=== PATIENT | male | born 1930 | race Caucasian/White ===

== ENCOUNTER → 2017-10-09 | Outpatient (CLI) | payer OTHER, MEDICARE | LOC: BHLMT 09:00 | PROVIDERS: ATTEND Internal Medicine Cardiovascular Disease | DX: I48.91 Unspecified atrial fibrillation (principal); I48.92 Unspecified atrial flutter; I25.10 Atherosclerotic heart disease of native coronary artery without angina pectoris; Z95.5 Presence of coronary angioplasty implant and graft | CPT/HCPCS: 78452; 93017; A9500; J2785 ==

== ENCOUNTER → 2017-11-22 | Outpatient (CLI) | payer OTHER, MEDICARE | LOC: BHLMT 10:00 | PROVIDERS: ATTEND Internal Medicine Cardiovascular Disease | DX: I48.91 Unspecified atrial fibrillation (principal); I48.92 Unspecified atrial flutter; E78.5 Hyperlipidemia, unspecified; I25.10 Atherosclerotic heart disease of native coronary artery without angina pectoris; Z95.5 Presence of coronary angioplasty implant and graft; Z95.0 Presence of cardiac pacemaker | CPT/HCPCS: 93005-PO ==

== ENCOUNTER 2017-11-27 11:32 | Day surgery (SDC) | payer OTHER, MEDICARE ==
[2017-11-27] MEDS ORDERED: MIDAZOLAM 2 MG/2 ML VIAL IVP ONE (11:37)
[2017-11-27] MEDS ORDERED: fentaNYL 100 MCG/2 ML INJ IVP ONE (11:37)
[2017-11-27] MEDS ORDERED: NS 500 ML IV ONE (11:37)
[2017-11-27] MEDS ORDERED: ATROPINE SULFATE 1 MG/10 ML SYR IVP ONE (11:37)
--- NOTE | 2017-11-27 11:56 | CPEKG ---
Heart Rate: 78 RR Interval: 769 QRSD Interval: 88 QT Interval: 404 QTC Interval: 461 QRS [place]: 56 T Wave [place]: 196 EKG Severity - ABNORMAL ECG - EKG Impression: ATRIAL FIBRILLATION EKG Impression: NONSPECIFIC T ABNORMALITIES, LATERAL LEADS Electronically Signed By: Riley Toro 27-Nov-2017 15:54:38
[2017-11-27 12:22] LABS: INR 2.86 (0.83-1.16); PROTIME(PATIENT) 29.9 SEC (12.0-15.0)
[2017-11-27] MEDS ORDERED: PROPOFOL 200 MG/20 ML VIAL ONE (13:27)
[2017-11-27] MEDS ORDERED: PROMETHAZINE HCL 25 MG/ML INJ IVP PRN (13:31)
[2017-11-27] MEDS ORDERED: NALOXONE HCL 0.4 MG/ML INJ IVP PRN (13:31)
[2017-11-27] MEDS ORDERED: fentaNYL 100 MCG/2 ML INJ IVP PRN (13:31)
[2017-11-27] MEDS ORDERED: ONDANSETRON 4 MG/2 ML VIAL IVP PRN (13:31)
--- NOTE | 2017-11-27 13:31 | PDANEPAE ---
ANE Past Medical History - Cardiovascular History Hx Hypertension: Yes Hx Arrhythmias: Yes Hx Coronary Artery / Peripheral Vascular Disease: Yes Hx Palpitations: Yes - Pulmonary History Hx Oxygen in Use at Home: No Hx Sleep Apnea: No - Endocrine History Hx Diabetes: No - Chronic Pain History Chronic Pain: No ANE Review of Systems Review of Systems: - Exercise capacity METS (RN): 4 METS ANE Patient History - Allergies Allergies/Adverse Reactions: No Known Allergies Allergy (Unverified 03/20/14 12:59) - Home Medications Home Medications: Aspirin [Aspirin 81mg (*)] 81 mg PO DAILY 03/20/14 [Last Taken 05/17/16] Hydrochlorothiazide [HCTZ (*)] 25 mg PO DAILY 03/20/14 [Last Taken 05/16/16] Lisinopril [Zestril 20 mg (*)] 20 mg PO DAILY 03/20/14 [Last Taken 05/17/16] Cholecalciferol Vit D3 [Vitamin D3 (*)] 1,000 units PO DAILY 05/17/16 [Last Taken Unknown] Herbals/Supplements -Info Only 1 ea PO DAILY 05/17/16 [Last Taken Unknown] Nitroglycerin [Nitrostat 0.4 mg (*)] 0.4 mg SL Q5M PRN 05/17/16 [Last Taken Unknown] Rivaroxaban [Xarelto 15mg (*)] 15 mg PO DAILY 05/17/16 [Last Taken 05/14/16] Simvastatin [Zocor] 20 mg PO HS 05/17/16 [Last Taken 05/16/16] Vit A/Vit C/Vit E/Zinc/Copper [Preservision Areds Tablet] 1 each PO DAILY [Last Taken Unknown] - Anes Hx Anes Hx: no prior problems - Smoking Hx Smoking Status: Never smoked ANE Labs/Vital Signs - Labs Result Diagrams: 11/27/17 12:00 - Vital Signs Height: 170 cm Weight: 77.1 kg ANE Physical Exam - Airway Neck exam: FROM Mallampati Score: Class 2 Mouth exam: normal dental/mouth exam - Pulmonary Pulmonary: no respiratory distress, no rales or rhonchi, clear to auscultation - Cardiovascular Cardiovascular: irregularly irregular - ASA Status ASA Status: III ANE Anesthesia Plan Anesthesia Plan: GA with mask
--- NOTE | 2017-11-27 13:51 | PDHPUP ---
History & Physical Update H&P update statement: This history and physical update is based on an assessment of the patient which was completed after admission or registration (within 24 hours), but prior to the surgery/procedure. H&P update: H&P reviewed & patient examined, no change in patient's condition since H&P completed
--- NOTE | 2017-11-27 14:06 | CPEKG ---
Heart Rate: 55 RR Interval: 1091 P-R Interval: 304 QRSD Interval: 94 QT Interval: 468 QTC Interval: 448 P [place]: 17 QRS [place]: 38 T Wave [place]: 101 EKG Severity - ABNORMAL ECG - EKG Impression: SINUS RHYTHM EKG Impression: FIRST DEGREE AV BLOCK EKG Impression: NONSPECIFIC T ABNORMALITIES, LATERAL LEADS Electronically Signed By: Riley Toro 27-Nov-2017 15:54:32
--- NOTE | 2017-11-27 14:09 | POSTANESTH ---
Post Anesthetic Evaluation Cardiovascular Status: Normal, Stable Respiratory Status: Normal, Stable, Similar to Pre-op Cond. Level of Consciousness/Mental Status: Can Participate in Eval, Alert and Oriented Pain Control: Adequate, Prn Tx Ordered Nausea/Vomiting Control: Adequate, Prn Tx Ordered Complications Possibly Related to Anesthesia: None Noted
--- NOTE | 2017-11-27 14:14 | PDTEE1 ---
HAILEE Cardioversion Procedure Procedure: electrical cardioversion Indications: atrial fibrillation Consent: signed and in chart Anticoagulation: xarelto Procedural Details: Pads were placed in anterior-posterior position. HAILEE probe was advanced and standard images obtained. There is no evidence of left atrial or left atrial appendage thrombus. Synchronized cardioversion attempt #1: 200J Results: normal sinus rhythm Conclusions: successful cardioversion Conclusion Comment: HAILEE not performed.
[2017-11-27 15:42] VITALS: BP 115/81; RESP 17; O2SAT 96
== END 2017-11-27 15:00 | disposition home or self-care (01) ==
LOC: FCATH 11:32
PROVIDERS: ATTEND Internal Medicine Cardiovascular Disease
PROC: 5A2204Z Restoration of Cardiac Rhythm, Single (ICD-10-PCS; principal; 2017-11-27)
DX: I48.91 Unspecified atrial fibrillation (principal); I48.92 Unspecified atrial flutter; D50.9 Iron deficiency anemia, unspecified; I49.5 Sick sinus syndrome; I25.10 Atherosclerotic heart disease of native coronary artery without angina pectoris; I10 Essential (primary) hypertension; E78.5 Hyperlipidemia, unspecified; Z95.0 Presence of cardiac pacemaker; Z79.01 Long term (current) use of anticoagulants; Z86.010 Personal history of colon polyps; Z82.49 Family history of ischemic heart disease and other diseases of the circulatory system; Z95.5 Presence of coronary angioplasty implant and graft
CPT/HCPCS: J0461; J2704

== ENCOUNTER → 2017-12-04 | Outpatient (CLI) | payer OTHER, MEDICARE | LOC: BHFA 09:00 | PROVIDERS: ATTEND Internal Medicine Cardiovascular Disease | DX: I48.0 Paroxysmal atrial fibrillation (principal); I48.92 Unspecified atrial flutter; I10 Essential (primary) hypertension; I25.10 Atherosclerotic heart disease of native coronary artery without angina pectoris; E78.5 Hyperlipidemia, unspecified; Z95.5 Presence of coronary angioplasty implant and graft; N18.9 Chronic kidney disease, unspecified | CPT/HCPCS: 93005-PO ==

== ENCOUNTER → 2017-12-08 | Outpatient (CLI) | payer OTHER, MEDICARE | LOC: FIMAGING 08:46 | PROVIDERS: ATTEND Internal Medicine Cardiovascular Disease | DX: J84.10 Pulmonary fibrosis, unspecified (principal); Z79.899 Other long term (current) drug therapy ==

== ENCOUNTER → 2018-03-04 | Outpatient (CLI) | payer OTHER, MEDICARE | LOC: BHLMT 10:30 | PROVIDERS: ATTEND Internal Medicine Cardiovascular Disease | DX: I48.0 Paroxysmal atrial fibrillation (principal); E78.5 Hyperlipidemia, unspecified; I10 Essential (primary) hypertension; I25.10 Atherosclerotic heart disease of native coronary artery without angina pectoris; Z95.5 Presence of coronary angioplasty implant and graft; E87.1 Hypo-osmolality and hyponatremia; R42 Dizziness and giddiness | CPT/HCPCS: 93005-PO ==

== ENCOUNTER 2018-03-19 09:17 | Inpatient (IN) | payer OTHER, MEDICARE ==
--- NOTE | 2018-03-19 09:47 | CPEKG ---
Heart Rate: 64 RR Interval: 938 P-R Interval: 272 QRSD Interval: 88 QT Interval: 468 QTC Interval: 483 P [place]: 43 QRS [place]: 63 T Wave [place]: 264 EKG Severity - ABNORMAL ECG - EKG Impression: SINUS RHYTHM EKG Impression: FIRST DEGREE AV BLOCK EKG Impression: BORDERLINE PROLONGED QT INTERVAL Electronically Signed By: Estrella Nicholson 19-Mar-2018 15:19:38
[2018-03-19 09:58] LABS: PLATELET COUNT 217 10^3/uL (150-400)
--- NOTE | 2018-03-19 09:58 | EDPHY ---
H & P Smoking Status: Never smoked Time Seen by Provider: 03/19/18 09:38 HPI/ROS: CHIEF COMPLAINT: Syncope, hemoptysis HISTORY OF PRESENT ILLNESS: 87-year-old male presents to the emergency department with syncope. Patient states that"my legs just kind of gave out on me". Patient states that he has had weakness in his legs like he does not have the"stamina"for several weeks. He denies pain in his chest or difficulty breathing. Denies abdominal pain. Denies a headache. He does complain of some neck pain which she states is chronic. He denies paresthesias in his upper or lower extremities. The patient also reports episodes of hemoptysis over last several weeks and has become worse especially over last 2 weeks. He does not feel short of breath. He has no pain in his chest. He noted some swelling in his lower legs over the weekend. He denies any pain in his chest or difficulty breathing prior to his fall. Denies injury to the upper or lower extremities. REVIEW OF SYSTEMS: Constitutional: No fever, no chills. Eyes: No double or blurry vision. ENT: No sore throat. Respiratory: Hemoptysis as above. No shortness of breath. Cardiac: No chest pain. Gastrointestinal: No abdominal pain, vomiting or diarrhea. Genitourinary: No dysuria. Musculoskeletal: Neck pain. No back pain. Skin: No rashes. Neurological: No headache. (Megan Tracy) Past Medical/Surgical History: Pacemaker saw pawn broker 2 weeks ago and his pacemaker was interrogated and he was told that it was fine. (Megan Tracy) Social History: and lives independently with his in [place] (Megan Tracy) Physical Exam: General Appearance: Alert, no distress. Mentating normally and answering questions appropriately. His is at bedside. Patient was 76% on room air and was placed on nasal cannula oxygen. Eyes: Pupils equal and round. Extraocular motions are all intact. ENT: Mouth: Mucous membranes moist. Respiratory: No wheezing, rhonchi, or rales, lungs are clear to auscultation. Cardiovascular: Regular rate and rhythm. Gastrointestinal: Abdomen is soft and nontender, no masses, no rebound or guarding, bowel sounds normal. Neurological: Alert and oriented x 3, cranial nerves II through XII grossly intact Skin: Warm and dry, no rashes. Musculoskeletal: Nontender to palpate along the cervical, thoracic or lumbar spine. Neck is supple, however pain with range of motion of his neck. Extremities: 2+ pedal edema noted to the lower extremities bilaterally. Full range of motion of his upper and lower extremities. Psychiatric: Patient is oriented X 3, there is no agitation. (Megan Tracy) Constitutional: Initial Vital Signs Temperature (C) 36.5 C 03/19/18 09:21 Heart Rate 85 03/19/18 09:21 Respiratory Rate 20 03/19/18 09:21 Blood Pressure 135/70 H 03/19/18 09:21 O2 Sat (%) 76 L 03/19/18 09:21 O2 Delivery Mode Nasal Cannula O2 (L/minute) 6 Allergies/Adverse Reactions: No Known Allergies Allergy (Unverified 03/20/14 12:59) Home Medications: Medication Instructions Recorded Aspirin [Aspirin 81mg (*)] 81 mg PO DAILY 03/20/14 Cholecalciferol Vit D3 [Vitamin D3 1,000 units PO DAILY 05/17/16 (*)] Nitroglycerin [Nitrostat 0.4 mg 0.4 mg SL Q5M PRN 05/17/16 (*)] Rivaroxaban [Xarelto 15mg (*)] 15 mg PO DAILY 05/17/16 Simvastatin [Zocor] 20 mg PO DAILY18 05/17/16 Vit A/Vit C/Vit E/Zinc/Copper 1 each PO BID 05/17/16 [Preservision Areds Tablet] Amiodarone HCl [Pacerone (*)] 200 mg PO DAILY18 03/19/18 Ferrous Sulfate [Ferrous Sulf 325 325 mg PO HS 03/19/18 MG (*)] Lisinopril [Zestril 10 mg (*)] 10 mg PO DAILY 03/19/18 Multivitamins [Multivitamin (*)] 1 each PO BID@03/19/18 [place]-3 Fatty Acids [Fish Oil 1000 1,000 mg PO DAILY 03/19/18 mg (*)] Vitamin B Complex [Vitamin B 1 each PO DAILY 03/19/18 Complex (OTC)] Medical Decision Making ED Course/Re-evaluation: 87-year-old male presents to the emergency department after having syncopal episode at home. He reports several week history of hemoptysis that is acutely worse over last 2 weeks. Chest x-ray reveals evidence of pulmonary fibrosis which is chronic for the patient however he has new opacifications. Patient has no pain in his chest. He has no pleuritic chest pain in particular. He does not feel short of breath. Elevated troponin of 0.128. He also has elevated BNP of over 6500. EKG reveals normal sinus rhythm with evidence of first-degree AV block which is chronic compared to previous EKG November 2017. The case was discussed with Dr. Estrella Nicholson, secondary supervising physician, who did not directly evaluate the patient but agrees with treatment and plan. I did speak with Patrica, nurse practitioner with hospitalist and the patient will be admitted to Dr. Maldonado. I inquired about obtaining CT scan of his chest as well as starting aspirin and I will defer to hospitalist for this. The patient is chronically anemic. Hemoglobin is 10.8 and hematocrit is 34%. Creatinine is 1.5. CT imaging of the head and cervical spine was obtained given his history of fall and complaints of neck pain. He has degenerative changes noted in his cervical spine without evidence of acute fracture. He has no intracranial bleeding or skull fractures. Patient will be admitted to the hospitalist, Dr. Jacob Maldonado. (Megan Tracy) Differential Diagnosis: Syncope including but not limited to vasovagal syncope, arrhythmia, dehydration , and blood loss. Head injury including but not limited to concussion, skull fracture, intraparenchymal contusion, subarachnoid, subdural and epidural hematoma. Hemoptysis including but not limited to pulmonary fibrosis, tuberculosis, carcinoma, pneumonitis, pulmonary infection, pulmonary embolism (Megan Tracy ) Other Provider: The patient was evaluated and managed by the Physician Lifeguard. I discussed the patient's presentation and course with the physician early childhood assistant and agree with the evaluation. My co-signature indicates that I have reviewed this chart and I agree with the findings and plan of care as documented. I am the secondary supervising physician. (Estrella Nicholson) - Data Points Laboratory Results: Laboratory Results 03/19/18 09:40 03/19/18 09:40 Medications Given: Acetaminophen (Tylenol) 650 mg PO Q4HRS PRN PRN Reason: Pain, Mild/Fever, Can Take PO Stop: 09/15/18 13:54 Last Admin: 03/19/18 23:57 Dose: 650 mg Amiodarone HCl (Amiodarone Hcl) 200 mg PO DAILY18 CHRISTINA Stop: 09/15/18 17:59 Last Admin: 03/20/18 17:48 Dose: 200 mg Aspirin (Aspirin) 81 mg PO DAILY CHRISTINA Stop: 09/16/18 08:59 Last Admin: 03/22/18 08:52 Dose: 81 mg Atorvastatin Calcium (Lipitor) 10 mg PO DAILY18 CHRISTINA Stop: 09/15/18 17:59 Last Admin: 03/22/18 18:42 Dose: 10 mg Cholecalciferol (Vitamin D) 1,000 units PO DAILY CHRISTINA Stop: 09/16/18 08:59 Last Admin: 03/23/18 07:53 Dose: Not Given Ferrous Sulfate (Ferrous Sulfate) 325 mg PO HS CHRISTINA Stop: 09/15/18 20:59 Last Admin: 03/22/18 20:39 Dose: 325 mg Sodium Chloride (Ns) 500 mls @ 25 mls/hr IV ONCALL ONE Stop: 03/24/18 06:52 Last Admin: 03/23/18 13:17 Dose: Not Given Lisinopril (Zestril) 10 mg PO DAILY CHRISTINA Stop: 09/16/18 08:59 Last Admin: 03/23/18 08:19 Dose: 10 mg Multivitamins (Tab-A-Maddie) 1 each PO BID@09,12 CHRISTINA Stop: 09/16/18 08:59 Last Admin: 03/23/18 12:03 Dose: Not Given Multivitamins/Minerals (Preservision Areds2 Formula) 1 each PO BID CHRISTINA Stop: 09/16/18 08:59 Last Admin: 03/23/18 07:54 Dose: Not Given [id number]-3-Gzdr Ethyl Esters (Fish Oil) 1,000 mg PO DAILY CHRISTINA Stop: 09/16/18 08:59 Last Admin: 03/22/18 19:29 Dose: Not Given Rivaroxaban (Xarelto) 15 mg PO DAILY CHRISTINA Stop: 09/16/18 08:59 Last Admin: 03/21/18 08:38 Dose: 15 mg Vitamin B Complex (Vitamin B Complex) 1 ea PO DAILY CHRISTINA Stop: 09/16/18 08:59 Last Admin: 03/23/18 07:54 Dose: Not Given Discontinued Medications Furosemide (Lasix Injection) 40 mg IVP ONCE ONE Stop: 03/19/18 17:46 Last Admin: 03/19/18 17:45 Dose: 40 mg Furosemide (Lasix) 20 mg PO ONCE ONE Stop: 03/20/18 11:36 Last Admin: 03/20/18 12:11 Dose: 20 mg Furosemide (Lasix) 20 mg PO ONCE ONE Stop: 03/21/18 10:34 Last Admin: 03/21/18 11:48 Dose: 20 mg Multivitamins/Minerals (Preservision Areds2 Formula) 1 each PO BID@0900,1200 [facility] Stop: 09/16/18 08:59 Last Admin: 03/20/18 13:27 Dose: Not Given Vitamin B Complex (Vitamin B Complex) 1 ea PO BID@09,12 [facility] Stop: 09/16/18 08:59 Last Admin: 03/20/18 13:27 Dose: Not Given Departure - Departure Disposition: [facility] Inpatient Acute Clinical Impression: Hemoptysis, Elevated troponin Syncope Qualifiers: Syncope type: unspecified Qualified Code(s): R55 - Syncope and collapse Condition: Good
[2018-03-19 10:36] LABS: INR 3.94 (0.83-1.16); PROTIME(PATIENT) 38.2 SEC (12.0-15.0)
[2018-03-19] MEDS ORDERED: NITROGLYCERIN 0.4 MG BTL SL PRN (13:15)
[2018-03-19] MEDS ORDERED: FUROSEMIDE 40 MG/4 ML VIAL IVP ONE ×2 (13:49→17:45)
[2018-03-19] MEDS ORDERED: ONDANSETRON 4 MG/2 ML VIAL IVP PRN (13:55)
[2018-03-19] MEDS ORDERED: ONDANSETRON DISINTEGRATING 4 MG TAB PO PRN (13:55)
--- NOTE | 2018-03-19 14:10 | PDGENHP ---
History and Physical History and Physical: CC: Syncope HISTORY: This patient went to bed feeling reasonably well last night. He woke up this morning and did not notice any acute issues since yesterday, but after being up and about on his feet for 4 min his leg suddenly became very weak and buckled under him. He fell to the floor and had trouble for a few minutes getting back up due to perceived weakness in both legs. Eventually however he was able to get back up and has been able to walk around since. He does not have any pain to suggest injury including no headache, acute neurologic symptoms , spine related symptoms, peripheral nerve symptoms, or skeletal pain. At this point he feels back to his usual self however his usual symptoms have changed recently. He states that around 3 weeks ago he started having gradually worsening dyspnea which continues to slowly worsen. He also has had for a couple weeks some mild hemoptysis and also in the last 3 days has started to have some swelling in his legs. He denies any angina, pleuritic pain, or other chest pain syndrome. There is no pain in the legs. There is no fever and no upper respiratory type symptoms. Notably the patient had been taking hydrochlorothiazide for chronic heart disease and blood pressure, but this was discontinued around 3 weeks ago. Looking back in his chart it is possible that this was stopped because of kidney issues but he is unclear why it was stopped. There was Dr. Toro who had stopped the medicine. ROS: He has his usual symptoms of arthritis, back pain, and he is chronically dyspneic at home with known pulmonary fibrosis. 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 Retired No current tobacco use, no alcohol use Generally speaking does not have balance or fall issues MEDICATIONS: S mention above he was taken off hydrochlorothiazide around 3 weeks ago. He does take rivaroxaban, amiodarone, lisinopril, Lipitor and aspirin among other medicines. I have reviewed the official reconciled list and ordered appropriate medicines at this time PHYSICAL EXAMINATION: Vital Signs: Some hypertension is present here today, otherwise he is in a stable sinus rhythm in the 70s range, respirations and temperature is are normal Finance Specialist: Sinus rhythm Examination: General: alert, oriented, good mentation, relaxed Skin: warm, dry, good color, no rash HEENT: normal Neck: Jugular venous distention is present, no bruits or goiter Resps: relaxed Lungs: Some diffuse rales worse at bases Heart: regular, no murmur Abdomen: soft, nondistended, nontender, +BS, no mass Upper Extremities: normal Lower Extremities: Pitting edema is present in both legs but it is not quite symmetric No Bleeding or bruising Neurologic: normal speech/language, normal digital sales planner, no focal weakness IV site: looks normal LABORATORY DATA: Troponin is elevated at 0.128 Creatinine is at 1.5 which is down from the most recent of 1.6 last week but was up at 3 at the end of January Electrolytes are in good range BNP 6500 White blood cell count elevated 13,000 with predominance in neutrophils, of he is at his baseline hemoglobin 10.8 normocytic good platelets RADIOLOGY STUDIES: Chest x-rays done in the ER and I reviewed the images from this x-ray as well as his last 2 x-rays here. He does have chronic interstitial fibrosis which appears unchanged, but there does appear to me to be some pulmonary edema in addition to this at present. 12 LEAD EKG: Done in the ER, I reviewed the tracing, there is sinus rhythm with some nonspecific ST and T changes, no overt ischemia, QRSs are narrow but he has a poor R-wave progression ASSESSMENT: # near syncope with collapse at home today # acute congestive heart failure # recently taken off of hydrochlorothiazide, possibly due to renal insufficiency he had been having # mild elevation of cardiac troponin at this time, question if due to skeletal injury, heart failure, or possibly coronary related ischemia # hemoptysis probably related to acute heart failure in the setting of chronic anticoagulation # chronic kidney disease, improved over the past month after discontinued hydrochlorothiazide # status post successful cardioversion from AFib to sinus rhythm in November this year, remains in sinus # chronic anticoagulation for his AFib disease # chronic hypoxemic respiratory failure with fibrosis, emphysema, and bronchiectasis # chronic stable anemia, currently normocytic, on chronic iron replacement for history of iron deficiency PLANS: * Inpatient admission to PCU * Continuous cardiac monitoring * Repeat troponin * Check CPK to look for any skeletal muscle injury as cause of high troponin * Begin diuresis at this time with Lasix * Follow renal function very closely with diuresis, follow electrolytes closely * Repeat chest x-ray after diuresis overnight * Will review with Dr. Toro or his cardiology partners for further plans * Will need to sort out when he last had echocardiogram and determine if that should be done again at this time * Continue his DVT prophylaxis and put stroke prophylaxis with his rivaroxaban * Fall risk precautions * PT and OT assessment I have reviewed the patient's case in detail with Dr. Brianna Boo I have reviewed the patient's past medical records as part of this assessment, including outpatient labs in clinic records, last hospitalization records from his cardioversion
--- NOTE | 2018-03-19 15:12 | ASMTCMCOM ---
CM Note CM Note Notes: 03/19/2018 Case Management Note Reviewed chart. Pt admitted for suncope, elevated troponin and hemoptysis. Pt is and has family support. Awaiting PT and OT evals and recommendations. Case Management d/c poc: to be determined. Case Management to follow. Date Signed: 03/19/2018 03:12 PM Electronically Signed By:Vira Miller RN
--- NOTE | 2018-03-19 16:22 | PDMN ---
Medical Necessity Medical necessity: Pt meets IP criteria per MD; est los >2 mn for eval/tx of near syncope with collapse at home, acute congestive heart failure, hemoptysis & elevated troponin r/t possible skeletal injury, heart failure or coronary related ischemia; admit for further workup/cardiac monitoring, Cardiology consult, med management & therapies; comorbid advanced age, AFIB on AC, CAD, chronic hypoxemic respiratory failure, pulmonary fibrosis, COPD, bronchiectasis & HTN; per H&P & order 03/19/18
[2018-03-19] MEDS: ATORVASTATIN CALCIUM 10 MG TAB PO SCH (17:45)
[2018-03-19] MEDS: AMIODARONE HCL 200 MG TAB PO SCH (17:46)
[2018-03-19] MEDS ORDERED: NON-FORMULARY NEW DRUG (Simvastatin [Zocor] 20 MG) PO SCH (18:00)
[2018-03-19] MEDS: FERROUS SULFATE 325 MG TAB PO SCH (20:27)
[2018-03-19] MEDS: ACETAMINOPHEN 325 MG TAB PO PRN (23:57)
[2018-03-20 05:02] LABS: PLATELET COUNT 161 10^3/uL (150-400)
[2018-03-20] MEDS ORDERED: NON-FORMULARY NEW DRUG (Vit A/Vit C/Vit E/Zinc/Copper [Preservision Areds Tablet] 1 EACH) PO SCH (09:00)
[2018-03-20] MEDS: OMEGA-3 FATTY ACIDS 1,000 MG CAP PO SCH (10:17)
[2018-03-20] MEDS: LISINOPRIL 10 MG TAB PO SCH (10:18)
[2018-03-20] MEDS: ASPIRIN 81 MG CHEWABLE TAB PO SCH (10:18)
[2018-03-20] MEDS: RIVAROXABAN 15 MG TAB PO SCH (10:18)
[2018-03-20] MEDS: VITAMIN B COMPLEX 1 EA CAP/TAB PO SCH ×2 (10:18→13:27)
[2018-03-20] MEDS: MULTIVITAMINS 1 EACH TAB PO SCH ×2 (10:18→12:13)
[2018-03-20] MEDS: CHOLECALCIFEROL VIT D3 1,000 UNITS TAB PO SCH (10:18)
[2018-03-20] MEDS: PRESERVISION AREDS2 FORMULA EYE VIT 1 EACH PO SCH ×3 (10:18→21:24)
[2018-03-20] MEDS ORDERED: FUROSEMIDE 20 MG TAB PO ONE (11:35)
--- NOTE | 2018-03-20 13:28 | HOSPPROG ---
Hospitalist Progress Note Assessment/Plan: DIAGNOSES: # near syncope with collapse at home # acute diastolic congestive heart failure * likely due to being taken off diuretic (HCTZ) several wks ago # mild elevation of cardiac troponin at this time, question if due to skeletal injury, heart failure, or possibly coronary related ischemia * felt most likely due to CHF and lungs issues # hemoptysis persists * on further review today he admits this has been going on for 6 weeks; I reviewed CXR w Dr Branham and looking back a bit further it appears his interstitial dz has progressed radiologically over past 3 months * Dr Branham will see to assess significance and cause of these issues # chronic kidney disease, improved over the past month after discontinued hydrochlorothiazide # status post successful cardioversion from AFib to sinus rhythm in November this year, remains in sinus # chronic anticoagulation for his AFib disease # chronic hypoxemic respiratory failure with fibrosis, emphysema, and bronchiectasis # chronic anemia, currently normocytic, on chronic iron replacement for history of iron deficiency * Hemoglobin is decreased today, will need to recheck make sure that is not continue to drop but is still very near his historic baseline * ? if hemoptysis could be contributing to this PLANS: -continue diuresis -I have reviewed w Dr Tran. The patient has CHF, and will need ongoing diuresis. He will need careful f/u of his renal fxn and BPs. At this time little to suggest an acute coronary syndrome, no plans to do any testing to assess coronaries unless more significant clinical indication -Due to progression of CXR findings of intestitial disease and 6 weeks of hemoptysis, I reviewed case w Dr Branham who will see from pulmonology -recheck hemoglobin to make sure that it does not continue to drop -continue his usual anticoagulation at this time -attempt increase in activity today to see if he is having any syncopal type symptoms or orthostasis SUBJECTIVE: Feel somewhat better but still more dyspneic than usual Noted good urine output after diuresis No chest pain OBJECTIVE Vitals reviewed: Very mild hypertension otherwise normal resting vitals; no finding orthostatic hypotension today, no fever Plating Technician, my review: Sinus Exam: alert oriented skin warm dry color ok resps not labored lungs clear BSs heart regular abd soft nondistended nontender, bowel sounds present limbs warm, no edema iv site ok Laboratory data: Hemoglobin decreased to 8.9 today which is still very near his baseline, normocytic Renal function stable today with creatinine 1.5 Troponins peaked overnight at 0.2 then decrease to 0.18 Objective: Vital Signs Temp Pulse Resp BP Pulse Ox 36.6 C 65 16 145/64 H 94 03/20/18 11:30 03/20/18 11:30 03/20/18 11:30 03/20/18 11:30 03/20/18 11:30 Laboratory Results 03/20/18 03:19 03/20/18 03:19 03/19/18 03/20/18 03/21/18 06:59 06:59 06:59 Intake Total 650 Output Total 1190 Balance -540 PT 38.2 SEC (12.0-15.0) H 03/19/18 09:40 INR 3.94 (0.83-1.16) H 03/19/18 09:40 - Time Spent With Patient Time Spent with Patient: greater than 35 minutes Time Spent with Patient: Greater than 35 minutes spent on this patients care, greater than 50% of time spent counseling, educating, and coordinating care regarding the above mentioned plan. ICD10 Worksheet Patient Problems: Problems Problem Status Onset Elevated troponin Acute Hemoptysis Acute Syncope Acute chronic disease white hospital/transitional care Acute
--- NOTE | 2018-03-20 16:22 | ASMTCMCOM ---
CM Note CM Note Notes: 03/20/2018 Case Management Note Discussed pt during rounds this morning. Met w/pt this afternoon. Pt lives with his Elva Tapia [phone] (h) [phone] (c). Pt has a inclusion specialist every 2 weeks and has been able to do his own lawn care in the past. However he feels he may need to hire someone to assist him this summer. Pt was living independently prior to admission and is still driving. Transitional Care is following pt at d/c. PT is recommending independent. Case Management d/c poc: anticipating independent with family support and follow up as directed. Case Management to follow. Date Signed: 03/20/2018 04:22 PM Electronically Signed By:Vira Miller RN
--- NOTE | 2018-03-20 16:47 | GCON ---
[f rep st] CONSULTATION CARDIOLOGY CONSULTATION DATE OF CONSULTATION: 03/20/2018 REFERRING PHYSICIAN: Negro Maldonado MD REASON FOR CONSULTATION: Acute on chronic diastolic CHF. HISTORY OF PRESENT ILLNESS: The patient is an 87-year-old male who is usually followed for his cardi ac issues by Dr. Denton Toro. He presented to the emergency room yesterday morning for an episode of w eakness that culminated in a collapse to the floor. He says that his legs buckled underneath him. Tre weir is not certain, but thinks he may have had a transient loss of consciousness. He did not injure hi mself. He has not had any recent issues with chest pain; however, he has had worsening shortness of breath and lower extremity edema since his hydrochlorothiazide was stopped at a visit with Dr. Toro on March 04. Issues at that time were borderline to low blood pressure and an increase in his creati nine to 3.1 (baseline creatinine 1.7-2.1). He also reports hemoptysis over the past 2 weeks. He has not had any fever or discolored sputum. PAST CARDIAC HISTORY/TESTING: He has a history of CAD with a PCI of the LAD performed over 15 years ago. He has paroxysmal atrial fibrillation. He has been maintaining sinus rhythm on amiodarone foll owing a cardioversion earlier this year. He has hypertension and hyperlipidemia. 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 His last echocardi ogram was in January of 2016. That study demonstrated normal left ventricular systolic function. Hicks tolic function could not be accurately assessed. He had mild biatrial enlargement. There was aortic valve sclerosis without stenosis. Moderate mitral regurgitation and mild tricuspid regurgitation we re noted with an estimated PA systolic pressure of 31 mmHg. His last ischemic assessment consists of a Lexiscan nuclear stress test performed in September of last year. There was no chest pain or ECG c hanges with pharmacologic stress. Nuclear perfusion images were normal without evidence of ischemia or infarction. PAST MEDICAL HISTORY: In addition to his cardiac issues, he has a history of COPD with pulmonary fib rosis and bronchiectasis. He has a chronic iron deficiency anemia. FAMILY HISTORY: Noncontributory. SOCIAL HISTORY: He is . He does not smoke or consume alcohol. REVIEW OF SYSTEMS: Positive for weakness, possible syncope, lower extremity edema, and hemoptysis. Otherwise, a 10-point review was negative. PHYSICAL EXAMINATION: VITAL SIGNS: Heart rate in the 60s with sinus rhythm on the monitor. Blood p ressure 145/64, O2 saturation 94% on 3.5 L/minute nasal cannula oxygen. GENERAL: This is a well-dev eloped, well-nourished male in no acute distress. He is alert and oriented x3. HEENT/NECK: No scle ral icterus. Mucous membranes moist. Carotid pulses 2+ without bruits. There is no JVD. CHEST: L alisa dixon clear to auscultation without wheezes or rales. CARDIAC: Regular rate and rhythm with a normal S1 and S2. No murmur or gallop. ABDOMEN: Soft, nontender, nondistended, with normal bowel s ounds. EXTREMITIES: 2+ pulses with 1+ lower extremity edema. LABORATORY/IMAGING: Sodium 140, potassium 3.7, BUN and creatinine 21 and 1.5. His troponin has come back at 0.128, 0.20, and 0.181. His BNP is significantly elevated at 6510. His CBC demonstrates a white blood cell count of 7.4 with hemoglobin and hematocrit of 8.7 and 27.6, platelet count is 161,0 00. ECG demonstrates normal sinus rhythm with a first-degree AV block. No Q-waves or conduction system d isturbances. Diffuse, nonspecific low voltage T-waves. IMPRESSION: This is an 87-year-old male who has a history of coronary artery disease with prior perc utaneous coronary intervention, paroxysmal atrial fibrillation, hypertension, and hyperlipidemia. Al though not specifically listed for him as a diagnosis, his clinical picture suggests chronic diastoli c congestive heart failure with an acute exacerbation following recent cessation of his diuretic ther apy, secondary to issues of low blood pressure and worsening renal function. He appears mildly fluid overloaded at this point. He received an intravenous dose of furosemide yesterday and then oral dos e today. He says that this has already produced a substantial improvement in his lower extremity roula ma. He is maintaining sinus rhythm. He continues on systemic anticoagulation. He also reports rece nt issues with hemoptysis. RECOMMENDATIONS: Would continue with daily low-dose oral furosemide. At the time of his discharge, we may consider continuing, but on a limited dosing schedule, such as Sunday/Sunday/Sunday. He wi ll need close outpatient monitoring of his renal function. He will be undergoing evaluation for his hemoptysis. For the short term, his Xarelto could be held. /[id number]/MODL
[2018-03-20] MEDS: ATORVASTATIN CALCIUM 10 MG TAB PO SCH (17:48)
[2018-03-20] MEDS: AMIODARONE HCL 200 MG TAB PO SCH (17:48)
[2018-03-20] MEDS: FERROUS SULFATE 325 MG TAB PO SCH (21:24)
--- NOTE | 2018-03-21 08:10 | HOSPPROG ---
Hospitalist Progress Note Assessment/Plan: DIAGNOSES: # near syncope with collapse at home * Suspect this was due to respiratory compromise # acute on chronic chronic hypoxemic respiratory failure with CHF, pulmonary fibrosis, emphysema, and bronchiectasis # acute diastolic congestive heart failure * likely due to being taken off diuretic (HCTZ) several wks ago * Seems to be responding well to Lasix here at this time with decreased leg edema (I&O as recorded by nurses did not account for a very large volume of urine that he had after IV Lasix in the ER appears to have been more than 1 L) # mild elevation of cardiac troponin at this time, question if due to skeletal injury, heart failure, or possibly coronary related ischemia * felt most likely due to CHF and lungs issues # concern for acute progression of known chronic fibrotic lung disease * Worsening dyspnea, 6 weeks of hemoptysis, and worsening of interstitial disease on chest x-ray * CT scan pending * Dr Branham will see to assess significance and cause of these issues # chronic kidney disease, improved over the past month after discontinued hydrochlorothiazide * Will need to be followed closely as we are now diuresing with Lasix # status post successful cardioversion from AFib to sinus rhythm in November this year, remains in sinus * chronic anticoagulation, rate well controlled # chronic anemia, currently normocytic, on chronic iron replacement for history of iron deficiency * Hemoglobin is * ? if hemoptysis could be contributing to this PLANS: * continue diuresis with Lasix at this time, likely 3 days per week upon discharge * I have reviewed w Dr Tran. The patient has CHF, and will need ongoing diuresis. He will need careful f/u of his renal fxn and BPs. At this time little to suggest an acute coronary syndrome, no plans to do any testing to assess coronaries unless more significant clinical indication * CT scan of chest is ordered and pending to assess his fibrotic disease * Pulmonary consultation Dr. 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, my review: Sinus Exam: alert oriented skin warm dry color ok resps not labored lungs still with some rales as expected heart regular abd soft nondistended nontender, bowel sounds present limbs warm, minimal edema at this point iv site ok Laboratory data: Lab data pending at this time Imaging studies: CT scan of chest noncontrast, my review of images and interpretation: Objective: Vital Signs Temp Pulse Resp BP Pulse Ox 37.2 C 58 L 18 142/58 H 90 L 03/21/18 07:27 03/21/18 07:27 03/21/18 07:27 03/21/18 07:27 03/21/18 07:27 Laboratory Results 03/20/18 03:19 03/20/18 03:19 03/20/18 03/21/18 06 06:59 06:59 06:59 Intake Total 650 350 Output Total 1190 750 Balance -540 -400 PT 38.2 SEC (12.0-15.0) H 03/19/18 09:40 INR 3.94 (0.83-1.16) H 03/19/18 09:40 - Time Spent With Patient Time Spent with Patient: greater than 35 minutes Time Spent with Patient: Greater than 35 minutes spent on this patients care, greater than 50% of time spent counseling, educating, and coordinating care regarding the above mentioned plan. ICD10 Worksheet Patient Problems: Problems Problem Status Onset Elevated troponin Acute Hemoptysis Acute Syncope Acute chronic disease mgmt/transitional care Acute
[2018-03-21] MEDS: ASPIRIN 81 MG CHEWABLE TAB PO SCH (08:38)
[2018-03-21] MEDS: RIVAROXABAN 15 MG TAB PO SCH (08:38)
[2018-03-21] MEDS: MULTIVITAMINS 1 EACH TAB PO SCH ×2 (08:38→11:48)
[2018-03-21] MEDS: OMEGA-3 FATTY ACIDS 1,000 MG CAP PO SCH (08:38)
[2018-03-21] MEDS: VITAMIN B COMPLEX 1 EA CAP/TAB PO SCH (08:38)
[2018-03-21] MEDS: LISINOPRIL 10 MG TAB PO SCH (08:38)
[2018-03-21] MEDS: CHOLECALCIFEROL VIT D3 1,000 UNITS TAB PO SCH (08:38)
[2018-03-21] MEDS: PRESERVISION AREDS2 FORMULA EYE VIT 1 EACH PO SCH ×2 (08:39→20:27)
[2018-03-21] MEDS ORDERED: FUROSEMIDE 20 MG TAB PO ONE (10:33)
--- NOTE | 2018-03-21 11:14 | PDCARPN ---
Cardiology Progress Note Assessment/Plan: Acute on Chornic Diastolic CHF: edema improved; some MOROCHO - Repeat PO furosemide 20 mg today. - Recheck BNP tomorrow. Paroxysmal Atrial Fibrillation: maintaining sinus rhythm on amiodarone. - Will hold Xarelto for now in light of hempoptysis and in case Pulmonary needs to do any procedure such as bronchoscopy. Coronary Artery Disease: stable without symptoms suggestive of angina. Negative nuclear stress test 6 months ago. - Continue secondary prevention. 03/21/18 11:11 Subjective: No significant complaints today; hemoptysis continues. Reviewed/Discussed With: family Objective: Vital Signs (8 Hrs) Temp Pulse Resp BP Pulse Ox 03/21/18 07:27 37.2 C 58 L 18 142/58 H 90 L 03/21/18 04:00 36.6 C 53 L 18 137/62 H 95 Intake/Output (24 Hrs) 03/20/18 03/21/18 03/22/18 05:59 05:59 05:59 Intake Total 650 350 Output Total 1190 700 50 Balance -540 -350 -50 Intake: Oral (ml) 650 350 Output: Urine (ml) 1190 700 50 Toilet 150 Urinal 1040 700 50 Other: Weight 81.012 kg 79 kg Intake Quantity Yes Sufficient Number of Voids Toilet 1 2 Urinal 3 Result Diagrams: 03/21/18 08:30 03/21/18 08:30 Cardiac Labs: Cardiac Lab Results (72 Hrs) 03/19/18 03/19/18 21:49 16:07 Troponin I 0.181 H 0.200 H - Physical Exam Constitutional: WDWN, no apparent distress Eyes: anicteric sclera Ears, Nose, Mouth, Throat: moist mucous membranes Cardiovascular: regular rate and rhythm, no murmurs, no gallops Respiratory: clear to auscultate bilat Gastrointestinal: normoactive bowel sounds, no tenderness, no masses Skin: other (trace edema) Neurologic: AAOx3 Psychiatric: not anxious ICD10 Worksheet Patient Problems: Problems Problem Status Onset chronic disease mgmt/transitional care Acute Hemoptysis Acute Syncope Acute Elevated troponin Acute
[2018-03-21] MEDS: ATORVASTATIN CALCIUM 10 MG TAB PO SCH (18:55)
--- NOTE | 2018-03-21 19:44 | GCON ---
[f rep st] CONSULTATION DATE OF CONSULTATION: 03/21/2018 REASON FOR CONSULTATION: Interstitial lung disease, increased pulmonary infiltrates, shortness of br eath and hypoxemia. HISTORY: The patient is a very pleasant 87-year-old gentleman who was admitted to the hospital 2 day s ago with increasing shortness of breath associated with leg weakness. He does have known interstit ial lung disease. He was seen by Dr. Calhoun in our office a number of years ago, possibly 5. He did not require followup apparently at that time. 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 He was seen for occupational lung disease at [facility] in the past, approximately 4 times. He does not rememb er the outcome of those evaluations. He has never been on disability related to his work at [employer]. A year ago he was doing well. He would go to the recreation center in [place] 3 days a week and wor k out for an hour and a half. He has generally been very active, independent, works around his home, digs in the yard, etc., all without any problems. Over the last 3 or 4 months he has noted increase d dyspnea on exertion and more difficulty with things that he used to be able to do without many prob lems. This was initially associated with anemia and heart problems. He was placed on amiodarone sev eral months ago for atrial fibrillation. He has been on diuretics as well. Four or five weeks ago, he began to notice a small amount of hemoptysis. This was generally increased. He has had no fevers , chills, or sweats. He denies any chest pain. The mucus that he coughs up has been clear when he c an separate this from the intermittent blood. Over the weekend, he could not do much. He was dyspneic with any exertional activities. Diuretic therapy was stopped about 3 weeks ago, and he has noted increasing lower extremity edema in the several days leading up to his admission. Diure tics were apparently stopped secondary to increasing BUN and creatinine. He is followed by Riley jackson MD for Cardiology. His primary care physician is Jesus Manuel Patterson D.O. PAST MEDICAL HISTORY: Coronary artery disease with previous stenting, atrial fibrillation, pacemaker , anticoagulation with Xarelto, history of pulmonary fibrotic disease as outlined above. No history of COPD or obstructive lung disease. He is a never smoker. History of systemic hypertension, anemia , hyperlipidemia, and vitamin B12 deficiency. HOME MEDICATIONS: Included various vitamins, ferrous sulfate, Xarelto, low-dose lisinopril, aspirin, amiodarone 200 mg daily, simvastatin and p.r.n. nitroglycerin which he has not recently needed. DRUG ALLERGIES: No known drug allergies. SOCIAL HISTORY: The patient is . He is a never smoker. Significant alcohol is negative. He has 1 daughter who lives out of state. As outlined above, he previously worked at [employer]. FAMILY HISTORY: Coronary artery disease, hypertension, diabetes. REVIEW OF SYSTEMS: A 10-point review of systems is negative, except as noted in the HPI. PHYSICAL EXAMINATION: GENERAL: Reveals a very pleasant gentleman who is sitting comfortably in bed. He is in no distress. VITAL SIGNS: Blood pressure is 102/60, heart rate 64 and regular. Oxygen i s in place at 6 liters with saturations of 94%. Respiratory rate is 16. He is afebrile. HEENT: Un remarkable for lymphadenopathy or thyromegaly. There is no obvious jugular venous distention. PULMO NARY: The chest reveals coarse rales at the bases. The upper lung zones are clear. There are no wh eezes, no rhonchi. HEART: Regular in rate and rhythm. There appears to be a soft systolic murmur. No gallops are appreciated. P2 is difficult to assess. ABDOMEN: Soft, nontender. Bowel sounds ar e present. EXTREMITIES: Remarkable for 1 to 2+ pitting edema. NEUROLOGIC: Examination is within n ormal limits. DATABASE: CT scan of the chest was just done. This compared to a previous CT scan done approximatel y 2 years ago. The most impressive changes are that of bilateral alveolar ground-glass opacities sandy t are present both in the lower and upper lobes. They somewhat spare the apices. These may be relat ed to cardiac edema, pneumonitis, or possibly an acute flare of his underlying interstitial lung dise ase. The latter seems somewhat less likely. There is some evidence of progression of the more fibro tic changes and honeycombing. There are some dense areas of fibrosis related to the fissure, primari ly on the right. There is a new left upper lobe subpleural nodule which is possibly concerning for m alignancy. LABORATORY: White blood cell count 11,400, hematocrit 34. Platelets are normal. PT and PTT were jeffrey th elevated on admission, presumably secondary to Xarelto. Basic metabolic panel is within normal li mits with the exception of a BUN of 21 and creatinine of 1.52, now 1.3. BNP has been nonspecifically elevated, as high as 0.2. Procalcitonin was mildly elevated at 0.15. BNP is elevated is 6510. ASSESSMENT: 1. Underlying pulmonary fibrotic disease. This does appear to have progressed at least somewhat com pared to his last CT scan in 2016. However, progression appears to be relatively minimal and symptom s over the last several years have not progressed until very recently. 2. Bilateral pulmonary infiltrates associated with ground-glass and alveolar opacities. This is [place] joseph new. Pneumonitis is certainly a possibility as is congestive heart failure. The latter seems s omewhat less likely, but cannot be excluded. He is being diuresed. I am concerned about the possibi lity of amiodarone pulmonary toxicity. Amiodarone was apparently started a couple of months ago. He is on a relatively low dose; however, and acute pneumonitis can be seen at this dose, and his x-ray and progression of symptoms would be concerning for this. Other causes of pneumonitis are certainly possible as is a flare of previous stable pulmonary fibrotic disease. Amiodarone should be stopped a t this point. Steroids will be considered; however, I would like to get biopsies on him first. Xare lto will need to be stopped for the biopsies. It appears that this can be held without significant r isk of stroke. 3. Hemoptysis. This would appear to be a separate issue. However, on full-dose anticoagulation, he moptysis is somewhat difficult to evaluate and the cause can be nonspecific secondary to rupture of a small endobronchial blood vessel with bleeding. However, his CT scan is concerning at least for a n ew nodule in the left upper lobe. Malignancy could certainly be present. Acute infectious etiologie s appear to be unlikely. Bronchoscopy would be indicated for this as well as his acute interstitial/ alveolar disease as outlined previously. 4. History of coronary artery disease with congestive heart failure. He has not had a recent cardia c echo. One may be indicated. I will discuss this with Cardiology. 5. History of atrial fibrillation. 6. History of other medical problems as outlined above. PLAN AND RECOMMENDATIONS: Diuretic therapy should be continued. Oxygen should be continued. Xarelt o will be held with possible bronchoscopy planned for Sunday or Sunday, or early next week. Amioda dennis will be stopped. Steroid therapy will be considered. However, I would like to get biopsy sampl es from his diffuse lung process first. We can look for foamy macrophages, etc. Bronchoscopy will a lso evaluate his hemoptysis. Washings, brushings, and biopsy of his nodular lesions can be considere d. All of the above was discussed with the patient and with Dr. Negro Maldonado. Further plans and recommendations will be made over the next 24-48 hours. I will follow the patient with you. /[id number]/MODL
[2018-03-21] MEDS: FERROUS SULFATE 325 MG TAB PO SCH (20:28)
[2018-03-22] MEDS: VITAMIN B COMPLEX 1 EA CAP/TAB PO SCH (08:52)
[2018-03-22] MEDS: OMEGA-3 FATTY ACIDS 1,000 MG CAP PO SCH ×2 (08:52→19:29)
[2018-03-22] MEDS: PRESERVISION AREDS2 FORMULA EYE VIT 1 EACH PO SCH ×2 (08:52→20:39)
[2018-03-22] MEDS: ASPIRIN 81 MG CHEWABLE TAB PO SCH (08:52)
[2018-03-22] MEDS: MULTIVITAMINS 1 EACH TAB PO SCH ×2 (08:53→12:42)
[2018-03-22] MEDS: LISINOPRIL 10 MG TAB PO SCH (08:53)
[2018-03-22] MEDS: CHOLECALCIFEROL VIT D3 1,000 UNITS TAB PO SCH (08:53)
--- NOTE | 2018-03-22 10:01 | HOSPPROG ---
Hospitalist Progress Note Assessment/Plan: # syncope - suspect d/t resp compromise # acute on chronic respiratory failure - underlying fibrosis with acute pneumonitis vs pulm edema; bronchiectasis, emphysema # pulmonary fibrosis - many occupational exposures ([place]); no clear dx via my chart review # acute ground glass opacities - pneumonitis (recent amiodarone, acute ILD) vs pulm edema - agree with bronch with biopsy (holding xarelto) # acute on chronic dCHF - last echo 2015 - BNP down; cont diuresis per cards - will discuss repeating echo with cards # CAD s/p PCI - cont asa, cont statin # a-fib/ppm - holding xarelto; recent cardioversion, currently sinus # CHRISTELLE - better after holding hctz; better today after lasix # indet trop - doubt ACS # anemia - stable Subjective: no acute events; no complaints; wants to ambulate today Objective: Vital Signs Temp Pulse Resp BP Pulse Ox 37.0 C 68 17 150/49 H 93 03/22/18 07:41 03/22/18 07:41 03/22/18 07:41 03/22/18 07:41 03/22/18 07:41 Laboratory Results 03/21/18 08:30 03/22/18 03:20 03/21/18 03/22/18 03/23/18 05:59 05:59 05:59 Intake Total 350 1770 340 Output Total 700 900 200 Balance -350 870 140 PT 38.2 SEC (12.0-15.0) H 03/19/18 09:40 INR 3.94 (0.83-1.16) H 03/19/18 09:[address] reviewed CXR personally reviewed - Physical Exam Constitutional: no apparent distress, appears nourished Cardiovascular: regular rate and rhythym, no murmur, rub, or gallop Respiratory: no respiratory distress, inspiratory crackles (bilat bases), No expiratory wheeze, No bronchial breath sounds Gastrointestinal: soft, non-tender abdomen, no palpable masses, No guarding, No rebound, No distension ICD10 Worksheet Patient Problems: Problems Problem Status Onset chronic disease mgmt/transitional care Acute Hemoptysis Acute Syncope Acute Elevated troponin Acute
--- NOTE | 2018-03-22 15:41 | PDCARPN ---
Cardiology Progress Note Assessment/Plan: Acute on Chronic Diastolic CHF: edema improved; some MOROCHO - Last PO furosemide was yesterday. - BNP down to 5050 from 6510. - Consider daily furosemide. Paroxysmal Atrial Fibrillation: maintaining sinus rhythm. - Pulmonary service has concerns that he may have amiodarone pulmonary toxicity ; amio DCed. - If he has return of A-fib I expect that he could be managed with a strategy of rate control and anticoagulation since it does not sound as if he was markedly symptomatic with his AF. - Xarelto on hold for now in light of hemoptysis and in case Pulmonary needs to do any procedure such as bronchoscopy. Mitral Regurgitation: moderate by echo in 2016. - Repeat echo pending. Coronary Artery Disease: stable without symptoms suggestive of angina. Negative nuclear stress test 6 months ago. - Continue secondary prevention. 03/22/18 16:15 Subjective: No complaints. Reviewed/Discussed With: family Objective: Vital Signs (8 Hrs) Temp Pulse Resp BP Pulse Ox 03/22/18 11:45 37.4 C 87 16 158/64 H 95 03/22/18 10:25 79 L 03/22/18 07:41 37.0 C 68 17 150/49 H 93 Intake/Output (24 Hrs) 03/21/18 03/22/18 03/23/18 05:59 05:59 05:59 Intake Total 350 1770 460 Output Total 700 900 300 Balance -350 870 160 Intake: Oral (ml) 350 1770 460 Output: Urine (ml) 700 900 300 Toilet 400 Urinal 700 500 300 Other: Weight 79 kg 80.1 kg Number of Voids Toilet 2 1 1 Urinal 1 Number of Stools Toilet 1 Result Diagrams: 03/21/18 08:30 03/22/18 03:20 Cardiac Labs: Cardiac Lab Results (72 Hrs) 03/19/18 03/19/18 21:49 16:07 Troponin I 0.181 H 0.200 H - Physical Exam Constitutional: no apparent distress Eyes: anicteric sclera Ears, Nose, Mouth, Throat: moist mucous membranes Cardiovascular: regular rate and rhythm, no murmurs, no gallops Respiratory: clear to auscultate bilat Gastrointestinal: normoactive bowel sounds, no tenderness, no masses Skin: no edema Neurologic: AAOx3 Psychiatric: cooperative, not anxious ICD10 Worksheet Patient Problems: Problems Problem Status Onset Elevated troponin Acute Hemoptysis Acute Syncope Acute chronic disease mgmt/transitional care Acute
--- NOTE | 2018-03-22 16:30 | ECHO ---
[email or web address] [address] Main: [phone] Fax: Transthoracic Echocardiogram Name: DIRK DENTON MR#: [id number] Study Date: 03/22/2018 Study Time: 03:10 PM Date of : 1930 Age: 87 year(s) Height: 167.6 cm (66 in.) Weight: 79.83 kg (176 lb.) BSA: 1.89 m2 Gender: Male Examination: Echo Indication: possible pulm edema Image Quality: Adequate Contrast: Requested by: Saqib Ch BP: 158 mmHg/54 mmHg Heart Rate: Rhythm: Indication: possible pulm edema Procedure Staff Net Developer: Megan Barragan [facility] Reading Physician: Brianna Boo MD Requesting Provider: Conclusions: Normal size left ventricle. Mild concentric LV hypertrophy. Normal global systolic LV function. EF is 68 %. Mildly to moderately dilated right ventricle. Normal RV function. There is a pacemaker lead noted in the right ventricle. Flattened interventricular septum consistent with right ventricular pressure and/or volume overload free wall. The left atrium is mildly dilated. Mild mitral valve regurgitation is present. Trivial to mild aortic valve regurgitation. Mild tricuspid regurgitation is present. Right ventricular systolic pressure measures 56mmHg. Mildly dilated aortic root measuring 3.9 cm. Compared with 01/27/2016 the RV is now dilated and moderate pulmonary hypertension is now present. Measurements: Chambers Valvular Assessment AV/MV Valvular Assessment TV/PV Normal Normal Normal Name Value Range Name Value Range Name Value Range Ao Ruma (MM): 3.9 cm (2.2 cm-3.7 AV Vmax: 1.53 m/s (1 m/s-1.7 TR Vmax: 3.40 mm/s ( - ) cm) m/s) TR PGmax: 46 mmHg ( - ) IVSd (2D): 1.0 cm (0.6 cm-1.1 AV maxP mmHg ( - ) syst. PAP: 56 mmHg ( - ) cm) LVOT Vmax: 1.29 m/s (0.7 m/s-1.1 PV Vmax: 0.94 m/s (0.6 m/s-0.9 LVDd (2D): 4.7 cm (4.2 cm-5.9 m/s) m/s) cm) MV E Vmax: 0.95 m/s ( - ) PV PGmax: 4 mmHg ( - ) LVDs (2D): 3.2 cm (2.1 cm-4 MV A Vmax: 0.89 m/s ( - ) cm) MV E/A: 1.07 ( - ) Patient: DIRK DENTON Study Date: 03/22/2018 Page 1 of 2 03:10 PM LVPWd (2D): 1.0 cm (0.6 cm-1 cm) LVEF (BP): 68 % (>=55 %) RVDd(2D): 4.2 cm (1.9 cm-3.8 cmmm) Continued Measurements: Chambers Valvular Assessment AV/MV Valvular Assessment TV/PV Name Value Name Value Name Value LADs: 3.8 cm MV DecTime: 222 m/s CVP (est.): 10 mmHg LADs Lon.4 cm MV E' Septal: 0.07 m/s LA Area: 19.5 cm2 MV E/E' Septal: 13.30 LA Volume: 71 ml MV E/E' Lateral: 5.90 LA Volume Index: 37.6 ml/m2 TAPSE: 2.2 cm RA Area: 15.7 cm2 Additional Vessels Name Value Ao Ascendin.4 cm Findings: Left Ventricle: Normal size left ventricle. Mild concentric LV hypertrophy. Normal global systolic LV function. EF is 68 %. Grade 1 diastolic dysfunction (abnormal relaxation). Right Ventricle: Mildly to moderately dilated right ventricle. Normal RV function. There is a pacemaker lead noted in the right ventricle. Flattened interventricular septum consistent with right ventricular pressure and/or volume overload free wall. Left Atrium: The left atrium is mildly dilated. Right Atrium: The right atrium is normal in size. There is a pacemaker lead noted in the right atrium. Mitral Valve: There is mild thickening of the mitral valve leaflets. Mild mitral annular calcification. Mild mitral valve regurgitation is present. No mitral stenosis is present. Aortic Valve: The aortic valve is tri-leaflet and functions normally. Mild aortic cusp calcification is noted. Trivial to mild aortic valve regurgitation. No aortic valve stenosis is present. Tricuspid Valve: The tricuspid valve is normal in appearance and function. Mild tricuspid regurgitation is present. The pulmonary artery pressure is moderately increased. Right ventricular systolic pressure measures 56mmHg. Pulmonic Valve: Pulmonary valve not well visualized. Aorta: Mildly dilated aortic root measuring 3.9 cm. Normal size ascending aorta measuring 3.4 cm. IVC: The IVC is mildly dilated. Pericardium: No pericardial effusion. (No Signature Object) Patient: DIRK DENTON Study Date: 03/22/2018 Page 2 of 2 03:10 PM [id number]
--- NOTE | 2018-03-22 16:35 | SOAPPROG ---
SOAP Progress Note Assessment/Plan: Assessment: Underlying pulmonary fibrotic disease. Probably related to previous occupational exposures. Some progression likely since 2016, but not marked. Pneumonitis. Probably related to amiodarone and new over the last couple of months. Doubt infectious etiologies, doubt aspiration. Doubt acute flare of his underlying pulmonary fibrosis. For bronchoscopy with washings, brushings and transbronchial biopsies tomorrow. Hemoptysis. Query etiology. This is been persistent over the last 4-6 weeks. This may be nonspecific and related to anticoagulation. Malignancy needs to be excluded. He does have a new nodular lesion in the left upper lobe peripherally. History of atrial fibrillation, anticoagulation. Xarelto currently being held. Off this now for over 24 hr. Congestive heart failure/fluid retention. Improving. Chronic renal failure. Creatinine stable at 1.3. Anemia. Hematocrit 34, stable. Plan: For bronchoscopy with biopsies if possible tomorrow to evaluate both his bilateral acute/subacute pneumonitis and his hemoptysis. Will obtain washings and brushings as well. NPO after midnight. Will hold aspirin. Discussed with the patient. Timing of the bronchoscopy is tentatively set for 09 20 tomorrow morning. Subjective: Doing well. No complaints. Objective: Vital Signs Temp Pulse Resp BP Pulse Ox 37.3 C 61 14 147/63 H 92 03/22/18 16:00 03/22/18 16:00 03/22/18 16:00 03/22/18 16:00 03/22/18 16:00 Laboratory Results 03/21/18 08:30 03/22/18 03:20 03/21/18 03/22/18 03/23/18 05:59 05:59 05:59 Intake Total 350 1770 460 Output Total 700 900 300 Balance -350 870 160 PT 38.2 SEC (12.0-15.0) H 03/19/18 09:40 INR 3.94 (0.83-1.16) H 03/19/18 09:40 Physical Exam - Physical Exam General Appearance: alert, no apparent distress EENT: other (Oxygen in place at 6 L) Neck: normal inspection (No obvious JVD) Respiratory: lungs clear (Anteriorly), decreased breath sounds (At bases with rales), rales (Rales present at both bases), No rhonchi, No wheezing Cardiac/Chest: regular rate, rhythm Abdomen: normal bowel sounds, non-tender, soft Skin: normal color, warm/dry Extremities: pedal edema (2+ pedal edema bilateral) Neuro/Psych: no motor/sensory deficits, No cognition abnormalities ICD10 Worksheet Patient Problems: Problems Problem Status Onset chronic disease mgmt/transitional care Acute Hemoptysis Acute Syncope Acute Elevated troponin Acute
[2018-03-22] MEDS: ATORVASTATIN CALCIUM 10 MG TAB PO SCH (18:42)
[2018-03-22] MEDS: FERROUS SULFATE 325 MG TAB PO SCH (20:39)
[2018-03-23 04:42] LABS: INR 1.6 (0.83-1.16); PROTIME(PATIENT) 19.2 SEC (12.0-15.0)
[2018-03-23] MEDS: CHOLECALCIFEROL VIT D3 1,000 UNITS TAB PO SCH (07:53)
[2018-03-23] MEDS: VITAMIN B COMPLEX 1 EA CAP/TAB PO SCH (07:54)
[2018-03-23] MEDS: MULTIVITAMINS 1 EACH TAB PO SCH ×2 (07:54→12:03)
[2018-03-23] MEDS: PRESERVISION AREDS2 FORMULA EYE VIT 1 EACH PO SCH ×2 (07:54→19:58)
[2018-03-23] MEDS: LISINOPRIL 10 MG TAB PO SCH (08:19)
--- NOTE | 2018-03-23 09:13 | PDCARPN ---
Cardiology Progress Note Assessment/Plan: Assessment: 1. Acute on Chronic diastolic CHF. -BNP improving, weight trending down, edema decreasing 2. PAF: hx of cardioversion earlier this year. Now off of amiodarone secondary to concern for pneumonitis. Xarelto on hold secondary to hemoptysis. 3. CAD: No complaints of chest pain. Normal nuclear stress test in the last 6 months 4. Mitral Regurgitation. Mild MR on echo yesterday. Normal LV size and function. 5. Moderate Pulmonary Hypertension. RVSP 56 mmHg with mild to mod RV dilitation. (secondary to underlying pulmonary fibrosis) Plan: -continue PO lasix daily. will assess need for out patient lasix at time of discharge -Xarelto on hold until post bronchoscopy -Will continue to follow 03/23/18 09:13 Subjective: Mr. Maldonado is feeling well this am. Continues to experience hemoptysis. He is scheduled for bronchoscopy with Dr. Branham today. He is off of Xarelto. Echo yesterday demonstrated Normal LVEF 68%, mild Mitral regurgitation. RV is mild to moderately dilated with RVSP of 56 mmHg. Telemetry demonstrates NSR with rare isolated ectopy. Pt notes gradual improvement in LE edema. No chest pain, palpitations, dizziness. Reviewed/Discussed With: hospitalist Time Spent with Patient: greater than 25 minutes Time Spent with Patient: Greater than 25 minutes spent on this patients care, greater than 50% of time spent counseling, educating, and coordinating care regarding the above mentioned plan. Objective: Vital Signs (8 Hrs) Temp Pulse Resp BP Pulse Ox 03/23/18 07:42 36.8 C 76 20 139/54 H 90 L 03/23/18 06:00 36.9 C 67 16 128/75 H 90 L Intake/Output (24 Hrs) 03/22/18 03/23/18 03/24/18 05:59 05:59 05:59 Intake Total 1770 760 300 Output Total 900 590 150 Balance 870 170 150 Intake: Oral (ml) 1770 760 300 Output: Urine (ml) 900 590 150 Toilet 400 290 150 Urinal 500 300 Other: Weight 80.1 kg 79.9 kg Number of Voids Toilet 1 1 1 Urinal 1 Number of Stools Toilet 1 Result Diagrams: 03/23/18 03:42 03/23/18 03:42 Echocardiogram: EF 68%. Mild MR. RVSP 56 mmHg - Physical Exam Constitutional: WDWN Eyes: PERRL Ears, Nose, Mouth, Throat: moist mucous membranes Cardiovascular: regular rate and rhythm, no murmurs, no rubs, no gallops Respiratory: other (course breath sounds at mid and basal lung dixon ) Gastrointestinal: normoactive bowel sounds ICD10 Worksheet Patient Problems: Problems Problem Status Onset Elevated troponin Acute Hemoptysis Acute Syncope Acute chronic disease mgmt/transitional care Acute
[2018-03-23] MEDS ORDERED: LIDOCAINE 2% JELLY 5 ML TUBE ONE (10:35)
[2018-03-23] MEDS ORDERED: EPINEPHrine 1 MG/ML INJ ONE (10:35)
[2018-03-23] MEDS ORDERED: LIDOCAINE 1% 300 MG/30 ML SDV ONE (10:35)
[2018-03-23] MEDS ORDERED: ALBUTEROL 3 ML DEYVIAL ONE (10:35)
[2018-03-23] MEDS ORDERED: NS 500 ML IV ONE (10:53)
--- NOTE | 2018-03-23 10:57 | HOSPPROG ---
Hospitalist Progress Note Assessment/Plan: # syncope - suspect d/t resp compromise # acute on chronic respiratory failure - underlying fibrosis with acute pneumonitis vs pulm edema; bronchiectasis, emphysema # pulmonary fibrosis - many occupational exposures ([place]); no clear dx per my chart review # acute ground glass opacities - pneumonitis (recent amiodarone, acute ILD) vs pulm edema - agree with bronch with biopsy (holding xarelto) # acute on chronic dCHF - last echo 2015 - BNP down; cont diuresis per cards # CAD s/p PCI - cont asa, cont statin # a-fib/ppm - holding xarelto; had a recent cardioversion, currently sinus # CHRISTELLE - better after holding hctz; better today after lasix # indet trop - doubt ACS, likely demand in setting of hypoxia # anemia - stable Subjective: feels SOB with exertion Objective: Vital Signs Temp Pulse Resp BP Pulse Ox 36.8 C 76 20 139/54 H 86 L 03/23/18 07:42 03/23/18 07:42 03/23/18 07:42 03/23/18 07:42 03/23/18 08:07 Laboratory Results 03/23/18 03:42 03/23/18 03:42 03/22/18 03/23/18 03/24/18 05:59 05:59 05:59 Intake Total 1770 760 300 Output Total 900 590 150 Balance 870 170 150 PT 19.2 SEC (12.0-15.0) H 03/23/18 03:42 INR 1.60 (0.83-1.16) H 03/23/18 03:42 high risk with high O2 requirements - Physical Exam Constitutional: no apparent distress, appears nourished Cardiovascular: regular rate and rhythym, systolic murmur, No irregularly irregular, No diastolic murmur Respiratory: no respiratory distress, inspiratory crackles (bilat bases), No clear to auscultation, No reduced air movement, No bronchial breath sounds Gastrointestinal: soft, non-tender abdomen, no palpable masses, No guarding, No rebound, No distension ICD10 Worksheet Patient Problems: Problems Problem Status Onset chronic disease mgmt/transitional care Acute Hemoptysis Acute Syncope Acute Elevated troponin Acute
[2018-03-23] MEDS ORDERED: fentaNYL 100 MCG/2 ML INJ ONE (11:06)
[2018-03-23] MEDS ORDERED: MIDAZOLAM 2 MG/2 ML VIAL ONE (11:06)
[2018-03-23] MEDS ORDERED: methylPREDNISolone SOD SUCC 125 MG/2 ML VIAL IVP ONE (14:49)
--- NOTE | 2018-03-23 15:16 | GPN ---
[f rep st] PROCEDURE NOTE DATE OF PROCEDURE: 03/23/2018 PROCEDURE: Bronchoscopy. REASON FOR PROCEDURE: Bilateral acute pulmonary infiltrates, possibly related to amiodarone. In add ition, the patient has a history of underlying chronic pulmonary fibrotic disease, likely secondary t o occupational exposures from [place]. Plus, he has had some hemoptysis and has a new pulmonary nodule on the left side and other areas less new of more dense fibrotic change. This procedure is be ing done to investigate the cause of his acute pneumonitis and to investigate the possibility of lorena gnancy in light of his hemoptysis and new pulmonary nodules. The patient was anticoagulated on admis munir. This has been held. INR, however, was persistently elevated today and 2 units of fresh frozen plasma were given prior to the procedure PROCEDURE NOTE: The procedure was done in the endoscopy unit. Informed consent was obtained from th e patient. Appropriate time-out was performed. N95 masks were worn. Topical anesthesia included 5 mL of 4% lidocaine and approximately 25 mL of 1% lidocaine to the oropharynx and vocal cords/tracheob ronchial tree, respectively. Conscious sedation included 100 mcg of fentanyl and 4 mg of Versed. The bronchoscope was passed via a bite block orally into the larynx. Laryngeal structures were taylor l. The vocal cords moved normally with cough and respiration. The bronchoscope was then advanced in to the trachea and in the lower tracheobronchial tree bilaterally. All areas were observed to at sherry st the first subsegmental level. Anatomy was normal bilaterally. There were no endobronchial lesion s. There was no extrinsic compression. There was a small amount of blood coating the airway on the left side. No active bleeding was noted. This blood did appear to be coming from the left side, pos sibly the left upper lobe ?. However, an exact segment could not be identified. Bronchoalveolar lavage samples were obtained bilaterally from the upper lobes and lower lobes. These were combined with bronchial washings. A brush biopsy sample was taken from the left upper lobe followed by biopsies from the left upper lob e taken under fluoroscopic guidance. With the last 2 biopsies, there was some bleeding, estimated to be less than 10 mL. 4-5 mL of 1:10,000 epinephrine was used to control the bleeding. There was no evidence of a pneumothorax by fluoroscopy at the end of the procedure. Bleeding had sub sided by the end of the procedure. Oxygen saturations on supplemental oxygen and vital signs remaine d within normal limits throughout the procedure. The lowest saturation seen was 87% and further oxyg en was added at that time. IMPRESSION: 1. Normal endobronchial anatomy. 2. A small amount of blood was seen on the left, but an exact location for this bleeding could not b e identified as no active bleeding was seen at the time of the procedure. 3. Bilateral acute pulmonary infiltrates/pneumonitis. Query amiodarone versus other etiologies. 4. Hemoptysis/left-sided new lung nodule: Query 1 cancer/scar carcinoma?.. 5. Appropriate samples were sent to the lab including cultures, cytologies, and pathology. /[id number]/MODL
--- NOTE | 2018-03-23 16:59 | ASMTCMCOM ---
CM Note CM Note Notes: Discussed patient in morning rounds. Discharge date not decided, likely around 03/25. Patient will likely need to have home O2, RT is not currently ordered at this time. OT recommending SNF. CM did not meet with patient today, was out for Bronchoscopy when CM presented. CM to follow. D/C Plan: TBD unknown SNF vs. Home. Date Signed: 03/23/2018 04:58 PM Electronically Signed By:Gini Zimmerman
[2018-03-23] MEDS: ATORVASTATIN CALCIUM 10 MG TAB PO SCH (17:29)
[2018-03-23] MEDS ORDERED: IPRATROPIUM/ALBUTEROL 3 ML DEYVIAL IH PRN (18:22)
--- NOTE | 2018-03-23 18:24 | SOAPPROG ---
SOAP Progress Note Assessment/Plan: Assessment: Underlying pulmonary fibrotic disease. Probably related to previous occupational exposures. Some progression likely since 2016, but not marked. Pneumonitis. Probably related to amiodarone and new over the last couple of months. Doubt infectious etiologies, doubt aspiration. Doubt acute flare of his underlying pulmonary fibrosis. Bronchoscopy with washings, brushings and transbronchial biopsies obtained today. Results not back until next week. Hemoptysis. Query etiology. Probably from the left side but beyond that no segmental bleeding could be identified. This is been persistent over the last 4 -6 weeks. This may be nonspecific and related to anticoagulation. Malignancy needs to be excluded. He does have a new nodular lesion in the left upper lobe peripherally. Endobronchial lesions were not present. Will await biopsies but even if malignancy is present somewhere on the left these biopsies likely will be negative for CA. A PET scan can be considered as an outpatient. Biopsies today did result in transient increased bleeding. He may cough up more blood after the procedure this evening as a result. History of atrial fibrillation, anticoagulation. Xarelto can be restarted tomorrow if hemoptysis and anemia not developing. Congestive heart failure/fluid retention. Improving. Per Cardiology. Chronic renal failure. Creatinine stable at 1.2. Anemia. Hematocrit 29 today, somewhat lower. Will follow. Plan: Await bronchoscopy results. Biopsies in cytologies probably not back until Sunday. Doubt cultures will be helpful. Can restart Xarelto tomorrow if hemoptysis and increasing anemia are not significant issues. Will add p.r.n. Bronchodilator therapies secondary to post bronchoscopy congestion. Empiric steroids to be initiated today intravenously initially for her possible amiodarone pulmonary toxicity. Will start oral prednisone tomorrow at 60. Follow laboratory, CBC. Subjective: Increased cough an oxygen requirements post bronchoscopy. Objective: Vital Signs Temp Pulse Resp BP Pulse Ox 36.8 C 84 16 132/65 H 91 L 03/23/18 15:22 03/23/18 15:22 03/23/18 15:22 03/23/18 15:22 03/23/18 17:31 Microbiology 03/23/18 14:20 Gram Stain - Final Lung - Bronchial Washings Laboratory Results 03/23/18 03:42 03/23/18 03:42 06/01/18 06/02/18 06/03/18 05:59 05:59 05:59 Intake Total 1770 760 800 Output Total 900 590 550 Balance 870 170 250 PT 19.2 SEC (12.0-15.0) H 03/23/18 03:42 INR 1.60 (0.83-1.16) H 03/23/18 03:42 CXR: Post bronchoscopy. No pneumothorax. No areas of obvious focal pulmonary hemorrhage. Physical Exam - Physical Exam General Appearance: alert, mild distress (Secondary to coughing) EENT: other (OxyMask in place) Neck: normal inspection Respiratory: decreased breath sounds (Bilaterally), rales (At bases), wheezing, No lungs clear, No rhonchi (No theo rhonchi but increased congestion present with some wheezes) Cardiac/Chest: regular rate, rhythm Abdomen: normal bowel sounds, non-tender, soft Skin: normal color, warm/dry Extremities: No pedal edema Neuro/Psych: no motor/sensory deficits, No cognition abnormalities ICD10 Worksheet Patient Problems: Problems Problem Status Onset Elevated troponin Acute Hemoptysis Acute Syncope Acute chronic disease mgmt/transitional care Acute
[2018-03-23] MEDS: FERROUS SULFATE 325 MG TAB PO SCH (19:58)
[2018-03-24] MEDS ORDERED: methylPREDNISolone SOD SUCC 125 MG/2 ML VIAL IVP ONE ×2 (02:00→06:00)
[2018-03-24 04:11] LABS: PLATELET COUNT 177 10^3/uL (150-400)
[2018-03-24] MEDS: PRESERVISION AREDS2 FORMULA EYE VIT 1 EACH PO SCH ×2 (08:56→20:40)
[2018-03-24] MEDS: VITAMIN B COMPLEX 1 EA CAP/TAB PO SCH (08:56)
[2018-03-24] MEDS: predniSONE 20 MG TAB PO SCH (08:56)
[2018-03-24] MEDS: CHOLECALCIFEROL VIT D3 1,000 UNITS TAB PO SCH (08:56)
[2018-03-24] MEDS: MULTIVITAMINS 1 EACH TAB PO SCH ×2 (08:57→14:35)
[2018-03-24] MEDS: LISINOPRIL 10 MG TAB PO SCH (08:57)
[2018-03-24] MEDS: ASPIRIN 81 MG CHEWABLE TAB PO SCH (08:57)
--- NOTE | 2018-03-24 11:17 | PDCARPN ---
Cardiology Progress Note Assessment/Plan: Assessment: 1. Acute on Chronic diastolic CHF. 2. PAF: hx of cardioversion earlier this year. Now off of amiodarone secondary to concern for pneumonitis. Xarelto on hold secondary to hemoptysis. 3. CAD: No complaints of chest pain. Normal nuclear stress test in the last 6 months 4. Mitral Regurgitation. Mild MR on echo yesterday. Normal LV size and function. 5. Moderate Pulmonary Hypertension. RVSP 56 mmHg with mild to mod RV dilitation. (secondary to underlying pulmonary fibrosis) Plan: -continue PO lasix daily. will assess need for out patient lasix at time of discharge -Xarelto on hold in setting of hemoptysis and decline in Hgb -Labs in AM: BMP, BNP, Mg -Will continue to follow 03/23/18 09:13 03/24/18 11:17 Subjective: Mr. Maldonado is feeling well. He underwent Bronchoscopy with Dr. Branham yesterday. Results pending. He continues to have some mild hemoptysis. He remains in NSR on telemetery. Note, Hgb is trending down over last few days from 10.9, to 9.3 and 8.4 today. Aspirin was restarted. Xarelto remains on hold. Cr stable at 1.2, K 4.0 and Mg of 2.2. Lower extremity edema improved. Reviewed/Discussed With: family Time Spent with Patient: greater than 25 minutes Time Spent with Patient: Greater than 25 minutes spent on this patients care, greater than 50% of time spent counseling, educating, and coordinating care regarding the above mentioned plan. Objective: Vital Signs (8 Hrs) Temp Pulse Resp BP Pulse Ox 03/24/18 10:33 100 03/24/18 09:30 84 L 03/24/18 07:36 36.7 C 55 L 20 130/54 H 96 03/24/18 05:34 36.4 C 78 20 146/64 H 91 L Intake/Output (24 Hrs) 03/23/18 03/24/18 03/25/18 05:59 05:59 05:59 Intake Total 760 900 Output Total 590 975 Balance 170 -75 Intake: Oral (ml) 760 400 IV Intake (ml) 500 Output: Urine (ml) 590 975 Toilet 290 550 Urinal 300 425 Other: Weight 80.331 kg Number of Voids Toilet 1 1 Urinal 1 1 Number of Stools Toilet 1 Result Diagrams: 03/24/18 03:22 03/24/18 03:22 - Physical Exam Constitutional: WDWN, no apparent distress Ears, Nose, Mouth, Throat: moist mucous membranes Cardiovascular: regular rate and rhythm, no murmurs, no rubs, no gallops, other (1+ pitting edema to mid calf, L>R ) Respiratory: expiratory wheeze Neurologic: AAOx3, CN II-XII grossly intact Psychiatric: cooperative, interactive ICD10 Worksheet Patient Problems: Problems Problem Status Onset Elevated troponin Acute Hemoptysis Acute Syncope Acute chronic disease mgmt/transitional care Acute
--- NOTE | 2018-03-24 12:09 | HOSPPROG ---
Hospitalist Progress Note Assessment/Plan: # syncope - suspect d/t resp compromise # acute on chronic respiratory failure - underlying fibrosis with acute pneumonitis vs pulm edema; bronchiectasis, emphysema - high O2 requirements today; follow closely # pulmonary fibrosis - many occupational exposures ([place]); no clear dx per my chart review # acute ground glass opacities - pneumonitis (recent amiodarone, acute ILD) vs pulm edema - agree with empiric steroids - f/u pathology from bronch # hemoptysis - need to follow closely; there is a pulm nodule # acute on chronic dCHF - last echo 2016 - BNP down; cont diuresis per cards # CAD s/p PCI - cont asa, cont statin # a-fib/ppm - holding xarelto until pulm comfortable restarting; had a recent cardioversion, currently sinus # CHRISTELLE - resolved # indet trop - doubt ACS, likely demand in setting of hypoxia # anemia - stable Subjective: s/p bronch; O2 requirements higher today Objective: Vital Signs Temp Pulse Resp BP Pulse Ox 36.7 C 55 L 20 130/54 H 100 03/24/18 07:36 03/24/18 07:36 03/24/18 07:36 03/24/18 07:36 03/24/18 10:33 Microbiology 03/23/18 14:20 Gram Stain - Final Lung - Bronchial Washings Laboratory Results 03/24/18 03:22 03/24/18 03:22 03/23/18 03/24/18 03/25/18 05:59 05:59 05:59 Intake Total 760 900 Output Total 590 975 Balance 170 -75 PT 19.2 SEC (12.0-15.0) H 03/23/18 03:42 INR 1.60 (0.83-1.16) H 03/23/18 03:42 high risk with high O2 requirement - Physical Exam Constitutional: not in pain Cardiovascular: regular rate and rhythym, no murmur, rub, or gallop Respiratory: no rales or rhonchi, inspiratory crackles (bilat bases), respiratory distress (mild/mod), No expiratory wheeze Gastrointestinal: soft, non-tender abdomen, no palpable masses, No guarding, No rebound, No distension ICD10 Worksheet Patient Problems: Problems Problem Status Onset chronic disease mgmt/transitional care Acute Hemoptysis Acute Syncope Acute Elevated troponin Acute
[2018-03-24] MEDS: FUROSEMIDE 20 MG TAB PO SCH (14:34)
--- NOTE | 2018-03-24 16:16 | SOAPPROG ---
SOAP Progress Note Assessment/Plan: Assessment: Underlying pulmonary fibrotic disease. Probably related to previous occupational exposures. Some progression likely since 2015, but not marked. Pneumonitis. Probably related to amiodarone and new over the last couple of months. Doubt infectious etiologies, doubt aspiration. Doubt acute flare of his underlying pulmonary fibrosis. Bronchoscopy with washings, brushings and transbronchial biopsies obtained 03/23. Results pending. Steroids started post bronchoscopy. On 60 mg per day for now. Hemoptysis. Query etiology. Probably from the left side but beyond that no segmental bleeding could be identified. This is been persistent over the last 4 -6 weeks. This may be nonspecific and related to anticoagulation. Malignancy needs to be excluded. He does have a new nodular lesion in the left upper lobe peripherally. Endobronchial lesions were not present. Will await biopsies but even if malignancy is present somewhere on the left these biopsies likely will be negative for CA. A PET scan can be considered as an outpatient. Biopsies today did result in transient increased bleeding, and he has coughed up a bit more blood today. History of atrial fibrillation, anticoagulation. Xarelto can be restarted tomorrow from my standpoint. Per Cardiology and hospitalist. Congestive heart failure/fluid retention. Edema seems worse today. Per Cardiology. Chronic renal failure. Creatinine stable at 1.2. Anemia. Hematocrit 29 today, somewhat lower. Will follow. Plan: Await further bronchoscopy results. Path and cytologies probably not back until Sunday. Doubt cultures will be helpful. Can restart Xarelto. 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 On discharge he can be lowered to 40 mg per day. Will need Pulmonary outpatient follow-up. Follow laboratory, CBC. Dr. Westfall to assume pulmonary care for me 03/25 Subjective: Doing okay. Up in chair. Still has occasional cough, some hemoptysis. Oxygen needs till increase compared to pre bronch level Objective: Vital Signs Temp Pulse Resp BP Pulse Ox 36.7 C 79 19 133/58 H 88 L 03/24/18 07:36 03/24/18 13:26 03/24/18 13:26 03/24/18 13:26 03/24/18 13:26 Microbiology 03/23/18 14:20 Mycobacterial Smear (SHAKIRA) - Final Lung - Bronchial Washings 03/23/18 14:20 Gram Stain - Final Lung - Bronchial Washings Laboratory Results 03/24/18 03:22 03/24/18 03:22 03/23/18 03/24/18 03/25/18 05:59 05:59 05:59 Intake Total 760 900 Output Total 590 975 Balance 170 -75 PT 19.2 SEC (12.0-15.0) H 03/23/18 03:42 INR 1.60 (0.83-1.16) H 03/23/18 03:42 Bronch wash/BAL: Mixed oral samantha, AFB smear negative. Pathology, cytologies, etc pending. Physical Exam - Physical Exam General Appearance: alert, no apparent distress EENT: PERRL/EOMI, other (Oxygen in place at 6 L comma mask off.) Neck: normal inspection Respiratory: decreased breath sounds, rales (Present at bases), No rhonchi ( Mild central congestion present with cough), No wheezing Cardiac/Chest: regular rate, rhythm Abdomen: normal bowel sounds, non-tender, soft Extremities: pedal edema (2 to 3+, increased and titer today.) Neuro/Psych: no motor/sensory deficits, No cognition abnormalities ICD10 Worksheet Patient Problems: Problems Problem Status Onset chronic disease [facility]/transitional care Acute Hemoptysis Acute Syncope Acute Elevated troponin Acute
[2018-03-24] MEDS: FERROUS SULFATE 325 MG TAB PO SCH (20:39)
[2018-03-24] MEDS: ATORVASTATIN CALCIUM 10 MG TAB PO SCH (20:39)
[2018-03-25] MEDS: predniSONE 20 MG TAB PO SCH (09:33)
[2018-03-25] MEDS: PRESERVISION AREDS2 FORMULA EYE VIT 1 EACH PO SCH ×2 (09:33→20:32)
[2018-03-25] MEDS: ASPIRIN 81 MG CHEWABLE TAB PO SCH (09:33)
[2018-03-25] MEDS: LISINOPRIL 10 MG TAB PO SCH (09:33)
[2018-03-25] MEDS: VITAMIN B COMPLEX 1 EA CAP/TAB PO SCH (09:34)
[2018-03-25] MEDS: CHOLECALCIFEROL VIT D3 1,000 UNITS TAB PO SCH (09:34)
[2018-03-25] MEDS: FUROSEMIDE 20 MG TAB PO SCH (09:34)
[2018-03-25] MEDS: MULTIVITAMINS 1 EACH TAB PO SCH ×2 (09:34→11:58)
--- NOTE | 2018-03-25 10:48 | HOSPPROG ---
Hospitalist Progress Note Assessment/Plan: # syncope - suspect d/t resp compromise; had a pre-syncopal event last night # acute on chronic respiratory failure - underlying fibrosis with acute pneumonitis vs pulm edema; bronchiectasis, emphysema - high O2 requirements today; follow closely # pulmonary fibrosis - many occupational exposures ([place]); no clear dx per my chart review # acute ground glass opacities - pneumonitis (recent amiodarone, acute ILD) vs pulm edema - agree with empiric steroids - f/u pathology from bronch # hemoptysis - need to follow closely; there is a pulm nodule # 2.9cm GLENYS nodule - concern for malignancy; will need further evaluation # acute on chronic dCHF - last echo 2015 # CAD s/p PCI - cont asa, cont statin # a-fib/ppm - holding xarelto until pulm comfortable restarting; had a recent cardioversion, currently sinus # CHRISTELLE - resolved # indet trop - doubt ACS, likely demand in setting of hypoxia # anemia - stable Subjective: had en event where he got confused last night after being in the shower; this resolved after he rested in bed; his initial sats were about 85% after getting to bed Objective: Vital Signs Temp Pulse Resp BP Pulse Ox 36.4 C 63 20 143/61 H 98 03/25/18 07:41 03/25/18 07:41 03/25/18 07:41 03/25/18 07:41 03/25/18 07:41 Microbiology 03/23/18 14:20 Mycobacterial Smear (SHAKIRA) - Final Lung - Bronchial Washings 03/23/18 14:20 Gram Stain - Final Lung - Bronchial Washings Laboratory Results 03/25/18 03:12 03/25/18 03:12 03/24/18 03/25/18 03/26/18 05:59 05:59 05:59 Intake Total 900 200 Output Total 1050 525 Balance -150 -325 PT 19.2 SEC (12.0-15.0) H 03/23/18 03:42 INR 1.60 (0.83-1.16) H 03/23/18 03:42 high risk on high O2 - Physical Exam Constitutional: appears nourished Cardiovascular: regular rate and rhythym, no murmur, rub, or gallop Respiratory: inspiratory crackles (bilat bases), respiratory distress (mild/mod) Gastrointestinal: soft, non-tender abdomen, no palpable masses, No guarding, No rebound, No distension ICD10 Worksheet Patient Problems: Problems Problem Status Onset chronic disease mgmt/transitional care Acute Hemoptysis Acute Syncope Acute Elevated troponin Acute
[2018-03-25] MEDS ORDERED: BISACODYL 10 MG SUPP PR PRN (11:41)
[2018-03-25] MEDS ORDERED: MAGNESIUM HYDROXIDE 30 ML UDCUP PO PRN (11:41)
[2018-03-25] MEDS ORDERED: LACTULOSE 20 GM/30 ML UDCUP PO PRN (11:41)
[2018-03-25] MEDS ORDERED: POLYETHYLENE GLYCOL 3350 17 GM PKT PO PRN (11:41)
--- NOTE | 2018-03-25 12:24 | SOAPPROG ---
SOAP Progress Note Assessment/Plan: Assessment/plan: * Underlying pulmonary fibrotic disease. Probably related to previous occupational exposures. Some progression likely since 2016, but not marked. * Pneumonitis. Probably related to amiodarone and new over the last couple of months. Doubt infectious etiologies, doubt aspiration. Doubt acute flare of his underlying pulmonary fibrosis. -await bronchoscopy biopsy results as well as cultures * Hemoptysis. Query etiology. Probably from the left side but beyond that no segmental bleeding could be identified. This is been persistent over the last 4 -6 weeks. This may be nonspecific and related to anticoagulation. Malignancy needs to be excluded. He does have a new nodular lesion in the left upper lobe peripherally. Endobronchial lesions were not present. Will await biopsies but even if malignancy is present somewhere on the left these biopsies likely will be negative for CA. A PET scan can be considered as an outpatient. Biopsies today did result in transient increased bleeding. He may cough up more blood after the procedure this evening as a result. * History of atrial fibrillation, anticoagulation. Xarelto can be restarted tomorrow if hemoptysis and anemia not developing. * Congestive heart failure/fluid retention. Improving. Per Cardiology. * Chronic renal failure. Creatinine stable at 1.2. * Anemia. Hematocrit 29 today, somewhat lower. Will follow. Subjective: Sitting up in chair. Resting comfortably. Breathing easily on high FiO2. Problems last night requiring increased FiO2 Objective: Vital Signs Temp Pulse Resp BP Pulse Ox 36.4 C 63 13 158/67 H 100 03/25/18 11:48 03/25/18 11:48 03/25/18 11:48 03/25/18 11:48 03/25/18 11:48 Microbiology 03/23/18 14:20 Mycobacterial Smear (SHAKIRA) - Final Lung - Bronchial Washings 03/23/18 14:20 Gram Stain - Final Lung - Bronchial Washings Laboratory Results 03/25/18 03:12 03/25/18 03:12 03/24/18 03/25/18 03/26/18 05:59 05:59 05:59 Intake Total 900 200 225 Output Total 1050 525 150 Balance -150 -325 75 PT 19.2 SEC (12.0-15.0) H 03/23/18 03:42 INR 1.60 (0.83-1.16) H 06/02/18 03:42 - Time Spent With Patient Time Spent With Patient: 25 min of time spent with patient, over 1/2 involved with coordination of care or counseling Physical Exam - Physical Exam General Appearance: alert, no apparent distress EENT: PERRL/EOMI Neck: non-tender, full range of motion, supple, normal inspection Respiratory: crackles (Bibasilar), No respiratory distress, No wheezing Cardiac/Chest: normal peripheral pulses, regular rate, rhythm, systolic murmur Peripheral Pulses: 2+: carotid (R), carotid (L), femoral (R), femoral (L), dorsalis-pedis (R), dorsalis-pedis (L) Abdomen: normal bowel sounds, non-tender, soft Male Genitalia: deferred Rectal: deferred Skin: normal color, warm/dry Extremities: normal range of motion, non-tender, normal inspection, normal capillary refill Neuro/Psych: no motor/sensory deficits, alert, normal mood/affect, oriented x 3 ICD10 Worksheet Patient Problems: Problems Problem Status Onset Elevated troponin Acute Hemoptysis Acute Syncope Acute chronic disease mgmt/transitional care Acute
--- NOTE | 2018-03-25 16:47 | PDCARPN ---
Cardiology Progress Note Chief Complaint: Reports lightheaded episode last evening during shower, was noted to be hypoxic with SpO2 84%. 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 Other significant past history of COPD with pulmonary fibrosis ([place]). Admitted 03/19/2018 for acute on chronic diastolic heart failure and hypoxia. Chest CT done on 03/21/2018 showed new multifocal bilateral air spaces and ground life opacities, new upper left lobe subpleural solid 2.9 cm nodule. Echocardiogram done on 03/22/2018 showing mild concentric LVH with normal LV systolic function, EF of 60% with mild-to- moderate dilated RV, flattened intraventricular septum consistent with RV pressure overload, LA was mildly dilated, mild MR, trivial to mild AI, mild TR, RVSP of 56 mm Hg, mildly dilated ascending aortic root at 3.9 cm. Bronchoscopy done on 03/23 showed hemoptysis left side with new lung nodules, bilateral acute pulmonary infiltrate/pneumonitis (? Amiodarone versus other etiologies). Currently off of amiodarone due new findings off of bronchoscopy. Currently off of Xarelto due to hemoptysis. Today: Patient with pre syncopal event last evening. Diuretic therapy has been held. WBC is elevated to 19.61 (possibly due to steroids) H&H remained stable at 8.5 in 25.8. BUN 33, creatinine 1.3, proBNP of 11,600. Currently pathology a bronchoscopy is still pending. Continuous cardiac monitoring showing patient maintaining sinus rhythm with no malignant arrhythmias or pauses. Plan: 1. Acute on chronic diastolic heart failure: Patient had been diuresed, and transition back to p.o. diuretics. Near syncopal event last evening. Diuretics are on hold temporarily. Patient continues to have +2 to 3 peripheral edema bilateral lower extremities, and JVD of 4-5 cm above sternal notch. Consideration restarting Lasix in a.m.. 2. Paroxysmal atrial fibrillation: Patient has maintained sinus rhythm, taken off of amiodarone. Pending on BP, consideration of starting him on beta- vanda. Anticoagulation is currently being held due to hemoptysis. Per pulmonology is note, potentially may be restarted in a.m. if no worsening anemia. Patient with noted history of recent cardioversion 3. CAD: Patient denies of any chest pain or pressure. Most recent nuclear stress test was done 6 months ago. Continue aspirin therapy and statin. 4. Valvular heart disease: Noted to have improved with MR off most recent echocardiogram. 5. Moderate pulmonary hypertension: Probably due to interstitial lung disease. 6. Leukocytosis: Likely due to steroids. Repeat CBC in a.m.. 7. Acute on chronic respiratory failure: History occupational exposure. 8. Acute ground-glass opacities noted on CT: Question possible amiodarone, discontinued. Patient has been started on steroids. Pathology from bronchoscopy pending. 9. Anemia: Stable, repeat CBC in a.m.. 10. Sick sinus syndrome: Remote ppm implantation. 03/25/18 16:47 Subjective: Denies of any chest pressure or pain. Reports no worsening in SOB except for last evening as mentioned above. Reports no palpitations, continues to have bloody sputum. Denies of near-syncope or syncopal events. Reviewed/Discussed With: hospitalist (Dr Ch), other (Dr Toro) Objective: Vital Signs (8 Hrs) Temp Pulse Resp BP Pulse Ox 03/25/18 16:00 36.6 C 67 20 130/59 H 94 03/25/18 11:48 36.4 C 63 13 158/67 H 100 Intake/Output (24 Hrs) 03/24/18 03/25/18 03/26/18 05:59 05:59 05:59 Intake Total 900 200 225 Output Total 1050 525 250 Balance -150 -325 -25 Intake: Oral (ml) 400 200 IV Intake (ml) 500 225 Output: Urine (ml) 1050 525 250 Toilet 625 350 250 Urinal 425 175 Other: Weight 80.331 kg 79.424 kg Number of Voids Toilet 1 1 Urinal 1 Bladder Scan Volume (ml) Toilet 75 Result Diagrams: 03/25/18 03:12 03/25/18 03:12 - Physical Exam Constitutional: other ( Elderly male. currently appears to be in no acute distress.) Ears, Nose, Mouth, Throat: moist mucous membranes Cardiovascular: regular rate and rhythm, no rubs, systolic murmur ( 1/6 along left sternal border.), jugular vein distention ( 5-6 cm above sternal notch), pulses symmetric bilat, No carotid bruit Peripheral Pulses: 1+: dorsalis-pedis (R), dorsalis-pedis (L), 2+: carotid (R), carotid (L) Respiratory: other ( Diminished in bases bilateral with no rales. No rhonchi or wheezing noted.) Gastrointestinal: normoactive bowel sounds Skin: warm, No no edema ( +2 peripheral edema bilateral lower extremities) Neurologic: AAOx3 Psychiatric: cooperative, interactive, following commands ICD10 Worksheet Patient Problems: Problems Problem Status Onset chronic disease [facility]/transitional care Acute Hemoptysis Acute Syncope Acute Elevated troponin Acute
[2018-03-25] MEDS: ATORVASTATIN CALCIUM 10 MG TAB PO SCH (17:55)
[2018-03-25] MEDS: FERROUS SULFATE 325 MG TAB PO SCH (20:32)
[2018-03-25] MEDS: SENNOSIDES/DOCUSATE SODIUM TAB PO SCH (20:33)
[2018-03-26 04:22] LABS: PLATELET COUNT 242 10^3/uL (150-400)
[2018-03-26] MEDS: predniSONE 20 MG TAB PO SCH (08:39)
[2018-03-26] MEDS: PRESERVISION AREDS2 FORMULA EYE VIT 1 EACH PO SCH ×2 (08:40→21:13)
[2018-03-26] MEDS: LISINOPRIL 10 MG TAB PO SCH (08:40)
[2018-03-26] MEDS: VITAMIN B COMPLEX 1 EA CAP/TAB PO SCH (08:40)
[2018-03-26] MEDS: ASPIRIN 81 MG CHEWABLE TAB PO SCH (08:40)
[2018-03-26] MEDS: SENNOSIDES/DOCUSATE SODIUM TAB PO SCH ×2 (08:40→21:11)
[2018-03-26] MEDS: MULTIVITAMINS 1 EACH TAB PO SCH ×2 (08:41→11:17)
[2018-03-26] MEDS: CHOLECALCIFEROL VIT D3 1,000 UNITS TAB PO SCH (08:41)
[2018-03-26] MEDS: BENZONATATE 100 MG CAP PO PRN ×3 (08:41→21:11)
[2018-03-26] MEDS: FUROSEMIDE 20 MG TAB PO SCH (11:17)
--- NOTE | 2018-03-26 12:18 | ASMTCMCOM ---
CM Note CM Note Notes: Patient would benefit from home care upon discharge. I spoke with he and his Regina, and they are amenable. Regina used [facility] in the past, so I have sent them a referral. Pulmonology to see patient, as well. Current CM Discharge plan: home with home PT/OT/RN Date Signed: 03/26/2018 12:17 PM Electronically Signed By:Marisela Menchaca RN
--- NOTE | 2018-03-26 13:18 | PDCARPN ---
Cardiology Progress Note Chief Complaint: reports continuation of cough. 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 Other significant past history of COPD with pulmonary fibrosis ([place]). Admitted 03/19/2018 for acute on chronic diastolic heart failure and hypoxia. Chest CT done on 03/21/2018 showed new multifocal bilateral air spaces and ground life opacities, new upper left lobe subpleural solid 2.9 cm nodule. Echocardiogram done on 03/22/2018 showing mild concentric LVH with normal LV systolic function, EF of 60% with mild-to- moderate dilated RV, flattened intraventricular septum consistent with RV pressure overload, LA was mildly dilated, mild MR, trivial to mild AI, mild TR, RVSP of 56 mm Hg, mildly dilated ascending aortic root at 3.9 cm. Bronchoscopy done on 03/23 showed hemoptysis left side with new lung nodules, bilateral acute pulmonary infiltrate/pneumonitis (? Amiodarone versus other etiologies). Currently off of amiodarone due new findings off of bronchoscopy. Currently off of Xarelto due to hemoptysis. Today: Patient reports shortness of breath has improved. Reports continued to cough up sputum, but now like color, no hemoptysis. Weight is unchanged today. Noted rales in bilateral lower lobes. +3 peripheral edema. Patient maintaining sinus rhythm with occasional PAC on continuous cardiac monitoring, no malignant arrhythmias or pauses noted. Laboratory studies showing WBC elevated at 21.18, hemoglobin and hematocrit improved to 9.2 in 29.1. Platelet can't stable at 242. BUN up mildly at 34, creatinine at 1.4. [place] 50655. Plan: 1. Acute on chronic diastolic heart failure: Patient continues to have +2 to 3 peripheral edema bilateral lower extremities, and JVD of 5 cm above sternal notch. Rales noted in bilateral lower lobes. will restart oral Lasix. 2. Paroxysmal atrial fibrillation: Patient has maintained sinus rhythm, taken off of amiodarone. Have spoken to his primary public relations manager, Dr. Toro, patient did not need AV treva agent before amiodarone For rate control of his atrial fibrillation. Amiodarone was started due to patient's chronic AFib and ongoing fatigue, in attempt to see if he felt more proved maintaining sinus rhythm. Anticoagulation is currently being held due to hemoptysis. Consideration of restarting anticoagulation when cleared by pulmonology. 3. CAD: Patient denies of any chest pain or pressure. Most recent nuclear stress test was done 6 months ago. Continue aspirin therapy and statin. 4. Valvular heart disease: Noted to have improved with MR off most recent echocardiogram. 5. Moderate pulmonary hypertension: Probably due to interstitial lung disease. 6. Leukocytosis: Likely due to steroids. 7. Acute on chronic respiratory failure: History occupational exposure. 8. Acute ground-glass opacities noted on CT: Question possible amiodarone, discontinued. Patient has been started on steroids. Pathology from bronchoscopy pending. 9. Anemia: Stable 10. Sick sinus syndrome: Remote ppm implantation. 03/26/18 13:18 Subjective: Reports improvement in shortness of breath. Denies of any palpitations. Reports no lightheadedness, near-syncope or syncopal events. Reviewed/Discussed With: hospitalist (Dr Ch), other (Dr Toro) Objective: Vital Signs (8 Hrs) Temp Pulse Resp BP Pulse Ox 03/26/18 11:45 80 L 03/26/18 11:34 36.5 C 65 135/64 H 88 L 03/26/18 07:49 36.1 C 69 24 H 145/71 H 90 L Intake/Output (24 Hrs) 03/25/18 03/26/18 03/27/18 05:59 05:59 05:59 Intake Total 200 1275 Output Total 525 850 100 Balance -325 425 -100 Intake: Oral (ml) 200 1050 IV Intake (ml) 225 Output: Urine (ml) 525 850 100 Toilet 350 350 100 Urinal 175 500 Other: Weight 79.424 kg 79.379 kg Number of Voids Toilet 1 Urinal 1 Number of Stools Toilet 1 Bladder Scan Volume (ml) Toilet 75 Result Diagrams: 03/26/18 03:38 03/26/18 03:38 - Physical Exam Constitutional: no apparent distress, other ( elderly male) Ears, Nose, Mouth, Throat: moist mucous membranes Cardiovascular: regular rate and rhythm, systolic murmur ( 1/6 left sternal border), jugular vein distention ( 5-6 cm above sternal), pulses symmetric bilat , No carotid bruit Peripheral Pulses: 1+: dorsalis-pedis (R), dorsalis-pedis (L), 2+: carotid (R), carotid (L) Respiratory: other ( rales noted in bases bilateral. Rhonchi that clears with cough) Gastrointestinal: normoactive bowel sounds Neurologic: AAOx3 Psychiatric: cooperative, following commands ICD10 Worksheet Patient Problems: Problems Problem Status Onset chronic disease mgmt/transitional care Acute Hemoptysis Acute Syncope Acute Elevated troponin Acute
--- NOTE | 2018-03-26 14:56 | HOSPPROG ---
Hospitalist Progress Note Assessment/Plan: # syncope - suspect d/t resp compromise; had a pre-syncopal event two nights ago # acute on chronic respiratory failure - chronic fibrosis, bronchiectasis, and emphysema with superimposed acute pneumonitis - high O2 requirements today; follow closely # pulmonary fibrosis - many occupational exposures ([place]) # acute ground glass opacities - pneumonitis (recent amiodarone, acute ILD) vs pulm edema -cont steroids - pathology shows foamy macrophages which is consistent with amiodarone toxicity # hemoptysis - need to follow closely; there is a pulm nodule which was not biopsied # 2.9cm GLENYS nodule - concern for malignancy; will need further evaluation # acute on chronic dCHF - last echo 2015 - lasix restarted by cards # CAD s/p PCI - cont asa, cont statin # a-fib/ppm - holding xarelto until pulm comfortable restarting; had a recent cardioversion, currently sinus # CHRISTELLE - resolved # indet trop - doubt ACS, likely demand in setting of hypoxia # anemia - stable Subjective: no complaints; still SOB Objective: Vital Signs Temp Pulse Resp BP Pulse Ox 36.5 C 65 24 H 135/64 H 80 L 03/26/18 11:34 03/26/18 11:34 03/26/18 07:49 03/26/18 11:34 03/26/18 11:45 Microbiology 03/23/18 14:20 Mycobacterial Smear (SHAKIRA) - Final Lung - Bronchial Washings 03/23/18 14:20 Gram Stain - Final Lung - Bronchial Washings Bronchial Washings Culture - Final Laboratory Results 03/26/18 03:38 03/26/18 03:38 03/25/18 03/26/18 03/27/18 05:59 05:59 05:59 Intake Total 200 1275 Output Total 525 850 100 Balance -325 425 -100 PT 19.2 SEC (12.0-15.0) H 03/23/18 03:42 INR 1.60 (0.83-1.16) H 03/23/18 03:42 high risk - Physical Exam Constitutional: no apparent distress, appears nourished Cardiovascular: regular rate and rhythym, no murmur, rub, or gallop Respiratory: inspiratory crackles (bilat), respiratory distress (mild), No clear to auscultation, No reduced air movement Gastrointestinal: normoactive bowel sounds, soft, non-tender abdomen, no palpable masses ICD10 Worksheet Patient Problems: Problems Problem Status Onset chronic disease mgmt/transitional care Acute Hemoptysis Acute Syncope Acute Elevated troponin Acute
--- NOTE | 2018-03-26 15:32 | SOAPPROG ---
SOAP Progress Note Assessment/Plan: Assessment/plan: * Underlying pulmonary fibrotic disease. Probably related to previous occupational exposures. Some progression likely since 2016, but not marked. * Pneumonitis. Feels is likely secondary to amiodarone has biopsies are consistent -continue steroids -wean FiO2 as tolerated -home soon. Follow up with Dr. Virgil Calhoun as an outpatient. * Hemoptysis. Query etiology. Probably from the left side but beyond that no segmental bleeding could be identified. This is been persistent over the last 4 -6 weeks. This may be nonspecific and related to anticoagulation. Malignancy needs to be excluded. He does have a new nodular lesion in the left upper lobe peripherally. Endobronchial lesions were not present. Will await biopsies but even if malignancy is present somewhere on the left these biopsies likely will be negative for CA. A PET scan can be considered as an outpatient. Biopsies today did result in transient increased bleeding. He may cough up more blood after the procedure this evening as a result. * History of atrial fibrillation, anticoagulation. Xarelto can be restarted tomorrow if hemoptysis and anemia not developing. * Congestive heart failure/fluid retention. Improving. Per Cardiology. * Chronic renal failure. Creatinine stable at 1.2. * Anemia. Hematocrit 29 today, somewhat lower. Will follow. Subjective: Sitting up in chair. Resting comfortably. Denies any dyspnea as long as he is on oxygen. Objective: Vital Signs Temp Pulse Resp BP Pulse Ox 36.5 C 65 24 H 135/64 H 80 L 03/26/18 11:34 03/26/18 11:34 03/26/18 07:49 03/26/18 11:34 03/26/18 11:45 Microbiology 03/23/18 14:20 Mycobacterial Smear (SHAKIRA) - Final Lung - Bronchial Washings 03/23/18 14:20 Gram Stain - Final Lung - Bronchial Washings Bronchial Washings Culture - Final Laboratory Results 03/26/18 03:38 03/26/18 03:38 03/25/18 03/26/18 03/27/18 05:59 05:59 05:59 Intake Total 200 1275 Output Total 525 850 100 Balance -325 425 -100 PT 19.2 SEC (12.0-15.0) H 03/23/18 03:42 INR 1.60 (0.83-1.16) H 03/23/18 03:42 - Time Spent With Patient Time Spent With Patient: 25 min of time spent with patient, over 1/2 involved with coordination of care or counseling Physical Exam - Physical Exam General Appearance: WD/WN, alert, no apparent distress EENT: PERRL/EOMI, normal ENT inspection, pharynx normal, TMs normal Neck: non-tender, full range of motion, supple, normal inspection Respiratory: crackles (Bibasilar Velcro like), No respiratory distress, No accessory muscle use, No wheezing Cardiac/Chest: systolic murmur, irregularly irregular Peripheral Pulses: 2+: carotid (R), carotid (L), femoral (R), femoral (L), dorsalis-pedis (R), dorsalis-pedis (L) Abdomen: normal bowel sounds, non-tender, soft Male Genitalia: deferred Rectal: deferred Skin: normal color, warm/dry Extremities: normal range of motion, non-tender, normal inspection, normal capillary refill Neuro/Psych: no motor/sensory deficits, alert, normal mood/affect, oriented x 3 ICD10 Worksheet Patient Problems: Problems Problem Status Onset Elevated troponin Acute Hemoptysis Acute Syncope Acute chronic disease mgmt/transitional care Acute
[2018-03-26] MEDS: ATORVASTATIN CALCIUM 10 MG TAB PO SCH (17:32)
[2018-03-26] MEDS: FERROUS SULFATE 325 MG TAB PO SCH (21:11)
[2018-03-27] MEDS: ACETAMINOPHEN 325 MG TAB PO PRN ×2 (00:59→22:15)
[2018-03-27 07:04] LABS: PLATELET COUNT 179 10^3/uL (150-400)
[2018-03-27] MEDS: predniSONE 20 MG TAB PO SCH (10:06)
[2018-03-27] MEDS: FUROSEMIDE 20 MG TAB PO SCH (10:07)
[2018-03-27] MEDS: CHOLECALCIFEROL VIT D3 1,000 UNITS TAB PO SCH (10:07)
[2018-03-27] MEDS: LISINOPRIL 10 MG TAB PO SCH (10:07)
[2018-03-27] MEDS: PRESERVISION AREDS2 FORMULA EYE VIT 1 EACH PO SCH ×2 (10:07→19:55)
[2018-03-27] MEDS: VITAMIN B COMPLEX 1 EA CAP/TAB PO SCH (10:07)
[2018-03-27] MEDS: SENNOSIDES/DOCUSATE SODIUM TAB PO SCH ×2 (10:08→19:56)
[2018-03-27] MEDS: ASPIRIN 81 MG CHEWABLE TAB PO SCH (10:08)
[2018-03-27] MEDS: MULTIVITAMINS 1 EACH TAB PO SCH ×2 (10:08→13:22)
--- NOTE | 2018-03-27 12:26 | ASMTCMCOM ---
CM Note CM Note Notes: 03/27/2018 Case Management Note Discussed pt during rounds this morning. Pt has been accepted by [facility]. Palliative follow up meeting today. Please see palliative note. Case Management d/c poc: [facility]. Case Management to follow. Date Signed: 03/27/2018 12:26 PM Electronically Signed By:Vira Miller RN
--- NOTE | 2018-03-27 14:56 | HOSPPROG ---
Hospitalist Progress Note Assessment/Plan: 87 yo M w amiodarone lung toxicity syncope - suspect d/t resp compromise; had a pre-syncopal event two nights ago acute on chronic respiratory failure - chronic fibrosis, bronchiectasis, and emphysema with superimposed acute pneumonitis - high O2 requirements today; follow closely repeat cxr now (03/27) pulmonary fibrosis - many occupational exposures ([place]) acute ground glass opacities - pneumonitis (recent amiodarone, acute ILD) vs pulm edema -cont steroids - pathology shows foamy macrophages which is consistent with amiodarone toxicity hemoptysis - need to follow closely; there is a pulm nodule which was not biopsied 2.9cm GLENYS nodule - concern for malignancy; will need further evaluation probably appropriate to optimize her respiratory status acute on chronic dCHF - last echo 2015 - lasix restarted by cards 03/27- dc lasix given rising bun/cr CAD s/p PCI - cont asa, cont statin a-fib/ppm - holding xarelto until pulm comfortable restarting; had a recent cardioversion, currently sinus CHRISTELLE - resolved indet trop - doubt ACS, likely demand in setting of hypoxia # anemia - stable Subjective: case d/w dr zamudio. inreaing 02 requirement Objective: Vital Signs Temp Pulse Resp BP Pulse Ox 36.4 C 65 20 147/75 H 88 L 03/27/18 11:57 03/27/18 11:57 03/27/18 11:57 03/27/18 11:57 03/27/18 11:57 Microbiology 03/23/18 14:20 Mycobacterial Smear (SHAKIRA) - Final Lung - Bronchial Washings Laboratory Results 03/27/18 03:42 03/27/18 03:42 03/26/18 03/27/18 03/28/18 05:59 05:59 05:59 Intake Total 1275 750 200 Output Total 850 280 475 Balance 425 470 -275 PT 19.2 SEC (12.0-15.0) H 03/23/18 03:42 INR 1.60 (0.83-1.16) H 03/23/18 03:42 - Physical Exam Constitutional: no apparent distress, appears nourished Eyes: PERRL, anicteric sclera Ears, Nose, Mouth, Throat: moist mucous membranes, hearing normal Cardiovascular: regular rate and rhythym, no murmur, rub, or gallop Respiratory: other (crackles throughout. good air movement, no wheeze) Gastrointestinal: normoactive bowel sounds, soft, non-tender abdomen Genitourinary: no bladder fullness, No pérez in urethra Skin: warm, normal color Musculoskeletal: full muscle strength Neurologic: AAOx3 ICD10 Worksheet Patient Problems: Problems Problem Status Onset Elevated troponin Acute Hemoptysis Acute Syncope Acute chronic disease mgmt/transitional care Acute
--- NOTE | 2018-03-27 16:36 | PDCARPN ---
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 Other significant past history of COPD with pulmonary fibrosis (madyson flat). Admitted 03/19/2018 for acute on chronic diastolic heart failure and hypoxia. Chest CT done on 03/21/2018 showed new multifocal bilateral air spaces and ground life opacities, new upper left lobe subpleural solid 2.9 cm nodule. Echocardiogram done on 03/22/2018 showing mild concentric LVH with normal LV systolic function, EF of 60% with mild-to- moderate dilated RV, flattened intraventricular septum consistent with RV pressure overload, LA was mildly dilated, mild MR, trivial to mild AI, mild TR, RVSP of 56 mm Hg, mildly dilated ascending aortic root at 3.9 cm. Bronchoscopy done on 03/23 showed hemoptysis left side with new lung nodules, bilateral acute pulmonary infiltrate/pneumonitis (? Amiodarone versus other etiologies). Currently off of amiodarone due new findings off of bronchoscopy. Currently off of Xarelto due to hemoptysis. Today: Patient is improvement in shortness of breath. Peripheral edema has improved so. BUN creatinine 36 and 1.5. Repeated chest x-ray today continue showing persistent of past ease bilateral, with slight improvement. H&H slightly down at 8.6 and 26.9. Bronchoscopy pathology resolved her back, showing negative for malignant cells. Foam macrophages, consistent with amiodarone toxicity. Continues clinical research monitor showing patient maintaining sinus rhythm. No malignant arrhythmias Or pauses. Plan: 1. Acute on chronic diastolic heart failure: Patient continues to have +2 to 3 peripheral edema bilateral lower extremities, and JVD of 5 cm above sternal notch. Rales noted in bilateral lower lobes. improvement on chest x-ray from admission. Peripheral edema improved on Lasix therapy, unfortunately BUN creatinine elevated. Lasix on hold again. 2. Paroxysmal atrial fibrillation: Patient has maintained sinus rhythm, taken off of amiodarone. Have spoken to his primary psychological operations officer, Dr. Toro, patient did not need AV treva agent before amiodarone For rate control of his atrial fibrillation. Amiodarone was started due to patient's chronic AFib and ongoing fatigue, in attempt to see if he felt more proved maintaining sinus rhythm. Anticoagulation is currently being held due to hemoptysis. Consideration of restarting anticoagulation when cleared by pulmonology. 3. CAD: Patient denies of any chest pain or pressure. Most recent nuclear stress test was done 6 months ago. Continue aspirin therapy and statin. 4. Valvular heart disease: Noted to have improved with MR off most recent echocardiogram. 5. Moderate pulmonary hypertension: Probably due to interstitial lung disease. 6. Leukocytosis: Likely due to steroids. 7. Acute on chronic respiratory failure: History occupational exposure. 8. Acute ground-glass opacities noted on CT: Bronchoscopy pathology turn , showing negative for malignant cells. Foam macrophages, consistent with amiodarone toxicity. Patient continue on steroids. 9. Anemia: Stable 10. Sick sinus syndrome: Remote ppm implantation. 03/27/18 16:31 Subjective: denies of any chest pressure or pain. Reports no palpitations. Denies of any lightheadedness, near-syncope or syncopal events. Reviewed/Discussed With: hospitalist (Dr Nunez), other (Dr Toro) Objective: Vital Signs (8 Hrs) Temp Pulse Resp BP Pulse Ox 03/27/18 15:27 36.6 C 76 22 H 112/59 L 92 03/27/18 11:57 36.4 C 65 20 147/75 H 88 L Intake/Output (24 Hrs) 03/26/18 03/27/18 03/28/18 05:59 05:59 05:59 Intake Total 1275 750 200 Output Total 850 280 475 Balance 425 470 -275 Intake: Oral (ml) 1050 750 200 IV Intake (ml) 225 Output: Urine (ml) 850 280 475 Toilet 350 100 Urinal 500 180 475 Other: Weight 78.7 kg Intake Quantity No Sufficient Number of Voids Urinal 1 1 Number of Stools Toilet 1 Bladder Scan Volume (ml) Toilet 75 Result Diagrams: 03/27/18 03:42 03/27/18 03:42 - Physical Exam Constitutional: no apparent distress, other ( Elderly male.) Ears, Nose, Mouth, Throat: moist mucous membranes Cardiovascular: regular rate and rhythm, jugular vein distention ( 4-5 cm above sternal notch at a 45 degree angle), pulses symmetric bilat Peripheral Pulses: 2+: carotid (R), carotid (L) Respiratory: other ( rales noted in bases bilateral, improvement yesterday. No rhonchi or wheezing.) Gastrointestinal: normoactive bowel sounds Skin: warm, No no edema ( +2 peripheral edema bilateral lower extremities) Neurologic: AAOx3 Psychiatric: cooperative, interactive, following commands ICD10 Worksheet Patient Problems: Problems Problem Status Onset chronic disease mgmt/transitional care Acute Hemoptysis Acute Syncope Acute Elevated troponin Acute
[2018-03-27] MEDS: ATORVASTATIN CALCIUM 10 MG TAB PO SCH (18:15)
[2018-03-27] MEDS: FERROUS SULFATE 325 MG TAB PO SCH (19:56)
[2018-03-27] MEDS: BENZONATATE 100 MG CAP PO PRN (22:15)
[2018-03-28] MEDS: ASPIRIN 81 MG CHEWABLE TAB PO SCH (09:28)
[2018-03-28] MEDS: PRESERVISION AREDS2 FORMULA EYE VIT 1 EACH PO SCH ×2 (09:28→21:02)
[2018-03-28] MEDS: MULTIVITAMINS 1 EACH TAB PO SCH ×2 (09:29→12:14)
[2018-03-28] MEDS: CHOLECALCIFEROL VIT D3 1,000 UNITS TAB PO SCH (09:29)
[2018-03-28] MEDS: VITAMIN B COMPLEX 1 EA CAP/TAB PO SCH (09:30)
[2018-03-28] MEDS: LISINOPRIL 10 MG TAB PO SCH (09:30)
[2018-03-28] MEDS: predniSONE 20 MG TAB PO SCH (09:32)
[2018-03-28] MEDS: BENZONATATE 100 MG CAP PO PRN (09:32)
[2018-03-28] MEDS: SENNOSIDES/DOCUSATE SODIUM TAB PO SCH ×2 (09:32→21:02)
--- NOTE | 2018-03-28 15:19 | ASMTCMCOM ---
CM Note CM Note Notes: Pts case discussed in morning rounds. CM spoke to Aga with transitional care regarding this pt. CM emailed Smita Gonzalez w/ financial counseling to see if pts Rule. insurance has added to his account. Pt will d/c with [facility] when medically stable. Aamir met w/ pt today. Pt may be interested in having palliative at time of d/c. Pt will choose an agency tomorrow. CM to follow. Plan: [facility]; PT, OT Date Signed: 03/28/2018 03:18 PM Electronically Signed By:HARESH Amezcua
--- NOTE | 2018-03-28 17:22 | HOSPPROG ---
Hospitalist Progress Note Assessment/Plan: 87 yo M w amiodarone lung toxicity syncope - suspect d/t resp compromise; had a pre-syncopal event two nights ago acute on chronic respiratory failure - chronic fibrosis, bronchiectasis, and emphysema with superimposed acute pneumonitis - high O2 requirements today; follow closely yesterday's cxr unchanged (interp by me) still w markedly high 02 requirements pulmonary fibrosis - many occupational exposures ([place]) acute ground glass opacities - pneumonitis (recent amiodarone, acute ILD) vs pulm edema -cont steroids - pathology shows foamy macrophages which is consistent with amiodarone toxicity hemoptysis - need to follow closely; there is a pulm nodule which was not biopsied 2.9cm GLENYS nodule - concern for malignancy; will need further evaluation probably appropriate to optimize her respiratory status acute on chronic dCHF - last echo 2015 - lasix restarted by cards 03/27- dc lasix given rising bun/cr CAD s/p PCI - cont asa, cont statin a-fib/ppm - holding xarelto until pulm comfortable restarting; had a recent cardioversion, currently sinus CHRISTELLE - resolved indet trop - doubt ACS, likely demand in setting of hypoxia # anemia - stable Subjective: d/w dr zamudio Objective: Vital Signs Temp Pulse Resp BP Pulse Ox 36.9 C 68 18 159/69 H 99 03/28/18 15:37 03/28/18 15:37 03/28/18 15:37 03/28/18 15:37 03/28/18 15:37 Laboratory Results 03/27/18 03:42 03/27/18 03:42 03/27/18 03/28/18 03/29/18 05:59 05:59 05:59 Intake Total 271 752 8920 Output Total 280 1225 Balance 470 -475 1040 PT 19.2 SEC (12.0-15.0) H 03/23/18 03:42 INR 1.60 (0.83-1.16) H 03/23/18 03:42 - Physical Exam Constitutional: no apparent distress, appears nourished Eyes: PERRL, anicteric sclera Ears, Nose, Mouth, Throat: moist mucous membranes, hearing normal Cardiovascular: regular rate and rhythym, no murmur, rub, or gallop Respiratory: no respiratory distress, No no rales or rhonchi, No inspiratory crackles Gastrointestinal: normoactive bowel sounds Genitourinary: No pérez in urethra Skin: warm, normal color Musculoskeletal: full muscle strength Neurologic: AAOx3 ICD10 Worksheet Patient Problems: Problems Problem Status Onset Elevated troponin Acute Hemoptysis Acute Syncope Acute chronic disease mgmt/transitional care Acute
--- NOTE | 2018-03-28 17:25 | PDCARPN ---
Cardiology Progress Note Chief Complaint: reports continuation of shortness of breath, but has improved. 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 Other significant past history of COPD with pulmonary fibrosis (madyson flat). Admitted 03/19/2018 for acute on chronic diastolic heart failure and hypoxia. Chest CT done on 03/21/2018 showed new multifocal bilateral air spaces and ground life opacities, new upper left lobe subpleural solid 2.9 cm nodule. Echocardiogram done on 03/22/2018 showing mild concentric LVH with normal LV systolic function, EF of 60% with mild-to- moderate dilated RV, flattened intraventricular septum consistent with RV pressure overload, LA was mildly dilated, mild MR, trivial to mild AI, mild TR, RVSP of 56 mm Hg, mildly dilated ascending aortic root at 3.9 cm. Bronchoscopy done on 03/23 showed hemoptysis left side with new lung nodules, bilateral acute pulmonary infiltrate/pneumonitis (? Amiodarone versus other etiologies). Currently off of amiodarone due new findings off of bronchoscopy. Currently off of Xarelto due to hemoptysis. Today: Patient reports improvement in shortness breath. Oxygen titrated to high flow nasal cannula. Patient noted to have elevated blood pressure, earlier today. Currently 159/69. He denies of any chest pressure or pain. He is maintaining sinus rhythm by continuous appeals writer with no malignant arrhythmias or pauses noted. Plan: 1. Acute on chronic diastolic heart failure: Patient continues to have +2 to 3 peripheral edema bilateral lower extremities, and JVD of 5 cm above sternal notch. Rales noted in bilateral lower lobes. improvement on chest x-ray yesterday. potentially peripheral edema is due to longstanding pulmonary hypertension from chronic respiratory failure. Diuretic on hold due to renal insufficiency. 2. Paroxysmal atrial fibrillation: maintained sinus rhythm, taken off of amiodarone. Have spoken to his primary commercial real estate associate, Dr. Toro, patient did not need AV treva agent before amiodarone For rate control of his atrial fibrillation. Amiodarone was started due to patient's chronic AFib and ongoing fatigue, in attempt to see if he felt more proved maintaining sinus rhythm. Anticoagulation is currently being held due to hemoptysis. Consideration of restarting anticoagulation when cleared by pulmonology. 3. HTN: Blood pressure up today , titrating back down to 150s. He is continued on lisinopril, hesitant to increase with past history of elevated BUN creatinine. Discussed with primary commercial real estate associate, Dr. Toro, Recommend no med changes at this time, continue to monitor 3. CAD: Patient denies of any chest pain or pressure. Most recent nuclear stress test was done 6 months ago. Continue aspirin therapy and statin. 4. Valvular heart disease: Noted to have improved with MR off most recent echocardiogram. 5. Moderate pulmonary hypertension: Probably due to interstitial lung disease. 6. Leukocytosis: Likely due to steroids. 7. Acute on chronic respiratory failure: History occupational exposure. cause of his pulmonary hypertension. Contributing to his lower extremity peripheral edema. Followed by pulmonology. Continues to steroid therapy. 8. Acute ground-glass opacities noted on CT: Bronchoscopy pathology turn , showing negative for malignant cells. Foam macrophages, consistent with amiodarone toxicity. Patient continue on steroids. 9. Anemia: yesterday laboratory studies showed showed stable 10. Sick sinus syndrome: Remote ppm implantation. 03/28/18 17:20 Subjective: Denies of any chest pressure or pain. Reports no palpitations. Denies of any lightheadedness, near-syncope or syncopal events. Reviewed/Discussed With: hospitalist (Dr Nuenz), other (Dr Toro) Objective: Vital Signs (8 Hrs) Temp Pulse Resp BP Pulse Ox 03/28/18 15:37 36.9 C 68 18 159/69 H 99 03/28/18 11:26 36.4 C 62 18 184/90 H 94 Intake/Output (24 Hrs) 03/27/18 03/28/18 03/29/18 05:59 05:59 05:59 Intake Total 691 797 2529 Output Total 280 1225 Balance 470 -475 1040 Intake: Oral (ml) 440 791 5977 Output: Urine (ml) 280 1225 Toilet 100 200 Urinal 180 1025 Other: Weight 78.7 kg 78.8 kg Intake Quantity No Sufficient Number of Voids Toilet 1 2 Urinal 1 Number of Stools Toilet 1 1 Result Diagrams: 03/27/18 03:42 03/27/18 03:42 - Physical Exam Constitutional: no apparent distress, other ( Elderly male.) Ears, Nose, Mouth, Throat: moist mucous membranes Cardiovascular: regular rate and rhythm, no gallops, jugular vein distention ( 5-6 cm above sternal notch.), pulses symmetric bilat Peripheral Pulses: 1+: dorsalis-pedis (R), dorsalis-pedis (L) Respiratory: other ( Diminished in bases, with rhonchi that clears with cough. No wheezing noted.) Gastrointestinal: normoactive bowel sounds Skin: warm, no edema ( +2 peripheral edema bilateral lower extremities to knees.) Neurologic: AAOx3 Psychiatric: cooperative, interactive, following commands ICD10 Worksheet Patient Problems: Problems Problem Status Onset chronic disease mgmt/transitional care Acute Hemoptysis Acute Syncope Acute Elevated troponin Acute
[2018-03-28] MEDS: ATORVASTATIN CALCIUM 10 MG TAB PO SCH (18:06)
[2018-03-28] MEDS: FERROUS SULFATE 325 MG TAB PO SCH (21:02)
[2018-03-29] MEDS: BENZONATATE 100 MG CAP PO PRN ×2 (07:23→21:57)
[2018-03-29] MEDS: ACETAMINOPHEN 325 MG TAB PO PRN ×2 (07:23→21:57)
[2018-03-29] MEDS: predniSONE 20 MG TAB PO SCH (07:23)
[2018-03-29] MEDS: LISINOPRIL 10 MG TAB PO SCH (07:24)
[2018-03-29] MEDS: ASPIRIN 81 MG CHEWABLE TAB PO SCH (07:25)
[2018-03-29] MEDS: VITAMIN B COMPLEX 1 EA CAP/TAB PO SCH (07:25)
[2018-03-29] MEDS: PRESERVISION AREDS2 FORMULA EYE VIT 1 EACH PO SCH ×2 (07:25→21:57)
[2018-03-29] MEDS: SENNOSIDES/DOCUSATE SODIUM TAB PO SCH ×2 (07:25→21:58)
[2018-03-29] MEDS: CHOLECALCIFEROL VIT D3 1,000 UNITS TAB PO SCH (07:25)
[2018-03-29] MEDS: MULTIVITAMINS 1 EACH TAB PO SCH ×2 (07:25→11:59)
[2018-03-29] MEDS ORDERED: oxyCODONE IR 5 MG TAB PO PRN (07:37)
[2018-03-29] MEDS: hydrALAZINE 10 MG TAB PO SCH ×3 (09:05→21:58)
--- NOTE | 2018-03-29 15:07 | HOSPPROG ---
Hospitalist Progress Note Assessment/Plan: 87 yo M w amiodarone lung toxicity syncope - suspect d/t resp compromise; had a pre-syncopal event two nights ago acute on chronic respiratory failure - chronic fibrosis, bronchiectasis, and emphysema with superimposed acute pneumonitis - high O2 requirements today; follow closely still w markedly high 02 requirements pulmonary fibrosis - many occupational exposures ([place]) acute ground glass opacities - pneumonitis (recent amiodarone, acute ILD) vs pulm edema -cont steroids - pathology shows foamy macrophages which is consistent with amiodarone toxicity hemoptysis - need to follow closely; there is a pulm nodule which was not biopsied 2.9cm GLENYS nodule - concern for malignancy; will need further evaluation probably appropriate to optimize his respiratory status not a candidate for lung resection at this point acute on chronic dCHF - last echo 2015 - lasix restarted by cards 03/27- dc lasix given rising bun/cr CAD s/p PCI - cont asa, cont statin a-fib/ppm - holding xarelto until pulm comfortable restarting; had a recent cardioversion, currently sinus CHRISTELLE - resolved indet trop - doubt ACS, likely demand in setting of hypoxia # anemia - stable Subjective: case d/w dr thomas. persistently high 02 requirements Objective: Vital Signs Temp Pulse Resp BP Pulse Ox 36.3 C 69 20 135/61 H 94 03/29/18 13:54 03/29/18 13:54 03/29/18 13:54 03/29/18 13:54 03/29/18 13:54 Laboratory Results 03/27/18 03:42 03/29/18 03:25 03/28/18 03/29/18 03/30/18 05:59 05:59 05:59 Intake Total 750 1340 Output Total 1225 650 1 Balance -475 690 -1 PT 19.2 SEC (12.0-15.0) H 03/23/18 03:42 INR 1.60 (0.83-1.16) H 03/23/18 03:42 - Physical Exam Constitutional: no apparent distress, appears nourished Eyes: PERRL, anicteric sclera Ears, Nose, Mouth, Throat: moist mucous membranes, hearing normal Cardiovascular: regular rate and rhythym, no murmur, rub, or gallop Respiratory: no respiratory distress, inspiratory crackles, No no rales or rhonchi, No clear to auscultation Gastrointestinal: normoactive bowel sounds, soft, non-tender abdomen Genitourinary: no bladder fullness, No pérez in urethra Skin: warm, normal color Musculoskeletal: full muscle strength Neurologic: AAOx3 ICD10 Worksheet Patient Problems: Problems Problem Status Onset Elevated troponin Acute Hemoptysis Acute Syncope Acute chronic disease mgmt/transitional care Acute
--- NOTE | 2018-03-29 15:12 | PDCARPN ---
Cardiology Progress Note Chief Complaint: Continues to feel fatigued. 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 Other significant past history of COPD with pulmonary fibrosis (madyson flat). Admitted 03/19/2018 for acute on chronic diastolic heart failure and hypoxia. Chest CT done on 03/21/2018 showed new multifocal bilateral air spaces and ground life opacities, new upper left lobe subpleural solid 2.9 cm nodule. Echocardiogram done on 03/22/2018 showing mild concentric LVH with normal LV systolic function, EF of 60% with mild-to- moderate dilated RV, flattened intraventricular septum consistent with RV pressure overload, LA was mildly dilated, mild MR, trivial to mild AI, mild TR, RVSP of 56 mm Hg, mildly dilated ascending aortic root at 3.9 cm. Bronchoscopy done on 03/23 showed hemoptysis left side with new lung nodules, bilateral acute pulmonary infiltrate/pneumonitis (? Amiodarone versus other etiologies). Currently off of amiodarone due new findings off of bronchoscopy. Currently off of Xarelto due to hemoptysis. Patient's weight up slightly. Creatinine improved to 1.3. Patient noted to be hypertensive last evening systolic blood pressure up to 173, diastolic in the 90s. He denies of any chest pressure pain. Reports improvement in shortness of breath. Continues have +3 peripheral edema bilateral extremities to knees. Plan: 1. Acute on chronic diastolic heart failure: JVD of 5 cm above sternal notch. + 3 peripheral edema bilateral lower extremities. Potentially peripheral edema also worsened due to significant pulmonary hypertension. Creatinine remains mildly elevated at 1.3. Currently off diuretic therapy. 2. Paroxysmal atrial fibrillation: maintained sinus rhythm, taken off of amiodarone. Have spoken to his primary tenter frame back tender, Dr. Toro, patient did not need AV treva agent before amiodarone For rate control of his atrial fibrillation. Amiodarone was started due to patient's chronic AFib and ongoing fatigue, in attempt to see if he felt more proved maintaining sinus rhythm. Anticoagulation is currently being held due to hemoptysis. Consideration of restarting anticoagulation when cleared by pulmonology. 3. HTN: blood pressure elevated last evening, with systolics up to 173, diastolic over 90. hold off on increasing Nikhil inhibitor due to renal insufficiency. Did on a started on calcium channel vanda due to potentially increasing peripheral edema, will start him on hydralazine 25 mg p.o. three times daily. 3. CAD: Patient denies of any chest pain or pressure. Most recent nuclear stress test was done 6 months ago. Continue aspirin therapy and statin. 4. Valvular heart disease: Noted to have improved with MR off most recent echocardiogram. 5. Moderate pulmonary hypertension: Probably due to interstitial lung disease. 6. Leukocytosis: Likely due to steroids. 7. Acute on chronic respiratory failure: History occupational exposure. cause of his pulmonary hypertension. Contributing to his lower extremity peripheral edema. Followed by pulmonology. Continues to steroid therapy. 8. Acute ground-glass opacities noted on CT: Bronchoscopy pathology turn , showing negative for malignant cells. Foam macrophages, consistent with amiodarone toxicity. Patient continue on steroids. 9. Anemia: yesterday laboratory studies showed showed stable 10. Sick sinus syndrome: Remote ppm implantation. 03/29/18 15:13 Subjective: Denies of any chest pressure or pain. Reports no palpitations. Denies of any lightheadedness. Reviewed/Discussed With: family (Patient ), hospitalist (Dr Nunez), other ( Dr Toro) Objective: Vital Signs (8 Hrs) Temp Pulse Resp BP Pulse Ox 03/29/18 13:54 36.3 C 69 20 135/61 H 94 03/29/18 11:06 36.4 C 59 L 20 147/64 H 94 03/29/18 07:29 37.2 C 70 18 173/90 H 90 L Intake/Output (24 Hrs) 03/28/18 03/29/18 03/30/18 05:59 05:59 05:59 Intake Total 750 1340 Output Total 1225 650 1 Balance -475 690 -1 Intake: Oral (ml) 750 1340 Output: Urine (ml) 1225 650 1 Toilet 200 650 1 Urinal 1025 Other: Weight 78.8 kg 79.107 kg Intake Quantity No Sufficient Number of Voids Toilet 1 1 Number of Stools Toilet 1 1 Result Diagrams: 03/27/18 03:42 03/29/18 03:25 - Physical Exam Constitutional: no apparent distress, other ( Elderly male.) Ears, Nose, Mouth, Throat: moist mucous membranes Cardiovascular: regular rate and rhythm, systolic murmur ( 1 to 2/6 left sternal border.), jugular vein distention ( 5 cm above sternal notch at 45 degree angle), pulses symmetric bilat, No carotid bruit Peripheral Pulses: 2+: carotid (R), carotid (L) Respiratory: other ( diminished in bases bilateral, rales rhonchi is a wheezing noted.) Gastrointestinal: normoactive bowel sounds Skin: warm, No no edema ( +3 peripheral edema bilateral lower extremities to use) Neurologic: AAOx3 Psychiatric: cooperative, interactive, following commands ICD10 Worksheet Patient Problems: Problems Problem Status Onset Elevated troponin Acute Hemoptysis Acute Syncope Acute chronic disease mgmt/transitional care Acute
--- NOTE | 2018-03-29 15:16 | ASMTCMCOM ---
CM Note CM Note Notes: Pts case discussed in morning rounds. CM met w/ pt and for dispo planning. Pt is agreeable to having outpatient palliative. Pt has chosen [facility]. Referral sent to [facility]. [facility] will call the family directly and schedule to follow up in the community. CM provided [facility] updates. CM to follow. Plan: [facility]; PT, OT, RN with outpatient pal w/ [facility] Date Signed: 03/29/2018 03:15 PM Electronically Signed By:HARESH Amezcua
--- NOTE | 2018-03-29 15:52 | PDINTPN ---
Claims Adjuster Progress Note Assessment/Plan: Assessment/plan: 87 M admitted with near syncope after his "legs gave out," found to have hypoxia and an abnormal CT. He had known pulmonary fibrosis of limited consequence, seen by Dr. Calhoun in the remote past as well as [facility] but did not require immunosuppression or oxygen. 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 He also had chronic afib and was started on amiodarone around 11/2017. Since then he noticed increasing fatigue and in the last few days prior to admission reported sats as low as 60% on RA. His CT showed acute on chronic changes, and he underwent TBBX with BAL on 03/23 showing foamy macrophages but was otherwise non-diagnostic. Amiodarone was dc'd and he started prednisone at 60 mg daily. His O2 requirement has been as high as 12 lpm , especially with activity. An incidental finding has been a pleural-based 2.9 cm consolidation that was new compared to 2016, though malignancy suspicion is low. 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 The primary treatment is only withdrawal of the drug and most give steroids though supporting data is lacking. Continue prednisone 60 mg for the next 4 weeks and encourage IS. He will continue to need more O2 with ambulation (classic diffusion impairment). A low procalcitonin makes bacterial infection unlikely. His BNP of >11,000 suggests at least an element of fluid overload, but diuresis has been challenging. Consider low TID or BID dosing and holding HE? * Lung nodule- probably related to amiodarone as well. He will need repeat CT in 4-8 weeks to evaluate. His hemoptysis is complicated by anticoagulation, which was cleared to resume by Dr. Westfall on 03/26/18. * Pulmonary hypertension- I agree with moderate disease by echo, likely multifactorial in origin. he should continue with O2, diuretics and rate control , but is not a candidate for PAH- specific therapy. * Bronchiectasis- this is common with fibrotic ILDs. Duoneb is adequate in this case, but I dont see benefit for flutter valves, vests, cycling antibiotics, or CPT. Perfinedone and nintedanib are indicate to prevent progression of disease in IPF, but not acutely * Chronic fibrosis- likely related to occupational exposures. Will need eventual PFTs to evaluate. * Dispo: his oxygen requirement may be a barrier to hame, but an LTACH might be appropriate. Once dc'd home, he should FU with Dr. Calhoun Subjective: less sob today but high o2 requirements remain Objective: Vital Signs Temp Pulse Resp BP Pulse Ox 36.3 C 69 20 135/61 H 94 03/29/18 13:54 03/29/18 13:54 03/29/18 13:54 03/29/18 13:54 03/29/18 13:54 Laboratory Results 03/27/18 03:42 03/29/18 03:25 03/28/18 03/29/18 03/30/18 05:59 05:59 05:59 Intake Total 750 1340 Output Total 1225 650 1 Balance -475 690 -1 PT 19.2 SEC (12.0-15.0) H 03/23/18 03:42 INR 1.60 (0.83-1.16) H 03/23/18 03:42 Physical Exam - Physical Exam General Appearance: alert, no apparent distress EENT: PERRL/EOMI Neck: supple Respiratory: decreased breath sounds, crackles (L>R base), rales, No respiratory distress, No accessory muscle use Cardiac/Chest: edema, irregularly irregular Abdomen: non-tender, soft, No distended Skin: normal color, warm/dry, No cyanosis Lymphatic: no adenopathy Extremities: pedal edema Neuro/Psych: alert, normal mood/affect, oriented x 3 ICD10 Worksheet Patient Problems: Problems Problem Status Onset Elevated troponin Acute Hemoptysis Acute Syncope Acute chronic disease mgmt/transitional care Acute
[2018-03-29] MEDS: ATORVASTATIN CALCIUM 10 MG TAB PO SCH (17:20)
[2018-03-29] MEDS: FERROUS SULFATE 325 MG TAB PO SCH (21:58)
[2018-03-30] MEDS: LISINOPRIL 10 MG TAB PO SCH (08:03)
[2018-03-30] MEDS: ASPIRIN 81 MG CHEWABLE TAB PO SCH (08:03)
[2018-03-30] MEDS: PRESERVISION AREDS2 FORMULA EYE VIT 1 EACH PO SCH (08:03)
[2018-03-30] MEDS: SENNOSIDES/DOCUSATE SODIUM TAB PO SCH (08:03)
[2018-03-30] MEDS: BENZONATATE 100 MG CAP PO PRN (08:03)
[2018-03-30] MEDS: hydrALAZINE 10 MG TAB PO SCH (08:04)
[2018-03-30] MEDS: VITAMIN B COMPLEX 1 EA CAP/TAB PO SCH (08:04)
[2018-03-30] MEDS: MULTIVITAMINS 1 EACH TAB PO SCH ×2 (08:04→12:13)
[2018-03-30] MEDS: CHOLECALCIFEROL VIT D3 1,000 UNITS TAB PO SCH (08:04)
[2018-03-30] MEDS: predniSONE 20 MG TAB PO SCH (08:04)
--- NOTE | 2018-03-30 09:45 | SOAPPROG ---
SOCOREY Progress Note Assessment/Plan: Assessment: 1. Coronary artery disease. Previous PCI of the proximal LAD in May of 2002. No history of prior myocardial infarction. Historically he has had normal stress myocardial perfusion imaging studies and a normal ejection fraction. This appears to be stable. He gives no history of angina. 2. Persistent atrial flutter/fibrillation. His CHADSVASc score is 4 corresponding to the 4% annual stroke risk. Anticoagulation has been held in light of his recent history of hemoptysis. 3. Hypertension. 4. Hyperlipidemia. 5. SSS s/p ppm. 6. Respiratory failure. Amiodarone pulmonary toxicity versus some other form of pneumonitis. Being followed by pulmonology. Amiodarone currently on hold. He continues to have elevated oxygen requirements. 7. Cor pulmonale. Echocardiography consistent with significant pulmonary hypertension. Likely result of his recent respiratory failure and progressive pulmonary disease. Attempts at diuresis have been successful however he has developed progressive contraction alkalosis. 8. Left upper extremity edema. Query DVT. Plan: 1. I have ordered a left upper extremity ultrasound. 2. I would like to go ahead and restart his systemic anticoagulation today. There is a note on the chart dated February 24 from pulmonology indicating that he is stable to restart anticoagulation. 3. I will hold diuretics today with plans for a chemistry panel tomorrow. We may consider reinstitution of his diuretic therapy tomorrow. 4 I do not think that he requires aggressive blood pressure control at this point. 5. I will defer to pulmonology regarding management of his pneumonitis. 6. We will follow along with you. 03/30/18 09:46 Subjective: Mr. Maldonado is well known to me from my outpatient clinic. His cardiovascular history is significant for: 1. Coronary artery disease. Previous PCI of the proximal LAD in May of 2002. No history of prior myocardial infarction. Historically he has had normal stress myocardial perfusion imaging studies and a normal ejection fraction. 2. Longstanding persistent atrial flutter/fibrillation. This has been asymptomatic. His CHADSVASc score is 4 corresponding to the 4% annual stroke risk. He is on Xarelto for systemic anticoagulation. 3. Hypertension. 4. Hyperlipidemia. 5. SSS s/p ppm. He has been in the hospital now for approximately 10 or 11 days with respiratory failure. His workup thus far indicates what is likely pneumonitis. This may represent progression of his underlying lung disease versus amiodarone pulmonary toxicity. He is off of his amiodarone. His anticoagulation has been held given his history of hemoptysis which has now resolved. He continues to have difficulties with significantly elevated oxygen requirements currently on 10 L nasal cannula. He does have modest lower extremity edema. He has been in sinus rhythm. He gives no history of chest discomfort or orthopnea. Diuretics are currently being held in light of his progressive development of contraction alkalosis. Objective: Vital Signs Temp Pulse Resp BP Pulse Ox 36.9 C 58 L 13 147/56 H 97 03/30/18 07:40 03/30/18 07:40 03/30/18 07:40 03/30/18 07:40 03/30/18 07:40 Laboratory Results 03/27/18 03:42 03/29/18 03:25 03/29/18 03/30/18 03/31/18 05:59 05:59 05:59 Intake Total 1340 800 Output Total 650 476 Balance 690 324 PT 19.2 SEC (12.0-15.0) H 03/23/18 03:42 INR 1.60 (0.83-1.16) H 03/23/18 03:42 Physical Exam - Physical Exam General Appearance: WD/WN, no apparent distress Neck: non-tender, full range of motion Respiratory: other (Diffuse bilateral tubular breath sounds with coarse rales in the right base) Cardiac/Chest: regular rate, rhythm, edema (1 in pitting edema bilaterally up to the mid rosales; 1 in pitting edema in the left upper extremity up to the elbow) Peripheral Pulses: 2+: carotid (R), carotid (L) Abdomen: non-tender, soft Male Genitalia: deferred Rectal: deferred Neuro/Psych: alert, oriented x 3 ICD10 Worksheet Patient Problems: Problems Problem Status Onset Elevated troponin Acute Hemoptysis Acute Syncope Acute chronic disease mgmt/transitional care Acute
--- NOTE | 2018-03-30 11:03 | PDINTPN ---
Tester Operator Progress Note Assessment/Plan: Assessment/plan: 87 M admitted with near syncope after his "legs gave out," found to have hypoxia and an abnormal CT. He had known pulmonary fibrosis of limited consequence, seen by Dr. Calhoun in the remote past as well as [facility] but did not require immunosuppression or oxygen. 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 He also had chronic afib and was started on amiodarone around 11/2017. Since then he noticed increasing fatigue and in the last few days prior to admission reported sats as low as 60% on RA. His CT showed acute on chronic changes, and he underwent TBBX with BAL on 03/23 showing foamy macrophages but was otherwise non-diagnostic. Amiodarone was dc'd and he started prednisone at 60 mg daily. His O2 requirement has been as high as 12 lpm , especially with activity. An incidental finding has been a pleural-based 2.9 cm consolidation that was new compared to 2016, though malignancy suspicion is low. 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 The primary treatment is only withdrawal of the drug and most give steroids if severe enough, though supporting data is lacking. Continue prednisone 60 mg for the next 4 weeks and encourage IS. He will continue to need more O2 with ambulation (classic diffusion impairment). A low procalcitonin makes bacterial infection unlikely. His BNP of >11,000 suggests at least an element of fluid overload, but diuresis has been challenging. Consider low TID or BID dosing and holding HE? Down to 8 lpm 03/30. * Lung nodule- probably related to amiodarone as well. He will need repeat CT in 4-8 weeks to evaluate. His hemoptysis is complicated by anticoagulation, which was cleared to resume by Dr. Westfall on 03/26/18. * Pulmonary hypertension- I agree with moderate disease by echo, likely multifactorial in origin. he should continue with O2, diuretics and rate control , but is not a candidate for PAH- specific therapy. * Bronchiectasis- this is common with fibrotic ILDs. Duoneb is adequate in this case, but I dont see benefit for flutter valves, vests, cycling antibiotics, or CPT. Perfinedone and nintedanib are indicate to prevent progression of disease in IPF, but not acutely * Chronic fibrosis- likely related to occupational exposures. Will need eventual PFTs to evaluate. * Dispo: his oxygen requirement may be a barrier to home, but an LTACH might be appropriate. Once dc'd home, he should FU with Dr. Calhoun 03/30/18 11:02 Subjective: c/o severe leg pain last pm, resolved with warm compress. No change in SOB/[place] Objective: Vital Signs Temp Pulse Resp BP Pulse Ox 36.9 C 58 L 13 147/56 H 97 03/30/18 07:40 03/30/18 07:40 03/30/18 07:40 03/30/18 07:40 03/30/18 07:40 Laboratory Results 03/27/18 03:42 03/29/18 03:25 03/29/18 03/30/18 03/31/18 05:59 05:59 05:59 Intake Total 1340 800 Output Total 650 476 Balance 690 324 PT 19.2 SEC (12.0-15.0) H 03/23/18 03:42 INR 1.60 (0.83-1.16) H 03/23/18 03:42 Physical Exam - Physical Exam General Appearance: alert, no apparent distress EENT: PERRL/EOMI Neck: supple Respiratory: decreased breath sounds, crackles, No respiratory distress, No accessory muscle use Cardiac/Chest: regular rate, rhythm, No edema Abdomen: non-tender, soft, No distended Skin: normal color, warm/dry, No cyanosis Lymphatic: no adenopathy Extremities: No pedal edema Neuro/Psych: alert, normal mood/affect, oriented x 3 ICD10 Worksheet Patient Problems: Problems Problem Status Onset Elevated troponin Acute Hemoptysis Acute Syncope Acute chronic disease mgmt/transitional care Acute
[2018-03-30 12:06] VITALS: BP 170/67
--- NOTE | 2018-03-30 13:28 | PDHOMEO2F ---
Home Oxygen Face to Face Home Orders: I certify that a physician or a nurse practitioner or physician's assistant press operator has had a [id number] encounter with this patient on the date of this order due to the diagnosis listed, which relates to the primary reason the patient requires home oxygen. Alternative treatments have been tried, or considered, and deemed ineffective. It is anticipated that supplemental oxygen will result in improvement with treatment. Home oxygen qualifying diagnosis: pulmonary fibrosis SpO2 on room air (%): 71 Frequency of home oxygen needed: continuous Home oxygen liters per minute: 8 Home oxygen delivery device: nasal cannula Concentrator: Yes E-tanks for mobility and back up: Yes If ordering portable O2, is the patient mobile in the home?: Yes I certify that, based on these findings, the home oxygen is medically necessary for this patient for the following length of time. Length of time home oxygen needed: 99 years
--- NOTE | 2018-03-30 13:57 | HOSPPROG ---
Hospitalist Progress Note Assessment/Plan: 87 yo M w amiodarone lung toxicity syncope - suspect d/t resp compromise; had a pre-syncopal event two nights ago acute on chronic respiratory failure - chronic fibrosis, bronchiectasis, and emphysema with superimposed acute pneumonitis - high O2 requirements today; follow closely still w markedly high 02 requirements pulmonary fibrosis - many occupational exposures ([place]) acute ground glass opacities - pneumonitis (recent amiodarone, acute ILD) vs pulm edema -cont steroids - pathology shows foamy macrophages which is consistent with amiodarone toxicity hemoptysis - need to follow closely; there is a pulm nodule which was not biopsied 2.9cm GLENYS nodule - concern for malignancy; will need further evaluation probably appropriate to optimize his respiratory status not a candidate for lung resection at this point acute on chronic dCHF - last echo 2015 - lasix restarted by cards 03/27- dc lasix given rising bun/cr CAD s/p PCI - cont asa, cont statin a-fib/ppm - holding xarelto until pulm comfortable restarting; had a recent cardioversion, currently sinus home today see dc summary > 30 minutes Subjective: case d/w tereso thomas and eric Objective: Vital Signs Temp Pulse Resp BP Pulse Ox 36.4 C 62 21 H 170/67 H 94 03/30/18 12:00 03/30/18 12:00 03/30/18 12:00 03/30/18 12:00 03/30/18 12:00 Laboratory Results 03/27/18 03:42 03/29/18 03:25 03/29/18 03/30/18 03/31/18 05:59 05:59 05:59 Intake Total 1340 800 Output Total 650 476 Balance 690 324 PT 19.2 SEC (12.0-15.0) H 03/23/18 03:42 INR 1.60 (0.83-1.16) H 03/23/18 03:42 - Physical Exam Constitutional: no apparent distress, appears nourished Eyes: PERRL, anicteric sclera Ears, Nose, Mouth, Throat: moist mucous membranes, hearing normal Cardiovascular: regular rate and rhythym, no murmur, rub, or gallop Respiratory: inspiratory crackles, No reduced air movement Gastrointestinal: normoactive bowel sounds, soft, non-tender abdomen Genitourinary: No pérez in urethra Skin: warm Musculoskeletal: full muscle strength, no muscle tenderness Neurologic: AAOx3 ICD10 Worksheet Patient Problems: Problems Problem Status Onset Elevated troponin Acute Hemoptysis Acute Syncope Acute chronic disease mgmt/transitional care Acute
--- NOTE | 2018-03-30 14:22 | PDIAF ---
- Diagnosis Diagnosis: pulmonary fibrosis Code Status: Full Code - Medication Management Discharge Medications: Medications to Continue on Transfer Aspirin [Aspirin 81mg (*)] 81 mg PO DAILY 03/20/14 [Last Taken 03/19/18] Cholecalciferol Vit D3 [Vitamin D3 (*)] 1,000 units PO DAILY 05/17/16 [Last Taken 03/19/18] Nitroglycerin [Nitrostat 0.4 mg (*)] 0.4 mg SL Q5M PRN 05/17/16 [Last Taken Unknown] Rivaroxaban [Xarelto 15mg (*)] 15 mg PO DAILY 05/17/16 [Last Taken 03/19/18] Simvastatin [Zocor] 20 mg PO DAILY18 05/17/16 [Last Taken 03/18/18] Vit A/Vit C/Vit E/Zinc/Copper [Preservision Areds Tablet] 1 each PO BID [Last Taken 03/19/18] Ferrous Sulfate [Ferrous Sulf 325 MG (*)] 325 mg PO HS 03/19/18 [Last Taken ] Lisinopril [Zestril 10 mg (*)] 10 mg PO DAILY 03/19/18 [Last Taken 03/19/18] Multivitamins [Multivitamin (*)] 1 each PO BID@,12 03/19/18 [Last Taken ] [place]-3 Fatty Acids [Fish Oil 1000 mg (*)] 1,000 mg PO DAILY 03/19/18 [Last Taken 03/19/18] Vitamin B Complex [Vitamin B Complex (OTC)] 1 each PO DAILY 03/19/18 [Last Taken 03/19/18] Benzonatate [Tessalon Pearles] 200 mg PO TID PRN #90 cap 03/30/18 [Last Taken Unknown] Ipratropium/Albuterol [Combivent Respimat Inhal [place](*)] 1 inh IH QID #1 mdi [Last Taken Unknown] predniSONE 60 mg PO DAILY #90 tablet 03/30/18 [Last Taken Unknown] Discharge Medications: Refer to the Discharge Home Medication list for PRN reason. - Orders Services needed: Home Care, Registered Nurse, Certified Heavy Duty Mechanic [employer], Physical Therapy, Occupational Therapy Home Care Face to Face: I certify that this patient was under my care and that I had the required [id number] encounter meeting the encounter requirements on the discharge day. My findings support the fact that the patient is homebound as defined in Home Care Face to Face Continued: CMS Chapter 7 Medicare Benefits Manual 30.1.1 , The condition of the patient is such that there exists a normal inability to leave home and consequently, leaving home would require a considerable and taxing effort. - Follow Up Care Current Providers and Referrals: Jesus Manuel Patterson MD [Primary Care Provider] - As per Instructions Virgil Calhoun MD [Medical Doctor] - Riley Toro MD [Medical Doctor] -
--- NOTE | 2018-03-30 14:41 | ASDISCHSUM ---
Discharge Information Plan Status:Home with Home Health Medically Cleared to Leave:03/30/2018 Discharge Date:03/30/2018 CM D/C Disposition:Home Health Service ADT D/C Disposition: Projected Discharge Date:03/29/2018 11:00 AM Transportation at D/C:Family Discharge Delay Reason: Follow-Up Date:03/29/2018 11:00 AM Discharge Slot: Final Diagnosis: Placement Information Referral Type:*Home Health Care Services Referral ID:[id number] Provider Name:[facility] Address 1:[address] [place] [address] Address 2: City:[place] Selection Factors: State:[place] Referral Type:Palliative Care Referral ID:[id number] Provider Name:[facility] ([facility] Address 1:[address] [place] Address 2: City:[place] Selection Factors: State:[place] Patient Contact Information Contact Name:JUAN Relationship: Address:[address] City:[place] Alternate Phone: State/Zip Code:[place] [phone] Email: Financial Information Financial Class:Medicare Primary Plan Desc:MEDICARE INPATIENT Primary Plan Number:[id number] Secondary Plan Desc:ARACELIS/MDR SUPPLEMENT Secondary Plan Number:[id number] Assessment Information LACE LACE Length of stay for Answers: 7-13 days current admission Acuity / Level of Answers: Yes Care: Did the patient have an inpatient admission? Comorbidities - select Answers: Chronic pulmonary disease all that apply Coronary Artery Disease Other Notes: afib, HTN, chronic iron deficiency, hyperlipide kvng , vitamin B12 deficienc y # of Emergency department Answers: 1-2 visits in the last 6 months Score: 14 Date Signed: 03/30/2018 02:40 PM Electronically Signed By:Vira Miller RN [facility] CM Progress Note CM Note CM Note Notes: 03/19/2018 Case Management Note Reviewed chart. Pt admitted for suncope, elevated troponin and hemoptysis. Pt is and has family support. Awaiting PT and OT evals and recommendations. Case Management d/c poc: to be determined. Case Management to follow. Date Signed: 03/19/2018 03:12 PM Electronically Signed By:Vira Miller RN [facility] CM Progress Note CM Note CM Note Notes: 03/20/2018 Case Management Note Discussed pt during rounds this morning. Met w/pt this afternoon. Pt lives with his Elva Tapia [phone] (h) [phone] (c). 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 However he feels he may need to hire someone to assist him this summer. Pt was living independently prior to admission and is still driving. Transitional Care is following pt at d/c. PT is recommending independent. Case Management d/c poc: anticipating independent with family support and follow up as directed. Case Management to follow. Date Signed: 03/20/2018 04:22 PM Electronically Signed By:Vira Miller RN [facility] CM Progress Note CM Note CM Note Notes: Discussed patient in morning rounds. Discharge date not decided, likely around 03/25. Patient will likely need to have home O2, RT is not currently ordered at this time. OT recommending SNF. CM did not meet with patient today, was out for Bronchoscopy when CM presented. CM to follow. D/C Plan: TBD unknown SNF vs. Home. Date Signed: 03/23/2018 04:58 PM Electronically Signed By:Gini Zimmerman [facility] CM Progress Note CM Note CM Note Notes: Patient would benefit from home care upon discharge. I spoke with he and his Regina, and they are amenable. Regina used [facility] in the past, so I have sent them a referral. Pulmonology to see patient, as well. Current CM Discharge plan: home with home PT/OT/RN Date Signed: 03/26/2018 12:17 PM Electronically Signed By:Marisela Menchaca RN [facility] CM Progress Note CM Note CM Note Notes: 03/27/2018 Case Management Note Discussed pt during rounds this morning. Pt has been accepted by [facility]. Palliative follow up meeting today. Please see palliative note. Case Management d/c poc: [facility]. Case Management to follow. Date Signed: 03/27/2018 12:26 PM Electronically Signed By:Vira Miller RN [facility] Progress Note CM Note CM Note Notes: Pts case discussed in morning rounds. CM spoke to Aga with transitional care regarding this pt. JENIFER emailed Smita Gonzalez w/ financial counseling to see if pts [employer] insurance has added to his account. Pt will d/c with [facility] when medically stable. Aamir met w/ pt today. Pt may be interested in having palliative at time of d/c. Pt will choose an agency tomorrow. CM to follow. Plan: [facility]; PT, OT Date Signed: 03/28/2018 03:18 PM Electronically Signed By:HARESH Amezcua [facility] JENIFER Progress Note JENIFER Note JENIFER Note Notes: Pts case discussed in morning rounds. JENIFER met w/ pt and for dispo planning. Pt is agreeable to having outpatient palliative. Pt has chosen [facility]. Referral sent to [facility]. [facility] will call the family directly and schedule to follow up in the community. JENIFER provided [facility] updates. CM to follow. Plan: [facility]; PT, OT, RN with outpatient pal w/ [facility] Date Signed: 03/29/2018 03:15 PM Electronically Signed By:HARESH Amezcua Case Management Discharge Plan Note Case Management Discharge Discharge Order Complete? Answers: Yes Patient to Obtain Answers: via Family Medications Transportation Arranged Answers: Family/Friends Faxed Final Orders Answers: Yes Agency/Facility Transfer Answers: Yes Report Printed & Faxed to Receiving Agency Family Notified Answers: Yes Notes: in room Discharge Comments Notes: 03/30/2018 Case Management Note Faxed final orders to [facility] and [facility]. Provided brochure for [facility] to connect pt with [facility] support. Respiratory Therapy arranging home O2. IM signed. in room and plans to transport pt home. Date Signed: 03/30/2018 02:40 PM Electronically Signed By:Vira Miller RN Intervention Information Intervention Type:*Incorrect Registration Date of Service:03/19/2018 04:07 PM Patient Type:Observation Staff Member:LEXI Nunez Courtney Hours: Discipline: Severity: Comment: Intervention Type:*IM-Signed Date of Service:03/30/2018 02:36 PM Patient Type:Inpatient Staff Member:LEXI Miller, Vira Hours:0.25 Discipline: Severity: Comment:
--- NOTE | 2018-03-30 19:33 | GDS ---
[f rep st] DISCHARGE SUMMARY DISCHARGE DIAGNOSES: 1. Syncope. 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 4. Left upper lobe 2.9 cm nodule with concern for malignancy. 5. Atrial fibrillation. 6. Right heart strain. 7. Acute on chronic hypoxemic respiratory failure. See admission History and Physical. Patient presented with syncope, was found to be hypoxic. Chest CT revealed interstitial lung disease. Bronchoscopy with biopsy showed foamy macrophages consistent with amiodarone-induced lung toxicity. Amiodarone was stopped. Patient was initiated on steroids. His oxygen requirement has gradually improved to about 6 L today, but he is mostly 8 L and desaturate s with oxygenation. He is on 60 mg of prednisone. He had a markedly elevated BNP, but no evidence o f volume overload and attempted diuresis resulted in mild kidney injury. The patient is discharged home today off diuretics with outpatient followup with his transportation associate, Dr Holly Toro. I did discuss the discharge plan with him. He has outpatient followup with Dr. Calhoun, his manufacturing engineer automotive, with 4 weeks of steroids with subsequent taper. I discussed the need to attend to this 2.9 cm pulmonary nodule. There is some suspicion this represe nts amiodarone toxicity as opposed to malignancy. At this point in time, the patient's oxygen requir ements make him ineligible for any meaningful lung resected surgery. /[id number]/MODL
[2018-03-30] MEDS ORDERED: APIXABAN 2.5 MG TAB PO SCH (21:00)
== END 2018-03-30 15:31 | disposition home health service (06) | DRG 987 ==
LOC: OBSVTOIN 12:00 → F2W 12:21
PROVIDERS: ADMIT Internal Medicine; ATTEND Internal Medicine
PROC: 30233L1 Transfusion of Nonautologous Fresh Plasma into Peripheral Vein, Percutaneous Approach (ICD-10-PCS; 2018-03-23)
PROC: 0B9J8ZX Drainage of Left Lower Lung Lobe, Via Natural or Artificial Opening Endoscopic, Diagnostic (ICD-10-PCS; principal; 2018-03-23 11:30)
PROC: 0BDG8ZX Extraction of Left Upper Lung Lobe, Via Natural or Artificial Opening Endoscopic, Diagnostic (ICD-10-PCS; principal; 2018-03-23 11:30)
PROC: 0B9G8ZX Drainage of Left Upper Lung Lobe, Via Natural or Artificial Opening Endoscopic, Diagnostic (ICD-10-PCS; principal; 2018-03-23 11:30)
PROC: 0B9C8ZX Drainage of Right Upper Lung Lobe, Via Natural or Artificial Opening Endoscopic, Diagnostic (ICD-10-PCS; principal; 2018-03-23 11:30)
PROC: 0B9F8ZX Drainage of Right Lower Lung Lobe, Via Natural or Artificial Opening Endoscopic, Diagnostic (ICD-10-PCS; principal; 2018-03-23 11:30)
DX: T46.2X1A Poisoning by other antidysrhythmic drugs, accidental (unintentional), initial encounter (principal); J96.21 Acute and chronic respiratory failure with hypoxia; I13.0 Hypertensive heart and chronic kidney disease with heart failure and stage 1 through stage 4 chronic kidney disease, or unspecified chronic kidney disease; I50.33 Acute on chronic diastolic (congestive) heart failure; N18.9 Chronic kidney disease, unspecified; J84.10 Pulmonary fibrosis, unspecified; R91.8 Other nonspecific abnormal finding of lung field; I48.0 Paroxysmal atrial fibrillation; I25.10 Atherosclerotic heart disease of native coronary artery without angina pectoris; D64.9 Anemia, unspecified; I34.0 Nonrheumatic mitral (valve) insufficiency; I27.20 Pulmonary hypertension, unspecified; Z79.01 Long term (current) use of anticoagulants; Z95.0 Presence of cardiac pacemaker
CPT/HCPCS: 97110-GP; 97116-GP; 97140-GP; 97161-GP; 97166-GO; 97530-GO; 97530-GP; 97535-GO; G8978-GP-CJ; G8979-GP-CI; G8987-GO-CJ; G8988-GO-CI; J0171; J1940; J2250; J2930; J3010; J7512; J7613; P9016; P9017

== ENCOUNTER → 2018-04-10 | Outpatient (CLI) | payer OTHER, MEDICARE | LOC: FIMAGING 14:36 → EDSTATUS 14:40 | PROVIDERS: ATTEND Internal Medicine Critical Care Medicine | DX: J84.9 Interstitial pulmonary disease, unspecified (principal) ==

== ENCOUNTER 2018-04-30 09:11 | Inpatient (IN) | payer OTHER, MEDICARE ==
--- NOTE | 2018-04-30 09:45 | CPEKG ---
Heart Rate: 71 RR Interval: 845 P-R Interval: 248 QRSD Interval: 92 QT Interval: 380 QTC Interval: 413 P [place]: 21 QRS [place]: 19 T Wave [place]: 57 EKG Severity - ABNORMAL ECG - EKG Impression: SINUS RHYTHM EKG Impression: VENTRICULAR PREMATURE COMPLEX EKG Impression: FIRST DEGREE AV BLOCK Electronically Signed By: Cecilio Wood 30-Apr-2018 09:57:47
[2018-04-30] MEDS ORDERED: NS 1,900 ML IV ONE (09:50)
--- NOTE | 2018-04-30 09:56 | EDPHY ---
H & P Stated Complaint: weakness /lightheaded did fall sunday r rib pain Time Seen by Provider: 04/30/18 09:36 HPI/ROS: CHIEF COMPLAINT: Wobbly HISTORY OF PRESENT ILLNESS: Patient is an 87-year-old man whose and daughter in law bring him to the emergency department complaining that he is generally weak and has fallen twice over the weekend. The patient states that he does not have strength in his legs. He has a history of atrial fibrillation and amiodarone induced lung toxicity with pulmonary fibrosis. He is on 4-6 L oxygen through facemask at baseline. Was admitted for syncope 1 month ago. He denies fevers. He denies cough or URI symptoms. He denies GI symptoms or urinary symptoms. He does complain of a mild chronic headache and mild chronic neck pain but he cannot specify long that been present. He also bruised his right arm when he fell on Sunday onto his walker. He denies chest pain or increased shortness of breath. REVIEW OF SYSTEMS: Constitutional: See HPI denies: chills, fever, recent illness, recent injury EENTM: denies: blurred vision, double vision, nose congestion Respiratory: See HPI Cardiac: denies: chest pain, irregular heart rate, lightheadedness, palpitations Gastrointestinal/Abdominal: denies: abdominal pain, diarrhea, nausea, vomiting, blood streaked stools Genitourinary: denies: dysuria, frequency, hematuria, pain Musculoskeletal: denies: joint pain, muscle pain Skin: denies: lesions, rash, jaundice, bruising Neurological: See HPI denies: numbness, paresthesia, tingling, dizziness, weakness Hematologic/Lymphatic: denies: blood clots, easy bleeding, easy bruising Immunologic/allergic: denies: HIV/AIDS, transplant EXAM: GENERAL: Frail appearing, thin but in no acute distress. HEAD: Atraumatic, normocephalic. EYES: Pupils equal round and reactive to light, extraocular movements intact, sclera anicteric, conjunctiva are normal. ENT: TMs normal, nares patent, oropharynx clear without exudates. Moist mucous membranes. NECK: Normal range of motion, supple without lymphadenopathy or JVD. LUNGS: Facemask in place, bilateral rhonchi no rib tenderness HEART: Regular rate and rhythm without murmurs, rubs or gallops. ABDOMEN: Soft, nontender, normoactive bowel sounds. No guarding, no rebound. No masses appreciated. BACK: No CVA tenderness, no spinal tenderness, step-offs or deformities EXTREMITIES: Significant bruising to left arm which patient states is from previous IV. Some bruising to her right biceps area. NEUROLOGICAL: Cranial nerves II through XII grossly intact. Normal speech, normal gait. 5/5 strength, normal movement in all extremities, normal sensation PSYCH: Normal mood, normal affect. SKIN: See above Source: Patient Exam Limitations: No limitations - Personal History Current Tetanus Diphtheria and Acellular Pertussis (TDAP): Unsure - Medical/Surgical History Hx Asthma: No Hx Chronic Respiratory Disease: Yes Hx Diabetes: No Hx Cardiac Disease: Yes Hx Renal Disease: No Hx Cirrhosis: No Hx Alcoholism: No Hx HIV/AIDS: No Hx Splenectomy or Spleen Trauma: No Other PMH: CAD, HTN, cardiac angio in 80's, afib, pacemaker 05/17/16, pulmonary fibrosis, amio pulmonary toxicity, syncopy, cardioversion, chf, pulmonary hypertension - Family History Significant Family History: No pertinent family hx - Social History Smoking Status: Never smoked Alcohol Use: None Constitutional: Initial Vital Signs Temperature (C) 36.3 C 04/30/18 09:19 Heart Rate 84 04/30/18 09:19 Respiratory Rate 22 H 04/30/18 09:19 Blood Pressure 87/40 L 04/30/18 09:19 O2 Sat (%) 93 04/30/18 09:19 O2 Delivery Mode Non-Rebreather Mask O2 (L/minute) 5 Allergies/Adverse Reactions: No Known Allergies Allergy (Verified 04/30/18 09:18) Home Medications: Medication Instructions Recorded Aspirin [Aspirin 81mg (*)] 81 mg PO DAILY 03/20/14 Cholecalciferol Vit D3 [Vitamin D3 1,000 units PO DAILY 05/17/16 (*)] Nitroglycerin [Nitrostat 0.4 mg 0.4 mg SL Q5M PRN 05/17/16 (*)] Rivaroxaban [Xarelto 15mg (*)] 15 mg PO DAILY 05/17/16 Simvastatin [Zocor] 20 mg PO DAILY18 05/17/16 Vit A/Vit C/Vit E/Zinc/Copper 1 each PO BID 05/17/16 [Preservision Areds Tablet] Lisinopril [Zestril 10 mg (*)] 10 mg PO DAILY 03/19/18 Multivitamins [Multivitamin (*)] 1 each PO DAILY18 03/19/18 [place]-3 Fatty Acids [Fish Oil 1000 1,000 mg PO DAILY 03/19/18 mg (*)] Vitamin B Complex [Vitamin B 1 each PO DAILY@12 03/19/18 Complex (OTC)] Ipratropium/Albuterol [Combivent 1 inh IH QID #1 mdi 03/30/18 Respimat Inhal [place](*)] Sulfamethox/Tmp 800/160 mg 1 tab PO TUTHSA 04/30/18 [Bactrim Ds] Torsemide 20 mg PO Q2D 04/30/18 predniSONE 40 mg PO DAILY 04/30/18 Medical Decision Making - Diagnostics EKG Interpretation: An EKG obtained and was read and documented in trace view. Please see trace view for full reading and report. Sinus rhythm, first-degree block, PVC Imaging: Discussed imaging studies w/ yardage caller Radiologist ED Course/Re-evaluation: The patient is significantly anemic. He has been anemic during his last several visits. I performed a rectal exam which was unremarkable for gross blood or dark stool boat will be sent to the lab. His BUN is also elevated. 12:30 p.m. I discussed the case with [facility] who will accept for Dr. Reeder. Differential Diagnosis: Partial list of the Differential diagnosis considered include but were not limited to; anemia, dehydration, infection and although unlikely based on the history and physical exam, I also considered head injury, neck injury, pneumonia , rib fracture, pneumothorax. - Data Points Laboratory Results: Laboratory Results 04/30/18 10:10 04/30/18 10:10 Microbiology Results: MICROBIOLOGY 04/30/18 11:15 Blood Blood Culture - Preliminary 04/30/18 10:10 Blood Blood Culture - Preliminary Medications Given: Albuterol/Ipratropium (Combivent Respimat Inhal [place]) 1 inh IH QID CHRISTINA Stop: 10/27/18 15:59 Last Admin: 05/02/18 10:49 Dose: 1 puffs Aspirin (Aspirin) 81 mg PO DAILY CHIRSTINA Stop: 10/28/18 08:59 Last Admin: 05/01/18 09:20 Dose: Not Given Cholecalciferol (Vitamin D) 1,000 units PO DAILY CHRISTINA Stop: 10/28/18 08:59 Last Admin: 05/02/18 09:05 Dose: 1,000 units Insulin Human Lispro (Humalog Lispro) 0 unit SC TIDMEAL [facility] PRN Reason: Protocol Stop: 10/27/18 17:59 Last Admin: 05/02/18 11:52 Dose: Not Given Multivitamins/Minerals (Preservision Areds2 Formula) 1 each PO BID CHRISTINA Stop: 10/27/18 20:59 Last Admin: 05/02/18 09:04 Dose: 1 each Pantoprazole Sodium (Protonix) 40 mg IVP BID CHRISTINA Stop: 10/28/18 20:59 Last Admin: 05/02/18 09:04 Dose: 40 mg Prednisone (Prednisone) 40 mg PO DAILY CHRISTINA Stop: 10/28/18 08:59 Last Admin: 05/02/18 09:04 Dose: 40 mg Trimethoprim/Sulfamethoxazole (Bactrim Ds) 1 ea PO TUTHSA [facility] PRN Reason: Protocol Stop: 06/01/18 07:59 Last Admin: 05/02/18 09:04 Dose: 1 ea Vitamin B Complex (Vitamin B Complex) 1 ea PO DAILY@12 CHRISTINA Stop: 10/28/18 11:59 Last Admin: 05/02/18 12:14 Dose: 1 ea Discontinued Medications Heparin Sodium (Porcine) (Heparin Sc Injection) 5,000 unit SC Q8HRS [facility] Stop: 10/27/18 21:59 Last Admin: 05/01/18 13:02 Dose: 5,000 unit Sodium Chloride (Ns) 1,900 mls @ 3,800 mls/hr 30 ml/kg infuse over 30 min ( 1900 ml) IV EDNOW ONE PRN Reason: Protocol Stop: 04/30/18 10:19 Last Admin: 04/30/18 10:26 Dose: 1,900 mls Sodium Chloride (Ns) 1,000 mls @ 75 mls/hr IV CONT [facility] Stop: 10/27/18 14:14 Last Admin: 05/01/18 05:44 Dose: 1,000 mls Pantoprazole Sodium (Protonix) 40 mg PO DAILY CHRISTINA Stop: 10/27/18 14:29 Last Admin: 05/01/18 09:20 Dose: 40 mg Point of Care Test Results: Chemistry 04/30/18 10:26 POC Troponin I 0.04 ng/mL ng/mL (0.00-0.08) Departure - Departure Disposition: [facility] In[facility] Acute Clinical Impression: Generalized weakness Anemia Qualifiers: Anemia type: unspecified type Qualified Code(s): D64.9 - Anemia, unspecified Condition: Fair
[2018-04-30 10:40] LABS: PLATELET COUNT 222 10^3/uL (150-400)
[2018-04-30 10:46] LABS: CREATINE KINASE 23 IU/L (0-224)
[2018-04-30 10:48] LABS: INR 2.81 (0.83-1.16); PROTIME(PATIENT) 29.5 SEC (12.0-15.0)
[2018-04-30] MEDS ORDERED: ACETAMINOPHEN 325 MG TAB PO PRN (14:09)
[2018-04-30] MEDS ORDERED: NITROGLYCERIN 0.4 MG BTL SL PRN (14:12)
[2018-04-30] MEDS ORDERED: D50W 25 GM/50 ML SYR IVP PRN (14:13)
[2018-04-30] MEDS: NS 1,000 ML IV SCH (14:21)
[2018-04-30] MEDS: PANTOPRAZOLE SODIUM 40 MG TAB PO SCH (14:39)
--- NOTE | 2018-04-30 15:16 | GHP ---
[f rep st] HISTORY AND PHYSICAL DATE OF ADMISSION: 04/30/2018 COMPLAINT: Failure to thrive, weakness. HISTORY OF PRESENT ILLNESS: Mr. Maldonado is an 87-year-old, recently hospitalized here for syncope. D uring that admission, he was found to have a development of interstitial lung disease, thought second ayla to amiodarone toxicity and hypoxic respiratory failure resulting in syncope. He was also noted t o have right-sided failure with normal left ventricular function. He was discharged on a high-dose s teroid taper as well as diuretics for his right-sided failure. He went home with home care and has b een having nursing visits as well as physical and occupational therapy since discharge a month ago. He said he has been gradually getting stronger throughout that time, to a point where he has felt muc h better. His OT was finished last week and was feeling normal Sunday night; however, Sunday woke up at 1 a.m., and when he went to use the bathroom, his legs felt weak. He got lightheaded and he fe ll. It took him awhile to get back up off the floor and eventually got into his recliner and went ba ck to bed. Since that time, he has been getting gradually weaker and weaker. Over Sunday, Sunday and Sunday, he could not do nearly as much as he had before. He denies a head injury or headache. N o vision, hearing, speech changes. No chest pain, palpitations. Breathing, he has had decreased oxy gen needs. No nausea, vomiting, diarrhea. His urination has been the same. He has had lower extrem ity edema that has gradually resolved over the course of the last month. Last night, he was working on his usual walk after dinner to the front of the house and back and when he got up to do it, he diane denly became lightheaded. His legs gave out and he fell again. This led his family to bring him int o the emergency room today for further evaluation. He has not been ill with cough. He did have mayb e a low-grade fever, but that has not recurred, and he has not had any chills or other illnesses. REVIEW OF SYSTEMS: A 10-point review of systems was done. PAST MEDICAL HISTORY: 1. 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 2. Atrial fibrillation, currently on anticoagulation with Xarelto and rate controlled. 3. Coronary artery disease. 4. Dyslipidemia. 5. Hypertension. 6. Anemia. 7. History of pulmonary nodule. 8. Status post pacemaker. FAMILY HISTORY: Parents are . SOCIAL HISTORY: He is and lives with his . He does not smoke and rarely drinks alcohol. ALLERGIES: No known drug allergies. CURRENT MEDICATIONS: Include Bactrim for PCP prophylaxis while on steroids, Combivent inhaler, lisin opril 10 daily, simvastatin 20 daily, torsemide 20 every other day or 3 days a week, Xarelto 15 mg da kait. He takes an aspirin daily and prednisone 40 mg daily. PHYSICAL EXAMINATION: VITAL SIGNS: He is afebrile. Heart rate 62, blood pressure 131/51, respirati ons 16, he is 100% on 5 L non-rebreather. GENERAL: He is a very pleasant 87-year-old, slightly pale , in no obvious distress except for some mild respiratory distress. HEENT: Pupils are equal. Extra ocular movements intact. Mucous membranes are dry. Oropharynx is clear. Face is symmetric with jus t a hint of a left facial droop, although this is minimal. HEART: Regular. Systolic murmur. LUNGS : Bibasilar rales. Fair air movement. ABDOMEN: Soft. No masses. No tenderness. EXTREMITIES: T race edema of bilateral lower extremities. LYMPH NODES: No adenopathy. SKIN: Pale with some bruis ing up and down his left arm as well as he has some bruising on his right posterior chest wall. MUSC ULOSKELETAL: No joint deformities or effusions. Strength is bilaterally equal 5/5. PSYCHIATRIC: H is mood is appropriate. NEUROLOGIC: He is moving all 4 extremities. Speech is fluent. He is alert and oriented. LABORATORY DATA: CBC shows white count of 19.36, hemoglobin 8.6 with a platelet count of 222. INR i s elevated at 2.81. Electrolytes are normal. BUN 72 with a creatinine of 2.6, glucose is 173. LFTs are normal. Troponin is negative. Urinalysis is unremarkable. Chest x-ray shows bilateral infiltrates, improved from previous interstitial lung disease. Blood cultures have been drawn and are pending. ASSESSMENT AND PLAN: An 87-year-old with increasing weakness, failure to thrive with a number of abn ormalities likely causing his current symptoms. I suspect his weakness is multifactorial. 1. Yeolo-es-zhkwlpo renal failure, most likely secondary to prerenal azotemia as well as due to diur etics and HE inhibitor as well as the use of Bactrim causing increased creatinine. The plan will be to check renal ultrasound with PVR to rule out obstruction. Hold his lisinopril as well as torsemid e and gently hydrate him overnight and follow up creatinine in the a.m. Urinalysis looks fairly andre gn. 2. Anemia. This is a chronic issue and it appears stable. However, he has been hydrated. He does have heme-positive blood, but that was on a manual rectal exam. His anemia is stable, I will likely not further pursue this at this time. He has been watched closely by Dr. Shiv Dhaliwal, had a colonosco py 5 years ago and was due for one earlier this year before he got sick and can certainly follow up w radha Dhaliwal once he is stabilized, if appropriate, given his chronic respiratory failure. 3. Hyperglycemia. Check hemoglobin A1c and put him on a sliding scale. 4. Leukocytosis, unclear etiology. He has been on high-dose prednisone and it may likely be due to that. There is no obvious infection with a normal, unremarkable urinalysis and chest x-ray. Blood c ultures are pending. Will follow up on those and monitor his white cells. 5. Interstitial lung disease with hypoxic respiratory failure. Continue high-dose steroids and oxyg en. 6. Atrial fibrillation, currently rate controlled and on anticoagulation with Xarelto. Given his re nal failure and anemia as well as possible bleeding, we will hold the Xarelto at this time. Can resu me that once he is stabilized as an outpatient and his renal function has improved. 7. Coronary artery disease, no current symptoms. 8. Status post pacemaker placement. 9. Dyslipidemia, on Zocor. We will hold Zocor for now and resume it once he is feeling improved. L FTs and CPK are all within normal limits. 10. Hypertension, on lisinopril. Blood pressure is well controlled. However, should he require inc reased blood pressure control while his kidneys are weak, would consider adding Norvasc as needed. 11. Deep venous thrombosis prophylaxis. Patient will be off the Xarelto. Start renal dosed Lovenox . /[id number]/MODL
[2018-04-30] MEDS: IPRATROPIUM/ALBUTEROL 4GM MDI IH SCH ×2 (16:31→20:25)
[2018-04-30] MEDS: INSULIN LISPRO 100 UNIT/ML SC SCH (17:03)
[2018-04-30] MEDS: HEPARIN 5,000 UNIT/0.5 ML INJ SC SCH (21:30)
[2018-04-30] MEDS: PRESERVISION AREDS2 FORMULA EYE VIT 1 EACH PO SCH (21:30)
[2018-05-01] MEDS: IPRATROPIUM/ALBUTEROL 4GM MDI IH SCH ×4 (05:05→21:57)
[2018-05-01] MEDS: HEPARIN 5,000 UNIT/0.5 ML INJ SC SCH ×2 (05:44→13:02)
[2018-05-01] MEDS: NS 1,000 ML IV SCH (05:44)
[2018-05-01 06:31] LABS: PLATELET COUNT 158 10^3/uL (150-400)
[2018-05-01] MEDS: INSULIN LISPRO 100 UNIT/ML SC SCH ×3 (08:06→17:37)
[2018-05-01] MEDS ORDERED: ENOXAPARIN 30 MG/0.3 ML SYR SC SCH (09:00)
[2018-05-01] MEDS: predniSONE 20 MG TAB PO SCH (09:19)
[2018-05-01] MEDS: PRESERVISION AREDS2 FORMULA EYE VIT 1 EACH PO SCH ×2 (09:20→20:38)
[2018-05-01] MEDS: PANTOPRAZOLE SODIUM 40 MG TAB PO SCH (09:20)
[2018-05-01] MEDS: ASPIRIN 81 MG CHEWABLE TAB PO SCH (09:20)
[2018-05-01] MEDS: CHOLECALCIFEROL VIT D3 1,000 UNITS TAB PO SCH (09:20)
--- NOTE | 2018-05-01 11:05 | PDMN ---
Medical Necessity Medical necessity: Pt meets inpt criteria per MD order, admitted w/failure to thrive w/increasing weakness, Renal failure, anemia, hypoxia w/hx of interstitial lung disease, currently requiring Sup O2 via Oxymizer. PT/OT evals pending. Pt requires ongoing eval and treatment.
[2018-05-01] MEDS: VITAMIN B COMPLEX 1 EA CAP/TAB PO SCH (13:01)
--- NOTE | 2018-05-01 13:42 | ASMTCMCOM ---
CM Note CM Note Notes: Patient admitted with failure to thrive. He has multiple medical problems, and a medication reconcilliation will be helpful in determining cause of his malaise. He lives at home with his and has services in place with [facility] and [facility]. I have sent updates to both agencies. Case Management will follow for discharge planning. Date Signed: 05/01/2018 01:42 PM Electronically Signed By:Marisela Menchaca RN
--- NOTE | 2018-05-01 17:37 | HOSPPROG ---
Hospitalist Progress Note Assessment/Plan: Assessment: 87-year-old male presents with acute fatigue and near syncope secondary to acute on chronic anemia and acute kidney injury on chronic kidney disease stage 3 Plan: 1. Anemia. Acute on chronic, most likely secondary to blood loss, with chronic melena, positive fecal occult blood test, hemoglobin level 6.9, most likely cause of patient's symptoms -status post 1 unit packed red blood cells today -discussed with Dr. Sukhdeep Ramos, we agreed that upper endoscopy and colonoscopy are indicated urgently, but the patient has been on anti-platelet medication as well as systemic anticoagulation, and the should be held prior to undergoing investigation so that if polypectomy is required, the patient's bleeding risk is manageable -will hold his aspirin and Xarelto today, planning on procedures on 05/03 and serial hemoglobin level monitoring in the interim 2. Acute kidney injury on chronic kidney disease stage 3. Most likely secondary to hypovolemia in the setting of acute blood loss, as well as concomitant HE- inhibitor and diuretic therapy -hold lisinopril and torsemide -status post IV fluids with improvement in serum creatinine level, giving blood and monitor output -reviewed outside records including most recent serum creatinine level, baseline 1.2-1.5 -urinalysis demonstrating hylan casts, consistent with above 3. Acute hyponatremia. Most likely secondary to renal hypoperfusion in the setting of above, continue monitor 4. Leukocytosis. Most likely secondary to steroids being utilized for interstitial lung disease 5. Interstitial lung disease. Chest x-ray demonstrating reduction in alveolar consolidation bilaterally, personally interpreted -continue steroids -reviewed outside records including most recent discharge summary, indicating that the etiology is secondary to amiodarone, currently held 6. Atrial fibrillation. Paroxysmal, currently off anti rhythmic therapy, currently holding anticoagulation secondary to above 7. Chronic hypoxic respiratory failure. Secondary to interstitial lung disease , continue supplemental oxygen, increases patient's risk of complication with colonoscopy, requiring anesthesia assistance on Sunday 8. Suspected upper gastrointestinal hemorrhage. Melanotic stool, positive fecal occult blood test, acute blood loss anemia, placed on IV PPI twice daily until upper endoscopy performed Diet. Regular Prophylaxis. High risk patient, holding pharmacologic secondary to suspected upper GI bleed, SCDs Code. Do not resuscitate Disposition. Anticipated discharge is 05/03, status post upper endoscopy and colonoscopy which are urgently indicated as outlined above. Subjective: Patient without melanotic stool today, has recently had, no abdominal pain Objective: Vital Signs Temp Pulse Resp BP Pulse Ox 36.5 C 80 21 H 132/66 H 94 05/01/18 15:22 05/01/18 16:35 05/01/18 16:35 05/01/18 15:22 05/01/18 16:35 Laboratory Results 05/01/18 05:17 05/01/18 05:17 04/30/18 05/01/18 05/02/18 05:59 05:59 05:59 Intake Total 3442 Output Total 450 370 Balance 2992 -370 PT 29.5 SEC (12.0-15.0) H 04/30/18 10:10 INR 2.81 (0.83-1.16) H 04/30/18 10:10 - Physical Exam Constitutional: no apparent distress, appears nourished, not in pain, No uncomfortable Cardiovascular: systolic murmur (3/6 systolic at the sternum), No irregularly irregular, No tachycardia, No edema Respiratory: inspiratory crackles (Bilateral), No reduced air movement, No expiratory wheeze, No bronchial breath sounds, No respiratory distress Gastrointestinal: normoactive bowel sounds, soft, non-tender abdomen, no palpable masses, No distension Neurologic: AAOx3, sensation intact bilaterally, No weakness Psychiatric: interacting appropriately, not anxious, not encephalopathic, thought process linear ICD10 Worksheet Patient Problems: Problems Problem Status Onset Generalized weakness Acute Anemia Acute chronic disease [facility] Acute Hemoptysis Acute Syncope Acute Elevated troponin Acute
[2018-05-01] MEDS: PANTOPRAZOLE SODIUM 40 MG VIAL IVP SCH (20:38)
[2018-05-02] MEDS: IPRATROPIUM/ALBUTEROL 4GM MDI IH SCH ×4 (05:19→21:01)
[2018-05-02] MEDS ORDERED: SULFAMETHOX/TMP 800/160 MG 1 TAB PO SCH (08:00)
[2018-05-02] MEDS: INSULIN LISPRO 100 UNIT/ML SC SCH ×3 (08:55→17:43)
[2018-05-02] MEDS: predniSONE 20 MG TAB PO SCH (09:04)
[2018-05-02] MEDS: PRESERVISION AREDS2 FORMULA EYE VIT 1 EACH PO SCH ×2 (09:04→22:23)
[2018-05-02] MEDS: PANTOPRAZOLE SODIUM 40 MG VIAL IVP SCH ×2 (09:04→22:22)
[2018-05-02] MEDS: CHOLECALCIFEROL VIT D3 1,000 UNITS TAB PO SCH (09:05)
[2018-05-02] MEDS: VITAMIN B COMPLEX 1 EA CAP/TAB PO SCH (12:14)
--- NOTE | 2018-05-02 16:44 | HOSPPROG ---
Hospitalist Progress Note Assessment/Plan: Assessment: 87-year-old male presents with acute fatigue and near syncope secondary to acute on chronic anemia and acute kidney injury on chronic kidney disease stage 3 Plan: 1. Anemia. Acute on chronic, most likely secondary to blood loss 2/2 UGIB -Hgb stable, no indication for additional transfusion today, cont to monitor 2. Acute kidney injury on chronic kidney disease stage 3. Most likely secondary to hypovolemia in the setting of acute blood loss, as well as concomitant HE- inhibitor and diuretic therapy -holding lisinopril and torsemide, will restart s/p colonoscopy 3. Acute hyponatremia. Most likely secondary to renal hypoperfusion in the setting of above, continue monitor 4. Leukocytosis. Most likely secondary to steroids being utilized for interstitial lung disease 5. Interstitial lung disease. Chest x-ray demonstrating reduction in alveolar consolidation bilaterally -continue steroids 6. Atrial fibrillation. Paroxysmal, currently off anti rhythmic therapy, currently holding anticoagulation secondary to above 7. Chronic hypoxic respiratory failure. Secondary to interstitial lung disease , continue supplemental oxygen, increases patient's risk of complication with colonoscopy, requiring anesthesia assistance on Sunday 8. Suspected upper gastrointestinal hemorrhage. Melanotic stool, positive fecal occult blood test, acute blood loss anemia, placed on IV PPI twice daily until upper endoscopy performed -upper endoscopy and colonoscopy are indicated urgently, but the patient has been on anti-platelet medication as well as systemic anticoagulation, and the should be held prior to undergoing investigation so that if polypectomy is required, the patient's bleeding risk is manageable -will cont to hold his aspirin and Xarelto today, planning on procedures on and serial hemoglobin level monitoring in the interim Diet. Regular Prophylaxis. High risk patient, holding pharmacologic secondary to suspected upper GI bleed, SCDs Code. Do not resuscitate Disposition. Anticipated discharge is 05/03, status post upper endoscopy and colonoscopy which are urgently indicated as outlined above. Counseled patient extensively regarding the plan above, encouraging him to maintain strength by working w/ PT/RN and ambulating Subjective: patient reports no stool today Objective: Vital Signs Temp Pulse Resp BP Pulse Ox 36.6 C 74 16 134/56 H 100 05/02/18 15:55 05/02/18 15:55 05/02/18 15:55 05/02/18 15:55 05/02/18 15:55 Laboratory Results 05/02/18 05:19 05/02/18 05:19 05/01/18 05/02/18 05/03/18 05:59 05:59 05:59 Intake Total 3442 500 Output Total 450 520 250 Balance 2992 -20 -250 PT 29.5 SEC (12.0-15.0) H 04/30/18 10:10 INR 2.81 (0.83-1.16) H 04/30/18 10:10 - Time Spent With Patient Time Spent with Patient: greater than 35 minutes Time Spent with Patient: Greater than 35 minutes spent on this patients care, greater than 50% of time spent counseling, educating, and coordinating care regarding the above mentioned plan. - Pending Discharge Pending Discharge Within 24 Hours: Yes Pending Discharge Date: 05/03/18 Pending Discharge Time: 11:00 - Physical Exam Constitutional: no apparent distress, not in pain, No uncomfortable Cardiovascular: systolic murmur (II/ at apex), No irregularly irregular, No tachycardia, No edema Respiratory: inspiratory crackles, No reduced air movement, No expiratory wheeze , No bronchial breath sounds, No respiratory distress Gastrointestinal: normoactive bowel sounds, soft, non-tender abdomen, no palpable masses Neurologic: AAOx3 Psychiatric: interacting appropriately, not anxious, not encephalopathic, thought process linear ICD10 Worksheet Patient Problems: Problems Problem Status Onset Generalized weakness Acute Anemia Acute chronic disease mgmt/transitional care Acute Hemoptysis Acute Syncope Acute Elevated troponin Acute
[2018-05-02] MEDS ORDERED: PEG 3350/NA SULF,BICARB,CL/KCL (GAVILYTE-G) 4000 ML BTL PO ONE (16:47)
[2018-05-03] MEDS: IPRATROPIUM/ALBUTEROL 4GM MDI IH SCH ×3 (04:56→17:10)
[2018-05-03] MEDS: INSULIN LISPRO 100 UNIT/ML SC SCH ×2 (08:29→11:25)
[2018-05-03] MEDS: PRESERVISION AREDS2 FORMULA EYE VIT 1 EACH PO SCH (08:59)
[2018-05-03] MEDS: PANTOPRAZOLE SODIUM 40 MG VIAL IVP SCH (08:59)
[2018-05-03] MEDS: CHOLECALCIFEROL VIT D3 1,000 UNITS TAB PO SCH (08:59)
[2018-05-03] MEDS: predniSONE 20 MG TAB PO SCH (08:59)
[2018-05-03] MEDS: ASPIRIN 81 MG CHEWABLE TAB PO SCH (10:25)
[2018-05-03] MEDS: VITAMIN B COMPLEX 1 EA CAP/TAB PO SCH (12:55)
[2018-05-03] MEDS ORDERED: NS 1,000 ML IV ONE (13:48)
--- NOTE | 2018-05-03 14:46 | POSTANESTH ---
Post Anesthetic Evaluation Cardiovascular Status: Normal, Stable Respiratory Status: Normal, Stable Level of Consciousness/Mental Status: Moderately Sleepy Pain Control: Adequate, Prn Tx Ordered Nausea/Vomiting Control: Adequate, Prn Tx Ordered Complications Possibly Related to Anesthesia: None Noted
--- NOTE | 2018-05-03 14:49 | PDANEPAE ---
ANE History of Present Illness 87 yo male with anemia/black tarry stools for EGD and colonoscopy. 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 colon polyps - Chronic Pain History Chronic Pain: No ANE Review of Systems Review of Systems: - Systems Constitutional: Reports: malaise, weakness Respiratory: Reports: shortness of breath Gastrointestinal: Reports: black stools - Pacemaker Date Pacemaker Last Checked: 03/08 ANE Patient History - Allergies Allergies/Adverse Reactions: No Known Allergies Allergy (Verified 04/30/18 09:18) - Home Medications Home Medications: Aspirin [Aspirin 81mg (*)] 81 mg PO DAILY 03/20/14 [Last Taken 04/30/18] Cholecalciferol Vit D3 [Vitamin D3 (*)] 1,000 units PO DAILY 05/17/16 [Last Taken 04/30/18] Nitroglycerin [Nitrostat 0.4 mg (*)] 0.4 mg SL Q5M PRN 05/17/16 [Last Taken Unknown] Rivaroxaban [Xarelto 15mg (*)] 15 mg PO DAILY 05/17/16 [Last Taken 04/30/18] Simvastatin [Zocor] 20 mg PO DAILY18 05/17/16 [Last Taken 04/29/18] Vit A/Vit C/Vit E/Zinc/Copper [Preservision Areds Tablet] 1 each PO BID [Last Taken 04/30/18] Lisinopril [Zestril 10 mg (*)] 10 mg PO DAILY 03/19/18 [Last Taken 04/30/18] Multivitamins [Multivitamin (*)] 1 each PO DAILY18 03/19/18 [Last Taken 04/29/18 ] [place]-3 Fatty Acids [Fish Oil 1000 mg (*)] 1,000 mg PO DAILY 03/19/18 [Last Taken 04/30/18] Vitamin B Complex [Vitamin B Complex (OTC)] 1 each PO DAILY@12 03/19/18 [Last Taken 04/29/18] Sulfamethox/Tmp 800/160 mg [Bactrim Ds] 1 tab PO TUTHSA 04/30/18 [Last Taken 08/08] Torsemide 20 mg PO Q2D 04/30/18 [Last Taken 04/28/18] predniSONE 40 mg PO DAILY 04/30/18 [Last Taken 04/30/18] - NPO status NPO Since - Liquids (Date): 05/03/18 NPO Since - Liquids (Time): 00:00 NPO Since - Solids (Date): 05/03/18 NPO Since - Solids (Time): 00:00 - Anes Hx Anes Hx: no prior problems - Smoking Hx Smoking Status: Never smoked - Alcohol Use Alcohol Use: None - Family Anes Hx Family Anes Hx: neg - N/A ANE Labs/Vital Signs - Labs Result Diagrams: 05/03/18 04:53 05/03/18 04:53 - Vital Signs Blood Pressure: 168/77 Heart Rate: 77 Respiratory Rate: 18 O2 Sat (%): 98 Height: 170.18 cm Weight: 63.503 kg ANE Physical Exam - Airway Neck exam: FROM Mallampati Score: Class 2 - Pulmonary Pulmonary: aegophony, rhonchi - Cardiovascular Cardiovascular: regular rate and rhythym - ASA Status ASA Status: IV ANE Anesthesia Plan Anesthesia Plan: GA with mask Total IV Anesthesia: Yes
[2018-05-03] MEDS ORDERED: PROPOFOL 200 MG/20 ML VIAL ONE ×2 (14:56)
[2018-05-03] MEDS ORDERED: LIDOCAINE 2% 5 ML SDV ONE (14:56)
[2018-05-03] MEDS ORDERED: DEXAMETHASONE 4 MG/ML VIAL ONE (14:56)
[2018-05-03] MEDS ORDERED: ONDANSETRON 4 MG/2 ML VIAL IVP PRN (15:12)
[2018-05-03] MEDS ORDERED: NALOXONE HCL 0.4 MG/ML INJ IVP PRN (15:12)
[2018-05-03] MEDS ORDERED: ACETAMINOPHEN 500 MG TAB PO PRN (15:12)
--- NOTE | 2018-05-03 15:15 | GCON ---
[f rep st] CONSULTATION REFERRING PHYSICIAN: Sukhdeep Ramos MD REASON FOR CONSULTATION: Anemia. CHIEF COMPLAINT: Feeling weak. HISTORY: Briefly, the patient is a pleasant 87-year-old male who was admitted on the May 10 for evaluation of failure to thrive and weakness. He reports he has recently been hospitalized fo r syncope. He was found to have some interstitial lung disease secondary to amiodarone. He was also noted to have some right-sided heart failure and left ventricular dysfunction. He has been being ma naged for those issues and was sent home. He has had multiple nursing visits as well as physical and occupational therapy visits since that discharge 1 month ago. He has been gradually getting stronge r until recently. Recently began to notice that his legs felt weak. He was having increasing lighth eadedness. It took him a while to get back up after a recent fall. Over the ensuing several days, brad weir reports he has been gradually unable to do as much as he had done before; so presented to the emerg ency room for evaluation. His family brought him in to be evaluated after he had another episode of falling in the absence of syncope. REVIEW OF SYSTEMS: A complete 14-point review was undertaken with the patient. The pertinent positi ves and negatives are in the history of present illness. PAST MEDICAL HISTORY: Includes pulmonary fibrosis, atrial fibrillation on Xarelto, coronary artery d isease, dyslipidemia, hypertension, anemia, pulmonary nodule, and history of pacemaker. FAMILY HISTORY: The patient is uncertain of his family history as his parents are both so krunal weir could not elicit this carefully. SOCIAL HISTORY: He is , lives with his . He does not drink. He rarely drinks alcohol. ALLERGIES: None. OUTPATIENT MEDICINES: Bactrim, Combivent, lisinopril, simvastatin, torsemide, Xarelto, aspirin and p rednisone. PHYSICAL EXAM: GENERAL: This is a pleasant male in no apparent distress. HEENT: His pupils are eq ual, round, reactive to light and accommodation. His sclerae are nonicteric. His oropharynx is pipo r. NECK: Supple without lymphadenopathy. HEART: Irregularly irregular without murmur. ABDOMEN: Soft, nontender, with normoactive bowel sounds. EXTREMITIES: Free of cyanosis, clubbing, edema. MU SCULOSKELETAL: No joint deformities or effusions. NEUROLOGIC: Grossly nonfocal. PSYCH: Stable mo od and affect. LABORATORY TESTING: Shows hemoglobin of 6.9, hematocrit of 21.4, platelet count of 158, white count of 10.11, sodium of 132, potassium of 4.4, chloride of 102, bicarb of 26, BUN of 31, creatinine of 1. 3. Stool occult was positive. IMAGING: Ultrasound of the abdomen and pelvis on 04/30/2018, was normal with a small postvoid residu al. IMPRESSION/RECOMMENDATIONS: The patient has been admitted to the hospital with gradual failure to th rive and weakness. This has been associated with a fall in hematocrit. He does have an anemia, norm ocytic. Per his recollection, he has been diagnosed with anemia in the past. Recently, has been on steroids and nonsteroidal inflammatory therapies as well as anticoagulants. He reports occasional da rk stool, without any bloody stool. Given his gradual decline and anemia, I recommend additional workup. His workup should start with up per and lower endoscopy. The differential diagnosis might include peptic disease, colon polyps, AVMs, etc. Pending the results of his upper and lower endoscopy, we could consider additional workup of the smal l bowel with capsule endoscopy. For now, we should hold his anticoagulant therapies in order to allo w endoscopic interventions if they were necessary. He will need to be off his Xarelto for 72 hours. /[id number]/MODL
--- NOTE | 2018-05-03 15:27 | GIREPORT ---
[facility] Surgical Services - Endoscopy Department Patient Name: Aubrey Maldonado Procedure Date: 05/03/2018 2:36 PM Patient Type: Inpatient Attending MD/ ER Physician: Sukhdeep Ramos MD Procedure: Upper GI endoscopy Indications: Iron deficiency anemia secondary to chronic blood loss, Unexplained iro n deficiency anemia, Melena Providers: Sukhdeep Ramos MD Medicines: Sedation Administered by an Anesthesia Professional Complications: No immediate complications. Description of Procedure: After obtaining informed consent, the endoscope was passed under direct vision. Throughout the procedure, the patient's blood pressure, pulse, and oxygen saturations were monitored continuously. The Endoscope was intro duced through the mouth, and advanced to the third part of duodenum. The uppe r GI endoscopy was accomplished without difficulty. The patient tolerated th e procedure well. Findings: The examined esophagus was normal. Diffuse mild inflammation characterized by congestion (edema) was found in the entire examined stomach. The examined duodenum was normal. Biopsies for histology were taken wit h a cold forceps for evaluation of celiac disease. Estimated Blood Loss: Estimated blood loss: none. Post Op Diagnosis: - Normal esophagus. - Gastritis. - Normal examined duodenum. Biopsied. Recommendation: - Perform a colonoscopy. Attending Participation: I personally performed the entire procedure. Sukhdeep Ramos MD Sukhdeep Ramos MD 05/03/2018 3:27:05 PM This report has been signed electronicallyDaus MD Rachel Number of Addenda: 0 Note Initiated On: 05/03/2018 2:36 PM [email or web address]
--- NOTE | 2018-05-03 15:28 | GIREPORT ---
[facility] Surgical Services - Endoscopy Department Patient Name: Aubrey Maldonado Procedure Date: 05/03/2018 3:06 PM Patient Type: Inpatient Attending MD/ ER Physician: Sukhdeep Ramos MD Procedure: Colonoscopy Indications: Melena, Unexplained iron deficiency anemia Providers: Sukhdeep Ramos MD Medicines: Sedation Administered by an Anesthesia Professional Complications: No immediate complications. Description of Procedure: After obtaining informed consent, the scope was passed under direct vis ion. Throughout the procedure, the patient's blood pressure, pulse, and oxyg en saturations were monitored continuously. The Colonoscope with irrigatio n channel was introduced through the and advanced to the cecum, identifie d by appendiceal orifice and ileocecal valve. The colonoscopy was performed without difficulty. The patient tolerated the procedure well. The quali ty of the bowel preparation was good. The ileocecal valve, appendiceal orific e, and rectum were photographed. Findings: Multiple small-mouthed diverticula were found in the sigmoid colon. The exam was otherwise without abnormality. Estimated Blood Loss: Estimated blood loss: none. Post Op Diagnosis: - Diverticulosis in the sigmoid colon. - The examination was otherwise normal. - No specimens collected. Recommendation: - [facility]. - To visualize the small bowel, perform video capsule endoscopy. Attending Participation: I personally performed the entire procedure. Sukhdeep Ramos MD Sukhdeep Ramos MD 05/03/2018 3:28:22 PM This report has been signed electronicallyDaus MD Rachel Number of Addenda: 0 Note Initiated On: 05/03/2018 3:06 PM Total Procedure Duration Time 0 hours 13 minutes 11 seconds [email or web address]
--- NOTE | 2018-05-03 15:31 | SUROPNOTE ---
[facility] Operative Report - Surgery BRIEF EGD/COLON NOTE Indication: melena, anemia Complications: none acutely Medications: per anesthesia Quality of prep: good, adequate Findings: EGD 1. normal esophagus 2. minimal gastritis 3. normal duodenum - bx to r/o celiac 4. no source of blood loss noted COLON 1. scattered diverticula 2. otherwise normal 3. no source of blood loss IMPRESSION/RECS: 1. Anemia - likely multifactorial - did report melena - no obvious source of bleeding with EGD/Colon - ok to resume Xarelto tomorrow (bx today) - ok to advance diet - i will arrange outpt capsule endoscopy to evaluate further - will sign off, call with any questions.
[2018-05-03 16:21] VITALS: BP 162/74
--- NOTE | 2018-05-03 16:43 | PDIAF ---
- Diagnosis Diagnosis: Upper GI bleed, Anemia, CHRISTELLE on CKD stage III Code Status: Do Not Resuscitate - Medication Management Discharge Medications: Medications to Continue on Transfer Aspirin [Aspirin 81mg (*)] 81 mg PO DAILY 03/20/14 [Last Taken 04/30/18] Cholecalciferol Vit D3 [Vitamin D3 (*)] 1,000 units PO DAILY 05/17/16 [Last Taken 04/30/18] Nitroglycerin [Nitrostat 0.4 mg (*)] 0.4 mg SL Q5M PRN 05/17/16 [Last Taken Unknown] Rivaroxaban [Xarelto 15mg (*)] 15 mg PO DAILY 05/17/16 [Last Taken 04/30/18] Simvastatin [Zocor] 20 mg PO DAILY18 05/17/16 [Last Taken 04/29/18] Vit A/Vit C/Vit E/Zinc/Copper [Preservision Areds Tablet] 1 each PO BID [Last Taken 04/30/18] Lisinopril [Zestril 10 mg (*)] 10 mg PO DAILY 03/19/18 [Last Taken 04/30/18] Multivitamins [Multivitamin (*)] 1 each PO DAILY18 03/19/18 [Last Taken 04/29/18 ] [place]-3 Fatty Acids [Fish Oil 1000 mg (*)] 1,000 mg PO DAILY 03/19/18 [Last Taken 04/30/18] Vitamin B Complex [Vitamin B Complex (OTC)] 1 each PO DAILY@12 03/19/18 [Last Taken 04/29/18] Ipratropium/Albuterol [Combivent Respimat Inhal [place](*)] 1 inh IH QID #1 mdi [Last Taken 04/30/18] Sulfamethox/Tmp 800/160 mg [Bactrim DS] 1 tab PO TUTHSA 04/30/18 [Last Taken 08/08] Torsemide 20 mg PO Q2D 04/30/18 [Last Taken 04/28/18] predniSONE 40 mg PO DAILY 04/30/18 [Last Taken 04/30/18] Pantoprazole Sodium [Protonix 40mg (*)] 40 mg PO BID #60 tab 05/03/18 [Last Taken Unknown] Grouter Helper Antibiotics: NA Additional Medication Instructions: NA Discharge Medications: Refer to the Discharge Home Medication list for PRN reason. PICC Care - Routine: N/A - Orders Services needed: Home Care, Registered Nurse, Physical Therapy, Occupational Therapy Home Care Face to Face: I certify that this patient was under my care and that I had the required [id number] encounter meeting the encounter requirements on the discharge day. My findings support the fact that the patient is homebound as defined in Home Care Face to Face Continued: CMS Chapter 7 Medicare Benefits Manual 30.1.1 , The condition of the patient is such that there exists a normal inability to leave home and consequently, leaving home would require a considerable and taxing effort. Isolation Type: None Oxygen: 4LPM Diet Recommendation: no restrictions on diet Weigh Patient: weekly [place]: Not applicable - Labs/Radiology BMP Date: 05/07/18 HCT/HGB Date: 05/07/18 Call or Fax Lab and Imaging Results to: Dr. Bishop and Leonardo - Follow Up Care Current Providers and Referrals: Jesus Manuel Patterson MD [Primary Care Provider] - As per Instructions Parag Bishop MD [Medical Doctor] - 3-5 days
--- NOTE | 2018-05-03 16:48 | ASMTLACE ---
LACE Length of stay for Answers: 3 days current admission Acuity / Level of Answers: Yes Care: Did the patient have an inpatient admission? Comorbidities - select Answers: Chronic pulmonary disease all that apply Coronary Artery Disease # of Emergency department Answers: 1-2 visits in the last 6 months Score: 11 Date Signed: 05/03/2018 04:48 PM Electronically Signed By:Rin Delgado RN
--- NOTE | 2018-05-03 17:02 | ASMTDCNOTE ---
Case Management Discharge Discharge Order Complete? Answers: Yes Patient to Obtain Answers: via Family Medications Transportation Arranged Answers: Family/Friends Faxed Final Orders Answers: Yes Agency/Facility Transfer Answers: Yes Report Printed & Faxed to Receiving Agency Family Notified Answers: Yes Discharge Comments Notes: D/w , final orders faxed. Adriane rain [facility] notified and [facility] will f/u with pt and at home. Date Signed: 05/03/2018 04:56 PM Electronically Signed By:Rin Delgado RN
--- NOTE | 2018-05-03 17:28 | PDDCSUM ---
Discharge Summary Discharge Summary: DISCHARGE SUMMARY FOLLOW-UP ITEMS: Follow-up creatinine BUN and lytes hemoglobin and hematocrit next Sunday with results to Dr. Bishop DATE OF ADMISSION: 04/30/2018 DATE OF DISCHARGE: 05/03/2018 DISCHARGE DIAGNOSES: 1. Acute blood-loss anemia 2. Acute upper gastrointestinal hemorrhage 3. Acute kidney injury on chronic kidney disease stage 3 4. Acute hyponatremia 5. Chronic interstitial lung disease 6. Paroxysmal atrial fibrillation 7. Chronic hypoxic respiratory failure CONSULTATIONS: Gastroenterology PROCEDURES / IMAGING: Upper endoscopy and colonoscopy demonstrating no evidence of bleed, biopsy taken , results to be followed up by Dr. Ramos Upper extremity ultrasound demonstrating no DVT in the right arm CHIEF COMPLAINT: Acute melena and lethargy SUBJECTIVE: Patient feeling well at time discharge, he is tolerating oral diet, is ambulating safely PHYSICAL EXAM ON DISCHARGE: Systolic blood pressure is 150, heart 60-70, afebrile overnight, satting well on 4 L nasal cannula, abdomen is soft nontender nondistended no masses are palpated, lungs have inspiratory crackles bilaterally, no expiratory wheezes, heart rhythm is regular and distant LABS ON DISCHARGE: Hemoglobin 8.9, potassium 4.4, creatinine 1.3, serum sodium 130 to HOSPITAL COURSE BY PROBLEM: The patient presented with melena secondary to acute upper gastrointestinal hemorrhage resulting in acute blood loss anemia. The patient required 1 unit packed red blood cell transfusion, his hemoglobin stable in the 8-9 range thereafter. His systemic anticoagulation that he utilizes for atrial fibrillation CVA prevention was held, his aspirin was held, and after holding the Xarelto appropriately for 3 doses, he underwent upper endoscopy and lower colonoscopy. These studies did not demonstrate evidence of bleeding, it is suspected that the area of bleed is in the small-bowel. Dr. Ramos recommended capsule endoscopy in this will be pursued in the outpatient setting. Patient also have repeat hemoglobin next Sunday. Of note, the patient did experience acute kidney injury secondary to hypovolemia secondary to blood loss, and his HE-inhibitor and diuretic were held. He received fluids and blood, and is creatinine level returned to baseline. Given that the patient is hypertensive, is advisable to resume his home antihypertensive medications and follow up his creatinine BUN and lytes next week. I suspect they will be stable, as the patient's acute kidney injury was clearly related to his hypovolemia. Of note, the patient's aspirin and Xarelto are both to be restarted on the day after discharge. I have recommended a proton pump inhibitor twice daily for 1 month given the likelihood of small bowel intestinal bleed, and the increased risk of recurrent bleed in the setting of his systemic anticoagulation. DISCHARGE MEDICATIONS: Please see official discharge medication reconciliation sheet in chart , pantoprazole 40 mg twice daily, continue other home medications. DISCHARGE INSTRUCTIONS: Please follow up with his GI of the [facility] next week, have labs performed prior to your appointment. TIME SPENT: Greater than 30 minutes were spent on direct patient care, as well as discharge planning and preparation.
--- NOTE | 2018-05-04 16:45 | ASDISCHSUM ---
Discharge Information Plan Status:Home with Home Health Medically Cleared to Leave: Discharge Date:05/03/2018 05:59 PM CM D/C Disposition:Home Health Service ADT D/C Disposition:Home Health Service Projected Discharge Date:05/02/2018 11:00 AM Transportation at D/C:Family Discharge Delay Reason: Follow-Up Date:05/02/2018 11:00 AM Discharge Slot: Final Diagnosis: Placement Information Referral Type:*Home Health Care Services Referral ID:[id number] Provider Name:[facility] [place] Address 1:[address] [place] [address] Address 2: City:[place] Selection Factors: State:[place] Referral Type:Palliative Care Referral ID:[id number] Provider Name:[facility] ([facility]) Address 1:[address] [place] Address 2: City:[place] Selection Factors: State:[place] Patient Contact Information Contact Name:JUAN Relationship: Address:[address] City:[place] Alternate Phone: [facility]/Zip Code:[place] [phone] Email: Financial Information Financial Class:Medicare Primary Plan Desc:MEDICARE INPATIENT Primary Plan Number:[id number] Secondary Plan Desc:ARACELIS/MANUEL SUPPLEMENT Secondary Plan Number:[id number] Assessment Information LACE LACE Length of stay for Answers: 3 days current admission Acuity / Level of Answers: Yes Care: Did the patient have an inpatient admission? Comorbidities - select Answers: Chronic pulmonary disease all that apply Coronary Artery Disease # of Emergency department Answers: 1-2 visits in the last 6 months Score: 11 Date Signed: 05/03/2018 04:48 PM Electronically Signed By:Rin Delgado RN [facility] CM Progress Note CM Note CM Note Notes: Patient admitted with failure to thrive. He has multiple medical problems, and a medication reconcilliation will be helpful in determining cause of his malaise. He lives at home with his and has services in place with [facility] and [facility]. I have sent updates to both agencies. Case Management will follow for discharge planning. Date Signed: 05/01/2018 01:42 PM Electronically Signed By:Marisela Menchaca RN Case Management Discharge Plan Note Case Management Discharge Discharge Order Complete? Answers: Yes Patient to Obtain Answers: via Family Medications Transportation Arranged Answers: Family/Friends Faxed Final Orders Answers: Yes Agency/Facility Transfer Answers: Yes Report Printed & Faxed to Receiving Agency Family Notified Answers: Yes Discharge Comments Notes: D/krunal VIRGEN, final orders faxed. Adriane at [facility] notified and [facility] will f/u with pt and at home. Date Signed: 05/03/2018 04:56 PM Electronically Signed By:Rin Delgado RN Intervention Information Intervention Type:*Incorrect Registration Date of Service:04/30/2018 04:55 PM Patient Type:Observation Staff Member:LEXI Nunez Courtney Hours: Discipline: Severity: Comment:
== END 2018-05-03 17:59 | disposition home health service (06) | DRG 378 ==
LOC: OBSVTOIN 13:09 → F3E 13:48
PROVIDERS: ADMIT Internal Medicine; ATTEND Internal Medicine
PROC: 30233N1 Transfusion of Nonautologous Red Blood Cells into Peripheral Vein, Percutaneous Approach (ICD-10-PCS; 2018-05-01)
PROC: 0DB98ZX Excision of Duodenum, Via Natural or Artificial Opening Endoscopic, Diagnostic (ICD-10-PCS; principal; 2018-05-03 13:45)
PROC: 0DJD8ZZ Inspection of Lower Intestinal Tract, Via Natural or Artificial Opening Endoscopic (ICD-10-PCS; principal; 2018-05-03 13:45)
DX: K92.2 Gastrointestinal hemorrhage, unspecified (principal); D62 Acute posthemorrhagic anemia; N17.9 Acute kidney failure, unspecified; E87.1 Hypo-osmolality and hyponatremia; J96.11 Chronic respiratory failure with hypoxia; I12.9 Hypertensive chronic kidney disease with stage 1 through stage 4 chronic kidney disease, or unspecified chronic kidney disease; N18.3 Chronic kidney disease, stage 3 (moderate); E78.5 Hyperlipidemia, unspecified; I48.0 Paroxysmal atrial fibrillation; J84.89 Other specified interstitial pulmonary diseases; I25.10 Atherosclerotic heart disease of native coronary artery without angina pectoris; Z66 Do not resuscitate; Z79.01 Long term (current) use of anticoagulants; Z79.82 Long term (current) use of aspirin; Z95.0 Presence of cardiac pacemaker
CPT/HCPCS: 84484-PO; 97116-GP; 97162-GP; 97166-GO; 97535-GO; G8978-GP-CK; G8979-GP-CJ; G8987-GO-CJ; G8988-GO-CI; J1100; J1644; J1815; J2704; J7512; P9016

== ENCOUNTER → 2018-05-07 | Outpatient (CLI) | payer OTHER, MEDICARE | LOC: BHLMT 14:00 | PROVIDERS: ATTEND Internal Medicine Cardiovascular Disease | DX: I48.91 Unspecified atrial fibrillation (principal); I48.92 Unspecified atrial flutter; R09.02 Hypoxemia; I25.10 Atherosclerotic heart disease of native coronary artery without angina pectoris; J84.10 Pulmonary fibrosis, unspecified; J98.4 Other disorders of lung; T46.2X5A Adverse effect of other antidysrhythmic drugs, initial encounter; Z95.5 Presence of coronary angioplasty implant and graft; Z95.0 Presence of cardiac pacemaker; Z99.81 Dependence on supplemental oxygen | CPT/HCPCS: 93005-PO ==

== ENCOUNTER → 2018-05-20 | Outpatient (CLI) | payer OTHER, MEDICARE | LOC: FIMAGING 13:35 | PROVIDERS: ATTEND Internal Medicine Critical Care Medicine | DX: R04.2 Hemoptysis (principal); Z79.899 Other long term (current) drug therapy; Z95.0 Presence of cardiac pacemaker ==

== ENCOUNTER → 2018-06-04 | Outpatient (CLI) | payer OTHER, MEDICARE | DX: Z09 Encounter for follow-up examination after completed treatment for conditions other than malignant neoplasm (principal); D50.9 Iron deficiency anemia, unspecified ==

== ENCOUNTER → 2018-07-18 | Outpatient (CLI) | payer OTHER, MEDICARE | LOC: FIMAGING 10:30 | PROVIDERS: ATTEND Internal Medicine Critical Care Medicine | DX: J98.4 Other disorders of lung (principal); T46.2X5A Adverse effect of other antidysrhythmic drugs, initial encounter ==

== ENCOUNTER → 2018-08-05 | Outpatient (CLI) | payer OTHER, MEDICARE | LOC: GIMAGING 13:02 | PROVIDERS: ATTEND Nurse Practitioner Acute Care | DX: R91.1 Solitary pulmonary nodule (principal); J98.4 Other disorders of lung | CPT/HCPCS: 71046-PO ==

== ENCOUNTER → 2018-09-24 | Outpatient (CLI) | payer OTHER, MEDICARE | LOC: FIMAGING 11:59 | PROVIDERS: ATTEND Internal Medicine Critical Care Medicine | DX: R91.8 Other nonspecific abnormal finding of lung field (principal); J84.9 Interstitial pulmonary disease, unspecified; M24.412 Recurrent dislocation, left shoulder; Z95.0 Presence of cardiac pacemaker ==

== ENCOUNTER → 2018-11-19 | Outpatient (CLI) | payer OTHER, MEDICARE | LOC: BHLMT 14:30 | PROVIDERS: ATTEND Internal Medicine Cardiovascular Disease | DX: I48.0 Paroxysmal atrial fibrillation (principal); I48.92 Unspecified atrial flutter; I10 Essential (primary) hypertension; I25.10 Atherosclerotic heart disease of native coronary artery without angina pectoris; T46.2X5A Adverse effect of other antidysrhythmic drugs, initial encounter; J84.10 Pulmonary fibrosis, unspecified; Z95.5 Presence of coronary angioplasty implant and graft; J98.4 Other disorders of lung | CPT/HCPCS: 93005-PO ==

== ENCOUNTER 2018-12-23 12:39 | Inpatient (IN) | payer OTHER, MEDICARE ==
[2018-12-23] MEDS ORDERED: DILTIAZEM 25 MG/5 ML VIAL IVP ONE (13:36)
[2018-12-23] MEDS ORDERED: DILTIAZEM HCL/D5W 125 ML IV ONE (13:36)
--- NOTE | 2018-12-23 13:36 | EDPHY ---
H & P Stated Complaint: syncope Time Seen by Provider: 12/23/18 13:03 HPI/ROS: CHIEF COMPLAINT: Shortness of breath, syncope HISTORY OF PRESENT ILLNESS: 88-year-old male with atrial fibrillation and pulmonary fibrosis presents with shortness of breath and syncope. Onset of a productive cough 1 week ago. Associated with gradually increasing shortness of breath. Rapid heart rate started yesterday and is associated with dizziness. Today he was in the bedroom, starting to get dressed when he began to feel dizzy and then had a witnessed syncopal episode. His helped him to the floor and he did not hit his head. He is on Pradaxa. No chest pain, sore throat, runny nose or fever. REVIEW OF SYSTEMS: complete 10 point ROS reviewed and is negative except for the noted elements in the HPI Source: Patient - Personal History Current Tetanus/Diphtheria Vaccine: Yes Current Tetanus Diphtheria and Acellular Pertussis (TDAP): Yes - Medical/Surgical History Hx Asthma: No Hx Chronic Respiratory Disease: Yes Hx Diabetes: No Hx Cardiac Disease: Yes Hx Renal Disease: No Hx Cirrhosis: No Hx Alcoholism: No Hx HIV/AIDS: No Hx Splenectomy or Spleen Trauma: No Other PMH: CAD, HTN, cardiac angio in 80's, afib, pacemaker 05/17/16, pulmonary fibrosis, amio pulmonary toxicity, syncopy, cardioversion, chf, pulmonary hypertension - Social History Smoking Status: Never smoked Alcohol Use: Sober Drug Use: None Additional Social History: - Physical Exam Exam: General Appearance: Alert, pleasant and talkative Eyes: Pupils equal and round, no conjunctival pallor or injection ENT, Mouth: Mucous membranes moist Neck: Normal inspection Respiratory: Rales at the bases, scattered wheezing throughout Cardiovascular: Irregularly irregular tachycardia Gastrointestinal: Abdomen is soft and nontender Neurological: A&O, nonfocal exam Skin: Warm and dry Extremities: Nontender, no pedal edema Psychiatric: Mood and affect normal Constitutional: Initial Vital Signs Temperature (C) 37.1 C 12/23/18 12:50 Heart Rate 123 H 12/23/18 12:50 Respiratory Rate 16 12/23/18 12:50 Blood Pressure 113/79 12/23/18 12:50 O2 Sat (%) 81 L 12/23/18 12:50 O2 Delivery Mode Room Air Allergies/Adverse Reactions: amiodarone Allergy (Verified 05/11/18 11:45) Home Medications: Medication Instructions Recorded Cholecalciferol Vit D3 [Vitamin D3 1,000 units PO DAILY 05/17/16 (*)] Nitroglycerin [Nitrostat 0.4 mg 0.4 mg SL Q5M PRN 05/17/16 (*)] Simvastatin [Zocor] 20 mg PO DAILY18 05/17/16 Vit A/Vit C/Vit E/Zinc/Copper 1 each PO BID 05/17/16 [Preservision Areds Tablet] Lisinopril [Zestril 10 mg (*)] 10 mg PO DAILY 03/19/18 Multivitamins [Multivitamin (*)] 1 each PO DAILY18 03/19/18 [place]-3 Fatty Acids [Fish Oil 1000 1,000 mg PO DAILY 03/19/18 mg (*)] Vitamin B Complex [Vitamin B 1 each PO DAILY@12 03/19/18 Complex (OTC)] Ipratropium/Albuterol [Combivent 1 inh IH QID #1 mdi 03/30/18 Respimat Inhal [place](*)] Pantoprazole Sodium [Protonix 40mg 40 mg PO BID #60 tab 05/03/18 (*)] Metoprolol Tartrate [Lopressor 25 12.5 mg PO BID #60 tab 05/13/18 mg (*)] Carvedilol 12/23/18 Medical Decision Making - Diagnostics EKG Interpretation: EKG interpreted by me reveals atrial fibrillation, ventricular rate 118, diffuse T-wave inversions, concerning for ischemia. Imaging Results: Imaging Impressions Chest X-Ray 12/23/18 13:25 Impression: Chronic features, with no interval change from 09/24/2018 or 2017. ED Course/Re-evaluation: This patient presents with shortness of breath and a syncopal episode. Physical exam reveals oxygen saturation 81% on room air, bilateral rales and atrial fibrillation with RVR. Most likely pulmonary edema and rapid atrial fibrillation, considering pneumonia as well. Stat EKG reveals atrial fibrillation, ventricular rate 118. Initial troponin is normal. Chest x-ray reveals pulmonary fibrosis with likely overlying pulmonary edema. Diltiazem 10 mg IV given, followed by a diltiazem drip. Will wait to see how the patient tolerates diltiazem prior to initiation of diuretics , given advanced age, syncopal episode and initial systolic blood pressure 115. The patient feels much better on oxygen, with an oxygen saturation of 96% on 2 L. the hospitalist service was consulted for admission. I spent a total of 35 minutes of critical care time in obtaining history, performing a physical exam, bedside monitoring of interventions, collecting and interpreting tests and discussion with consultants but not including time spent performing procedures. Differential Diagnosis: Differential diagnosis includes though it is not limited to pneumonia, pneumothorax, pulmonary embolism, aortic dissection, pericarditis, acute coronary syndrome. - Data Points Laboratory Results: Laboratory Results 12/23/18 13:35 12/23/18 13:35 12/23/18 12/23/18 12/23/18 13:48 13:35 13:35 WBC RBC Hgb Hct MCV MCH MCHC RDW Plt Count MPV Neut % (Auto) Lymph % (Auto) [place] % (Auto) Eos % (Auto) Baso % (Auto) Nucleat RBC Rel Count Absolute Neuts (auto) Absolute Lymphs (auto) Absolute Monos (auto) Absolute Eos (auto) Absolute Basos (auto) Absolute Nucleated RBC Immature Gran % Immature Gran # Platelet Estimate D-Dimer Pending VBG Lactic Acid Sodium Potassium Chloride Carbon Dioxide Anion Gap BUN Creatinine Estimated GFR Glucose Calcium POC Troponin I 0.03 ng/mL ng/mL (0.00-0.08) NT-Pro-B Natriuret Pep Pending 12/23/18 12/23/18 12/23/18 13:35 13:35 13:35 WBC 9.17 10^3/uL 10^3/uL (3.80-9.50) RBC 4.01 10^6/uL L 10^6/uL (4.40-6.38) Hgb 11.1 g/dL L g/dL (13.7-17.5) Hct 35.2 % L % (40.0-51.0) MCV 87.8 fL fL (81.5-99.8) MCH 27.7 pg L pg (27.9-34.1) MCHC 31.5 g/dL L g/dL (32.4-36.7) RDW 15.9 % H % (11.5-15.2) Plt Count 142 10^3/uL L 10^3/uL (150-400) MPV 10.8 fL fL (8.7-11.7) Neut % (Auto) Pending Lymph % (Auto) Pending [place] % (Auto) Pending Eos % (Auto) Pending Baso % (Auto) Pending Nucleat RBC Rel Count Pending Absolute Neuts (auto) Pending Absolute Lymphs (auto) Pending Absolute Monos (auto) Pending Absolute Eos (auto) Pending Absolute Basos (auto) Pending Absolute Nucleated RBC Pending Immature Gran % Pending Immature Gran # Pending Platelet Estimate Pending D-Dimer VBG Lactic Acid 1.8 mmol/L mmol/L (0.7-2.1) Sodium 137 mEq/L mEq/L (135-145) Potassium 4.4 mEq/L mEq/L (3.5-5.2) Chloride 104 mEq/L mEq/L (97-110) Carbon Dioxide 23 mEq/l mEq/l (22-31) Anion Gap 10 mEq/L mEq/L (6-14) BUN 20 mg/dL mg/dL (7-23) Creatinine 1.5 mg/dL H mg/dL (0.7-1.3) Estimated GFR 44 Glucose 139 mg/dL H mg/dL (70-100) Calcium 9.1 mg/dL mg/dL (8.5-10.4) POC Troponin I NT-Pro-B Natriuret Pep Medications Given: Discontinued Medications Diltiazem HCl (Cardizem 25 Mg/5 Ml Vial) 10 mg IVP EDNOW ONE Stop: 12/23/18 13:37 Last Admin: 12/23/18 13:52 Dose: 10 mg Point of Care Test Results: Chemistry 12/23/18 13:48 POC Troponin I 0.03 ng/mL ng/mL (0.00-0.08) Departure - Departure Disposition: [facility] Acute Clinical Impression: Atrial fibrillation with RVR Pulmonary edema Qualifiers: Chronicity: acute Qualified Code(s): J81.0 - Acute pulmonary edema Condition: Fair Referrals: Jesus Manuel Patterson MD [Primary Care Provider] - As per Instructions
[2018-12-23 13:56] LABS: PLATELET COUNT 142 10^3/uL (150-400)
--- NOTE | 2018-12-23 14:42 | CPEKG ---
Test Reason : OPEN Blood Pressure : / mmHG Vent. Rate : 118 BPM Atrial Rate : 250 BPM P-R Int : 121 ms QRS Dur : 087 ms QT Int : 364 ms P-R-T Axes : 061 021 259 degrees QTc Int : 511 ms Atrial flutter/fibrillation Repol abnrm suggests ischemia, anterolateral Prolonged QT interval Confirmed by Hien Carrasquillo ([id number]) on 12/23/2018 2:42:10 PM Referred By: HIEN CARRASQUILLO Confirmed By:Hien Carrasquillo
[2018-12-23] MEDS ORDERED: HYDROmorphONE/DILAUDID 1 MG/ML INJ IVP PRN (15:04)
[2018-12-23] MEDS ORDERED: PROMETHAZINE HCL 25 MG/ML INJ IVP PRN (15:04)
[2018-12-23] MEDS ORDERED: FUROSEMIDE 20 MG/2 ML VIAL IVP ONE ×2 (15:04→18:15)
[2018-12-23] MEDS ORDERED: ALBUTEROL 60 PUFFS/8 GM MDI IH PRN (15:04)
[2018-12-23] MEDS ORDERED: oxyCODONE IR 5 MG TAB PO PRN (15:04)
[2018-12-23] MEDS ORDERED: ACETAMINOPHEN 325 MG TAB PO PRN (15:04)
[2018-12-23] MEDS ORDERED: HYDROCODONE/APAP 5/325 TAB PO PRN (15:04)
[2018-12-23] MEDS ORDERED: ONDANSETRON DISINTEGRATING 4 MG TAB PO PRN (15:04)
[2018-12-23] MEDS ORDERED: ONDANSETRON 4 MG/2 ML VIAL IVP PRN (15:04)
--- NOTE | 2018-12-23 15:26 | PDGENHP ---
History and Physical - Chief Complaint syncope, sob - History of Present Illness Patient is an 88 yo M with PMH that includes a fib/flutter, SSS s/p PPM, CAD, pulmonary fibrosis who presents following a syncopal episode at home. Patient notes that he was bending over to get something when the next thing he knows he woke up on the floor. He states once he woke up he felt relatively well, but has not felt great for the last month or more. He notes he has been having issues with his blood pressure running too high and has had a couple of changes in his medications (lisinopril increased and metoprolol exchanged for carvedilol ) and he feels that along with those medication changes he has felt more short of breath with exertion, and getting short of breath with activities that do not normally cause him to be short of breath, like making his bed. He has noticed some swelling in his ankles, and notes that his weight fluctuates a fair bit but that he does not think it is dramatically different than normal. He tracks his BP and HR a few times every day, and does note that the last couple of days his heart rate has been elevated which is not normal for him, his BP has been high for the most part for the last month. He has had some intermittent chest discomfort, but no pain. He has also developed over the last couple of days a wet and productive cough that is worse at night and contributing to difficulty sleeping. He has not had fever or chills, he has not had any sick contacts that he is aware of. In the ER he was noted to be in rapid a fib and was started on a dilt gtt. History Information - Allergies/Home Medication List Allergies/Adverse Reactions: amiodarone Allergy (Verified 05/11/18 11:45) Home Medications: Cholecalciferol Vit D3 [Vitamin D3 (*)] 1,000 units PO DAILY 05/17/16 [Last Taken 12/23/18] Nitroglycerin [Nitrostat 0.4 mg (*)] 0.4 mg SL Q5M PRN 05/17/16 [Last Taken Unknown] Simvastatin [Zocor] 20 mg PO DAILY18 05/17/16 [Last Taken 12/22/18] Vit A/Vit C/Vit E/Zinc/Copper [Preservision Areds Tablet] 1 each PO BID [Last Taken 12/23/18 AM dose only] Multivitamins [Multivitamin (*)] 1 each PO DAILY18 03/19/18 [Last Taken 12/22/18 ] [place]-3 Fatty Acids [Fish Oil 1000 mg (*)] 1,000 mg PO DAILY 03/19/18 [Last Taken 12/23/18] Vitamin B Complex [Vitamin B Complex (OTC)] 1 each PO DAILY@12 03/19/18 [Last Taken 12/23/18] Carvedilol [Coreg (*)] 6.25 mg PO BIDMEAL 12/23/18 [Last Taken 12/23/18 AM dose only] Dabigatran Etexilate Mesylate [Pradaxa] 75 mg PO BID 12/23/18 [Last Taken AM dose only] Guar Gum [Benefiber/Nutrisource Fiber (*)] 1 each PO BID 12/23/18 [Last Taken ] Lisinopril [Zestril 20 mg (*)] 20 mg PO DAILY18 12/23/18 [Last Taken 12/22/18] Pantoprazole Sodium [Protonix 40mg (*)] 40 mg PO DAILY18 12/23/18 [Last Taken ] I have personally reviewed and updated: family history, medical history, social history, surgical history - Past Medical History atrial fibrillation, coronary artery disease, hypertension, hyperlipidemia Additional medical history: SSS s/p PPM. moderate pulmonary htn. 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 asbestos and other chemical exposure. GI bleed. chronic hypoxia in the past, has been off of o2 for several months. CKD baseline creatinine of 1.3 - Surgical History Reports: angioplasty, hernia repair, pacemaker/AICD Additional surgical history: lung bx - Family History Positive for: non-pertinent - Social History Smoking Status: Never smoked Alcohol Use: Sober Drug Use: None Additional social history: , accompanied by his and daughter, lives independently Review of Systems Review of Systems: ROS: 10pt was reviewed & negative except for what was stated in HPI & below Physical Exam Physical Exam: Temp Pulse Resp BP Pulse Ox 36.8 C 108 H 18 136/73 H 97 12/23/18 14:00 12/23/18 14:00 12/23/18 14:00 12/23/18 14:00 12/23/18 14:00 Constitutional: no apparent distress, appears nourished Eyes: PERRL, anicteric sclera Ears, Nose, Mouth, Throat: moist mucous membranes, hearing normal Cardiovascular: irregularly irregular, tachycardia, edema (2+ ble edema) Respiratory: expiratory wheeze, inspiratory crackles, bronchial breath sounds Gastrointestinal: normoactive bowel sounds, soft, non-tender abdomen Genitourinary: no bladder tenderness Skin: warm, normal color Musculoskeletal: full muscle strength Neurologic: AAOx3 Psychiatric: interacting appropriately, not anxious, not encephalopathic Lab Data & Imaging Review 12/23/18 13:35 12/23/18 13:35 WBC 9.17 10^3/uL (3.80-9.50) 12/23/18 13:35 RBC 4.01 10^6/uL (4.40-6.38) L 12/23/18 13:35 Hgb 11.1 g/dL (13.7-17.5) L 12/23/18 13:35 Hct 35.2 % (40.0-51.0) L 12/23/18 13:35 MCV 87.8 fL (81.5-99.8) 12/23/18 13:35 MCH 27.7 pg (27.9-34.1) L 12/23/18 13:35 MCHC 31.5 g/dL (32.4-36.7) L 12/23/18 13:35 RDW 15.9 % (11.5-15.2) H 12/23/18 13:35 Plt Count 142 10^3/uL (150-400) L 12/23/18 13:35 MPV 10.8 fL (8.7-11.7) 12/23/18 13:35 Neut % (Auto) 86.4 % (39.3-74.2) H 12/23/18 13:35 Lymph % (Auto) 4.3 % (15.0-45.0) L 12/23/18 13:35 [place] % (Auto) 8.5 % (4.5-13.0) 12/23/18 13:35 Eos % (Auto) 0.1 % (0.6-7.6) L 12/23/18 13:35 Baso % (Auto) 0.4 % (0.3-1.7) 12/23/18 13:35 Nucleat RBC Rel Count 0.0 % (0.0-0.2) 12/23/18 13:35 Absolute Neuts (auto) 7.92 10^3/uL (1.70-6.50) H 12/23/18 13:35 Absolute Lymphs (auto) 0.39 10^3/uL (1.00-3.00) L 12/23/18 13:35 Absolute Monos (auto) 0.78 10^3/uL (0.30-0.80) 12/23/18 13:35 Absolute Eos (auto) 0.01 10^3/uL (0.03-0.40) L 12/23/18 13:35 Absolute Basos (auto) 0.04 10^3/uL (0.02-0.10) 12/23/18 13:35 Absolute Nucleated RBC 0.00 10^3/uL (0-0.01) 12/23/18 13:35 Immature Gran % 0.3 % (0.0-1.1) 12/23/18 13:35 Immature Gran # 0.03 10^3/uL (0.00-0.10) 12/23/18 13:35 RBC/WBC/PLT Morphology TNP 12/23/18 13:35 Platelet Estimate TNP 12/23/18 13:35 D-Dimer 0.46 ug/mLFEU (0.00-0.50) 12/23/18 13:35 VBG Lactic Acid 1.8 mmol/L (0.7-2.1) 12/23/18 13:35 Sodium 137 mEq/L (135-145) 12/23/18 13:35 Potassium 4.4 mEq/L (3.5-5.2) 12/23/18 13:35 Chloride 104 mEq/L (97-110) 12/23/18 13:35 Carbon Dioxide 23 mEq/l (22-31) 12/23/18 13:35 Anion Gap 10 mEq/L (6-14) 12/23/18 13:35 BUN 20 mg/dL (7-23) 12/23/18 13:35 Creatinine 1.5 mg/dL (0.7-1.3) H 12/23/18 13:35 Estimated GFR 44 12/23/18 13:35 Glucose 139 mg/dL (70-100) H 12/23/18 13:35 Calcium 9.1 mg/dL (8.5-10.4) 12/23/18 13:35 POC Troponin I 0.03 ng/mL (0.00-0.08) 12/23/18 13:48 NT-Pro-B Natriuret Pep 91095 pg/mL (0-450) H 12/23/18 13:35 Visualized and Interpreted Chest x-ray results: Yes Chest X-Ray results: other (chronic changes c/w ILD without clear new abnormality including stable nodular density) Visualized and Interpreted EKG results: Yes EKG additional interpertation: a fib/flutter with rate of 118 Assessment & Plan Assessment: Atrial fibrillation with RVR (Acute) Pulmonary edema (Acute) 88 yo M with hx of CAD, a fib/flutter with prior HAILEE/CV and SSS s/p PPM, pulmonary fibrosis admitted s/p syncopal event and found to be in a fib w/rvr as well as acute chf and acute hypoxic respiratory failure # syncope: patient reports no preceding warning and found to be in a fib on arrival to the ER, will monitor on tele, interrogate pacer, trend troponin, has been > 6 months since last echo and will get one in am. Cardiology consulted, patient is followed by Dr. Toro. # a fib w/rvr: started on dilt gtt with improved rates, will continue for now, bp tolerating, as above, last required HAILEE/CV in April, CHADS vasc of 4, continue dabigatran renally dosed # acute hypoxic respiratory failure: has been off of oxygen for a couple of months per patient, reviewed clinic notes and was maintaining sats in 90s on RA recently in clinic, presents at 81% and appears to be volume overloaded on exam but cxr appears relatively stable from prior. Resp PCR pending. Starting duonebs /albuterol nebs, giving lasix x 1 20mg IVP, echo in am # acute CHF: presumed based on bilateral lower extremity edema and hypoxia though CXR without clear pulm edema, does have hx of pulm htn, given lasix 20IVP x 1 as above, cards consulted # odilia on ckd: with baseline creatinine a bit labile but generally around 1.3 and currently at 1.5, will hold lisinopril for now, will only give lasix x 1 and repeat creatinine in am # pulmonary fibrosis: with prior asbestos exposure as well as hx of amiodarone toxicity, followed by [facility], was previously on prednisone and supplemental o2 but off for several months # HTN: patient with pages of BP monitoring he has done at home and notes largely elevated BP's at home, since arrival BP has been well controlled, holding lisinopril for now as above, he is not chronically on diuretics likely due to CKD # CAD: trending trops, patient has reported some intermittent chest discomfort, as above # hx of GI bleed # DNR # IP status, will likely require > 48 hours stay for eval/mgmt of above Care plan reviewed with ER doctor, further hx obtained from patients present at bedside, old records reviewed.
[2018-12-23] MEDS ORDERED: DILTIAZEM HCL/D5W 125 ML IV SCH (15:30)
--- NOTE | 2018-12-23 17:31 | PDMN ---
Medical Necessity Medical necessity: MCG M340 Syncope, A-1 day: 88 yo presents w/ syncope. Eval reveals pt in acute afib w/ RVR and acute pulm edema. Monitor on tele, interroagate pacer, trend troponin, start dilt gtt, start O2 for acute hypoxic resp fx - 81% on RA. IV Lasix and duonebs started. Acute CHF - cardio consult. CHRISTELLE on CKD - creat 1.5. IP status for multi medical issues requiring >48rs for monitoring and tx. Hx afib/futter, SSS s/p PPM, CAD, pulm fibrosis, HTN, HLD, asbestos and other chemical exposure, GI bleed, CKD baseline create 1.3, chronic hypoxia in past - no need for O2 last few months.
[2018-12-23] MEDS: PANTOPRAZOLE SODIUM 40 MG TAB PO SCH (18:10)
[2018-12-23] MEDS: CARVEDILOL 6.25 MG TAB PO SCH (18:10)
[2018-12-23] MEDS: ATORVASTATIN CALCIUM 10 MG TAB PO SCH (18:10)
[2018-12-23] MEDS: IPRATROPIUM/ALBUTEROL 3 ML DEYVIAL IH SCH ×2 (18:38→20:06)
[2018-12-23] MEDS: DABIGATRAN ETEXILATE MESYL 75 MG CAP PO SCH (21:51)
[2018-12-23] MEDS: BENEFIBER/NUTRISOURCE FIBER PKT 1 EACH PO SCH (21:52)
[2018-12-24 04:46] LABS: PLATELET COUNT 115 10^3/uL (150-400)
[2018-12-24] MEDS: IPRATROPIUM/ALBUTEROL 3 ML DEYVIAL IH SCH ×4 (05:43→21:36)
[2018-12-24] MEDS: BENEFIBER/NUTRISOURCE FIBER PKT 1 EACH PO SCH ×2 (09:43→22:56)
[2018-12-24] MEDS: CARVEDILOL 6.25 MG TAB PO SCH ×2 (09:43→15:00)
[2018-12-24] MEDS: CHOLECALCIFEROL VIT D3 1,000 UNITS TAB PO SCH (09:43)
[2018-12-24] MEDS: DABIGATRAN ETEXILATE MESYL 75 MG CAP PO SCH ×2 (09:43→20:47)
[2018-12-24] MEDS ORDERED: FUROSEMIDE 20 MG/2 ML VIAL IVP ONE (09:58)
[2018-12-24] MEDS ORDERED: METOPROLOL TARTRATE 25 MG TAB PO SCH (10:00)
[2018-12-24 11:42] LABS: PLATELET COUNT 131 10^3/uL (150-400)
--- NOTE | 2018-12-24 12:34 | ASMTCMCOM ---
CM Note CM Note Notes: Pt admitted with afib with RVR, pulmonary edema after a syncopal episode and fall at home. He has a hx of pacemaker, CAD, afib, pulmonary fibrosis. He has had [facility] in the past. Cardiology is following. CM will follow for any d/c needs. He lives with his Elva in [place]. D/C plan: TBD Date Signed: 12/24/2018 12:33 PM Electronically Signed By:YADIEL Whitaker
--- NOTE | 2018-12-24 13:03 | PDCARCONS ---
Cardiology Consult Reason for Consult: Syncope. Chief Complaint: Syncope. Requesting Physician: Dr. Wendy Hopper MD. History of Present Illness: Mr. Maldonado is a very pleasant 88-year-old male well known to me from my outpatient clinic. His cardiovascular history is significant for: 1. Coronary artery disease. He has had previous PCI and stenting of the proximal LAD in May of 2002. This was done in the setting of stable symptoms. Historically, he has had a normal ejection fraction. His most recent noninvasive assessment was in September of 2017 at which point he had a normal stress myocardial perfusion imaging study. 2. Paroxysmal atrial fibrillation and flutter. This dates back a number of years. His chads Vasc score is 4 and as such she is on systemic anticoagulation in the form of Xarelto. At 1 point, he had been on amiodarone for rhythm control. 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 Only recently has he recovered from this complication. 3. Sick sinus syndrome. He is status post single-chamber [employer] pacemaker implantation. 4. Hypertension 5. Hyperlipidemia 6. History of gastrointestinal bleeding while on systemic anticoagulation. This occurred in April of 2018. He was treated and his anticoagulation was restarted in May of 2018. He was admitted to the hospital after having been transported by personal vehicle by his stepson after he experienced an episode of syncope. Apparently, he awoke feeling well. He had a unremarkable morning which consisted of light exercise, reading the newspaper and having breakfast. At about 10:00 a.m. In the morning was standing by his dresser getting dressed for the day. He felt lightheaded and subsequently lost consciousness. He fell to the ground and was unconscious only for a matter of seconds. He awake and oriented. There was no loss of bowel or bladder control. There was no injury. He denied antecedent symptoms of chest pressure or heaviness. Additionally, he states that he has been a little more breathless recently. 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 These symptoms have been present for several weeks. He also has noted that his home blood pressure monitor has indicated that his heart rates have been in the 120s. He notes no problems with the change in his bowel movements. He has not had melena or hematochezia. He denies fever, chills and sweats. There is no history of cough, sputum production, or hemoptysis. He gives no history of orthopnea or PND. Apparently he did have very slight edema at the time of admission however Lasix was administered and he notes that he has no edema any longer. He has been taking his medications regularly. In the outpatient setting his blood pressures have been a little more difficult to control recently. As such his metoprolol was discontinued and he was started on Coreg several weeks ago. He checks his blood pressures at home and typically has systolics in the 160s to 180s. History Information - Allergies/Home Medication List Allergies/Adverse Reactions: amiodarone Allergy (Verified 05/11/18 11:45) Home Medications: Cholecalciferol Vit D3 [Vitamin D3 (*)] 1,000 units PO DAILY 05/17/16 [Last Taken 12/23/18] Nitroglycerin [Nitrostat 0.4 mg (*)] 0.4 mg SL Q5M PRN 05/17/16 [Last Taken Unknown] Simvastatin [Zocor] 20 mg PO DAILY18 05/17/16 [Last Taken 12/22/18] Vit A/Vit C/Vit E/Zinc/Copper [Preservision Areds Tablet] 1 each PO BID [Last Taken 12/23/18 AM dose only] Multivitamins [Multivitamin (*)] 1 each PO DAILY18 03/19/18 [Last Taken 12/22/18 ] [place]-3 Fatty Acids [Fish Oil 1000 mg (*)] 1,000 mg PO DAILY 03/19/18 [Last Taken 12/23/18] Vitamin B Complex [Vitamin B Complex (OTC)] 1 each PO DAILY@12 03/19/18 [Last Taken 12/23/18] Carvedilol [Coreg (*)] 6.25 mg PO BIDMEAL 12/23/18 [Last Taken 12/23/18 AM dose only] Dabigatran Etexilate Mesylate [Pradaxa] 75 mg PO BID 12/23/18 [Last Taken AM dose only] Guar Gum [Benefiber/Nutrisource Fiber (*)] 1 each PO BID 12/23/18 [Last Taken ] Lisinopril [Zestril 20 mg (*)] 20 mg PO DAILY18 12/23/18 [Last Taken 12/22/18] Pantoprazole Sodium [Protonix 40mg (*)] 40 mg PO DAILY18 12/23/18 [Last Taken ] I have personally reviewed and updated: family history, medical history, social history, surgical history Past Medical History: Paroxysmal atrial fibrillation and flutter, history of amiodarone pulmonary toxicity, coronary artery disease, interstitial pulmonary fibrosis, bronchiectasis, hearing loss, hyperlipidemia, hypertension, sick sinus syndrome with prior pacemaker, vitamin B12 deficiency. - Surgical History Additional surgical history: Lung biopsy, pacemaker implantation, hernia surgery. - Social History Smoking Status: Never smoked Alcohol Use: Sober Drug Use: None Physical Exam Physical Exam: Temp Pulse Resp BP Pulse Ox 37.2 C 93 12 131/84 H 99 12/24/18 11:04 12/24/18 11:20 12/24/18 11:20 12/24/18 11:04 12/24/18 11:20 O2 (L/minute) 3 Lab and Imaging 12/24/18 11:32 12/24/18 03:15 WBC 9.79 10^3/uL (3.80-9.50) H 12/24/18 11:32 RBC 3.83 10^6/uL (4.40-6.38) L 12/24/18 11:32 Hgb 10.5 g/dL (13.7-17.5) L 12/24/18 11:32 Hct 33.4 % (40.0-51.0) L 12/24/18 11:32 MCV 87.2 fL (81.5-99.8) 12/24/18 11:32 MCH 27.4 pg (27.9-34.1) L 12/24/18 11:32 MCHC 31.4 g/dL (32.4-36.7) L 12/24/18 11:32 RDW 15.9 % (11.5-15.2) H 12/24/18 11:32 Plt Count 131 10^3/uL (150-400) L 12/24/18 11:32 MPV 10.9 fL (8.7-11.7) 12/24/18 11:32 Neut % (Auto) 81.2 % (39.3-74.2) H 12/24/18 11:32 Lymph % (Auto) 5.1 % (15.0-45.0) L 12/24/18 11:32 [place] % (Auto) 12.3 % (4.5-13.0) 12/24/18 11:32 Eos % (Auto) 0.7 % (0.6-7.6) 12/24/18 11:32 Baso % (Auto) 0.4 % (0.3-1.7) 12/24/18 11:32 Nucleat RBC Rel Count 0.0 % (0.0-0.2) 12/24/18 11:32 Absolute Neuts (auto) 7.95 10^3/uL (1.70-6.50) H 12/24/18 11:32 Absolute Lymphs (auto) 0.50 10^3/uL (1.00-3.00) L 12/24/18 11:32 Absolute Monos (auto) 1.20 10^3/uL (0.30-0.80) H 12/24/18 11:32 Absolute Eos (auto) 0.07 10^3/uL (0.03-0.40) 12/24/18 11:32 Absolute Basos (auto) 0.04 10^3/uL (0.02-0.10) 12/24/18 11:32 Absolute Nucleated RBC 0.00 10^3/uL (0-0.01) 12/24/18 11:32 Immature Gran % 0.3 % (0.0-1.1) 12/24/18 11:32 Immature Gran # 0.03 10^3/uL (0.00-0.10) 12/24/18 11:32 RBC/WBC/PLT Morphology TNP 12/24/18 11:32 Platelet Estimate TNP 12/24/18 11:32 D-Dimer 0.46 ug/mLFEU (0.00-0.50) 12/23/18 13:35 VBG Lactic Acid 1.8 mmol/L (0.7-2.1) 12/23/18 13:35 Sodium 137 mEq/L (135-145) 12/24/18 03:15 Potassium 3.8 mEq/L (3.5-5.2) 12/24/18 03:15 Chloride 103 mEq/L (97-110) 12/24/18 03:15 Carbon Dioxide 25 mEq/l (22-31) 12/24/18 03:15 Anion Gap 9 mEq/L (6-14) 12/24/18 03:15 BUN 21 mg/dL (7-23) 12/24/18 03:15 Creatinine 1.4 mg/dL (0.7-1.3) H 12/24/18 03:15 Estimated GFR 48 12/24/18 03:15 Glucose 103 mg/dL (70-100) H 12/24/18 03:15 Calcium 8.6 mg/dL (8.5-10.4) 12/24/18 03:15 POC Troponin I 0.03 ng/mL (0.00-0.08) 12/23/18 13:48 Troponin I 0.034 ng/mL (0.000-0.034) 12/24/18 03:15 NT-Pro-B Natriuret Pep 27661 pg/mL (0-450) H 12/23/18 13:35 Visualized and Interpreted Chest x-ray results: Yes Interpretation: Chronic interstitial changes. EKG additional interpertation: Atrial flutter with variable block. Nonspecific ST and T changes. Telemetry: Atrial flutter with variable block. Echocardiogram: Currently pending. A/P Assessment: 1. Syncope. His pacemaker was interrogated earlier today. This demonstrated atrial fibrillation and flutter with occasions where he experienced rapid ventricular response. He did not have any identified severe abnormalities that correlate with the time of his episode of syncope. The device is otherwise functioning normally. As result, I do not think that this episode of syncope represents a malignant arrhythmia. This is most likely hemodynamically mediated and very well been precipitated by the recent adjustments to his antihypertensive medications. As noted in the HPI, his metoprolol was changed over to Coreg. Additionally, he may have had a vasovagal event. It does not appear that he is dehydrated. While he is anemic there is no indication of an active and acute gastrointestinal bleed. 2. Paroxysmal atrial fibrillation and flutter. He presented with a rapid ventricular response. Even so, his heart rates were not extreme. He has minimal symptoms related to his atrial arrhythmias in general when they are well rate controlled. He has had pulmonary toxicity related to amiodarone in the past. He is on systemic anticoagulation currently given his elevated chads Vasc score of 4. 3. Acute on chronic hypoxic respiratory failure. This is likely related to a component of congestive heart failure superimposed on his history of interstitial lung disease and resolving amiodarone pulmonary toxicity. 4. Coronary artery disease. This appears to be stable. He is not complaining of angina and cardiac enzymes were negative. Certainly his symptoms of dyspnea and recent mild heart failure may be related to his underlying CAD. 5. Hypertension. Hypertensive at home. Here in the hospital well controlled. It looks as if his HE-inhibitor was discontinued at the time of admission and institution of IV diltiazem. 6. History of sick sinus syndrome with previous pacemaker implantation. 7. History of gastrointestinal bleeding. 8. Hyperlipidemia. Managed with simvastatin Plan: 1. His diltiazem drip has been discontinued. 2. I will also discontinue his Coreg and switch him back to metoprolol 25 mg twice daily. 3. We will follow his blood pressures. If need be, we can restart his HE- inhibitor, increase his metoprolol dose and potentially use a dihydropyridine calcium channel vanda. Obviously, in light of his syncope, I would favor maintaining his blood pressure is a little on the higher side. 4. I have written for an additional dose of Lasix today. 5. I have ordered an echocardiogram. 6. We will follow his CBCs during this hospitalization. 7. We will follow along with you. Review of Systems Review of Systems: - Review of Systems Constitutional: no symptoms reported EENTM: no symptoms reported Respiratory: see HPI Cardiac: see HPI Gastrointestinal/Abdominal: see HPI Genitourinary: no symptoms Musculoskelatal: no symptoms Skin: no symptoms Neurological: see HPI Hematologic/Lymphatic: no symptoms reported Immunologic/allergic: no symptoms reported All Other Systems: Reviewed and Negative
--- NOTE | 2018-12-24 15:38 | HOSPPROG ---
Hospitalist Progress Note Assessment/Plan: * Syncope -PCM interrogation without correlating event -suspect vasovagal or hemodynamic due to BP -ECHO pending -? due to pulmonary dx/new hypoxia -? 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 * CAD/stent * SSS s/p PCM * Prolonged QT -watch on monitor Subjective: no more syncope, + SOB with exertional dyspnea Objective: Vital Signs Temp Pulse Resp BP Pulse Ox 37.2 C 122 H 22 H 131/84 H 99 12/24/18 11:04 12/24/18 15:20 12/24/18 15:20 12/24/18 11:04 12/24/18 15:20 Microbiology 12/23/18 17:50 Respiratory Panel (PCR) - Final Nasal, Sinus - Swab Human Metapneumovirus Detected Laboratory Results 12/24/18 11:32 12/24/18 03:15 12/23/18 12/24/18 12/25/18 05:59 05:59 05:59 Intake Total 270 240 Output Total 1050 400 Balance -780 -160 CXR - negative - Physical Exam Constitutional: no apparent distress, appears nourished, not in pain Cardiovascular: regular rate and rhythym, no murmur, rub, or gallop Respiratory: inspiratory crackles, No expiratory wheeze, No rhonchi Gastrointestinal: normoactive bowel sounds, soft, non-tender abdomen, no palpable masses Skin: no rashes or abrasions, no fluctuance, no induration Neurologic: AAOx3, sensation intact bilaterally Psychiatric: interacting appropriately, not anxious, not encephalopathic, thought process linear ICD10 Worksheet Patient Problems: Problems Problem Status Onset Atrial fibrillation with RVR Acute Pulmonary edema Acute Anemia Acute Elevated troponin Acute Generalized weakness Acute Hemoptysis Acute Syncope Acute chronic disease mgmt/transitional care Acute
[2018-12-24] MEDS: PANTOPRAZOLE SODIUM 40 MG TAB PO SCH (18:18)
[2018-12-24] MEDS: ATORVASTATIN CALCIUM 10 MG TAB PO SCH (18:18)
[2018-12-24] MEDS: CANN-EASE 2 GM TUBE TP PRN (18:43)
[2018-12-24] MEDS: METOPROLOL TARTRATE 25 MG TAB PO SCH (20:48)
[2018-12-25] MEDS: IPRATROPIUM/ALBUTEROL 3 ML DEYVIAL IH SCH ×4 (05:16→21:51)
[2018-12-25] MEDS: DABIGATRAN ETEXILATE MESYL 75 MG CAP PO SCH ×2 (08:14→20:43)
[2018-12-25] MEDS: CANN-EASE 2 GM TUBE TP PRN ×2 (08:14→17:47)
[2018-12-25] MEDS: METOPROLOL TARTRATE 25 MG TAB PO SCH ×2 (08:14→20:43)
[2018-12-25] MEDS: CHOLECALCIFEROL VIT D3 1,000 UNITS TAB PO SCH (08:15)
[2018-12-25] MEDS: BENEFIBER/NUTRISOURCE FIBER PKT 1 EACH PO SCH ×2 (08:15→20:43)
[2018-12-25] MEDS ORDERED: METOPROLOL TARTRATE 5 MG/5 ML INJ IVP ONE ×2 (09:18→16:45)
[2018-12-25] MEDS ORDERED: METOPROLOL TARTRATE 25 MG TAB PO ONE (09:30)
--- NOTE | 2018-12-25 09:35 | SOAPPROG ---
SOAP Progress Note Assessment/Plan: Assessment: 1. Syncope. Likely hemodynamically mediated versus a vasovagal event. Interrogation of his pacemaker did not demonstrate any arrhythmias likely to precipitate this event. This is noted in the setting of newly diagnosed viral bronchitis with human metapneumovirus. Off of his HE-inhibitor here in the hospital his blood pressures have been reasonably well controlled. I think that he may have been overly medicated in the outpatient setting. 2. Atrial fibrillation/atrial flutter. This is paroxysmal in nature. Previously he had been treated with amiodarone however developed significant pulmonary toxicity related to this medication. In talking to him about his arrhythmia he does not experience palpitations or really any chest symptoms whatsoever. Certainly, this arrhythmia may be contributing to his current presentation with hypoxia and possibly mild overlying CHF. We have been up titrating metoprolol trying to get control of his heart rate. He is currently on systemic anticoagulation with Pradaxa. 3. Sick sinus syndrome. He has had a previous pacemaker implantation. He has a single lead device. This device was interrogated and did not demonstrate any malignant arrhythmias. 4. Coronary artery disease. Back in 2001 he had PCI of the LAD. Stress testing as recently as late 2017 was noted to be normal. He did have an episode of chest pressure a week ago. His electrocardiogram from late yesterday indicates anterior T-wave inversions. Troponins have been negative. 5. Acute on chronic diastolic congestive heart failure. Today appears to be well compensated. Oxygen needs have declined substantially. Earlier this morning I put him down to 1 liter/minute with sats above 90%. 6. Chronic renal insufficiency. This appears to be stable. 7. Pulmonary fibrosis, asbestosis, history of pulmonary toxicity. This appears to be stable. Plan: 1. I have upped his metoprolol to 50 mg twice daily. I have also written for an IV dose of metoprolol. Hopefully will get better control of his heart rates. I do not think it is necessary to try to restore and maintain sinus rhythm. 2. I do not think he requires any more diuretic therapy. 3. He will have an EKG today. 4. Depending on his clinical course, we may consider a repeat coronary angiogram. 5. We will continue to try to wean down his oxygen to maintain sats above 90%. 12/25/18 09:30 Subjective: He states that he is feeling much better today. He feels that he is 75-80% back to his baseline. He was able to shower this morning without limiting symptoms of dyspnea. He has not had any anginal quality chest discomfort. He does note, a week ago, he experienced some mild upper chest pressure. This resolved after short period of time and has not recurred since. He has no cough. He has not had any fevers or chills. He remains in atrial fibrillation and flutter with poorly controlled heart rates. His ECG from yesterday afternoon demonstrated evolving anterior T-wave inversions. Objective: Vital Signs Temp Pulse Resp BP Pulse Ox 36.7 C 125 H 18 127/88 H 94 12/25/18 07:28 12/25/18 07:28 12/25/18 07:28 12/25/18 07:28 12/25/18 07:28 Laboratory Results 12/24/18 11:32 12/25/18 03:18 12/24/18 12/25/18 12/26/18 05:59 05:59 05:59 Intake Total 270 1040 Output Total 1050 975 300 Balance -780 65 -300 Physical Exam - Physical Exam General Appearance: WD/WN, alert, no apparent distress EENT: PERRL/EOMI, normal ENT inspection, pharynx normal, TMs normal Neck: non-tender, full range of motion, supple, normal inspection Respiratory: chest non-tender, other (Coarse rales appreciated in the right base ) Cardiac/Chest: normal peripheral pulses, tachycardia, irregularly irregular Peripheral Pulses: 2+: carotid (R), carotid (L), femoral (R), femoral (L), dorsalis-pedis (R), dorsalis-pedis (L) Abdomen: normal bowel sounds, non-tender, soft Male Genitalia: deferred Rectal: deferred Back: Normal inspection Skin: normal color, warm/dry Lymphatic: no adenopathy Extremities: normal range of motion, non-tender, normal inspection, normal capillary refill Neuro/Psych: no motor/sensory deficits, alert, normal mood/affect, oriented x 3 ICD10 Worksheet Patient Problems: Problems Problem Status Onset Atrial fibrillation with RVR Acute Pulmonary edema Acute Anemia Acute Elevated troponin Acute Generalized weakness Acute Hemoptysis Acute Syncope Acute chronic disease mgmt/transitional care Acute
--- NOTE | 2018-12-25 12:18 | CPEKG ---
Test Reason : OPEN Blood Pressure : / mmHG Vent. Rate : 124 BPM Atrial Rate : 125 BPM P-R Int : 229 ms QRS Dur : 094 ms QT Int : 314 ms P-R-T Axes : 195 016 -30 degrees QTc Int : 451 ms Atrial fibrillation Borderline Low voltage, extremity leads NSST Confirmed by Riley Toro ([id number] on 12/25/2018 12:18:29 PM Referred By: Wendy Hopper Confirmed By:Riley Toro
--- NOTE | 2018-12-25 13:32 | CPEKG ---
Test Reason : OPEN Blood Pressure : / mmHG Vent. Rate : 062 BPM Atrial Rate : 250 BPM P-R Int : 232 ms QRS Dur : 097 ms QT Int : 519 ms P-R-T Axes : 233 050 222 degrees QTc Int : 528 ms Atrial flutter with predominant 4:1 AV block Repol abnrm, prob ischemia, anterolateral lds Prolonged QT interval Confirmed by Von Márquez ([id number]) on 12/25/2018 1:32:19 PM Referred By: Wendy Hopper Confirmed By:Von Márquez
--- NOTE | 2018-12-25 14:02 | ASMTCMCOM ---
CM Note CM Note Notes: 12/25/2018 Case Management Note Met w/pt to discuss discharge recommendation from PT for home care. Pt agreeable to referral sent to [facility]. Pt has used [facility] in the past. Faxed referral via [facility]. PCP is Dr. Jesus Manuel Patterson Case Management d/c poc: [facility] RN PT Case Management to follow. Date Signed: 12/25/2018 02:01 PM Electronically Signed By:Vira Miller RN
[2018-12-25] MEDS ORDERED: POTASSIUM CL 20 MEQ/15 ML UDCUP PO ONE (14:44)
--- NOTE | 2018-12-25 14:48 | HOSPPROG ---
Hospitalist Progress Note Assessment/Plan: * Syncope -PCM interrogation without correlating event -suspect vasovagal or hemodynamic due to BP -ECHO pending -? due to pulmonary dx/new hypoxia -? cardiac ischemic with evolving large anterior TWI on EKG today -trops negative, CP free -had negative stress test Sep 2017 * Afib with RVR -s/p diltiazem gtt -change coreg back to metoprolol. Dose increased again today per Cards * Viral bronchitis due to Human Metapneumovirus -start Steroid burst * Acute respiratory failure - new O2 4L -suspect due to pulmonary edema + viral PNA -on chronic anticoagulation and negative ddimer - doubt PE * Acute on chronic diastolic CHF, now back to baseline. no need for further diuretics -s/p IV lasix * Acute on chronic renal failure, resolved -baseline 1.3, was 1.5. Now back to baseline -holding lisinopril for now, BP ok. 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 still some SOB. no leg swelling. no n/v Objective: Vital Signs Temp Pulse Resp BP Pulse Ox 36.6 C 120 H 16 129/80 H 94 12/25/18 11:33 12/25/18 11:33 12/25/18 11:33 12/25/18 11:33 12/25/18 11:33 Laboratory Results 12/24/18 11:32 12/25/18 03:18 12/24/18 12/25/18 12/26/18 05:59 05:59 05:59 Intake Total 270 1040 Output Total 1050 975 300 Balance -780 65 -300 - Physical Exam Constitutional: chronically ill appearing Eyes: PERRL, EOMI Ears, Nose, Mouth, Throat: moist mucous membranes Cardiovascular: tachycardia, No edema Respiratory: reduced air movement, rhonchi Gastrointestinal: normoactive bowel sounds, soft, non-tender abdomen Skin: warm Musculoskeletal: generalized weakness Neurologic: AAOx3 Psychiatric: interacting appropriately, not anxious, not encephalopathic Lymph, Heme, Immunologic: No petechiae ICD10 Worksheet Patient Problems: Problems Problem Status Onset Atrial fibrillation with RVR Acute Pulmonary edema Acute Anemia Acute Elevated troponin Acute Generalized weakness Acute Hemoptysis Acute Syncope Acute chronic disease mgmt/transitional care Acute
[2018-12-25] MEDS: predniSONE 20 MG TAB PO SCH (15:24)
[2018-12-25] MEDS: PANTOPRAZOLE SODIUM 40 MG TAB PO SCH (17:37)
[2018-12-25] MEDS: ATORVASTATIN CALCIUM 10 MG TAB PO SCH (17:37)
[2018-12-26 04:31] LABS: PLATELET COUNT 149 10^3/uL (150-400)
[2018-12-26] MEDS: IPRATROPIUM/ALBUTEROL 3 ML DEYVIAL IH SCH ×4 (05:43→20:49)
[2018-12-26] MEDS: METOPROLOL TARTRATE 25 MG TAB PO SCH ×2 (08:44→20:07)
[2018-12-26] MEDS: BENEFIBER/NUTRISOURCE FIBER PKT 1 EACH PO SCH ×2 (08:44→20:07)
[2018-12-26] MEDS: CHOLECALCIFEROL VIT D3 1,000 UNITS TAB PO SCH (08:44)
[2018-12-26] MEDS: predniSONE 20 MG TAB PO SCH (08:44)
[2018-12-26] MEDS: DABIGATRAN ETEXILATE MESYL 75 MG CAP PO SCH ×2 (08:44→20:05)
--- NOTE | 2018-12-26 09:05 | PDCARPN ---
Cardiology Progress Note Chief Complaint: Syncope. Assessment/Plan: Assessment: 1. Syncope. Likely hemodynamically mediated versus a vasovagal event. Interrogation of his pacemaker did not demonstrate any arrhythmias likely to precipitate this event. This is noted in the setting of newly diagnosed viral bronchitis with human metapneumovirus. Off of his HE-inhibitor here in the hospital his blood pressures have been reasonably well controlled. I think that he may have been overly medicated in the outpatient setting. 2. Atrial fibrillation/atrial flutter. This is paroxysmal in nature. Previously he had been treated with amiodarone however developed significant pulmonary toxicity related to this medication. In talking to him about his arrhythmia he does not experience palpitations or really any chest symptoms whatsoever. Certainly, this arrhythmia may be contributing to his current presentation with hypoxia and possibly mild overlying CHF. We have been up titrating metoprolol trying to get control of his heart rate. He is currently on systemic anticoagulation with Pradaxa. 3. Sick sinus syndrome. He has had a previous pacemaker implantation. He has a single lead device. This device was interrogated and did not demonstrate any malignant arrhythmias. 4. Coronary artery disease. Back in 2001 he had PCI of the LAD. Stress testing as recently as late 2016 was noted to be normal. He did have an episode of chest pressure a week ago. His electrocardiogram from late yesterday indicates anterior T-wave inversions. Troponins have been negative. 5. Acute on chronic diastolic congestive heart failure. Today appears to be well compensated. Oxygen needs have declined substantially. Earlier this morning I put him down to 1 liter/minute with sats above 90%. 6. Chronic renal insufficiency. This appears to be stable. 7. Pulmonary fibrosis, asbestosis, history of pulmonary toxicity. This appears to be stable. 8. Probable viral bronchitis related to human para pneumo virus. 12/26/2018: He appears to be doing much better today. He states that he is back to his baseline. By examination he is nicely compensated. Unfortunately, his heart rates continue to be problematic. Yesterday afternoon his ECG indicated normalization of previously noted T-wave inversions. Plan: 1. Today I have added diltiazem 30 mg p.o. Twice daily which he will take in addition to the prescribed metoprolol to hopefully get better control of his heart rates. 2. I do think that it would be worthwhile for him to have a stress MPI in light of his transient electrocardiographic abnormalities. Unfortunately, he has had caffeine today. I will schedule this for tomorrow. 3. I do not think he requires any additional diuretic therapy today. 4. I will check his oxygen saturations on room air. 5. We will follow along with you. 12/26/18 09:06 Subjective: He states that he is feeling better today. He feels that he is 100% back to normal. He denies chest pain. He has not had any dizziness or lightheadedness. He notes no palpitations. He slept well. His appetite is good. He has not had any cough. Reviewed/Discussed With: other (Patient) Time Spent with Patient: greater than 25 minutes Time Spent with Patient: Greater than 25 minutes spent on this patients care, greater than 50% of time spent counseling, educating, and coordinating care regarding the above mentioned plan. Objective: Vital Signs (8 Hrs) Temp Pulse Resp BP Pulse Ox 12/26/18 07:29 36.9 C 110 H 16 133/94 H 98 12/26/18 03:09 36.2 C 116 H 16 137/95 H 96 Intake/Output (24 Hrs) 12/25/18 12/26/18 12/27/18 05:59 05:59 05:59 Intake Total 1040 770 Output Total 975 1415 Balance 65 -645 Intake: Oral (ml) 1040 770 Output: Urine (ml) 975 1415 Urinal 975 1415 Other: Weight 70.3 kg 70.2 kg Result Diagrams: 12/26/18 03:05 12/26/18 03:05 Cardiac Labs: Cardiac Lab Results (72 Hrs) 12/25/18 12/24/18 03:18 03:15 Troponin I 0.021 0.034 EKG: Atrial fibrillation, atrial flutter, continued poorly controlled heart rates. Telemetry: Atrial fibrillation and flutter with poorly controlled heart rates. - Physical Exam Constitutional: WDWN Cardiovascular: other (Tachycardic), No no murmurs, No no rubs, No no gallops Peripheral Pulses: 2+: carotid (R), carotid (L) Respiratory: other (Velcro rales appreciated in the right base), No reduced air movement, No expiratory wheeze Gastrointestinal: no tenderness, no masses Neurologic: AAOx3 Psychiatric: cooperative, interactive, following commands, not anxious ICD10 Worksheet Patient Problems: Problems Problem Status Onset Atrial fibrillation with RVR Acute Pulmonary edema Acute Anemia Acute Elevated troponin Acute Generalized weakness Acute Hemoptysis Acute Syncope Acute chronic disease mgmt/transitional care Acute
[2018-12-26] MEDS: DILTIAZEM 30 MG TAB PO SCH ×2 (10:24→20:05)
--- NOTE | 2018-12-26 16:28 | HOSPPROG ---
Hospitalist Progress Note Assessment/Plan: * Syncope -PCM interrogation without correlating event -suspect vasovagal or hemodynamic due to BP -? due to pulmonary dx/new hypoxia -? cardiac ischemic with evolving large anterior TWI on EKG on admission -trops negative, CP free -had negative stress test Sep 2017 -will have stress MPI tomorrow * Afib with RVR -s/p diltiazem gtt -change coreg back to metoprolol. -started PO Diltiazem * Viral bronchitis due to Human Metapneumovirus -cont Prednisone burst * Acute respiratory failure - new O2 4L on admission, improving -suspect due to pulmonary edema + viral PNA -on chronic anticoagulation and negative ddimer - doubt PE * Acute on chronic diastolic CHF, now back to baseline. no need for further diuretics -s/p IV lasix * Acute on chronic renal failure, resolved -baseline 1.3, was 1.5. Now back to baseline -holding lisinopril for now, BP ok. 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 feels better. Objective: Vital Signs Temp Pulse Resp BP Pulse Ox 36.8 C 85 18 121/78 H 94 12/26/18 16:00 12/26/18 16:00 12/26/18 16:00 12/26/18 16:00 12/26/18 16:00 Laboratory Results 12/26/18 03:05 12/26/18 03:05 12/25/18 12/26/18 12/27/18 05:59 05:59 05:59 Intake Total 1040 770 Output Total 975 1415 Balance 65 -645 - Physical Exam Constitutional: no apparent distress, chronically ill appearing Eyes: PERRL, EOMI Ears, Nose, Mouth, Throat: moist mucous membranes, hearing normal Cardiovascular: regular rate and rhythym, No edema Respiratory: no respiratory distress, reduced air movement, rhonchi Gastrointestinal: normoactive bowel sounds, soft, non-tender abdomen Skin: warm Neurologic: AAOx3 Psychiatric: interacting appropriately, not anxious, not encephalopathic Lymph, Heme, Immunologic: No petechiae ICD10 Worksheet Patient Problems: Problems Problem Status Onset Atrial fibrillation with RVR Acute Pulmonary edema Acute Anemia Acute Elevated troponin Acute Generalized weakness Acute Hemoptysis Acute Syncope Acute chronic disease mgmt/transitional care Acute
--- NOTE | 2018-12-26 16:36 | CPEKG ---
Test Reason : OPEN Blood Pressure : / mmHG Vent. Rate : 059 BPM Atrial Rate : 234 BPM P-R Int : 210 ms QRS Dur : 094 ms QT Int : 438 ms P-R-T Axes : -77 039 -45 degrees QTc Int : 434 ms Atrial flutter with predominant 4:1 AV block Anterior T wave abnormalities. Consider ischemia. Confirmed by Von Márquez ([id number]) on 12/26/2018 4:36:25 PM Referred By: Wendy Hopper Confirmed By:Von Márquez
[2018-12-26] MEDS: ATORVASTATIN CALCIUM 10 MG TAB PO SCH (17:38)
[2018-12-26] MEDS: PANTOPRAZOLE SODIUM 40 MG TAB PO SCH (17:38)
[2018-12-27] MEDS: IPRATROPIUM/ALBUTEROL 3 ML DEYVIAL IH SCH ×2 (04:15→12:02)
[2018-12-27] MEDS ORDERED: REGADENOSON 0.4 MG/5 ML SYR IVP ONE (09:18)
[2018-12-27] MEDS: DABIGATRAN ETEXILATE MESYL 75 MG CAP PO SCH ×2 (11:06→21:01)
[2018-12-27] MEDS: DILTIAZEM 30 MG TAB PO SCH ×2 (11:06→21:17)
[2018-12-27] MEDS: CHOLECALCIFEROL VIT D3 1,000 UNITS TAB PO SCH (11:07)
[2018-12-27] MEDS: METOPROLOL TARTRATE 25 MG TAB PO SCH ×2 (11:08→21:01)
[2018-12-27] MEDS: predniSONE 20 MG TAB PO SCH ×2 (11:08→12:16)
[2018-12-27] MEDS: BENEFIBER/NUTRISOURCE FIBER PKT 1 EACH PO SCH ×2 (11:09→21:01)
--- NOTE | 2018-12-27 11:12 | CPR ---
[f rep st] NONINVASIVE CARDIAC PROCEDURE REPORT REPORT TITLE: LEXISCAN INJECTION OF LEXISCAN MPI STUDY SUPERVISING QUANTITATIVE STRATEGY ANALYST: Dr. Von Márquez INDICATION FOR PROCEDURE: Chest pain, atrial fibrillation, known history of CAD. PRE: After obtaining informed consent and ensuring patient's n.p.o. status of caffeine for greater t rubio 12 hours, the patient was placed on electrocardiogram. Initial EKG shows atrial fibrillation, no rmal axis, poor R-wave progression in precordial leads, nonspecific T-wave abnormalities. Patient de nies any chest pain, pressure, or symptoms suggesting of ischemia. Initial blood pressure 132/80, sa turation 98%. INJECTION: Patient was given Lexiscan slow IV push, followed by nuclear isotope. Patient did report mild shortness of breath within 1 minute post injection, but no chest pain or pressure. Heart rate did jump up to 115 beats per minute, but no other significant EKG changes. Within 5 minutes, patient reporting symptoms all subsided, heart rate back to note within normal limits. Final blood pressure of 138/80, saturation 98% on 2 L nasal cannula. The patient is currently asymptomatic of any sympto ms. IMPRESSION: 88-year-old male with known history of coronary artery disease, atrial fibrillation unde rgoing Lexiscan MPI study. Report of mild shortness of breath with injection with no significant EKG changes. Symptoms subsided within 5 minutes. Vital signs are stable. He will finish poststress im aging in Nuclear Medicine at this time. /[id number]/MODL
[2018-12-27] MEDS: LISINOPRIL 5 MG TAB PO SCH (11:14)
[2018-12-27] MEDS ORDERED: POLYETHYLENE GLYCOL 3350 17 GM PKT PO PRN (14:48)
[2018-12-27] MEDS ORDERED: BISACODYL 10 MG SUPP PR PRN (14:48)
[2018-12-27] MEDS ORDERED: MAGNESIUM HYDROXIDE 30 ML UDCUP PO PRN (14:48)
[2018-12-27] MEDS ORDERED: LACTULOSE 20 GM/30 ML UDCUP PO PRN (14:48)
[2018-12-27] MEDS ORDERED: IPRATROPIUM/ALBUTEROL 3 ML DEYVIAL IH PRN (15:00)
--- NOTE | 2018-12-27 16:42 | HOSPPROG ---
Hospitalist Progress Note Assessment/Plan: * Syncope -PCM interrogation without correlating event -suspect vasovagal or hemodynamic due to BP -? due to pulmonary dx/new hypoxia -? cardiac ischemic with evolving large anterior TWI on EKG on admission -trops negative, CP free -had negative stress test Sep 2017 -MPI today, unremarkable * Afib with RVR, better -s/p diltiazem gtt -change coreg back to metoprolol. -started PO Diltiazem * Viral bronchitis due to Human Metapneumovirus -cont Prednisone. Responded very well to this, would taper * Acute respiratory failure - new O2 4L on admission, improving -suspect due to pulmonary edema + viral PNA -on chronic anticoagulation and negative ddimer - doubt PE * Acute on chronic diastolic CHF, now back to baseline. no need for further diuretics -s/p IV lasix * Acute on chronic renal failure, resolved -baseline 1.3, was 1.5. Now back to baseline -holding lisinopril for now, BP ok. 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 Expect O2 needs to continue to improve tonight. Would d/c on Prednisone taper (pred decreased to 40mg today) Subjective: no cp or sob. no n/v. still on supplemental O2 Objective: Vital Signs Temp Pulse Resp BP Pulse Ox 36.9 C 67 20 117/72 91 L 12/27/18 15:20 12/27/18 15:20 12/27/18 15:20 12/27/18 15:20 12/27/18 15:20 Laboratory Results 12/26/18 03:05 12/26/18 03:05 12/26/18 12/27/18 12/28/18 05:59 05:59 05:59 Intake Total 770 1200 320 Output Total 1415 600 450 Balance -645 600 -130 - Physical Exam Constitutional: no apparent distress Eyes: PERRL, EOMI Ears, Nose, Mouth, Throat: moist mucous membranes, hearing normal Cardiovascular: regular rate and rhythym, No edema Respiratory: no respiratory distress, reduced air movement Gastrointestinal: normoactive bowel sounds, soft, non-tender abdomen Skin: warm Neurologic: AAOx3 Psychiatric: interacting appropriately, not anxious, not encephalopathic Lymph, Heme, Immunologic: No petechiae ICD10 Worksheet Patient Problems: Problems Problem Status Onset Atrial fibrillation with RVR Acute Pulmonary edema Acute Anemia Acute Elevated troponin Acute Generalized weakness Acute Hemoptysis Acute Syncope Acute chronic disease mgmt/transitional care Acute
--- NOTE | 2018-12-27 16:46 | ASMTCMCOM ---
CM Note CM Note Notes: 12/25/2018 Case Management Note: Met w/pt to discuss discharge recommendation from PT for home care. Pt agreeable to referral sent to [facility]. Pt has used [facility] in the past. Faxed referral via [employer]. PCP is Dr. Jesus Manuel Patterson Case Management d/c poc: [facility] RN PT 12/27/18 CM Note: Continue to anticipate d/c home with [facility], RN and PT. CM will continue to follow. Date Signed: 12/27/2018 04:46 PM Electronically Signed By:Clarissa Garrett RN
[2018-12-27] MEDS: ATORVASTATIN CALCIUM 10 MG TAB PO SCH (17:39)
[2018-12-27] MEDS: PANTOPRAZOLE SODIUM 40 MG TAB PO SCH (17:39)
[2018-12-27] MEDS: SENNOSIDES/DOCUSATE SODIUM TAB PO SCH (21:01)
[2018-12-28] MEDS: BENEFIBER/NUTRISOURCE FIBER PKT 1 EACH PO SCH (07:33)
[2018-12-28] MEDS: METOPROLOL TARTRATE 25 MG TAB PO SCH (07:33)
[2018-12-28] MEDS: SENNOSIDES/DOCUSATE SODIUM TAB PO SCH (07:33)
[2018-12-28] MEDS: LISINOPRIL 5 MG TAB PO SCH (07:34)
[2018-12-28] MEDS: predniSONE 20 MG TAB PO SCH (07:34)
[2018-12-28] MEDS: CHOLECALCIFEROL VIT D3 1,000 UNITS TAB PO SCH (07:34)
[2018-12-28] MEDS: DILTIAZEM 30 MG TAB PO SCH (07:34)
[2018-12-28] MEDS: DABIGATRAN ETEXILATE MESYL 75 MG CAP PO SCH (07:34)
--- NOTE | 2018-12-28 09:59 | PDHOMEO2F ---
Home Oxygen Face to Face Home Orders: I certify that a physician or a nurse practitioner or physician's assistant principal has had a [id number] encounter with this patient on the date of this order due to the diagnosis listed, which relates to the primary reason the patient requires home oxygen. Alternative treatments have been tried, or considered, and deemed ineffective. It is anticipated that supplemental oxygen will result in improvement with treatment. Home oxygen qualifying diagnosis: Acute on Chronic Diastolic CHF SpO2 on room air (%): 74 Frequency of home oxygen needed: continuous Home oxygen liters per minute: 2 Home oxygen delivery device: nasal cannula Concentrator: Yes E-tanks for mobility and back up: Yes If ordering portable O2, is the patient mobile in the home?: Yes I certify that, based on these findings, the home oxygen is medically necessary for this patient for the following length of time. Length of time home oxygen needed: 99 years
[2018-12-28 11:44] VITALS: BP 133/72
--- NOTE | 2018-12-28 13:27 | PDIAF ---
- Diagnosis Code Status: Do Not Resuscitate - Medication Management Discharge Medications: electronically signed and located in the Home Medication List. - Orders Services needed: Home Care, Registered Nurse, Physical Therapy, Occupational Therapy Home Care Face to Face: I certify that this patient was under my care and that I had the required [id number] encounter meeting the encounter requirements on the discharge day. My findings support the fact that the patient is homebound as defined in Home Care Face to Face Continued: CMS Chapter 7 Medicare Benefits Manual 30.1.1 , The condition of the patient is such that there exists a normal inability to leave home and consequently, leaving home would require a considerable and taxing effort. Isolation Type: Droplet Isolation - Follow Up Care Current Providers and Referrals: Jesus Manuel Patterson MD [Primary Care Provider] - As per Instructions
--- NOTE | 2018-12-28 13:31 | ASMTDCNOTE ---
Case Management Discharge Discharge Order Complete? Answers: Yes Patient to Obtain Answers: via Family Medications Transportation Arranged Answers: Family/Friends Faxed Final Orders Answers: Yes Agency/Facility Transfer Answers: Yes Report Printed & Faxed to Receiving Agency Family Notified Answers: Yes Discharge Comments Notes: Pt will be utilizing [facility] upon d/c. [facility] was notified that pt is discharging. Date Signed: 12/28/2018 01:30 PM Electronically Signed By:Terri Grant
--- NOTE | 2018-12-28 13:31 | ASMTLACE ---
LACE Length of stay for Answers: 4-6 days current admission Acuity / Level of Answers: Yes Care: Did the patient have an inpatient admission? Comorbidities - select Answers: Congestive heart failure all that apply Coronary Artery Disease Mild liver or renal disease Other Notes: AFib; Pulmonary fibrosi s # of Emergency department Answers: 3-4 visits in the last 6 months Score: 17 Date Signed: 12/28/2018 01:30 PM Electronically Signed By:Terri Grant
--- NOTE | 2018-12-28 14:17 | PDDCSUM ---
Discharge Summary Discharge Summary: Date of Admission: 12/23/2018 Date of Discharge: 12/28/2018 Consults: Cardiology Procedures: MPS Followup: Cardiology, PCP Hospital Course Problem List: * Syncope -PCM interrogation without correlating event -suspect vasovagal or hemodynamic due to BP -? due to pulmonary dx/new hypoxia -? cardiac ischemic with evolving large anterior TWI on EKG on admission -trops negative, CP free -had negative stress test Sep 2017 -MPS performed on 12/27, unremarkable * Afib with RVR, better -s/p diltiazem gtt -changed home coreg to metoprolol. -started PO Diltiazem which will be continued upon discharge * Viral bronchitis due to Human Metapneumovirus -cont Prednisone for total 5 day course . Responded very well to this * Acute respiratory failure - new O2 4L on admission, improving to 2L upon discharge -suspect due to pulmonary edema + viral PNA -on chronic anticoagulation and negative ddimer - doubt PE -Home 02 ordered * Acute on chronic diastolic CHF, now back to baseline. no need for further diuretics -s/p IV lasix * Acute on chronic renal failure, resolved -baseline 1.3, was 1.5. Now back to baseline -holding lisinopril for now, BP ok. 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
== END 2018-12-28 14:45 | disposition home health service (06) | DRG 308 ==
LOC: F2W 16:09
PROVIDERS: ADMIT Internal Medicine; ATTEND Internal Medicine
DX: I48.0 Paroxysmal atrial fibrillation (principal); J96.00 Acute respiratory failure, unspecified whether with hypoxia or hypercapnia; I13.0 Hypertensive heart and chronic kidney disease with heart failure and stage 1 through stage 4 chronic kidney disease, or unspecified chronic kidney disease; I50.33 Acute on chronic diastolic (congestive) heart failure; J12.9 Viral pneumonia, unspecified; N17.9 Acute kidney failure, unspecified; J20.8 Acute bronchitis due to other specified organisms; B97.81 Human metapneumovirus as the cause of diseases classified elsewhere; N18.9 Chronic kidney disease, unspecified; J84.10 Pulmonary fibrosis, unspecified; T46.2X5D Adverse effect of other antidysrhythmic drugs, subsequent encounter; Z77.090 Contact with and (suspected) exposure to asbestos; I25.10 Atherosclerotic heart disease of native coronary artery without angina pectoris; E87.6 Hypokalemia; I45.81 Long QT syndrome; Z79.01 Long term (current) use of anticoagulants; Z66 Do not resuscitate; Z95.5 Presence of coronary angioplasty implant and graft
CPT/HCPCS: 84484-ER; 96374; 97116-GP; 97161-GP; 97165-GO; 97530-GO; 97535-GO; A9500; J1940; J2785; J7512

== ENCOUNTER 2019-02-15 07:31 | Inpatient (IN) | payer OTHER, MEDICARE ==
[2019-02-15] MEDS ORDERED: fentaNYL 100 MCG/2 ML INJ IVP ONE (08:04)
[2019-02-15] MEDS ORDERED: NS 1,000 ML IV ONE (08:04)
--- NOTE | 2019-02-15 08:10 | EDPHY ---
HPI/HX/ROS/PE/MDM Narrative: CHIEF COMPLAINT: Abdominal pain HISTORY OF PRESENT ILLNESS: The patient is an anticoagulated (Pradaxa) 88 y/o male with a history of pulmonary fibrosis and atrial fibrillation complaining of abdominal pain, onset this morning. He awoke early this morning to epigastric pain. Over the course of the morning, the pain migrated into the left lower quadrant. He took Tylenol which did not improve his symptoms. He denies nausea, vomiting, diarrhea, bloody stools, lightheadedness, dizziness, or any other associated symptoms. He denies history of ulcers. His last colonoscopy was March 2018. On presenting to the ED, his O2 was 72% on 2L of oxygen. Per the patient, it is normal for his O2 to decrease when moving. He is supposed to increase the oxygen when active but often forgets. No fever, chills, chest pain, shortness of breath, palpitations, vomiting, diarrhea, urinary complaints, headache, lightheadedness. REVIEW OF SYSTEMS: A comprehensive 10 system review of systems is otherwise negative aside from elements mentioned in the history of present illness and medical decision making PAST MEDICAL HISTORY: Atrial fibrillation, chronic renal failure, pulmonary fibrosis, hypertension, kidney stones, viral bronchitis December 2017 SOCIAL HISTORY: at bedside, lives in [place], retired VITAL SIGNS: Reviewed by me GENERAL: Pleasant, conversive, well-developed, well-nourished, resting comfortably in no respiratory distress. HEENT: Atraumatic. Eyes: No icterus, no injection. Mouth: moist mucous membranes. No erythema or lesions. Neck: supple with no adenopathy. LUNGS: Crackles bilaterally, worse on the right. No wheezes, rhonchi or rales. CARDIAC: Irregularly irregular rate and rhythm, no rubs, murmurs or gallops. 2+ femoral pulses bilaterally. ABDOMEN: Soft, nondistended, bowel sounds normal. Left lower quadrant tender to palpation. Aortic pulsations are present. No palpable pulsatile mass. BACK: No CVA tenderness. EXTREMITIES: No trauma. No edema. Range of motion is normal throughout. NEURO: Alert and oriented, grossly nonfocal. SKIN: Warm and dry, no rash. PSYCHIATRIC: Normal mentation, no agitation. ED Course: 12-LEAD EKG: Please see the full report in [employer] [facility]. My interpretation: Atrial fibrillation Study: CT of the abdomen Indication: Abdominal pain Results: CT scan of the abdomen was obtained. The results of the study are: possible internal hernia in the left lower abdomen The study was read by the radiologist, Dr. Ortez. I viewed the images myself on the PACS system. Study: X-ray of the chest Indication: Crackles to auscultation, hypoxia Results: X-ray of the chest was obtained. The results of the study are: The study was read by the radiologist, Dr. Ortez. I viewed the images myself on the PACS system. Procedure: Limited abdominal ultrasound for evaluation of the aorta. 1) The right upper quadrant was visualized and was found to be negative for intraperitoneal fluid. 2) The left upper quadrant was visualized and found to be negative for intraperitoneal fluid. 3) Abdominal aorta was visualized and was not significantly enlarged. The study was felt to be negative for free intraperitoneal fluid. The study was performed by myself. The patient presents with abdominal pain. Pain was initially epigastric but has migrated to the lower quadrant. No associated symptoms. Left lower quadrant is tender to palpation. No pulsatile abdominal mass. Femoral arteries 2+ bilaterally. Bedside Ultrasound does not demonstrate a enlarged aorta. Plan for CBC, basic metabolic panel, liver enzymes, lipase, coagulation panel, urinalysis, EKG, and abdominal CT. 50mcg Fentanyl and 1L NS fluids. 9:20 AM - The CT indicates possible internal hernia on the left side. Plan for chest x-ray to evaluate increased oxygen dependance. This patient will be admitted for further care. Dr. Ch will be the admitting physician. The patient agrees to this course of action. Dr. Tang was also consulted regarding the questionable internal hernia. Please see his recommendations. MDM: After obtaining the patient's history and performing an examination, differential diagnosis considered included but was not limited to abdominal aortic aneurysm, ruptured abdominal aortic aneurysm, kidney stone, diverticulitis, bowel obstruction, internal hernia, mass, bowel obstruction, perforated bowel. - Data Points Imaging Results: Imaging Impressions Abdomen CT 02/15/19 08:04 Impression: 1. Mild to moderate bibasilar pleural effusions with chronic interstitial lung disease and fibrocalcific scarring at the lung bases. 2. No CT evidence of appendicitis, abscess or bowel obstruction. 3. Focal dilated loop of small bowel left mid to upper abdomen with possible extension of mesenteric vessels into or through the omentum in the left mid to lower abdomen. Internal hernia is difficult to confirm but is felt to be possible. There is no associated obstruction proximal to this point, however. 4. Cup located diverticulosis of the sigmoid colon. 5. Moderate atherosclerotic calcification associated with the abdominal aorta and branch vessels without difficulty consequences. Findings discussed with Estrella Nicholson MD at 9:05 hour, 02/15/2019. Imaging: Discussed imaging studies w/ tablet coater Radiologist Laboratory Results: Laboratory Results 02/15/19 07:55 02/15/19 07:55 02/15/19 02/15/19 02/15/19 08:11 07:55 07:55 WBC RBC Hgb POC Hgb 12.9 gm/dL L gm/dL (13.7-17.5) Hct POC Hct 38 % L % (40-51) MCV MCH MCHC RDW Plt Count MPV Neut % (Auto) Lymph % (Auto) [place] % (Auto) Eos % (Auto) Baso % (Auto) Nucleat RBC Rel Count Absolute Neuts (auto) Absolute Lymphs (auto) Absolute Monos (auto) Absolute Eos (auto) Absolute Basos (auto) Absolute Nucleated RBC Immature Gran % Immature Gran # PT 16.3 SEC H SEC (12.0-15.0) INR 1.37 H (0.83-1.16) APTT 47.6 SEC H SEC (23.0-38.0) POC Sodium 140 mEq/L mEq/L (135-145) Sodium 137 mEq/L mEq/L (135-145) POC Potassium 3.7 mEq/L mEq/L (3.3-5.0) Potassium 4.0 mEq/L mEq/L (3.5-5.2) POC Chloride 101 mEq/L mEq/L (97-110) Chloride 103 mEq/L mEq/L (97-110) Carbon Dioxide 24 mEq/l mEq/l (22-31) POC Total CO2 24 mEq/L mEq/L (22-31) Anion Gap 10 mEq/L mEq/L (6-14) POC BUN 15 mg/dL mg/dL (7-23) BUN 16 mg/dL mg/dL (7-23) Creatinine 1.1 mg/dL mg/dL (0.7-1.3) POC Creatinine 1.2 mg/dL mg/dL (0.7-1.3) Estimated GFR > 60 Glucose 124 mg/dL H mg/dL (70-100) POC Glucose 130 mg/dL H mg/dL (70-100) Calcium 9.2 mg/dL mg/dL (8.5-10.4) Total Bilirubin 3.1 mg/dL H mg/dL (0.1-1.4) Conjugated Bilirubin 0.2 mg/dL mg/dL (0.0-0.5) Unconjugated Bilirubin 2.9 mg/dL H mg/dL (0.0-1.1) AST 27 IU/L IU/L (17-59) ALT 36 IU/L IU/L (21-72) Alkaline Phosphatase 71 IU/L IU/L (38-126) Total Protein 6.7 g/dL g/dL (6.3-8.2) Albumin 4.0 g/dL g/dL (3.5-5.0) Lipase 125 IU/L IU/L (23-300) 02/15/19 07:55 WBC 11.13 10^3/uL H 10^3/uL (3.80-9.50) RBC 4.37 10^6/uL L 10^6/uL (4.40-6.38) Hgb 12.0 g/dL L g/dL (13.7-17.5) POC Hgb Hct 37.7 % L % (40.0-51.0) POC Hct MCV 86.3 fL fL (81.5-99.8) MCH 27.5 pg L pg (27.9-34.1) MCHC 31.8 g/dL L g/dL (32.4-36.7) RDW 18.0 % H % (11.5-15.2) Plt Count 213 10^3/uL 10^3/uL (150-400) MPV 10.4 fL fL (8.7-11.7) Neut % (Auto) 82.6 % H % (39.3-74.2) Lymph % (Auto) 7.0 % L % (15.0-45.0) [place] % (Auto) 8.3 % % (4.5-13.0) Eos % (Auto) 1.1 % % (0.6-7.6) Baso % (Auto) 0.7 % % (0.3-1.7) Nucleat RBC Rel Count 0.0 % % (0.0-0.2) Absolute Neuts (auto) 9.20 10^3/uL H 10^3/uL (1.70-6.50) Absolute Lymphs (auto) 0.78 10^3/uL L 10^3/uL (1.00-3.00) Absolute Monos (auto) 0.92 10^3/uL H 10^3/uL (0.30-0.80) Absolute Eos (auto) 0.12 10^3/uL 10^3/uL (0.03-0.40) Absolute Basos (auto) 0.08 10^3/uL 10^3/uL (0.02-0.10) Absolute Nucleated RBC 0.00 10^3/uL 10^3/uL (0-0.01) Immature Gran % 0.3 % % (0.0-1.1) Immature Gran # 0.03 10^3/uL 10^3/uL (0.00-0.10) PT INR APTT POC Sodium Sodium POC Potassium Potassium POC Chloride Chloride Carbon Dioxide POC Total CO2 Anion Gap POC BUN BUN Creatinine POC Creatinine Estimated GFR Glucose POC Glucose Calcium Total Bilirubin Conjugated Bilirubin Unconjugated Bilirubin AST ALT Alkaline Phosphatase Total Protein Albumin Lipase Medications Given: Discontinued Medications Fentanyl (Sublimaze) 50 mcg IVP EDNOW ONE Stop: 02/15/19 08:05 Last Admin: 02/15/19 08:16 Dose: 50 mcg Sodium Chloride (Ns) 1,000 mls @ 0 mls/hr IV EDNOW ONE; Wide Open PRN Reason: Protocol Stop: 02/15/19 08:05 Last Admin: 02/15/19 08:16 Dose: 1,000 mls Point of Care Test Results: Chemistry 02/15/19 08:11 POC Sodium 140 mEq/L mEq/L (135-145) POC Potassium 3.7 mEq/L mEq/L (3.3-5.0) POC Chloride 101 mEq/L mEq/L (97-110) POC Total CO2 24 mEq/L mEq/L (22-31) POC BUN 15 mg/dL mg/dL (7-23) POC Creatinine 1.2 mg/dL mg/dL (0.7-1.3) POC Glucose 130 mg/dL H mg/dL (70-100) ISTAT H&H 02/15/19 08:11 POC Hgb 12.9 gm/dL L gm/dL (13.7-17.5) POC Hct 38 % L % (40-51) General Time Seen by Provider: 02/15/19 07:44 Initial Vital Signs: Initial Vital Signs Temperature (C) 36.7 C 02/15/19 07:37 Heart Rate 111 H 02/15/19 07:37 Respiratory Rate 22 H 02/15/19 07:37 Blood Pressure 177/103 H 02/15/19 07:37 O2 Sat (%) 73 L 02/15/19 07:37 O2 Delivery Mode Nasal Cannula O2 (L/minute) 3.5 Allergies/Adverse Reactions: amiodarone Allergy (Verified 02/15/19 10:26) Lung toxicity Home Medications: Medication Instructions Recorded Atorvastatin Calcium [Lipitor 10 10 mg PO DAILY@02/15/19 mg (*)] C/E/Zn/Cu/OM3/DHA/EPA/LUT/ZEAX 1 each PO BID@,02/15/19 [Preservision Areds 2 Softgel] Cholecalciferol Vit D3 [Vitamin D3 1,000 units PO DAILY@02/15/19 (*)] Dabigatran Etexilate Mesylate 75 mg PO BID@,02/15/19 [Pradaxa] Diltiazem [Cardizem Immediate 30 mg PO BID@,02/15/19 Release] Guar Gum [Benefiber/Nutrisource 1 each PO BID@,02/15/19 Fiber (*)] Lisinopril [Zestril 20 mg (*)] 20 mg PO DAILY@02/15/19 Metoprolol Tartrate [Lopressor 25 25 mg PO BID@,02/15/19 mg (*)] Moxifloxacin/ Toradol/ Prednis 1 drop RTEYE DAILY 02/15/19 Moxifloxacin/Toradol/Prednisol 1 drop LEFTEYE QID 02/15/19 Multivitamins [Multivitamin (*)] 1 each PO DAILY@02/15/19 Pantoprazole Sodium [Protonix 40mg 40 mg PO DAILY@02/15/19 (*)] Vitamin B Complex [Vitamin B 1 each PO DAILY@12 02/15/19 Complex (OTC)] Departure - Departure Disposition: Home, Routine, Self-Care Clinical Impression: Possible internal hernia, Hypoxemia Abdominal pain Qualifiers: Abdominal location: left lower quadrant Qualified Code(s): R10.32 - Left lower quadrant pain Condition: Fair Report Scribed for: Estrella Nicholson Report Scribed by: Estela Hernandez Date of Report: 02/15/19 Time of Report: 08:15 Physician Review and Approval Statement: Portions of this note were transcribed by a clinical medical assistant. I personally performed a history, physical exam, medical decision making, and confirmed accuracy of information the transcribed note.
[2019-02-15 08:14] LABS: PLATELET COUNT 213 10^3/uL (150-400)
[2019-02-15] MEDS ORDERED: IOPAMIDOL (ISOVUE-300) 100 ML BTL ONE (08:22)
[2019-02-15 08:23] LABS: INR 1.37 (0.83-1.16); PROTIME(PATIENT) 16.3 SEC (12.0-15.0)
--- NOTE | 2019-02-15 10:27 | ASMTCMCOM ---
CM Note CM Note Notes: Reviewed chart. Pt presented to the Emergency Department with complaints of abdominal pain. 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 Pt was recently discharged from [facility] on 12/28/18 with [facility] (RN/PT services) and home oxygen. Pt is , retired and lives with his in [place]. Pt to be admitted for further observation and treatment. Discharge needs remain unclear at this time. CM will continue to follow. Discharge Plan: To be determined Date Signed: 02/15/2019 10:25 AM Electronically Signed By:Yumiko Hdz RN
[2019-02-15] MEDS ORDERED: ACETAMINOPHEN 325 MG TAB PO PRN (11:25)
[2019-02-15] MEDS ORDERED: HYDROCODONE/APAP 5/325 TAB PO PRN (11:25)
[2019-02-15] MEDS ORDERED: HYDROmorphONE/DILAUDID 1 MG/ML INJ IVP PRN (11:25)
[2019-02-15] MEDS ORDERED: ONDANSETRON DISINTEGRATING 4 MG TAB PO PRN (11:26)
[2019-02-15] MEDS ORDERED: ONDANSETRON 4 MG/2 ML VIAL IVP PRN (11:26)
[2019-02-15] MEDS: LR 1,000 ML IV SCH (11:34)
--- NOTE | 2019-02-15 12:30 | GHP ---
[f rep st] HISTORY AND PHYSICAL DATE OF ADMISSION: 02/15/2019 CHIEF COMPLAINT: Abdominal pain. HISTORY OF PRESENT ILLNESS: This is an 88-year-old male with a history of pulmonary fibrosis who pre sents with sudden-onset abdominal pain. This started around midnight last night. He was unable to g et back to sleep. Initially described it as throughout his entire abdomen. It is now more localized to the left mid quadrant. It is better after he received fentanyl. He has not had any nausea, vomit ing. He has not eaten since dinner last night. He has not had any bowel movements since the pain be coy. He is on Pradaxa. He last took Pradaxa last night. PAST MEDICAL/SURGICAL HISTORY: 1. 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 2. Atrial fibrillation, on Pradaxa. 3. Sick sinus syndrome, status post pacemaker. 4. History of coronary artery disease. 5. Chronic kidney disease. 6. Hypertension. 7. Chronic respiratory failure on 2 L. 8. Kidney stones. MEDICATIONS: Please see medication reconciliation. ALLERGIES: Amiodarone. FAMILY HISTORY: Reviewed and noncontributory. SOCIAL HISTORY: He lives with his . He does not drink or smoke. REVIEW OF SYSTEMS: 10-point review of systems is conducted and is negative, except per HPI. PHYSICAL EXAM: VITAL SIGNS: Blood pressure 168/96, heart rate 76, respiration rate 16, 99% on 4 L, temperature 36.4. GENERAL: Patient is a pleasant man, who is resting comfortably, does not appear t o be in any acute distress. HEENT: Normocephalic, atraumatic. CARDIOVASCULAR: Irregularly irregul ar. He has no murmurs, rubs, or gallops. PULMONARY: Diffuse dry crackles. He is not dyspneic appe aring. ABDOMEN: Soft. He is tender to palpation on the left side. There is no guarding or rebound . No peritoneal signs. There are no masses appreciated. SKIN: No rash. : No [place]. NEUROLOGI C: Alert and oriented x3. He is moving all extremities. PSYCHIATRIC: Normal mood and affect. LABS: White count is 11. INR is 1.37. Basic metabolic panel and liver function tests are normal. Troponin is negative. DATA: 1. Discussed with Dr. Nicholson. Will admit to Med/Surg. 2. I personally viewed and interpreted his EKG. This shows atrial fibrillation. 3. Abdominal CT scan shows a dilated loop of bowel which may be diverticulum versus internal hernia. 4. Chest x-ray shows diffuse, what appears to be, worsening interstitial fibrosis. IMPRESSION AND PLAN: 1. Abdominal pain: Dr. Tang will evaluate him. Abdominal CT scan does show what is either a dil ated loop of small bowel or possibly a diverticulum. I do not think he has a peritoneal abdomen at th is point. I have ordered a lactate, which is pending. Will make him n.p.o. pending decisions on max selena. I will also hold his Pradaxa for now. Certainly, surgery would be high risk in an 88-year-old gentleman with severe lung disease who is anticoagulated. 2. Pulmonary: He has chronic pulmonary fibrosis. He was quite hypoxic on presentation here, which he says is normal for him. He does have some new pleural effusion seen on his CT scan. I do not thi nk we need to change any treatment at this time. However, will follow his tenuous status carefully a nd involve Pulmonology if there are any additional concerns. 3. Atrial fibrillation: He is currently rate controlled. Will continue metoprolol and hold Pradaxa as above. 4. Sick sinus syndrome, status post pacemaker. 5. Hypertension: Continue his home medications. 6. Code status: He tells me he would like to be do not resuscitate. We clearly discussed the impli cations of this. /[id number]/MODL
--- NOTE | 2019-02-15 14:57 | PDCONSULT ---
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 This an 88-year-old gentleman with known pulmonary fibrosis who presents to the hospital with abdominal pain left lower quadrant which woke him from sleep today. The pain has somewhat subsided now he had 1 prior episode [address] scan of the abdomen and pelvis demonstrates what appears to be a small-bowel diverticulum present for many years at least since an x-ray in 2010. He had normal bowel activity and dietary function up till this morning. He denies any weight loss. He did have oxygen saturations of 72% on arrival likely due to pulmonary fibrosis and bilateral moderate pleural effusions. Past medical history: Generalized weakness, anemia, atrial fibrillation with RVR, pulmonary edema, history of syncope Past surgical history: Left inguinal hernia repair Medications at home include metoprolol, lisinopril, diltiazem, Protonix, atorvastatin, Pradaxa (for atrial fibrillation). Allergies include amiodarone Family history noncontributory Social history lives at home with his . Denies alcohol or drug use. Alert oriented no distress sclerae anicteric oropharynx slightly dry no lesions Trachea midline Irregular rate and rhythm Diminished bilaterally Abdomen soft nontender to light palpation. Some discomfort with palpation of the left lower quadrant. No rebound no peritoneal signs. Well-healed scar left lower quadrant Extremities without edema 3 sec capillary refill bilaterally CT scan of the abdomen pelvis personally reviewed with Dr. 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 Discussed with Dr. Ch will continue to follow clinically at this point given the longevity of this diverticulum. He is a poor candidate for surgery given his pulmonary disease and other comorbidities. Hold Pradaxa regardless. May start on clear liquids. Patient and his who was at the bedside are happy with this current plan
[2019-02-15] MEDS: TORADOL RTEYE SCH (16:00)
[2019-02-15] MEDS: MOXIFLOXACIN RTEYE SCH (16:00)
[2019-02-15] MEDS: PREDNIS RTEYE SCH (16:00)
[2019-02-15] MEDS: PREDNISOL LEFTEYE SCH ×2 (17:17→20:44)
[2019-02-15] MEDS: TORADOL LEFTEYE SCH ×2 (17:17→20:44)
[2019-02-15] MEDS: MOXIFLOXACIN LEFTEYE SCH ×2 (17:17→20:44)
[2019-02-15] MEDS: LISINOPRIL 20 MG TAB PO SCH (17:20)
[2019-02-15] MEDS: PANTOPRAZOLE SODIUM 40 MG TAB PO SCH (17:20)
[2019-02-15] MEDS: DILTIAZEM 30 MG TAB PO SCH (17:22)
[2019-02-15] MEDS: METOPROLOL TARTRATE 25 MG TAB PO SCH (17:22)
[2019-02-15] MEDS: ATORVASTATIN CALCIUM 10 MG TAB PO SCH (17:22)
[2019-02-15] MEDS: oxyCODONE IR 5 MG TAB PO PRN (21:55)
[2019-02-16] MEDS: LR 1,000 ML IV SCH ×2 (01:02→13:28)
[2019-02-16] MEDS: oxyCODONE IR 5 MG TAB PO PRN (03:59)
[2019-02-16 05:04] LABS: PLATELET COUNT 155 10^3/uL (150-400)
[2019-02-16] MEDS: DILTIAZEM 30 MG TAB PO SCH ×2 (07:20→17:31)
[2019-02-16] MEDS: METOPROLOL TARTRATE 25 MG TAB PO SCH ×2 (07:20→17:31)
[2019-02-16] MEDS: TORADOL LEFTEYE SCH ×4 (07:22→20:45)
[2019-02-16] MEDS: MOXIFLOXACIN LEFTEYE SCH ×4 (07:22→20:45)
[2019-02-16] MEDS: PREDNISOL LEFTEYE SCH ×4 (07:22→20:45)
--- NOTE | 2019-02-16 09:48 | SOAPPROG ---
SOAP Progress Note Assessment/Plan: Assessment/Plan: 88 yo man with pulmonary fibrosis (oxygen dependent) with associated bilateral moderate sized pleural effusions, afib on Pradaxa (held 02/15) presented with L abdominal pain. High risk surgical candidate CT shows diverticulum of small bowel (seen on abd imaging 2010) tempering kiln tender no nausea Min bowel activity Leucocytosis unchanged from yesterday IRR/IRR Wheezes/coarse BS bilat Abd soft ND, mildly tender left. no rebound. non peritoneal No real improvement Would prefer non operative management in this patient if possible Reassess this pm for change May give clear liq diet 02/16/19 09:44 Objective: Vital Signs Temp Pulse Resp BP Pulse Ox 36.6 C 89 32 H 181/114 H 91 L 02/16/19 07:12 02/16/19 07:20 02/16/19 07:12 02/16/19 07:20 02/16/19 07:12 Laboratory Results 02/16/19 04:18 02/16/19 04:18 02/15/19 02/16/19 02/17/19 05:59 05:59 05:59 Intake Total 2341 Output Total 1650 Balance 691 PT 16.3 SEC (12.0-15.0) H 02/15/19 07:55 INR 1.37 (0.83-1.16) H 02/15/19 07:55 ICD10 Worksheet Patient Problems: Problems Problem Status Onset Abdominal pain Acute Anemia Acute Atrial fibrillation with RVR Acute Elevated troponin Acute Generalized weakness Acute Hemoptysis Acute Pulmonary edema Acute Syncope Acute chronic disease mgmt/transitional care Acute
[2019-02-16] MEDS: PREDNIS RTEYE SCH (10:05)
[2019-02-16] MEDS: MOXIFLOXACIN RTEYE SCH (10:05)
[2019-02-16] MEDS: TORADOL RTEYE SCH (10:05)
--- NOTE | 2019-02-16 12:41 | HOSPPROG ---
Hospitalist Progress Note Assessment/Plan: # abd pain - internal hernia vs small bowel diverticulum - high risk surgical patient with chronic severe lung disease - agree with watchful waiting at this point, Dr Tang involved - cont pain control, clears for now # atrial fib - cont dilt and metop - hold pradaxa # htn - cont metop, dilt and lisino - add low dose amlodipine # pulm fibrosis - possibly asbestos exposure, also was reportedly worse with amiodarone # chronic resp failure wit desats - on 4L Subjective: Reports abdominal pain better, however received oxycodone; no bowel movement overnight Objective: Vital Signs Temp Pulse Resp BP Pulse Ox 36.4 C 75 18 151/80 H 93 02/16/19 11:18 02/16/19 11:18 02/16/19 11:18 02/16/19 11:18 02/16/19 11:18 Laboratory Results 02/16/19 04:18 02/16/19 04:18 02/15/19 02/16/19 02/17/19 05:59 05:59 05:59 Intake Total 2341 Output Total 1650 Balance 691 PT 16.3 SEC (12.0-15.0) H 02/15/19 07:55 INR 1.37 (0.83-1.16) H 02/15/19 07:55 high risk given comorbidities and possible need for surgery - Physical Exam Constitutional: no apparent distress, appears nourished Cardiovascular: no murmur, rub, or gallop, irregularly irregular Respiratory: inspiratory crackles, respiratory distress (mild), No reduced air movement, No expiratory wheeze Gastrointestinal: other (Normal bowel sounds, soft, tender to palpation on the left side, no rebound or guarding) ICD10 Worksheet Patient Problems: Problems Problem Status Onset Generalized weakness Acute Anemia Acute Atrial fibrillation with RVR Acute Pulmonary edema Acute Abdominal pain Acute chronic disease mgmt/transitional care Acute Hemoptysis Acute Syncope Acute Elevated troponin Acute
--- NOTE | 2019-02-16 13:27 | ASMTCMCOM ---
CM Note CM Note Notes: CM discussed with RN, currently continuing monitoring. Surgery consult with Dr. 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 Transitional Care and Cardiac Rehab consult ordered. If home health is required, patient was discharged home with [facility] when last inpatient with [facility] 12/28/18. Patient likely to discharge home independent. CM to follow. D/C Plan: home independent. Date Signed: 02/16/2019 01:27 PM Electronically Signed By:Gini Zimmerman
--- NOTE | 2019-02-16 15:31 | PDMN ---
Medical Necessity Medical necessity: MCG M05 Abd Pain, Undiagnosed, A-1 day: 88 yo w/ acute abd pain. Initially OBS for workup/tx - gen surg consulted - unclear etiology. Pt has both diverticulum small and large bowel vs. internal hernia. Pt is high risk surgical pt w/ chronic severe lung disease. Pt has required higher O2 delivery to keep sats>90% beyond OBS care, has been hypertensive 180s systolic, remains on IVF, still w/ abd pain. Pt requires additional MN for ongoing dx testing, monitoring and tx. Hx pulm fibrosis due to amiodarone and asbestos, afib on pradaxa, SSS s/p pacer, CAD, CKD, HTN, chronic resp fx on 2L, kidney stones. Change to IP status 02/16/19@ 1241 per MD order.
[2019-02-16] MEDS: ATORVASTATIN CALCIUM 10 MG TAB PO SCH (17:31)
[2019-02-16] MEDS: LISINOPRIL 20 MG TAB PO SCH (17:31)
[2019-02-16] MEDS: PANTOPRAZOLE SODIUM 40 MG TAB PO SCH (17:31)
[2019-02-17] MEDS: LR 1,000 ML IV SCH (02:49)
[2019-02-17] MEDS: TORADOL LEFTEYE SCH ×4 (06:10→20:14)
[2019-02-17] MEDS: MOXIFLOXACIN LEFTEYE SCH ×4 (06:10→20:14)
[2019-02-17] MEDS: DILTIAZEM 30 MG TAB PO SCH ×2 (06:10→17:04)
[2019-02-17] MEDS: METOPROLOL TARTRATE 25 MG TAB PO SCH ×2 (06:10→17:05)
[2019-02-17] MEDS: PREDNISOL LEFTEYE SCH ×4 (06:10→20:14)
[2019-02-17] MEDS: PREDNIS RTEYE SCH (08:13)
[2019-02-17] MEDS: TORADOL RTEYE SCH (08:13)
[2019-02-17] MEDS: MOXIFLOXACIN RTEYE SCH (08:13)
--- NOTE | 2019-02-17 13:23 | HOSPPROG ---
Hospitalist Progress Note Assessment/Plan: # abd pain - internal hernia vs small bowel diverticulum - pain not fully resolved, overall concerning but still feel that his risk profile favors non-op management at this time - will advance diet today and follow his pain closely # atrial fib - cont dilt and metop - hold pradaxa # htn - cont metop, dilt and lisino - add low dose amlodipine # pulm fibrosis - possibly asbestos exposure, also was reportedly worse with amiodarone # chronic resp failure wit desats - on 4L Subjective: still with some abd pain, but feels it is improving; concerned about eating Objective: Vital Signs Temp Pulse Resp BP Pulse Ox 36.4 C 64 18 152/92 H 98 02/17/19 11:02 02/17/19 11:02 02/17/19 11:02 02/17/19 11:02 02/17/19 11:02 02/16/19 02/17/19 02/18/19 05:59 05:59 05:59 Intake Total 1250 Output Total 1025 Balance 1250 -1025 PT 16.3 SEC (12.0-15.0) H 02/15/19 07:55 INR 1.37 (0.83-1.16) H 02/15/19 07:[address] Tang high risk - Physical Exam Constitutional: no apparent distress, appears nourished Cardiovascular: no murmur, rub, or gallop, irregularly irregular Respiratory: no respiratory distress, inspiratory crackles, No reduced air movement, No expiratory wheeze Gastrointestinal: other (normal BS; S, TTP L sided), No guarding, No rebound ICD10 Worksheet Patient Problems: Problems Problem Status Onset Generalized weakness Acute Anemia Acute Atrial fibrillation with RVR Acute Pulmonary edema Acute Abdominal pain Acute chronic disease mgmt/transitional care Acute Hemoptysis Acute Syncope Acute Elevated troponin Acute
--- NOTE | 2019-02-17 16:19 | SOAPPROG ---
SOAP Progress Note Assessment/Plan: Assessment/Plan: 88 yo man with pulmonary fibrosis (oxygen dependent) with associated bilateral moderate sized pleural effusions, afib on Pradaxa (held 02/15) presented with L abdominal pain. Reassessed today with patient OOB stretching and c/o suprapubic pain High risk surgical candidate CT shows diverticulum of small bowel (seen on abd imaging 2010) desizing machine back tender no nausea Min bowel activity Leucocytosis unchanged from yesterday IRR/IRR Wheezes/coarse BS bilat Abd soft ND, nontender left. no rebound. non peritoneal Minimal improvement Would prefer non operative management in this patient if possible Leucocytosis still worrisome. consider abx if not improved tomorrow May give regular diet 02/16/19 09:44 02/17/19 16:18 Objective: Vital Signs Temp Pulse Resp BP Pulse Ox 36.6 C 80 18 148/85 H 98 02/17/19 15:15 02/17/19 15:15 02/17/19 15:15 02/17/19 15:15 02/17/19 15:15 02/16/19 02/17/19 02/18/19 05:59 05:59 05:59 Intake Total 1250 716 Output Total 1475 Balance 1250 -759 PT 16.3 SEC (12.0-15.0) H 02/15/19 07:55 INR 1.37 (0.83-1.16) H 02/15/19 07:55 ICD10 Worksheet Patient Problems: Problems Problem Status Onset Abdominal pain Acute Anemia Acute Atrial fibrillation with RVR Acute Elevated troponin Acute Generalized weakness Acute Hemoptysis Acute Pulmonary edema Acute Syncope Acute chronic disease mgmt/transitional care Acute
[2019-02-17] MEDS: PANTOPRAZOLE SODIUM 40 MG TAB PO SCH (17:04)
[2019-02-17] MEDS: LISINOPRIL 20 MG TAB PO SCH (17:04)
[2019-02-17] MEDS: ATORVASTATIN CALCIUM 10 MG TAB PO SCH (17:05)
--- NOTE | 2019-02-17 17:32 | CPEKG ---
Test Reason : OPEN Blood Pressure : / mmHG Vent. Rate : 074 BPM Atrial Rate : 077 BPM P-R Int : 256 ms QRS Dur : 086 ms QT Int : 429 ms P-R-T Axes : 000 046 -22 degrees QTc Int : 476 ms Atrial fibrillation Probable LVH with secondary repol abnrm Borderline prolonged QT interval Confirmed by Estrella Nicholson [id number] on 02/17/2019 5:31:27 PM Referred By: Estrella Nicholson Confirmed By:Estrella Nicholson
[2019-02-18 05:14] LABS: PLATELET COUNT 192 10^3/uL (150-400)
[2019-02-18] MEDS: MOXIFLOXACIN LEFTEYE SCH ×2 (05:53→21:23)
[2019-02-18] MEDS: PREDNISOL LEFTEYE SCH ×2 (05:53→21:23)
[2019-02-18] MEDS: TORADOL LEFTEYE SCH ×2 (05:53→21:23)
[2019-02-18] MEDS: METOPROLOL TARTRATE 25 MG TAB PO SCH ×2 (07:42→18:24)
[2019-02-18] MEDS: DILTIAZEM 30 MG TAB PO SCH ×2 (07:44→18:24)
[2019-02-18] MEDS: PREDNIS RTEYE SCH (07:47)
[2019-02-18] MEDS: TORADOL RTEYE SCH (07:47)
[2019-02-18] MEDS: MOXIFLOXACIN RTEYE SCH (07:47)
--- NOTE | 2019-02-18 12:34 | HOSPPROG ---
Hospitalist Progress Note Assessment/Plan: # abd pain - small bowel diverticulum seen on CT in the location of initial pain - pain is ongoing, mild, more suprapubic - will start empiric abx given non-resolution of pain and ongoing leukocytosis - appreciate Dr Tang's assistance; high operative risk overall with lung disease # atrial fib - cont dilt and metop - hold pradaxa - may restart soon # htn - cont metop, dilt and lisino - add low dose amlodipine # pulm fibrosis - possibly asbestos exposure, also was reportedly worse with amiodarone # chronic resp failure wit desats - on 4L # dispo - hope to discharge soon, would like some improvement as above Subjective: ongoing suprapubic abd pain - not worse with PO, no BM Objective: Vital Signs Temp Pulse Resp BP Pulse Ox 36.4 C 92 18 141/79 H 93 02/18/19 07:45 02/18/19 07:45 02/18/19 07:45 02/18/19 07:45 02/18/19 07:45 Laboratory Results 02/18/19 04:39 02/18/19 04:39 02/17/19 02/18/19 02/19/19 05:59 05:59 05:59 Intake Total 1250 1876 340 Output Total 2775 500 Balance 1250 -899 -160 PT 16.3 SEC (12.0-15.0) H 02/15/19 07:55 INR 1.37 (0.83-1.16) H 02/15/19 07:[address] Tang - Physical Exam Constitutional: no apparent distress, appears nourished Eyes: anicteric sclera Ears, Nose, Mouth, Throat: hearing normal Cardiovascular: No edema Respiratory: no respiratory distress Gastrointestinal: other (soft, TTP suprapubic), No guarding, No rebound, No distension Genitourinary: No pérez in urethra Skin: warm Musculoskeletal: full muscle strength Neurologic: AAOx3 Psychiatric: not anxious ICD10 Worksheet Patient Problems: Problems Problem Status Onset Generalized weakness Acute Anemia Acute Atrial fibrillation with RVR Acute Pulmonary edema Acute Abdominal pain Acute chronic disease mgmt/transitional care Acute Hemoptysis Acute Syncope Acute Elevated troponin Acute
--- NOTE | 2019-02-18 13:07 | SOAPPROG ---
SOAP Progress Note Assessment/Plan: Assessment/Plan: 88 yo man with pulmonary fibrosis (oxygen dependent) with associated bilateral moderate sized pleural effusions, afib on Pradaxa (held 02/15) presented with L abdominal pain. Reassessed today with patient OOB stretching and c/o suprapubic pain High risk surgical candidate CT shows diverticulum of small bowel (seen on abd imaging 2010) die attaching machine tender no nausea Min bowel activity Leucocytosis unchanged from yesterday IRR/IRR Wheezes/coarse BS bilat Abd soft ND, nontender left. no rebound. non peritoneal Interval improvement wrt abdominal pain Would prefer non operative management in this patient if possible Leucocytosis still worrisome. consider abx if not improved tomorrow May give regular diet 02/16/19 09:44 02/17/19 16:18 02/18/19 13:06 Objective: Vital Signs Temp Pulse Resp BP Pulse Ox 36.6 C 80 14 142/77 H 94 02/18/19 12:33 02/18/19 12:33 02/18/19 12:33 02/18/19 12:33 02/18/19 12:33 Laboratory Results 02/18/19 04:39 02/18/19 04:39 02/17/19 02/18/19 02/19/19 05:59 05:59 05:59 Intake Total 1250 1876 340 Output Total 2775 500 Balance 1250 -899 -160 PT 16.3 SEC (12.0-15.0) H 02/15/19 07:55 INR 1.37 (0.83-1.16) H 02/15/19 07:55 ICD10 Worksheet Patient Problems: Problems Problem Status Onset Abdominal pain Acute Anemia Acute Atrial fibrillation with RVR Acute Elevated troponin Acute Generalized weakness Acute Hemoptysis Acute Pulmonary edema Acute Syncope Acute chronic disease mgmt/transitional care Acute
--- NOTE | 2019-02-18 16:07 | ASMTCMCOM ---
CM Note CM Note Notes: Met with pt in his room. Pt states that he lives at home with his and is independent with his ADLs. Able to drive and to walk without a walker. Case Management remains available should his needs change. Case Management D/C plan: Likely independent to home, Date Signed: 02/18/2019 04:06 PM Electronically Signed By:Page Camarena
[2019-02-18] MEDS: ATORVASTATIN CALCIUM 10 MG TAB PO SCH (18:24)
[2019-02-18] MEDS: LISINOPRIL 20 MG TAB PO SCH (18:24)
[2019-02-18] MEDS: PANTOPRAZOLE SODIUM 40 MG TAB PO SCH (18:24)
[2019-02-19] MEDS: DILTIAZEM 30 MG TAB PO SCH ×2 (06:12→17:22)
[2019-02-19] MEDS: METOPROLOL TARTRATE 25 MG TAB PO SCH ×2 (06:12→17:22)
[2019-02-19] MEDS: TORADOL RTEYE SCH (09:08)
[2019-02-19] MEDS: PREDNIS RTEYE SCH (09:08)
[2019-02-19] MEDS: MOXIFLOXACIN LEFTEYE SCH ×2 (09:08→21:13)
[2019-02-19] MEDS: TORADOL LEFTEYE SCH ×2 (09:08→21:13)
[2019-02-19] MEDS: PREDNISOL LEFTEYE SCH ×2 (09:08→21:13)
[2019-02-19] MEDS: MOXIFLOXACIN RTEYE SCH (09:08)
--- NOTE | 2019-02-19 13:57 | SOAPPROG ---
SOAP Progress Note Assessment/Plan: Assessment/Plan: 88 yo man with pulmonary fibrosis (oxygen dependent) with associated bilateral moderate sized pleural effusions, afib on Pradaxa (held 02/15) presented with L abdominal pain. Reassessed today with patient OOB stretching and c/o suprapubic pain High risk surgical candidate CT shows diverticulum of small bowel (seen on abd imaging 2010) brazing machine tender no nausea Min bowel activity Leucocytosis unchanged from yesterday IRR/IRR Wheezes/coarse BS bilat Abd soft ND, nontender left. no rebound. non peritoneal Interval improvement wrt abdominal pain Would prefer non operative management in this patient if possible Leucocytosis still worrisome. continue abx d/c tomorrow f/u with me in 1-2 weeks 02/16/19 09:44 02/17/19 16:18 02/18/19 13:06 02/19/19 13:56 Objective: Vital Signs Temp Pulse Resp BP Pulse Ox 36.3 C 80 16 121/77 H 94 02/19/19 11:39 02/19/19 11:39 02/19/19 11:39 02/19/19 11:39 02/19/19 11:39 Laboratory Results 02/18/19 04:39 02/18/19 04:39 02/18/19 02/19/19 02/20/19 05:59 05:59 05:59 Intake Total 1876 990 Output Total 2775 1500 150 Balance -899 -510 -150 PT 16.3 SEC (12.0-15.0) H 02/15/19 07:55 INR 1.37 (0.83-1.16) H 02/15/19 07:55 ICD10 Worksheet Patient Problems: Problems Problem Status Onset Abdominal pain Acute Anemia Acute Atrial fibrillation with RVR Acute Elevated troponin Acute Generalized weakness Acute Hemoptysis Acute Pulmonary edema Acute Syncope Acute chronic disease mgmt/transitional care Acute
--- NOTE | 2019-02-19 16:22 | HOSPPROG ---
Hospitalist Progress Note Assessment/Plan: 88y male with c/o abd pain. First encounter, chart reviewed. D/W Dr Tang. # abd pain - small bowel diverticulum seen on CT in the location of initial pain - pain is ongoing, mild, more suprapubic - empiric abx given, improving - appreciate Dr Tang's assistance; high operative risk overall with lung disease # atrial fib - cont dilt and metop - hold pradaxa -restart soon # htn - cont metop, dilt and lisino - low dose amlodipine # pulm fibrosis - possibly asbestos exposure, also was reportedly worse with amiodarone # chronic resp failure wit desats - on 4L # dispo - hope to discharge in am if conts to improve Subjective: Up in bed. Some improvement in pain. Still present. Mild. Objective: Vital Signs Temp Pulse Resp BP Pulse Ox 36.3 C 80 16 121/77 H 94 02/19/19 11:39 02/19/19 11:39 02/19/19 11:39 02/19/19 11:39 02/19/19 11:39 Laboratory Results 02/18/19 04:39 02/18/19 04:39 02/18/19 02/19/19 02/20/19 05:59 05:59 05:59 Intake Total 1876 990 Output Total 2775 1500 150 Balance -899 -510 -150 PT 16.3 SEC (12.0-15.0) H 02/15/19 07:55 INR 1.37 (0.83-1.16) H 02/15/19 07:55 - Physical Exam Constitutional: no apparent distress, appears nourished, chronically ill appearing Eyes: PERRL, anicteric sclera, EOMI Ears, Nose, Mouth, Throat: moist mucous membranes, hearing normal, ears appear normal Cardiovascular: regular rate and rhythym, No JVD, No edema Respiratory: no respiratory distress, no rales or rhonchi, reduced air movement Gastrointestinal: normoactive bowel sounds, tenderness, No ascites Skin: warm, normal color, No mottled Musculoskeletal: normal joint ROM, no joint effusions, generalized weakness Neurologic: AAOx3 Psychiatric: interacting appropriately, not anxious, not encephalopathic ICD10 Worksheet Patient Problems: Problems Problem Status Onset Generalized weakness Acute Anemia Acute Atrial fibrillation with RVR Acute Pulmonary edema Acute Abdominal pain Acute chronic disease mgmt/transitional care Acute Hemoptysis Acute Syncope Acute Elevated troponin Acute
[2019-02-19] MEDS: LISINOPRIL 20 MG TAB PO SCH (17:22)
[2019-02-19] MEDS: ATORVASTATIN CALCIUM 10 MG TAB PO SCH (17:22)
[2019-02-19] MEDS: PANTOPRAZOLE SODIUM 40 MG TAB PO SCH (17:22)
[2019-02-20] MEDS: DILTIAZEM 30 MG TAB PO SCH (06:06)
[2019-02-20] MEDS: METOPROLOL TARTRATE 25 MG TAB PO SCH (06:06)
[2019-02-20 07:11] VITALS: BP 137/75
[2019-02-20] MEDS: MOXIFLOXACIN RTEYE SCH (08:11)
[2019-02-20] MEDS: TORADOL RTEYE SCH (08:11)
[2019-02-20] MEDS: PREDNIS RTEYE SCH (08:11)
[2019-02-20] MEDS: PREDNISOL LEFTEYE SCH (08:12)
[2019-02-20] MEDS: MOXIFLOXACIN LEFTEYE SCH (08:12)
[2019-02-20] MEDS: TORADOL LEFTEYE SCH (08:12)
--- NOTE | 2019-02-20 11:27 | SOAPPROG ---
SOAP Progress Note Assessment/Plan: Assessment/Plan: LUQ and suprapubic abdominal pain significantly improved. WBC continues to have mild elevation. Augmentin for outpatient antibiotic management. Agree with discharge from surgical standpoint. He knows to call with questions or concerns. F/u in outpatient setting with Dr. Tang. Patient case discussed with Dr. Tang. 02/20/19 11:25 Subjective: Abdominal pain improved this morning. Denies nausea, emesis, or cramping. He is tolerating regular diet well. States he had formed BM this morning. Having flatus. He anticipates d/c to home today. Objective: Vital Signs Temp Pulse Resp BP Pulse Ox 36.4 C 72 18 137/75 H 97 02/20/19 07:09 02/20/19 07:09 02/20/19 07:09 02/20/19 07:09 02/20/19 07:09 Laboratory Results 02/20/19 04:35 02/18/19 04:39 02/19/19 02/20/19 02/21/19 05:59 05:59 05:59 Intake Total 990 600 Output Total 1500 800 Balance -510 -200 PT 16.3 SEC (12.0-15.0) H 02/15/19 07:55 INR 1.37 (0.83-1.16) H 02/15/19 07:55 Physical Exam: Gen: A&O x3, ambulating in room, appears comfortable HEENT: anicteric Abdomen: soft, nontender, nondistended Extremities: unremarkable ICD10 Worksheet Patient Problems: Problems Problem Status Onset Abdominal pain Acute Hypoxemia Acute Anemia Acute Atrial fibrillation with RVR Acute Elevated troponin Acute Generalized weakness Acute Hemoptysis Acute Pulmonary edema Acute Syncope Acute chronic disease mgmt/transitional care Acute
--- NOTE | 2019-02-20 12:10 | GDS ---
[f rep st] DISCHARGE SUMMARY DISCHARGE DIAGNOSES: 1. Abdominal pain. 2. History of atrial fibrillation. 3. Hypertension. 4. Pulmonary fibrosis. 5. Chronic respiratory failure. 6. Leukocytosis. CONSULTATIONS: Surgery. STUDIES AND PROCEDURES DONE: CT of the abdomen. PHYSICAL EXAM: GENERAL: The patient is alert. VITAL SIGNS: Afebrile at 36.4, pulse 72, respirator y rate is 18, blood pressure is 137/75, he is saturating 97% on 3 L. I have seen and evaluated the p atient on the day of discharge. HOSPITAL COURSE: The patient is an 88-year-old male who presented to the emergency room with complai nts of abdominal pain. He was evaluated and diagnosed with: 1. Abdominal pain. He did receive a CT scan of his abdomen that noted small bowel diverticulum. Af ter monitoring in the hospital setting, the patient was initiated on empiric antibiotic therapy. His symptoms seemed to improve on the antibiotic therapy. The patient may have been suffering from ques tionable mild diverticulitis. His pain is almost completely resolved. He did receive a consultation from surgery during this hospitalization, and he will follow with them in the outpatient setting. 2. History of atrial fibrillation. This is stable. The patient's Pradaxa has been restarted and hi s diltiazem and metoprolol have been continued. 3. History of hypertension. He has been initiated on a low dose of amlodipine during this hospital course in addition to his Lopressor, diltiazem, and lisinopril. His blood pressure is stable at the time of disposition. A prescription has been provided for him. 4. History of pulmonary fibrosis. This is stable and he is at baseline. 5. Chronic respiratory failure. The patient is on 4 L of oxygen at baseline. Today, prior to dispo sition, he is on 3 L. He will discharge with his previously prescribed oxygen orders. DISPOSITION: The patient will be discharged home independently. There are no pending studies. DISCHARGE MEDICATIONS: Please refer to EMR form. I have provided prescription for the patient for a mlodipine as well as Augmentin 875 p.o. twice daily. I have not discontinued or adjusted any of the patient's other previously prescribed home medications. FOLLOW UP: Dr. Tang in 2 weeks as well as his primary care physician. TIME SPENT WITH PATIENT: I spent greater than 35 minutes in the care, coordination, and management o f the patient's disposition. /[id number]/MODL
== END 2019-02-20 11:40 | disposition home or self-care (01) | DRG 392 ==
LOC: F3E 10:55 → OBSVTOIN 02-16 12:41
PROVIDERS: ADMIT Student in an Organized Health Care Education/Training Program; ATTEND Student in an Organized Health Care Education/Training Program
DX: K57.10 Diverticulosis of small intestine without perforation or abscess without bleeding (principal); J96.10 Chronic respiratory failure, unspecified whether with hypoxia or hypercapnia; I48.91 Unspecified atrial fibrillation; I12.9 Hypertensive chronic kidney disease with stage 1 through stage 4 chronic kidney disease, or unspecified chronic kidney disease; J84.10 Pulmonary fibrosis, unspecified; I25.10 Atherosclerotic heart disease of native coronary artery without angina pectoris; N18.9 Chronic kidney disease, unspecified; Z66 Do not resuscitate; Z95.0 Presence of cardiac pacemaker
CPT/HCPCS: 82435-PO; 82565-PO; 82947-PO; 84132-PO; 84295-PO; 84484-ER; 84520-PO; 85014-ER; 96374; G0378; J0696; J3010; Q9967

== ENCOUNTER 2019-03-08 06:27 | Inpatient (IN) | payer OTHER, MEDICARE ==
[2019-03-08] MEDS ORDERED: NS 1,000 ML IV ONE (06:37)
[2019-03-08] MEDS ORDERED: ONDANSETRON 4 MG/2 ML VIAL IVP ONE ×2 (06:37→07:09)
[2019-03-08] MEDS ORDERED: HYDROmorphONE/DILAUDID 2 MG/ML INJ IVP ONE ×2 (06:37→07:09)
[2019-03-08] MEDS ORDERED: IOPAMIDOL (ISOVUE-300) 100 ML BTL ONE (06:54)
--- NOTE | 2019-03-08 06:54 | EDPHY ---
H & P Stated Complaint: ABd pain since 2AM, n/v Time Seen by Provider: 03/08/19 06:44 HPI/ROS: CHIEF COMPLAINT: Abdominal pain HISTORY OF PRESENT ILLNESS: Patient is an 88-year-old man whose brings him to the emergency department complaining of abdominal pain that began abruptly this morning around 130 in the morning. He was here 2 weeks ago with similar symptoms and diagnosed on CT scan to have possible diverticulitis. He improved with Augmentin. He has since finished the antibiotics. He also has a history of atrial fibrillation and is on Pradaxa as well signs pacemaker. Also history of pulmonary fibrosis on 4 L of oxygen at baseline. He denies fevers. He denies diarrhea. He states that he did have 1 episode of minimal amount of vomit prior to arrival. He denies chest pain or shortness of breath. Severity: Severe Modifying factors: None REVIEW OF SYSTEMS: Constitutional: denies: chills, fever, recent illness, recent injury EENTM: denies: blurred vision, double vision, nose congestion Respiratory: denies: cough, shortness of breath Cardiac: denies: chest pain, irregular heart rate, lightheadedness, palpitations Gastrointestinal/Abdominal: denies: abdominal pain, diarrhea, nausea, vomiting, blood streaked stools Genitourinary: denies: dysuria, frequency, hematuria, pain Musculoskeletal: denies: joint pain, muscle pain Skin: denies: lesions, rash, jaundice, bruising Neurological: denies: headache, numbness, paresthesia, tingling, dizziness, weakness Hematologic/Lymphatic: denies: blood clots, easy bleeding, easy bruising Immunologic/allergic: denies: HIV/AIDS, transplant 10 systems reviewed and negative except as noted EXAM: GENERAL: Moderate distress, hyperventilating HEAD: Atraumatic, normocephalic. EYES: Pupils equal round and reactive to light, extraocular movements intact, sclera anicteric, conjunctiva are normal. ENT: TMs normal, nares patent, oropharynx clear without exudates. Moist mucous membranes. NECK: Normal range of motion, supple without lymphadenopathy or JVD. LUNGS: Breath sounds clear to auscultation bilaterally and equal. No wheezes rales or rhonchi. HEART: Regular rate and rhythm without murmurs, rubs or gallops. ABDOMEN: Mild diffuse tenderness, normoactive bowel sounds. No guarding, no rebound. No masses appreciated. BACK: No CVA tenderness, no spinal tenderness, step-offs or deformities EXTREMITIES: Normal range of motion, no pitting or edema. No clubbing or cyanosis. NEUROLOGICAL: Cranial nerves II through XII grossly intact. Normal speech, normal gait. 5/5 strength, normal movement in all extremities, normal sensation , normal reflexes PSYCH: Normal mood, normal affect. SKIN: Warm, dry, normal turgor, no visible rashes or lesions. Source: Patient Exam Limitations: No limitations - Personal History Current Tetanus Diphtheria and Acellular Pertussis (TDAP): Yes - Medical/Surgical History Hx Asthma: No Hx Chronic Respiratory Disease: Yes Hx Diabetes: No Hx Cardiac Disease: Yes Hx Renal Disease: No Hx Cirrhosis: No Hx Alcoholism: No Hx HIV/AIDS: No Hx Splenectomy or Spleen Trauma: No Other PMH: CAD, HTN, cardiac angio in 80's, afib, pacemaker 05/17/16, pulmonary fibrosis, amio pulmonary toxicity, pulmonary hypertension, - Family History Significant Family History: No pertinent family hx - Social History Smoking Status: Never smoked Alcohol Use: None Constitutional: Initial Vital Signs Temperature (C) 36.5 C 03/08/19 06:35 Heart Rate 98 03/08/19 06:35 Respiratory Rate 18 03/08/19 06:35 Blood Pressure 148/81 H 03/08/19 06:35 O2 Sat (%) 88 L 03/08/19 06:35 O2 Delivery Mode Nasal Cannula O2 (L/minute) 2 Allergies/Adverse Reactions: amiodarone Allergy (Verified 03/08/19 06:35) Lung toxicity Home Medications: Medication Instructions Recorded Atorvastatin Calcium [Lipitor 10 10 mg PO DAILY@02/15/19 mg (*)] C/E/Zn/Cu/OM3/DHA/EPA/LUT/ZEAX 1 each PO BID@,02/15/19 [Preservision Areds 2 Softgel] Cholecalciferol Vit D3 [Vitamin D3 1,000 units PO DAILY@02/15/19 (*)] Dabigatran Etexilate Mesylate 75 mg PO BID@,02/15/19 [Pradaxa] Diltiazem [Cardizem Ir Q6hr] 30 mg PO BID@07,02/15/19 Guar Gum [Benefiber/Nutrisource 1 each PO DAILY@12 02/15/19 Fiber (*)] Lisinopril [Zestril 20 mg (*)] 20 mg PO DAILY@02/15/19 Metoprolol Tartrate [Lopressor 25 25 mg PO BID@07,02/15/19 mg (*)] Multivitamins [Multivitamin (*)] 1 each PO DAILY@02/15/19 Pantoprazole Sodium [Protonix 40mg 40 mg PO DAILY@02/15/19 (*)] Vitamin B Complex [Vitamin B 1 each PO DAILY@02/15/19 Complex (OTC)] Acetaminophen [Tylenol 325mg (*)] 650 mg PO Q4HRS PRN tab 02/20/19 amLODIPine BESYLATE [Norvasc 2.5 2.5 mg PO DAILY #30 tab 02/20/19 mg (*)] Medical Decision Making - Diagnostics EKG Interpretation: An EKG obtained and was read and documented in trace view. Please see trace view for full reading and report. Atrial fibrillation no acute ischemic changes Imaging Results: Imaging Impressions Abdomen CT 03/08/19 06:48 Impression: 1. New regional inflammation involving several loops of small bowel in the right lower quadrant. Suspicious for small bowel ischemia and possible internal hernia/adhesion versus closed-loop obstruction. No pneumoperitoneum or portal venous gas. 2. Sigmoid diverticulosis unchanged. No acute diverticulitis or large bowel obstruction. 3. Free fluid in the right paracolic gutter and adjacent the liver. No abscess. 4. Improved bilateral pleural effusions since 3 weeks prior. Findings discussed with Emergency Department physician, Cecilio Wood on 2018, 8:00 a.m. and reviewed with Dr. Jose Peetr shortly thereafter. Imaging: Discussed imaging studies w/ fisher scallop Radiologist ED Course/Re-evaluation: 8:00 a.m. Discussed the case with Dr. Jose Peter who will come to evaluate. 8:[address] Peter is evaluating the patient. I have called the pharmacy and discussed possibly starting Praxbind if they decide to go to surgery. I have also paged the hospitalist service for admission. Differential Diagnosis: Partial list of the Differential diagnosis considered include but were not limited to; small-bowel obstruction, ischemia, internal hernia, perforation, diverticuliti, sepsis and although unlikely based on the history and physical exam, I also considered acute coronary disease, pneumonia. Critical Care Time: Critical care time spent by me, Dr. Wood exclusive with this patient was 45 minutes, exclusive of the PA time exclusive of procedures. The organ system that was at risk was gastrointestinal and I gave IV fluids, medications, consultation and admission to prevent worsening of the patient's condition - Data Points Laboratory Results: Laboratory Results 03/08/19 06:46 03/08/19 06:46 03/08/19 03/08/19 03/08/19 09:20 08:15 06:46 WBC RBC Hgb Hct MCV MCH MCHC RDW Plt Count MPV Neut % (Auto) Lymph % (Auto) [place] % (Auto) Eos % (Auto) Baso % (Auto) Nucleat RBC Rel Count Absolute Neuts (auto) Absolute Lymphs (auto) Absolute Monos (auto) Absolute Eos (auto) Absolute Basos (auto) Absolute Nucleated RBC Immature Gran % Immature Gran # PT INR APTT VBG Lactic Acid 1.6 mmol/L mmol/L (0.7-2.1) Sodium 137 mEq/L mEq/L (135-145) Potassium 3.6 mEq/L mEq/L (3.5-5.2) Chloride 99 mEq/L mEq/L (97-110) Carbon Dioxide 22 mEq/l mEq/l (22-31) Anion Gap 16 mEq/L H mEq/L (6-14) BUN 21 mg/dL mg/dL (7-23) Creatinine 1.1 mg/dL mg/dL (0.7-1.3) Estimated GFR > 60 Glucose 184 mg/dL H mg/dL (70-100) Calcium 9.3 mg/dL mg/dL (8.5-10.4) Total Bilirubin 1.8 mg/dL H mg/dL (0.1-1.4) Conjugated Bilirubin 0.4 mg/dL mg/dL (0.0-0.5) Unconjugated Bilirubin 1.4 mg/dL H mg/dL (0.0-1.1) AST 28 IU/L IU/L (17-59) ALT 31 IU/L IU/L (21-72) Alkaline Phosphatase 82 IU/L IU/L (38-126) Total Protein 6.9 g/dL g/dL (6.3-8.2) Albumin 4.3 g/dL g/dL (3.5-5.0) Lipase 177 IU/L IU/L (23-300) Urine Color PALE YELLOW Urine Appearance CLEAR Urine pH 7.0 (5.0-7.5) Ur Specific [place] 1.025 (1.002-1.030) Urine Protein NEGATIVE (NEGATIVE) Urine Ketones TRACE H (NEGATIVE) Urine Blood NEGATIVE (NEGATIVE) Urine Nitrate NEGATIVE (NEGATIVE) Urine Bilirubin NEGATIVE (NEGATIVE) Urine Urobilinogen NEGATIVE EU EU (0.2-1.0) Ur Leukocyte Esterase NEGATIVE (NEGATIVE) Urine RBC NONE SEEN /hpf /hpf (0-3) Urine WBC 0-1 /hpf /hpf (0-3) Ur Epithelial Cells NONE SEEN /lpf /lpf (NONE-1+) Urine Mucus TRACE /lpf /lpf (NONE-1+) Urine Glucose 2+ H (NEGATIVE) 03/08/19 03/08/19 03/08/19 06:46 06:46 06:46 WBC 17.09 10^3/uL H 10^3/uL (3.80-9.50) RBC 4.11 10^6/uL L 10^6/uL (4.40-6.38) Hgb 11.3 g/dL L g/dL (13.7-17.5) Hct 35.5 % L % (40.0-51.0) MCV 86.4 fL fL (81.5-99.8) MCH 27.5 pg L pg (27.9-34.1) MCHC 31.8 g/dL L g/dL (32.4-36.7) RDW 16.5 % H % (11.5-15.2) Plt Count 276 10^3/uL 10^3/uL (150-400) MPV 10.3 fL fL (8.7-11.7) Neut % (Auto) 86.5 % H % (39.3-74.2) Lymph % (Auto) 5.6 % L % (15.0-45.0) [place] % (Auto) 6.7 % % (4.5-13.0) Eos % (Auto) 0.2 % L % (0.6-7.6) Baso % (Auto) 0.5 % % (0.3-1.7) Nucleat RBC Rel Count 0.0 % % (0.0-0.2) Absolute Neuts (auto) 14.77 10^3/uL H 10^3/uL (1.70-6.50) Absolute Lymphs (auto) 0.96 10^3/uL L 10^3/uL (1.00-3.00) Absolute Monos (auto) 1.14 10^3/uL H 10^3/uL (0.30-0.80) Absolute Eos (auto) 0.04 10^3/uL 10^3/uL (0.03-0.40) Absolute Basos (auto) 0.09 10^3/uL 10^3/uL (0.02-0.10) Absolute Nucleated RBC 0.00 10^3/uL 10^3/uL (0-0.01) Immature Gran % 0.5 % % (0.0-1.1) Immature Gran # 0.09 10^3/uL 10^3/uL (0.00-0.10) PT 16.0 SEC H SEC (12.0-15.0) INR 1.34 H (0.83-1.16) APTT 42.0 SEC H SEC (23.0-38.0) VBG Lactic Acid 3.2 mmol/L H mmol/L (0.7-2.1) Sodium Potassium Chloride Carbon Dioxide Anion Gap BUN Creatinine Estimated GFR Glucose Calcium Total Bilirubin Conjugated Bilirubin Unconjugated Bilirubin AST ALT Alkaline Phosphatase Total Protein Albumin Lipase Urine Color Urine Appearance Urine pH Ur Specific [place] Urine Protein Urine Ketones Urine Blood Urine Nitrate Urine Bilirubin Urine Urobilinogen Ur Leukocyte Esterase Urine RBC Urine WBC Ur Epithelial Cells Urine Mucus Urine Glucose Medications Given: Discontinued Medications Bupivacaine HCl/Epinephrine Bitart (Bupivacaine/Epi) Confirm Administered Dose 30 ml .ROUTE .STYabbly-MED ONE Stop: 03/08/19 09:34 Last Admin: 03/08/19 12:14 Dose: 20 ml Hydromorphone HCl (Dilaudid) 0.5 mg IVP EDNOW ONE Stop: 03/08/19 06:38 Last Admin: 03/08/19 06:47 Dose: 0.5 mg Hydromorphone HCl (Dilaudid) 0.5 mg IVP EDNOW ONE Stop: 03/08/19 07:10 Last Admin: 03/08/19 07:13 Dose: 0.5 mg Sodium Chloride (Ns) 1,000 mls @ 0 mls/hr IV EDNOW ONE; Wide Open PRN Reason: Protocol Stop: 03/08/19 06:38 Last Admin: 03/08/19 06:46 Dose: 1,000 mls Sodium Chloride (Ns) 2,000 mls @ 4,000 mls/hr 30 ml/kg infuse over 30 min ( 2000 ml) IV EDNOW ONE PRN Reason: Protocol Stop: 03/08/19 07:34 Last Admin: 03/08/19 07:14 Dose: 2,000 mls Piperacillin/Tazobactam/Dextrose (Zosyn (Premix)) 100 mls @ 200 mls/hr IV EDNOW ONE PRN Reason: Protocol Stop: 03/08/19 09:07 Last Admin: 03/08/19 09:25 Dose: 100 mls Idarucizumab (Praxbind) 2.5 gm IVP Q5M CHRISTINA Stop: 03/08/19 09:06 Last Admin: 03/08/19 09:09 Dose: 2.5 gm Ondansetron HCl (Zofran) 4 mg IVP EDNOW ONE Stop: 03/08/19 06:38 Last Admin: 03/08/19 06:47 Dose: 4 mg Ondansetron HCl (Zofran) 4 mg IVP EDNOW ONE Stop: 03/08/19 07:10 Last Admin: 03/08/19 07:13 Dose: 4 mg Departure - Departure Disposition: [facility] Acute Clinical Impression: Severe sepsis Abdominal pain Qualifiers: Abdominal location: generalized Qualified Code(s): R10.84 - Generalized abdominal pain Condition: Critical
[2019-03-08 06:59] LABS: PLATELET COUNT 276 10^3/uL (150-400)
[2019-03-08] MEDS ORDERED: NS 2,000 ML IV ONE (07:05)
[2019-03-08 07:06] LABS: INR 1.34 (0.83-1.16)
--- NOTE | 2019-03-08 07:08 | CPEKG ---
Test Reason : OPEN Blood Pressure : / mmHG Vent. Rate : 109 BPM Atrial Rate : 152 BPM P-R Int : 170 ms QRS Dur : 091 ms QT Int : 306 ms P-R-T Axes : 000 049 -77 degrees QTc Int : 413 ms Atrial fibrillation Confirmed by Tata Mcelroy ([id number]) on 03/08/2019 7:07:39 AM Referred By: TATA MCELROY Confirmed By:Tata Mcelroy
[2019-03-08] MEDS ORDERED: PIPERACILLIN/TAZO 4.5 GM/DEX 100 ML IV ONE (08:38)
[2019-03-08] MEDS: IDARUCIZUMAB 2.5 GM/50 ML VIAL IVP SCH ×2 (09:04→09:09)
[2019-03-08] MEDS ORDERED: BUPIVACAINE/EPI 0.5% 30 ML SDV ONE (09:33)
--- NOTE | 2019-03-08 09:42 | GHP ---
[f rep st] PREOP HISTORY AND PHYSICAL DATE OF ADMISSION: 03/08/2019 REASON FOR ADMISSION: Abdominal pain. REQUESTING PHYSICIAN: Cecilio Wood. HISTORY OF PRESENT ILLNESS: 88-year-old spunky male with a significant history for pulmonary fibrosis, on 2 L continuous oxygen, admitted to the hospital approximately 2 weeks ago with severe left lower quadrant abdominal pain. Imaging workup at this time disclosed multiple areas of small and large bowel diverticula with questionable internal hernia. Those symptoms rapidly resolved with conservative measures. He also described 1 prior antecedent episode prior to that, which was also self-limited. He had been doing well since his hospital discharge and was awoken from sleep this morning with severe lower abdominal pain with associated emesis. His last bowel movement was yesterday, which was normal. No history of black or tarry stools. Last diarrheal episode was multiple weeks ago, and none since. He describes the pain as a 10+ out of 10 currently. ED workup disclosed a white count of 17,000. CT imaging disclosed areas of markedly thickened and potentially poorly-fused small bowel with ascites with a heightened suspicion for possible internal hernia versus other small bowel catastrophe. Surgery has been requested for further recommendations. At present time, after receiving pain medication, patient states that his pain has been reduced to approximately a 7. However, it is continuing to rapidly climb back to a 10. He is extremely stoic. PAST MEDICAL HISTORY: Pulmonary fibrosis, atrial fibrillation, sick sinus syndrome, coronary artery disease, chronic kidney disease, hypertension, nephrolithiasis. PAST SURGICAL HISTORY: Left inguinal hernia repair, pacemaker placement. MEDICATIONS: Lipitor, Preservision, vitamin D, Pradaxa, Cardizem, Benefiber, Zestril, Lopressor, moxifloxacin/Toradol/prednisone eyedrop, Protonix, vitamin D. ALLERGIES: Amiodarone. SOCIAL HISTORY: No alcohol and/or tobacco. He is . He is retired, from [employer]. REVIEW OF SYSTEMS: Notable for chronic shortness of breath. He is able to ambulate the distance of [employer] with mild exertional dyspnea without chest pain. He is followed by Dr. Calhoun. PHYSICAL EXAM: VITAL SIGNS: Temperature 36.5, blood pressure 140/80, heart rate 100s, respirations 20s. GENERAL: The patient is alert, appropriate, uncomfortable with movement. HEENT: Anicteric. No cervical lymphadenopathy. HEART: Irregularly irregular. LUNGS: Coarse bilaterally. ABDOMEN: Distended with notable right lower quadrant tenderness with mild guarding and associated firmness. No abdominal erythema. No appreciable ascites. EXTREMITIES: Without edema. NEUROLOGIC: Alert and appropriate. SKIN: Without rashes. LABORATORY DATA: White count 17,000, hemoglobin 11, platelets of 276. INR 1.3. Lactate 3.2. Electrolytes within reference range. Alkaline phosphatase 82, AST 28, total bilirubin 1.8 with a 1.[address] images were directly reviewed with on-call radiologist. Difficult to interpret findings with a prior small and large bowel diverticula reidentified, markedly edematous right lower quadrant, matted small bowel loops with poor contrast enhancement and associated ascites. Prior seen upper abdominal swirl pattern present as well. IMPRESSION: Recurrent abdominal pain, query internal hernia with small bowel ischemia in a high-risk patient with pulmonary fibrosis, on Pradaxa. Despite patient's comorbidities, I would recommend proceeding with diagnostic laparoscopy at this time. Care plan was discussed with patient and at bedside in detail. The heightened risks of cardiorespiratory failure, as well as untoward surgical complications, were discussed, which they are all understanding and in agreement with proceeding. Will administer Praxbind as a preop reversal agent. All questions were entertained. He desires to proceed. /[id number]/MODL MTDD
[2019-03-08] MEDS ORDERED: HYDROmorphONE/DILAUDID 1 MG/ML INJ IVP PRN ×2 (10:08→12:24)
[2019-03-08] MEDS ORDERED: oxyCODONE IR 5 MG TAB PO PRN (10:08)
--- NOTE | 2019-03-08 10:09 | PDGENHP ---
History and Physical - Chief Complaint abdominal pain - History of Present Illness 88yo M with history of CAD s/p remote stent, pAF on pradaxa, pulmonary fibrosis on supplemental oxygen presents with acute onset LLQ pain and nausea. Pain woke him up from sleep and has been very severe. Last BM was yesterday; no blood or melena. no diarrhea. No fevers. Of note, he was hospitalized approximately 2 weeks ago for LLQ abdominal pain; imaging at that time revealed multiple areas of small and large bowel diverticula and questionable internal hernia. He was treated with antibiotics for possible diverticulitis and clinically improved. He had been doing well at home in the interim. In the ED, he was found to have a WBC of 17k and meeting sepsis criteria. CT showed areas of markedly thickened and potentially poorly-perfused small bowel with small amount of ascites. Blood cultures were drawn and he was given 3L NS and administered IV zosyn. Dr Jose Peter was consulted and has evaluated. He is planning on surgical exploration after discussing with the family. Patient last took pradaxa yesterday evening. History Information - Allergies/Home Medication List Allergies/Adverse Reactions: amiodarone Allergy (Verified 03/08/19 06:35) Lung toxicity Home Medications: Atorvastatin Calcium [Lipitor 10 mg (*)] 10 mg PO DAILY@02/15/19 [Last Taken 03/07/19] C/E/Zn/Cu/OM3/DHA/EPA/LUT/ZEAX [Preservision Areds 2 Softgel] 1 each PO BID@, 02/15/19 [Last Taken 03/07/19] Cholecalciferol Vit D3 [Vitamin D3 (*)] 1,000 units PO DAILY@02/15/19 [Last Taken 03/07/19] Dabigatran Etexilate Mesylate [Pradaxa] 75 mg PO BID@02/15/19 [Last Taken 03/07/19 18:00] Diltiazem [Cardizem Ir Q6hr] 30 mg PO BID@02/15/19 [Last Taken 03/07/19] Guar Gum [Benefiber/Nutrisource Fiber (*)] 1 each PO DAILY@02/15/19 [Last Taken 03/07/19] Lisinopril [Zestril 20 mg (*)] 20 mg PO DAILY@02/15/19 [Last Taken 03/07/19] Metoprolol Tartrate [Lopressor 25 mg (*)] 25 mg PO BID@,02/15/19 [Last Taken 03/07/19] Multivitamins [Multivitamin (*)] 1 each PO DAILY@02/15/19 [Last Taken ] Pantoprazole Sodium [Protonix 40mg (*)] 40 mg PO DAILY@02/15/19 [Last Taken 03/07/19] Vitamin B Complex [Vitamin B Complex (OTC)] 1 each PO DAILY@02/15/19 [Last Taken 03/07/19] I have personally reviewed and updated: family history, medical history, social history, surgical history - Past Medical History atrial fibrillation, coronary artery disease, hypertension, hyperlipidemia Additional medical history: SSS s/p PPM. moderate pulmonary htn. 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 asbestos and other chemical exposure. GI bleed. chronic hypoxia in the past, has been off of o2 for several months. CKD baseline creatinine of 1.3 - Surgical History Reports: angioplasty, hernia repair, pacemaker/AICD Additional surgical history: Lung biopsy, pacemaker implantation, hernia surgery. - Family History Positive for: non-pertinent - Social History Smoking Status: Never smoked Alcohol Use: None Additional social history: , accompanied by his and daughter, lives independently Review of Systems Review of Systems: ROS: 10pt was reviewed & negative except for what was stated in HPI & below Physical Exam Physical Exam: Temp Pulse Resp BP Pulse Ox 36.5 C 109 H 22 H 143/85 H 100 03/08/19 08:50 03/08/19 08:50 03/08/19 08:50 03/08/19 08:50 03/08/19 08:50 O2 (L/minute) 2 Constitutional: uncomfortable Eyes: PERRL, anicteric sclera Ears, Nose, Mouth, Throat: dry mucous membranes Cardiovascular: no murmur, rub, or gallop, tachycardia, No JVD, No edema Respiratory: no respiratory distress, no rales or rhonchi, clear to auscultation Gastrointestinal: no palpable masses, tenderness, guarding, No rebound Genitourinary: no bladder fullness, no bladder tenderness Skin: warm, normal color, no rashes or abrasions, no fluctuance, no induration, No mottled Musculoskeletal: full muscle strength, no muscle tenderness, normal joint ROM, no joint effusions Neurologic: AAOx3 Psychiatric: interacting appropriately Lab Data & Imaging Review 03/08/19 06:46 03/08/19 06:46 WBC 17.09 10^3/uL (3.80-9.50) H 03/08/19 06:46 RBC 4.11 10^6/uL (4.40-6.38) L 03/08/19 06:46 Hgb 11.3 g/dL (13.7-17.5) L 03/08/19 06:46 Hct 35.5 % (40.0-51.0) L 03/08/19 06:46 MCV 86.4 fL (81.5-99.8) 03/08/19 06:46 MCH 27.5 pg (27.9-34.1) L 03/08/19 06:46 MCHC 31.8 g/dL (32.4-36.7) L 03/08/19 06:46 RDW 16.5 % (11.5-15.2) H 03/08/19 06:46 Plt Count 276 10^3/uL (150-400) 03/08/19 06:46 MPV 10.3 fL (8.7-11.7) 03/08/19 06:46 Neut % (Auto) 86.5 % (39.3-74.2) H 03/08/19 06:46 Lymph % (Auto) 5.6 % (15.0-45.0) L 03/08/19 06:46 [place] % (Auto) 6.7 % (4.5-13.0) 03/08/19 06:46 Eos % (Auto) 0.2 % (0.6-7.6) L 03/08/19 06:46 Baso % (Auto) 0.5 % (0.3-1.7) 03/08/19 06:46 Nucleat RBC Rel Count 0.0 % (0.0-0.2) 03/08/19 06:46 Absolute Neuts (auto) 14.77 10^3/uL (1.70-6.50) H 03/08/19 06:46 Absolute Lymphs (auto) 0.96 10^3/uL (1.00-3.00) L 03/08/19 06:46 Absolute Monos (auto) 1.14 10^3/uL (0.30-0.80) H 03/08/19 06:46 Absolute Eos (auto) 0.04 10^3/uL (0.03-0.40) 03/08/19 06:46 Absolute Basos (auto) 0.09 10^3/uL (0.02-0.10) 03/08/19 06:46 Absolute Nucleated RBC 0.00 10^3/uL (0-0.01) 03/08/19 06:46 Immature Gran % 0.5 % (0.0-1.1) 03/08/19 06:46 Immature Gran # 0.09 10^3/uL (0.00-0.10) 03/08/19 06:46 PT 16.0 SEC (12.0-15.0) H 03/08/19 06:46 INR 1.34 (0.83-1.16) H 03/08/19 06:46 APTT 42.0 SEC (23.0-38.0) H 03/08/19 06:46 VBG Lactic Acid 1.6 mmol/L (0.7-2.1) 03/08/19 09:20 Sodium 137 mEq/L (135-145) 03/08/19 06:46 Potassium 3.6 mEq/L (3.5-5.2) 03/08/19 06:46 Chloride 99 mEq/L (97-110) 03/08/19 06:46 Carbon Dioxide 22 mEq/l (22-31) 03/08/19 06:46 Anion Gap 16 mEq/L (6-14) H 03/08/19 06:46 BUN 21 mg/dL (7-23) 03/08/19 06:46 Creatinine 1.1 mg/dL (0.7-1.3) 03/08/19 06:46 Estimated GFR > 60 03/08/19 06:46 Glucose 184 mg/dL (70-100) H 03/08/19 06:46 Calcium 9.3 mg/dL (8.5-10.4) 03/08/19 06:46 Total Bilirubin 1.8 mg/dL (0.1-1.4) H 03/08/19 06:46 Conjugated Bilirubin 0.4 mg/dL (0.0-0.5) 03/08/19 06:46 Unconjugated Bilirubin 1.4 mg/dL (0.0-1.1) H 03/08/19 06:46 AST 28 IU/L (17-59) 03/08/19 06:46 ALT 31 IU/L (21-72) 03/08/19 06:46 Alkaline Phosphatase 82 IU/L (38-126) 03/08/19 06:46 Total Protein 6.9 g/dL (6.3-8.2) 03/08/19 06:46 Albumin 4.3 g/dL (3.5-5.0) 03/08/19 06:46 Lipase 177 IU/L (23-300) 03/08/19 06:46 Urine Color PALE YELLOW 03/08/19 08:15 Urine Appearance CLEAR 03/08/19 08:15 Urine pH 7.0 (5.0-7.5) 03/08/19 08:15 Ur Specific [place] 1.025 (1.002-1.030) 03/08/19 08:15 Urine Protein NEGATIVE (NEGATIVE) 03/08/19 08:15 Urine Ketones TRACE (NEGATIVE) H 03/08/19 08:15 Urine Blood NEGATIVE (NEGATIVE) 03/08/19 08:15 Urine Nitrate NEGATIVE (NEGATIVE) 03/08/19 08:15 Urine Bilirubin NEGATIVE (NEGATIVE) 03/08/19 08:15 Urine Urobilinogen NEGATIVE EU (0.2-1.0) 03/08/19 08:15 Ur Leukocyte Esterase NEGATIVE (NEGATIVE) 03/08/19 08:15 Urine RBC NONE SEEN /hpf (0-3) 03/08/19 08:15 Urine WBC 0-1 /hpf (0-3) 03/08/19 08:15 Ur Epithelial Cells NONE SEEN /lpf (NONE-1+) 03/08/19 08:15 Urine Mucus TRACE /lpf (NONE-1+) 03/08/19 08:15 Urine Glucose 2+ (NEGATIVE) H 03/08/19 08:15 EKG additional interpertation: ECG: atrial fibrillation, v-rate low 100s, normal axis, no ischemic ST-T segment changes (reviewed by me) Assessment & Plan Assessment: 88yo M with history of CAD s/p remote stent, pAF on pradaxa, pulmonary fibrosis on supplemental oxygen presents with acute onset lower abdominal pain with imaging concerning for small bowel ischemia vs obstruction. Plan: #Concern for small bowel ischemia/obstruction - Dr Jose Peter planning on diagnostic laparoscopy - s/p praxbind, holding pradaxa - Certainly has increased lynne-operative risk (RCRI of 2, conferring 10.1% 30 day risk of , SD, cardiac arrest); however, benefits of surgery outweigh risks in this urgent situation. #Severe sepsis: Leukocytosis, tachy, likely abd source with elevated lactate which has now cleared. - Continue zosyn for now, follow blood cultures, mIVF #Chronic atrial fibrillation: [id number], indicating 4.8% annual stroke. - Holding pradaxa - Continue diltiazem and metoprolol #CAD s/p PCI to LAD in 2001: No recent angina. ECG on admit non-ischemic. 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 #SSS s/p PPM #H/o GI bleed VTE ppx: SCDs Code: previously DNR, will need to discuss with patient after procedure Dispo: Admit as inpatient to step down unit
--- NOTE | 2019-03-08 10:09 | HOSPPROG ---
Hospitalist Progress Note Objective: Vital Signs Temp Pulse Resp BP Pulse Ox 36.5 C 109 H 22 H 143/85 H 100 03/08/19 08:50 03/08/19 08:50 03/08/19 08:50 03/08/19 08:50 03/08/19 08:50 PT 16.0 SEC (12.0-15.0) H 03/08/19 06:46 INR 1.34 (0.83-1.16) H 03/08/19 06:46 ICD10 Worksheet Patient Problems: Problems Problem Status Onset Abdominal pain Acute Severe sepsis Acute Anemia Acute Atrial fibrillation with RVR Acute Elevated troponin Acute Generalized weakness Acute Hemoptysis Acute Hypoxemia Acute Pulmonary edema Acute Syncope Acute chronic disease mgmt/transitional care Acute
--- NOTE | 2019-03-08 10:56 | PDANEPAE ---
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 Date Pacemaker Last Checked: 03/08 ANE Patient History - Allergies Allergies/Adverse Reactions: amiodarone Allergy (Verified 03/08/19 06:35) Lung toxicity - Home Medications Home Medications: Atorvastatin Calcium [Lipitor 10 mg (*)] 10 mg PO DAILY@02/15/19 [Last Taken 03/07/19] C/E/Zn/Cu/OM3/DHA/EPA/LUT/ZEAX [Preservision Areds 2 Softgel] 1 each PO BID@, 02/15/19 [Last Taken 03/07/19] Cholecalciferol Vit D3 [Vitamin D3 (*)] 1,000 units PO DAILY@02/15/19 [Last Taken 03/07/19] Dabigatran Etexilate Mesylate [Pradaxa] 75 mg PO BID@,02/15/19 [Last Taken 03/07/19 18:00] Diltiazem [Cardizem Ir Q6hr] 30 mg PO BID@,02/15/19 [Last Taken 03/07/19] Guar Gum [Benefiber/Nutrisource Fiber (*)] 1 each PO DAILY@02/15/19 [Last Taken 03/07/19] Lisinopril [Zestril 20 mg (*)] 20 mg PO DAILY@02/15/19 [Last Taken 03/07/19] Metoprolol Tartrate [Lopressor 25 mg (*)] 25 mg PO BID@,02/15/19 [Last Taken 03/07/19] Multivitamins [Multivitamin (*)] 1 each PO DAILY@02/15/19 [Last Taken ] Pantoprazole Sodium [Protonix 40mg (*)] 40 mg PO DAILY@02/15/19 [Last Taken 03/07/19] Vitamin B Complex [Vitamin B Complex (OTC)] 1 each PO DAILY@02/15/19 [Last Taken 03/07/19] - NPO status NPO Status: no food or drink >8 hours NPO Since - Liquids (Date): 03/08/19 NPO Since - Liquids (Time): 05:00 NPO Since - Solids (Date): 03/07/19 NPO Since - Solids (Time): 22:00 - Smoking Hx Smoking Status: Never smoked - Alcohol Use Alcohol Use: None ANE Labs/Vital Signs - Labs Result Diagrams: 03/08/19 06:46 03/08/19 06:46 - Vital Signs Blood Pressure: 116/87 Heart Rate: 94 Respiratory Rate: 20 O2 Sat (%): 98 Height: 5 ft 7 in Weight: 65.771 kg ANE Physical Exam - Airway Neck exam: FROM Mallampati Score: Class 2 Mouth exam: normal dental/mouth exam - Pulmonary Pulmonary: no respiratory distress - Cardiovascular Cardiovascular: regular rate and rhythym - ASA Status ASA Status: III ANE Anesthesia Plan Anesthesia Plan: general endotracheal anesthesia
[2019-03-08] MEDS ORDERED: PROPOFOL/EMULSION 500 MG/50 ML BOTTLE IV ONE (11:29)
[2019-03-08] MEDS ORDERED: REMIFENTANIL HCL 1 MG VIAL ONE (11:29)
[2019-03-08] MEDS ORDERED: fentaNYL 100 MCG/2 ML INJ ONE (11:29)
[2019-03-08] MEDS ORDERED: NALOXONE HCL 0.4 MG/ML INJ IVP PRN (12:24)
[2019-03-08] MEDS ORDERED: fentaNYL 100 MCG/2 ML INJ IVP PRN (12:24)
[2019-03-08] MEDS ORDERED: ONDANSETRON 4 MG/2 ML VIAL IVP PRN ×2 (12:24→12:52)
--- NOTE | 2019-03-08 12:49 | POSTOPPROG ---
Post Op Note Date of Operation: 03/08/19 Surgeon: Jose Peter Anesthesiologist: Kael Butler Anesthesia: GET(General Endotracheal) Pre-op Diagnosis: Internal hernia Post-op Diagnosis: Strangulated internal hernia Procedure: Dx lap, Ex lap, SBR, TAP block placement Findings: strangulated small bowel with solitary RLQ adhesive band Inf/Abcess present in the surg proc area at time of surgery?: Yes Depth: Organ Space EBL: Minimal Complications: no immediate Bowel Protocol: N/A Clean Closure Performed: N/A Specimen(s): small bowel
[2019-03-08] MEDS ORDERED: HYDROCODONE/APAP 5/325 TAB PO PRN (12:52)
--- NOTE | 2019-03-08 13:08 | GOP ---
[f rep st] OPERATIVE REPORT DATE OF OPERATION: 03/08/2019 SURGEON: Jose Peter MD ANESTHESIA: General. ANESTHESIOLOGIST: Dr. Butler. PREOPERATIVE DIAGNOSIS: Peritonitis, suspect incarcerated internal hernia. POSTOPERATIVE DIAGNOSIS: Strangulated internal hernia. PROCEDURE PERFORMED: 1. Diagnostic laparoscopy. 2. Exploratory laparotomy with small bowel resection. 3. Transversus abdominis plane block placement. FINDINGS: Non-viable small bowel. INDICATIONS: 88-year-old male admitted with acute onset abdominal pain. CT findings are concerning for possible internal hernia with suspicion for bowel ischemia. He is undergoing surgical exploration at this time. Risks and benefits were explained of bleeding, infection, bowel injury, anastomotic leak, cardiorespiratory failure as well as others. All questions were answered. He desires to proceed. DESCRIPTION OF PROCEDURE: General anesthesia was induced. The abdomen was pre- injected with 0.5% Marcaine with epinephrine. A small infraumbilical incision was created. A Veress needle was placed followed by 5 mm trocar placement. Visual abdominal exam disclosed an area of necrotic small bowel. The laparoscopic portion of the case was subsequently terminated and the abdomen entered through a small lower midline laparotomy to facilitate bowel resection and minimize the risk of perforation or leakage. The small bowel was then eviscerated. There was a tight adhesive band at the level of the terminal ileum. The band was lysed, allowing for the rest the bowel to be eviscerated as well. The small bowel was run from the ileocecal valve to the ligament of Treitz. The central segment of small bowel was the only segment of interest showing a long segment area of bowel ischemia with the rest being all pink and healthy in appearance. A [id number] stapled anastomosis was created using a ABDIEL 75 stapler. The mesenteric dissection was taken between clamps and ties. The infected bowel was removed from the field. The anastomosis appeared pink and healthy with excellent bleeding edges. This was partially oversewn with a running PDS suture. Hemorrhagic ascites was evacuated from the abdominal cavity and irrigated until clear. No other abnormalities were noted. The visceral contents were reduced back into the abdomen. The midline fascia was closed with a running PDS suture prior to application of a bilateral TAP block with 0.25% Marcaine with epinephrine. Monocryl suture was used for skin closure followed by Dermabond placement. The patient was extubated in the operating room and taken to recovery uneventfully. /[id number]/MODL MTDD
--- NOTE | 2019-03-08 13:39 | PDMN ---
Medical Necessity Medical necessity: Pt meets IP criteria per MD & MCG M-160; est los >2 mn for eval/tx of severe sepsis w/leukocytosis & tachycardia likely r/t abdominal source; CT findings concerning for small bowel ischemia vs obstruction; admit for urgent diagnostic laparoscopy & close SDU monitoring; comorbid advanced age , AFIB on AC, pulmonary fibrosis on continuous O2, CKD, CAD, SSS; per H&P & order 03/08/19
[2019-03-08] MEDS: NS 1,000 ML IV SCH ×2 (13:46→22:02)
--- NOTE | 2019-03-08 14:55 | POSTANESTH ---
Post Anesthetic Evaluation Cardiovascular Status: Normal, Stable Respiratory Status: Normal, Stable, Similar to Pre-op Cond. Level of Consciousness/Mental Status: Can Participate in Eval Pain Control: Adequate, Prn Tx Ordered Nausea/Vomiting Control: Adequate, Prn Tx Ordered Complications Possibly Related to Anesthesia: None Noted
[2019-03-08] MEDS: PIPERACILLIN/TAZO 4.5 GM/DEX 100 ML IV SCH ×2 (16:07→21:48)
[2019-03-08] MEDS: DILTIAZEM 30 MG TAB PO SCH (17:00)
[2019-03-08] MEDS: METOPROLOL TARTRATE 25 MG TAB PO SCH (17:01)
[2019-03-08] MEDS: PANTOPRAZOLE SODIUM 40 MG TAB PO SCH (17:01)
[2019-03-08] MEDS: ACETAMINOPHEN 325 MG TAB PO PRN (17:04)
--- NOTE | 2019-03-08 20:07 | SOAPPROG ---
SOAP Progress Note Assessment/Plan: Assessment:s/p SBR. doing great. min pain. no nausea. avss. comfortable. cont supportive care. pérez out in am. ambulate tonight. clears as able. can resume pradaxa 1-2 days. Plan: 03/08/19 20:06 Objective: Vital Signs Temp Pulse Resp BP Pulse Ox 36.0 C 83 14 113/77 100 03/08/19 19:31 03/08/19 19:31 03/08/19 19:31 03/08/19 19:31 03/08/19 19:31 03/07/19 03/08/19 03/09/19 05:59 05:59 05:59 Intake Total 1521 Output Total 350 Balance 1171 PT 16.0 SEC (12.0-15.0) H 03/08/19 06:46 INR 1.34 (0.83-1.16) H 03/08/19 06:46 ICD10 Worksheet Patient Problems: Problems Problem Status Onset Abdominal pain Acute Severe sepsis Acute Anemia Acute Atrial fibrillation with RVR Acute Elevated troponin Acute Generalized weakness Acute Hemoptysis Acute Hypoxemia Acute Pulmonary edema Acute Syncope Acute chronic disease mgmt/transitional care Acute
[2019-03-09] MEDS: PIPERACILLIN/TAZO 4.5 GM/DEX 100 ML IV SCH (04:23)
[2019-03-09] MEDS: NS 1,000 ML IV SCH (04:30)
[2019-03-09] MEDS: ACETAMINOPHEN 325 MG TAB PO PRN ×2 (04:34→21:51)
[2019-03-09 05:32] LABS: PLATELET COUNT 187 10^3/uL (150-400)
--- NOTE | 2019-03-09 06:45 | SOAPPROG ---
SOAP Progress Note Assessment/Plan: Assessment:pod#1 s/p SBR/strangulated internal hernia. no overnight issues. min pain. able to ambulate. pérez out. avss. comfortable. heart irreg. lungs coarse bilat. abd dist, soft, approp incis tenderness, no erythema. WBC 20. K 5. doing great. buff cap. pérez out. adv diet. repeat lytes later today. WBC likely leukemoid reaction post resection - zosyn completed last evening. restart pradaxa tomorrow. ambulate. shower prn. tx floor. Plan: 03/08/19 20:06 03/09/19 06:42 Objective: Vital Signs Temp Pulse Resp BP Pulse Ox 37.1 C 71 19 113/73 100 03/09/19 04:00 03/09/19 04:00 03/09/19 04:00 03/09/19 04:00 03/09/19 04:00 Laboratory Results 03/09/19 04:52 03/09/19 04:52 03/08/19 03/09/19 03/10/19 05:59 05:59 05:59 Intake Total 2904 Output Total 825 Balance 2079 PT 16.0 SEC (12.0-15.0) H 03/08/19 06:46 INR 1.34 (0.83-1.16) H 03/08/19 06:46 ICD10 Worksheet Patient Problems: Problems Problem Status Onset Abdominal pain Acute Severe sepsis Acute Anemia Acute Atrial fibrillation with RVR Acute Elevated troponin Acute Generalized weakness Acute Hemoptysis Acute Hypoxemia Acute Pulmonary edema Acute Syncope Acute chronic disease mgmt/transitional care Acute
[2019-03-09] MEDS: METOPROLOL TARTRATE 25 MG TAB PO SCH ×2 (07:49→18:01)
[2019-03-09] MEDS: DILTIAZEM 30 MG TAB PO SCH ×2 (07:50→17:59)
--- NOTE | 2019-03-09 12:59 | HOSPPROG ---
Hospitalist Progress Note Assessment/Plan: 88yo M with history of CAD s/p remote stent, pAF on pradaxa, pulmonary fibrosis on supplemental oxygen presents with acute onset lower abdominal pain found to have strangulated internal hernia. #Strangulated internal hernia s/p small bowel resection 03/08: doing great - Pain control adequate, ambulate/OOB, pérez out, advance diet #Severe sepsis: Physiology resolved. - S/p zosyn prior on day of surgery, blood cultures ngtd #Post-op anemia - Monitor #Chronic atrial fibrillation: [id number], indicating 4.8% annual stroke. - Holding pradaxa, plan to restart tomorrow (03/10) - Continue diltiazem and metoprolol #Leukocytosis: Slightly higher today, suspect reactive from surgery. Monitor. #CAD s/p PCI to LAD in 2001: No recent angina. ECG on admit non-ischemic. 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 #SSS s/p PPM #H/o GI bleed Diet: adat VTE ppx: SCDs Code: DNR/DNI Dispo: remain inpatient, transfer to floor, working w/PT and OT Objective: Vital Signs Temp Pulse Resp BP Pulse Ox 36.1 C 64 14 100/46 L 99 03/09/19 12:01 03/09/19 12:01 03/09/19 12:01 03/09/19 12:01 03/09/19 12:01 Laboratory Results 03/09/19 04:52 03/09/19 04:52 03/08/19 03/09/19 03/10/19 05:59 05:59 05:59 Intake Total 2904 Output Total 825 300 Balance 2079 -300 PT 16.0 SEC (12.0-15.0) H 03/08/19 06:46 INR 1.34 (0.83-1.16) H 03/08/19 06:46 ICD10 Worksheet Patient Problems: Problems Problem Status Onset Abdominal pain Acute Severe sepsis Acute Anemia Acute Atrial fibrillation with RVR Acute Elevated troponin Acute Generalized weakness Acute Hemoptysis Acute Hypoxemia Acute Pulmonary edema Acute Syncope Acute chronic disease mgmt/transitional care Acute
--- NOTE | 2019-03-09 15:39 | ASMTCMCOM ---
CM Note CM Note Notes: Reviewed chart, pt admitted for strangulated hernia. He was here 2 weeks ago with LLQ pain. He had surgery and He is otherwise independent and lives at home with his . PT/OT evals pending, JENIFER w/f DC Plan: TBD Date Signed: 03/09/2019 03:39 PM Electronically Signed By:Rin Delgado RN
[2019-03-09] MEDS: PANTOPRAZOLE SODIUM 40 MG TAB PO SCH (18:01)
[2019-03-10] MEDS: METOPROLOL TARTRATE 25 MG TAB PO SCH ×2 (08:22→18:48)
[2019-03-10] MEDS: DILTIAZEM 30 MG TAB PO SCH ×2 (08:22→18:48)
--- NOTE | 2019-03-10 09:07 | HOSPPROG ---
Hospitalist Progress Note Assessment/Plan: 88yo M with history of CAD s/p remote stent, pAF on pradaxa, pulmonary fibrosis on supplemental oxygen presents with acute onset lower abdominal pain found to have strangulated internal hernia. #Strangulated internal hernia s/p small bowel resection 03/08: doing great. Discussed with Dr. Tang. - Pain control adequate, ambulate/OOB, pérez out, advance diet #Severe sepsis: Physiology resolved. - S/p zosyn prior on day of surgery, blood cultures ngtd #Post-op anemia - Monitor #Chronic atrial fibrillation: [id number], indicating 4.8% annual stroke. - resume pradaxa today - Continue diltiazem and metoprolol #Leukocytosis: suspect post-op stress, afebrile, trending down now - follow #CAD s/p PCI to LAD in 2001: No recent angina. ECG on admit non-ischemic. 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 #SSS s/p PPM #H/o GI bleed Diet: adat VTE ppx: resuming pradaxa Code: DNR/DNI Dispo: cont inpt Subjective: Pt doing great. Pain controlled. No fevers. Tolerating po. No N/ V. Ambulating in halls. Objective: Vital Signs Temp Pulse Resp BP Pulse Ox 36.3 C 81 18 130/73 H 87 L 03/10/19 06:53 03/10/19 08:22 03/10/19 06:53 03/10/19 08:22 03/10/19 06:53 Laboratory Results 03/10/19 04:52 03/10/19 04:52 03/09/19 03/10/19 03/11/19 05:59 05:59 05:59 Intake Total 2904 700 Output Total 825 670 250 Balance 2079 30 -250 PT 16.0 SEC (12.0-15.0) H 03/08/19 06:46 INR 1.34 (0.83-1.16) H 03/08/19 06:46 - Physical Exam Constitutional: no apparent distress Eyes: PERRL Ears, Nose, Mouth, Throat: moist mucous membranes Cardiovascular: regular rate and rhythym Respiratory: no respiratory distress, clear to auscultation Gastrointestinal: normoactive bowel sounds, soft, non-tender abdomen, other ( incision c/d/i) Skin: warm Musculoskeletal: full muscle strength Neurologic: AAOx3 Psychiatric: interacting appropriately ICD10 Worksheet Patient Problems: Problems Problem Status Onset Abdominal pain Acute Severe sepsis Acute Anemia Acute Atrial fibrillation with RVR Acute Elevated troponin Acute Generalized weakness Acute Hemoptysis Acute Hypoxemia Acute Pulmonary edema Acute Syncope Acute chronic disease mgmt/transitional care Acute
--- NOTE | 2019-03-10 09:59 | SOAPPROG ---
SOAP Progress Note Assessment/Plan: Assessment/Plan: 88 yo presented with strangulated small bowel from internal hernia. CAD, pAF ( on Pradaxa), pulm fiborsis- baseline o2 req 3-4L. POD#2 s/p sbr. Leucocytosis resolving off abx OOB Zan diet. Pain with cough AA&O Abd soft Incision c/d Extr no edema Doing well Floor Reg diet restart Pradaxa 03/10/19 09:56 Objective: Vital Signs Temp Pulse Resp BP Pulse Ox 36.3 C 81 18 130/73 H 87 L 03/10/19 06:53 03/10/19 08:22 03/10/19 06:53 03/10/19 08:22 03/10/19 06:53 Laboratory Results 03/10/19 04:52 03/10/19 04:52 03/09/19 03/10/19 03/11/19 05:59 05:59 05:59 Intake Total 2904 700 Output Total 825 670 250 Balance 2079 30 -250 PT 16.0 SEC (12.0-15.0) H 03/08/19 06:46 INR 1.34 (0.83-1.16) H 03/08/19 06:46 ICD10 Worksheet Patient Problems: Problems Problem Status Onset Abdominal pain Acute Severe sepsis Acute Anemia Acute Atrial fibrillation with RVR Acute Elevated troponin Acute Generalized weakness Acute Hemoptysis Acute Hypoxemia Acute Pulmonary edema Acute Syncope Acute chronic disease mgmt/transitional care Acute
--- NOTE | 2019-03-10 14:14 | ASMTCMCOM ---
CM Note CM Note Notes: CM met with pt and his niece. Pt reports he is feeling better. At this time PT/OT have cleared pt go go home independently. Pt says he has had PT/OT in the past and still does his exercises regularly. CM called pt's on the phone, Regina ([phone]) who feels comfortable with pt going home independently and reported no concerns. She said she is home with a stomach bug today but can be reached by phone with any questions. Plan: Discharged Independently Date Signed: 03/10/2019 01:57 PM Electronically Signed By:HARESH Gillette
[2019-03-10] MEDS: DOCUSATE SODIUM 100 MG CAP PO SCH ×2 (16:18→20:16)
[2019-03-10] MEDS: DABIGATRAN ETEXILATE MESYL 75 MG CAP PO SCH (18:48)
[2019-03-10] MEDS: PANTOPRAZOLE SODIUM 40 MG TAB PO SCH (18:48)
[2019-03-10] MEDS: ATORVASTATIN CALCIUM 10 MG TAB PO SCH (18:48)
[2019-03-11 06:05] LABS: PLATELET COUNT 179 10^3/uL (150-400)
[2019-03-11] MEDS: METOPROLOL TARTRATE 25 MG TAB PO SCH ×2 (07:54→17:52)
[2019-03-11] MEDS: DOCUSATE SODIUM 100 MG CAP PO SCH ×2 (07:55→19:55)
[2019-03-11] MEDS: DABIGATRAN ETEXILATE MESYL 75 MG CAP PO SCH (07:55)
[2019-03-11] MEDS: DILTIAZEM 30 MG TAB PO SCH ×2 (07:55→17:53)
--- NOTE | 2019-03-11 08:07 | SOAPPROG ---
SOAP Progress Note Assessment/Plan: Assessment:pod#3 s/p SBR/strangulated internal hernia. no overnight issues. min pain. ambulating well with therapy. no new cp or sob. no abd c/o. po slowly increasing. avss. comfortable. abd dist, soft, approp incis tenderness , no erythema. doing great. ok to dc from surgical standpoint. frequent small meals. f/u 7-10 days. postop care instructions explained. Plan: 03/08/19 20:06 03/09/19 06:42 03/11/19 08:06 Objective: Vital Signs Temp Pulse Resp BP Pulse Ox 36.8 C 75 20 136/79 H 96 03/11/19 08:00 03/11/19 08:00 03/11/19 08:00 03/11/19 08:00 03/11/19 08:00 Laboratory Results 03/11/19 05:38 03/10/19 04:52 03/10/19 03/11/19 03/12/19 05:59 05:59 05:59 Intake Total 700 475 Output Total 670 1120 250 Balance 30 -645 -250 PT 16.0 SEC (12.0-15.0) H 03/08/19 06:46 INR 1.34 (0.83-1.16) H 03/08/19 06:46 ICD10 Worksheet Patient Problems: Problems Problem Status Onset Abdominal pain Acute Severe sepsis Acute Anemia Acute Atrial fibrillation with RVR Acute Elevated troponin Acute Generalized weakness Acute Hemoptysis Acute Hypoxemia Acute Pulmonary edema Acute Syncope Acute chronic disease mgmt/transitional care Acute
--- NOTE | 2019-03-11 12:31 | HOSPPROG ---
Hospitalist Progress Note Assessment/Plan: 88 yo M with history of CAD s/p remote stent, pAF on pradaxa, pulmonary fibrosis on supplemental oxygen presents with acute onset lower abdominal pain found to have strangulated internal hernia. #Strangulated internal hernia s/p small bowel resection 03/08: doing well, ambulating - Pain control adequate - tolerating full diet #Severe sepsis: Physiology resolved. - S/p zosyn prior on day of surgery, blood cultures ngtd #Post-op anemia - hgb continues to trend down 11.3 --> 7.7, no obvious bleeding , hemodynamically stable - hold pradaxa - hemoccult stool - check CT to r/o RP bleed #Chronic atrial fibrillation: [id number], indicating 4.8% annual stroke. - hold pradaxa due to low hgb - Continue diltiazem and metoprolol for rate control #Leukocytosis: suspect post-op stress, afebrile, trending down now - follow #CAD s/p PCI to LAD in 2001: No recent angina. ECG on admit non-ischemic. 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 #SSS s/p PPM #H/o GI bleed Diet: adat VTE ppx: hold pradaxa, SCD's for now Code: DNR/DNI Dispo: cont inpt, home when h&h stable Subjective: Pt doing fine. Denies bleeding. No CP or SOB. No abdominal pain, N /V. Tolerating full diet. +flatus, no BM. Objective: Vital Signs Temp Pulse Resp BP Pulse Ox 36.8 C 75 20 136/79 H 96 03/11/19 08:00 03/11/19 08:00 03/11/19 08:00 03/11/19 08:00 03/11/19 08:00 Laboratory Results 03/11/19 12:00 03/10/19 04:52 03/10/19 03/11/19 03/12/19 05:59 05:59 05:59 Intake Total 700 475 Output Total 670 1120 250 Balance 30 -645 -250 PT 16.0 SEC (12.0-15.0) H 03/08/19 06:46 INR 1.34 (0.83-1.16) H 03/08/19 06:46 - Physical Exam Constitutional: no apparent distress Eyes: PERRL Ears, Nose, Mouth, Throat: moist mucous membranes Cardiovascular: regular rate and rhythym Respiratory: no respiratory distress, clear to auscultation Gastrointestinal: normoactive bowel sounds, soft, non-tender abdomen, other ( incision c/d/i) Skin: warm Musculoskeletal: full muscle strength Neurologic: AAOx3 Psychiatric: interacting appropriately ICD10 Worksheet Patient Problems: Problems Problem Status Onset Abdominal pain Acute Severe sepsis Acute Anemia Acute Atrial fibrillation with RVR Acute Elevated troponin Acute Generalized weakness Acute Hemoptysis Acute Hypoxemia Acute Pulmonary edema Acute Syncope Acute chronic disease mgmt/transitional care Acute
[2019-03-11] MEDS: PANTOPRAZOLE SODIUM 40 MG TAB PO SCH (17:53)
[2019-03-11] MEDS: ATORVASTATIN CALCIUM 10 MG TAB PO SCH (17:53)
[2019-03-12] MEDS: DILTIAZEM 30 MG TAB PO SCH (07:15)
[2019-03-12] MEDS: METOPROLOL TARTRATE 25 MG TAB PO SCH (07:16)
[2019-03-12] MEDS ORDERED: SENNOSIDES 17.6 MG/10 ML UDL PO SCH (09:00)
[2019-03-12 10:59] VITALS: BP 131/76
[2019-03-12] MEDS: DOCUSATE SODIUM 100 MG CAP PO SCH (10:59)
--- NOTE | 2019-03-12 12:31 | SOAPPROG ---
SOAP Progress Note Assessment/Plan: Assessment:pod#4 s/p SBR/strangulated internal hernia. doing well. no complaints. avss. comfortable. abd dist, soft, approp incis tenderness, no erythema. doing great. postop blood loss anemia on pradaxa. no concern for active bleeding. reassurance appropriate. home today. frequent small meals. f /u 7-10 days. postop care instructions explained. Plan: 03/08/19 20:06 03/09/19 06:42 03/11/19 08:06 03/12/19 12:30 Objective: Vital Signs Temp Pulse Resp BP Pulse Ox 36.6 C 77 18 131/76 H 100 03/12/19 08:00 03/12/19 10:58 03/12/19 08:00 03/12/19 10:58 03/12/19 10:58 Laboratory Results 03/12/19 04:30 03/10/19 04:52 03/11/19 03/12/19 03/13/19 05:59 05:59 05:59 Intake Total 475 650 Output Total 1120 975 200 Balance -645 -325 -200 PT 16.0 SEC (12.0-15.0) H 03/08/19 06:46 INR 1.34 (0.83-1.16) H 03/08/19 06:46 ICD10 Worksheet Patient Problems: Problems Problem Status Onset Abdominal pain Acute Severe sepsis Acute Anemia Acute Atrial fibrillation with RVR Acute Elevated troponin Acute Generalized weakness Acute Hemoptysis Acute Hypoxemia Acute Pulmonary edema Acute Syncope Acute chronic disease mgmt/transitional care Acute
--- NOTE | 2019-03-12 16:23 | ASMTDCNOTE ---
Case Management Discharge Discharge Order Complete? Answers: Yes Patient to Obtain Answers: via Family Medications Transportation Arranged Answers: Family/Friends Transport will Pick (Date 03/12/2019 12:00 AM & Time) Family Notified Answers: Yes Notes: by pt Discharge Comments Notes: CM spoke with pt in the room and with RN. Pt is calling and step son to arrange transportation home and is comfortable with plan to DC independently. Apparently pt was referred to [facility] in the past, but [facility] palliative team confirmed with them that they are not following. No CM needs noted at this time. Date Signed: 03/12/2019 04:22 PM Electronically Signed By:Haydee Gunderson. [facility]
--- NOTE | 2019-03-12 16:26 | ASDISCHSUM ---
Discharge Information Plan Status:Home with No Needs Medically Cleared to Leave:03/12/2019 Discharge Date:03/12/2019 03:01 PM CM D/C Disposition:Home, Routine, Self-Care ADT D/C Disposition:Home, Routine, Self-Care Projected Discharge Date:03/12/2019 03:01 PM Transportation at D/C:Family Discharge Delay Reason: Follow-Up Date:03/12/2019 03:01 PM Discharge Slot: Final Diagnosis:sepsis, strangulated hernia Placement Information Patient Contact Information Contact Name:JUAN Relationship: Address:[address] City:[place] Alternate Phone: State/Zip Code:[place] [phone] Email: Financial Information Financial Class:Medicare Primary Plan Desc:MEDICARE INPATIENT Primary Plan Number:[id number] Secondary Plan Desc:[employer]/M[employer] SUPPLEMENT Secondary Plan Number:[id number] Assessment Information LACE LACE Length of stay for Answers: 3 days current admission Acuity / Level of Answers: Yes Care: Did the patient have an inpatient admission? Comorbidities - select Answers: Coronary Artery Disease all that apply Other Notes: Afib # of Emergency department Answers: 3-4 visits in the last 6 months Score: 12 Date Signed: 03/12/2019 04:25 PM Electronically Signed By:Haydee Gunderson. RN [facility] CM Progress Note CM Note CM Note Notes: Reviewed chart, pt admitted for strangulated hernia. He was here 2 weeks ago with LLQ pain. He had surgery and He is otherwise independent and lives at home with his . PT/OT david pending, JENIFER w/f DC Plan: TBD Date Signed: 03/09/2019 03:39 PM Electronically Signed By:Rin Delgado RN [facility] CM Progress Note CM Note CM Note Notes: CM met with pt and his niece. Pt reports he is feeling better. At this time PT/OT have cleared pt go go home independently. Pt says he has had PT/OT in the past and still does his exercises regularly. CM called pt's on the phone, Regina ([phone]) who feels comfortable with pt going home independently and reported no concerns. She said she is home with a stomach bug today but can be reached by phone with any questions. Plan: Discharged Independently Date Signed: 03/10/2019 01:57 PM Electronically Signed By:HARESH Gillette Case Management Discharge Plan Note Case Management Discharge Discharge Order Complete? Answers: Yes Patient to Obtain Answers: via Family Medications Transportation Arranged Answers: Family/Friends Transport will Pick (Date 03/12/2019 12:00 AM & Time) Family Notified Answers: Yes Notes: by pt Discharge Comments Notes: CM spoke with pt in the room and with RN. Pt is calling and step son to arrange transportation home and is comfortable with plan to DC independently. Apparently pt was referred to [facility] in the past, but [facility] palliative team confirmed with them that they are not following. No CM needs noted at this time. Date Signed: 03/12/2019 04:22 PM Electronically Signed By:Haydee Gunderson. RN Intervention Information Intervention Type:*Incorrect Registration Date of Service:03/08/2019 01:22 PM Patient Type:Observation Staff Member:LEXI Nunez, Carmen Hours: Discipline: Severity: Comment: Intervention Type:*IM-Signed Date of Service:03/12/2019 09:32 AM Patient Type:Inpatient Staff Member:Parisa Angelo Hours: Discipline: Severity: Comment:
--- NOTE | 2019-03-12 18:22 | GDS ---
[f rep st] DISCHARGE SUMMARY DISCHARGE DIAGNOSES: 1. Strangulated internal hernia status post repair and small bowel resection 03/08. 2. Severe sepsis criteria, resolved. 3. Postoperative anemia likely secondary to perioperative blood loss without evidence of active blee ding. 4. Chronic atrial fibrillation. 5. Chronic anticoagulation. 6. Coronary artery disease with history of percutaneous coronary intervention of left anterior desce nding in 2001. 7. Hypertension. 8. Chronic hypoxemia secondary to pulmonary fibrosis, 3 to 4 L of oxygen at baseline. 9. History of sick sinus syndrome with presence of a pacemaker. CONSULTANTS: Dr. Jose Peter, general surgery. HISTORY OF DETAILS: Please see history and physical dated 03/08/2019. In brief, the patient is an [age]-year-old male with multiple medical problems, who presented to the emergency department with abdomi nal pain. He was found to have evidence of a strangulated internal hernia and was admitted to the [facility] for further management. HOSPITAL COURSE: Patient admitted to the step-down unit. CT scan done on arrival revealed inflammat ion involving several loops of small bowel, suspicious for small bowel ischemia and possible internal hernia. Surgical consultation was obtained. He was taken to the operating room that day for a smal l bowel resection and repair of strangulated internal hernia. He received Zosyn on arrival due to co ncern for peritonitis. His sepsis physiology resolved postoperatively, and he remained afebrile. His postop course was remarkable for dropping hemoglobin in the setting of resuming Pradaxa. Pradaxa was held, and ultimately, his hemoglobin stabilized at 9 on the day of discharge. He has had no alcon dence of active bleeding. A noncontrast CT scan was performed to rule out retroperitoneal bleeding w hich was negative. This did show a finding suggestive with a postop ileus. However, his condition c ontinued to improve. His abdomen became less distended. On the day of discharge, his abdomen is sof t. He is passing flatus. He is pain free without nausea or vomiting. It was ultimately thought he h as had postop blood loss anemia without evidence of active bleeding. He will resume his Pradaxa at d ischarge and have close followup with General Surgery. He has been continued on diltiazem and metopr olol for rate control, though we have held his amlodipine and lisinopril as he has been normotensive. I recommend he continue to hold amlodipine and lisinopril at discharge. He can follow up with his primary care physician to recheck his blood pressure and these can be resumed if his blood pressure i s on the rise. He has been maintained on his chronic oxygen requirement of 3 to 4 L. As a matter of fact, he is saturating 100% on 2 L at discharge. His blood pressure is 130/76, heart rate 77, respi ratory rate 18. DISPOSITION: Patient is discharged home in stable condition. FOLLOWUP: 1. Dr. Jl Peter general surgery. 2. Dr. Patterson, primary care. DISCHARGE MEDICATIONS: [facility]. New medications on discharge include: 1. Colace 100 mg p.o. b.i.d. 2. His lisinopril and amlodipine were held. 3. He will continue all other outpatient medications as previously prescribed. /[id number]/MODL
== END 2019-03-12 15:01 | disposition home or self-care (01) | DRG 853 ==
LOC: OBSVTOIN 10:01 → F2N 13:25 → F1N 03-11 17:23
PROVIDERS: ADMIT Surgery; ATTEND Internal Medicine
PROC: 0DT80ZZ Resection of Small Intestine, Open Approach (ICD-10-PCS; principal; 2019-03-08 11:00)
PROC: 0DJ04ZZ Inspection of Upper Intestinal Tract, Percutaneous Endoscopic Approach (ICD-10-PCS; principal; 2019-03-08 11:00)
PROC: XW0 New Technology, Anatomical Regions, Introduction (ICD-10-PCS; 2019-03-08 11:00)
DX: A41.9 Sepsis, unspecified organism (principal); K65.9 Peritonitis, unspecified; K46.0 Unspecified abdominal hernia with obstruction, without gangrene; D62 Acute posthemorrhagic anemia; K91.89 Other postprocedural complications and disorders of digestive system; Z53.31 Laparoscopic surgical procedure converted to open procedure; R65.20 Severe sepsis without septic shock; E86.9 Volume depletion, unspecified; I48.2 Chronic atrial fibrillation; I25.10 Atherosclerotic heart disease of native coronary artery without angina pectoris; I10 Essential (primary) hypertension; R09.02 Hypoxemia; J84.10 Pulmonary fibrosis, unspecified; Z66 Do not resuscitate; Z95.0 Presence of cardiac pacemaker; Z79.01 Long term (current) use of anticoagulants
CPT/HCPCS: 96374; 97161-GP; 97165-GO; 97530-GO; J1170; J2405; J2543; J2704; J3010; Q9967